=== PATIENT | male | born 1980 | race Caucasian/White ===

== ENCOUNTER 2016-08-15 17:32 | Inpatient (IN) | payer BC, OTHER ==
[2016-08-15] VITALS (14 sets, daily range): BP systolic 84–137; BP diastolic 51–77; PULSE 124–140; RESP 15–24; TEMP 98.5–101; O2SAT 91–100
[~2016-08-15] VITALS: Ht 182.9 cm; Wt 96.1 kg
[2016-08-15] MEDS ORDERED: MIDAZOLAM HCL 5 MG/ML VIAL (1 ML) ONE (17:44)
[2016-08-15] MEDS ORDERED: SODIUM CHLOR 0.9% 1000 ML INJ 700 ML IV ONE (17:47)
[2016-08-15] MEDS ORDERED: SODIUM CHLOR 0.9% 1000 ML INJ 1,000 ML IV ONE ×3 (17:47→23:00)
[2016-08-15] MEDS ORDERED: ACETAMINOPHEN 650 MG SUPP RECTAL ONE (18:00)
[2016-08-15] MEDS ORDERED: ONDANSETRON HCL 4 MG/2 ML VIAL IV ONE (18:00)
[2016-08-15] MEDS ORDERED: SUCCINYLCHOLINE CHLORIDE 200 MG/10 ML VIAL IV PUSH ONE (18:00)
[2016-08-15] MEDS ORDERED: MIDAZOLAM 100 MG/ML INJ 100 ML IV SCH (18:00)
[2016-08-15] MEDS ORDERED: ETOMIDATE 20 MG/10 ML VIAL IV PUSH ONE (18:00)
--- NOTE | 2016-08-15 18:08 | RADRPT ---
EXAM DATE/TIME: 08/15/2016 17:56 [facility] COMPARISON: No previous studies available for comparison. INDICATIONS : Found unresponsive RADIATION DOSE: 56.35 CTDIvol (mGy) MEDICAL HISTORY : Non-responsive. SURGICAL HISTORY : Non-responsive. ENCOUNTER: Initial ACUITY: 1 day PAIN SCALE: Non-responsive LOCATION: Bilateral cranial TECHNIQUE: Multiple contiguous axial images were obtained of the head. Using automated exposure control and adj ustment of the mA and/or kV according to patient size, radiation dose was kept as low as reasonably a chievable to obtain optimal diagnostic quality images. FINDINGS: CEREBRUM: The ventricles are normal for age. No evidence of midline shift, mass lesion, hemorrhage or acute in farction. No extra-axial fluid collections are seen. POSTERIOR FOSSA: The cerebellum and brainstem are intact. The 4th ventricle is midline. The cerebellopontine angle i s unremarkable. EXTRACRANIAL: The visualized portion of the orbits is intact. There is a small air-fluid level in the right maxilla ry sinus. There is a small retention cyst in the left maxillary sinus. There is also thickening in th e ethmoidal air cells. SKULL: The calvaria is intact. No evidence of skull fracture. CONCLUSION: 1. No acute hemorrhage or mass effect. 2. Sinusitis. Cruz Velasco MD on August 15, 2016 at 18:05 Board Certified Radiologist. This report was verified electronically.
--- NOTE | 2016-08-15 18:20 | PD ---
HPI Chief Complaint: Altered Mental Status Time Seen by Provider: 17:47 Travel History International Travel<30 days: No Contact w/Intl Traveler<30days: No Traveled to known affect area: No History of Present Illness HPI The patient is a 36-year-old male who presents to the emergency department via EMS after he was found down, on the ground, behind mildly rounds. According to EMS the patient was found on the ground behind a bar, had apparently been in the sun, on the ground, for over 4 hours. EMS states that when they arrived the patient was altered, diaphoretic, and warm to the touch. EMS states that the patient occasionally would respond to voices, however, his GCS was fluctuating. They do believe they found IV syringes and a patient's belongings. Upon arrival the patient had no gag reflex, would not respond to pain, and was hypoxic on a nonrebreather with an oxygen saturation 92% on nonrebreather 15 L. No further information was obtainable from the patient. EMS states that they administered several doses of Narcan to the patient prior to arrival with fluctuating results. Patient's blood glucose prior to arrival was 118. PFSH Past Medical History Medical History: Unable to Obtain Past Surgical History Surgical History: Unable to Obtain Other Surgery: Yes (TESTICULAR TORSION A CHILD) Social History Alcohol Use: Yes Tobacco Use: Yes Substance Use: Yes Allergies-Medications (Allergen,Severity, Reaction): Coded Allergies: No Known Allergies (Verified , 12/18/15) Reported Meds & Prescriptions Reported Meds & Active Scripts Active Active Prescriptions or Reported Medications Unobtainable Review of Systems ROS Limitations: Clinical Condition, Altered Mental Status Except as stated in HPI: all other systems reviewed are Neg General / Constitutional: Positive: Fever (fever 103 according to EMS) Cardiovascular: Positive: Diaphoresis Neurologic: Positive: Change in Mentation Physical Exam Narrative GENERAL: 36-year-old male appears older than his stated age, noted to have tachypnea and diaphoresis upon arrival. SKIN: Focused skin assessment hot to the touch, diaphoretic.. HEAD: Atraumatic. Normocephalic. EYES: Pupils equal and round. 3 mm bilateral with disconjugate gaze. ENT: No nasal bleeding or discharge. Dry mucous membranes. No gag reflex. NECK: Trachea midline. No JVD. CARDIOVASCULAR: Regular, tachycardic with a heart rate of 140. RESPIRATORY: Tachypnea, diminished breath sounds in the right base. GASTROINTESTINAL: Abdomen soft, non-tender, nondistended. No obvious distention. MUSCULOSKELETAL: No obvious deformities. No clubbing. No cyanosis. No edema. NEUROLOGICAL: Did not withdraw to pain, eyes close, nonverbal but would occasionally moan, would not follow commands. Back: No obvious injuries or bleeding. PSYCHIATRIC: Unable to obtain. Data Data Last Documented VS Vital Signs Date Time Temp Pulse Resp B/P Pulse Ox O2 Delivery O2 Flow Rate FiO2 08/15/16 18:58 100 100 08/15/16 18:51 140 18 119/68 Ventilator 08/15/16 17:40 101.0 Orders Midazolam Inj (Versed Inj) (08/15/16 17:44) Electrocardiogram (08/15/16 17:47) Complete Blood Count With Diff (08/15/16 17:47) Comprehensive Metabolic Panel (08/15/16 17:47) Prothrombin Time / Inr (Pt) (08/15/16 17:47) Act Partial Throm Time (Ptt) (08/15/16 17:47) Lactic Acid Sepsis Protocol (08/15/16 17:47) Magnesium (Mg) (08/15/16 17:47) Lipase (08/15/16 17:47) Ckmb (Isoenzyme) Profile (08/15/16 17:47) Troponin I (08/15/16 17:47) Urinalysis - C+S If Indicated (08/15/16 17:47) Influenzae A/B Antigen (08/15/16 17:47) Blood Culture (08/15/16 17:47) Chest, Single Ap (08/15/16 17:47) Arterial Blood Gas (Abg) (08/15/16 17:47) Blood Glucose (08/15/16 17:47) Ecg Monitoring (08/15/16 17:47) Iv Access Insert/Monitor (08/15/16 17:47) Oximetry (08/15/16 17:47) Oxygen Administration (08/15/16 17:47) Acetaminophen Supp (Tylenol Supp) (08/15/16 18:00) Ondansetron Inj (Zofran Inj) (08/15/16 18:00) Ct Brain W/O Iv Contrast(Rout) (08/15/16 17:47) Sodium Chlor 0.9% 1000 Ml Inj (Ns 1000 M (08/15/16 17:47) Sodium Chlor 0.9% 1000 Ml Inj (Ns 1000 M (08/15/16 17:47) Sodium Chlor 0.9% 1000 Ml Inj (Ns 1000 M (08/15/16 17:47) Neurological Rass Scale Q30MX2,Q2HX4,Q4H (08/15/16 17:47) ^ Infusion (08/15/16 17:47) Fentanyl Drip (Fentanyl Drip) (08/15/16 18:00) Midazolam Inj (Versed Inj) (08/15/16 18:00) Neurological Rass Scale Q30MX2,Q2HX4,Q4H (08/15/16 17:47) Etomidate Inj (Amidate Inj) (08/15/16 18:00) Succinylcholine Inj (Quelicin Inj) (08/15/16 18:00) Urinary Catheter Insert/Apply (08/15/16 17:47) Neurological Rass Scale Q30MX2,Q2HX4,Q4H (08/15/16 17:47) Neurological Rass Scale Q30MX2,Q2HX4,Q4H (08/15/16 17:47) Ammonia (08/15/16 18:04) Drug Screen, Random Urine (08/15/16 18:04) Midazolam Inj (Versed Inj) (08/15/16 18:27) Fentanyl Drip (Fentanyl Drip) (08/15/16 18:27) Ceftriaxone Inj (Rocephin Inj) (08/15/16 18:45) Vancomycin Consult Pharmacy (Vancomycin (08/15/16 19:00) Tylenol (Acetaminophen) (08/15/16 18:52) Salicylates (Aspirin) (08/15/16 18:52) Admit Order (Ed Use Only) (08/15/16 19:03) CKMB (08/15/16 18:00) CKMB% (08/15/16 18:00) Labs Laboratory Tests Test 08/15/16 08/15/16 08/15/16 08/15/16 17:50 18:00 18:05 18:07 Lactic Acid Level 5.2 mmol/L White Blood Count 30.2 TH/MM3 Red Blood Count 5.66 MIL/MM3 Hemoglobin 14.4 GM/DL Hematocrit 46.6 % Mean Corpuscular Volume 82.3 FL Mean Corpuscular Hemoglobin 25.5 PG Mean Corpuscular Hemoglobin 30.9 % Concent Red Cell Distribution Width 13.6 % Platelet Count 296 TH/MM3 Mean Platelet Volume 8.0 FL Neutrophils (%) (Auto) 85.3 % Lymphocytes (%) (Auto) 7.5 % Monocytes (%) (Auto) 6.8 % Eosinophils (%) (Auto) 0.3 % Basophils (%) (Auto) 0.1 % Neutrophils # (Auto) 25.8 TH/MM3 Lymphocytes # (Auto) 2.3 TH/MM3 Monocytes # (Auto) 2.1 TH/MM3 Eosinophils # (Auto) 0.1 TH/MM3 Basophils # (Auto) 0.0 TH/MM3 CBC Comment AUTO DIFF Differential Total Cells 100 Counted Neutrophils % (Manual) 62 % Band Neutrophils % 22 % Lymphocytes % 10 % Monocytes % 5 % Neutrophils # (Manual) 25.7 TH/MM3 Myelocytes 1 % Nucleated Red Blood Cells 1 /100 WBC Differential Comment FINAL DIFF MANUAL Atypical Lymphocytes % Platelet Estimate NORMAL Platelet Morphology Comment NORMAL Prothrombin Time 10.8 SEC Prothromb Time International 1.0 RATIO Ratio Activated Partial 22.9 SEC Thromboplast Time Sodium Level 142 MEQ/L Potassium Level 4.8 MEQ/L Chloride Level 107 MEQ/L Carbon Dioxide Level 19.6 MEQ/L Anion Gap 15 MEQ/L Blood Urea Nitrogen 28 MG/DL Creatinine 2.42 MG/DL Estimat Glomerular Filtration 30 ML/MIN Rate Random Glucose 70 MG/DL Calcium Level 8.6 MG/DL Magnesium Level 2.8 MG/DL Total Bilirubin 0.4 MG/DL Aspartate Amino Transf 825 U/L (AST/SGOT) Alanine Aminotransferase 639 U/L (ALT/SGPT) Alkaline Phosphatase 119 U/L Total Creatine Kinase 3505 U/L Creatine Kinase MB 38.6 NG/ML Creatine Kinase MB % 1.1 % Troponin I 0.89 NG/ML Total Protein 7.3 GM/DL Albumin 3.7 GM/DL Lipase 187 U/L Acetaminophen Level LESS THAN 2.0 MCG/ML Thyroid Stimulating Hormone 2.140 uIU/ML 3rd Gen Ammonia 79 MCMOL/L Urine Color YELLOW Urine Turbidity HAZY Urine pH 6.5 Urine Specific [place] 1.017 Urine Protein 100 mg/dL Urine Glucose (UA) NEG mg/dL Urine Ketones NEG mg/dL Urine Occult Blood LARGE Urine Nitrite NEG Urine Bilirubin NEG Urine Urobilinogen LESS THAN 2.0 MG/DL Urine Leukocyte Esterase NEG Urine RBC 2 /hpf Urine WBC 5 /hpf Microscopic Urinalysis Comment CATH-CULT NOT IND Urine Opiates Screen POS Urine Barbiturates Screen NEG Urine Amphetamines Screen NEG Urine Benzodiazepines Screen NEG Urine Cocaine Screen NEG Urine Cannabinoids Screen NEG Test 08/15/16 18:20 Blood Gas Puncture Site RT RADIAL Blood Gas Patient Temperature 98.6 Blood Gas HCO3 19 mmol/L Blood Gas Base Excess -6.0 mmol/L Blood Gas Oxygen Saturation 98 % Arterial Blood pH 7.29 Arterial Blood Partial 41 mmHg Pressure CO2 Arterial Blood Partial 351 mmHG Pressure O2 Arterial Blood Oxygen Content 20.6 Vol % Arterial Blood 1.3 % Carboxyhemoglobin Arterial Blood Methemoglobin 0.8 % Blood Gas Hemoglobin 14.4 G/DL Oxygen Delivery Device VENTILATOR Blood Gas Ventilator Setting A/C 14/550/5PEEP Blood Gas Inspired Oxygen 100 % MDM Medical Decision Making Medical Screen Exam Complete: Yes Emergency Medical Condition: Yes Medical Record Reviewed: Yes Interpretation(s) EKG reveals sinus tachycardia with a heart rate of 135. Q wave noted in lead V1 and V2. Last Impressions Head CT [id number]/15/[id number] Signed Impressions: Service Date/Time: July 17:56 - CONCLUSION: 1. No acute hemorrhage or mass effect. 2. Sinusitis. Cruz Velasco MD Chest X-Ray [id number]/15/[id number] Signed Impressions: Service Date/Time: July 18:14 - CONCLUSION: No acute cardiopulmonary disease. Kiesha Keating MD Laboratory Tests Test 08/15/16 08/15/16 17:50 18:00 Lactic Acid Level 5.2 mmol/L White Blood Count 30.2 TH/MM3 Red Blood Count 5.66 MIL/MM3 Hemoglobin 14.4 GM/DL Hematocrit 46.6 % Mean Corpuscular Volume 82.3 FL Mean Corpuscular Hemoglobin 25.5 PG Mean Corpuscular Hemoglobin 30.9 % Concent Red Cell Distribution Width 13.6 % Platelet Count 296 TH/MM3 Mean Platelet Volume 8.0 FL Neutrophils (%) (Auto) 85.3 % Lymphocytes (%) (Auto) 7.5 % Monocytes (%) (Auto) 6.8 % Eosinophils (%) (Auto) 0.3 % Basophils (%) (Auto) 0.1 % Neutrophils # (Auto) 25.8 TH/MM3 Lymphocytes # (Auto) 2.3 TH/MM3 Monocytes # (Auto) 2.1 TH/MM3 Eosinophils # (Auto) 0.1 TH/MM3 Basophils # (Auto) 0.0 TH/MM3 CBC Comment AUTO DIFF Prothrombin Time 10.8 SEC Prothromb Time International 1.0 RATIO Ratio Activated Partial 22.9 SEC Thromboplast Time Sodium Level 142 MEQ/L Potassium Level 4.8 MEQ/L Chloride Level 107 MEQ/L Carbon Dioxide Level 19.6 MEQ/L Anion Gap 15 MEQ/L Blood Urea Nitrogen 28 MG/DL Creatinine 2.42 MG/DL Estimat Glomerular Filtration 30 ML/MIN Rate Random Glucose 70 MG/DL Calcium Level 8.6 MG/DL Magnesium Level 2.8 MG/DL Aspartate Amino Transf 825 U/L (AST/SGOT) Albumin 3.7 GM/DL Lipase 187 U/L Differential Diagnosis Differential diagnosis includes drug ingestion, drug overdose, alcohol intoxication, meningitis, sepsis, pneumonia, dehydration, heat stroke, encephalopathy. Narrative Course IV was established, labs are drawn and sent, and the patient was placed on cardiac telemetry monitoring and continuous pulse oximetry monitoring. The patient did not have a gag reflex, had altered mental status, was not protecting his airway, was hypoxic on nonrebreather 92%. Therefore, the patient was intubated using rapid sequence intubation with etomidate, succinylcholine, and a glide scope. Patient was intubated using an 88.0 endotracheal tube. The patient was administered Versed 5 mg intravenously for sedation and then went to the CT suite for CT of the brain. Chest x-ray was obtained. Blood cultures and lactic acid were sent to lab. Ammonia level was sent to lab. The patient was administered 3 L of IV fluids and placed on a Versed and fentanyl drip for sedation. I reviewed the patient's EMR, it appears he has a history of IV drug abuse in the past. CT the brain is negative. Chest x-rays unremarkable, no evidence of pneumonia. Patient's white count is elevated at 30.2, creatinine is elevated at 2.42, patient appears to have acute renal failure with leukocytosis. I'm unsure if patient had drug overdose and heatstroke from laying out in sun versus infectious process such as meningitis. The patient was covered with Rocephin 2 g intravenously. The patient will be admitted to the on-call food safety technician. Critical Care Narrative Aggregate critical care time was 40 minutes. Time to perform other separately billable procedures was not included in the critical care time. My time did not include minutes spent treating any other patients simultaneously or on activities that did not directly contribute to the patient's treatment. The services I provided to this patient were to treat and/or prevent clinically significant deterioration that could result in: Anoxia, hypoxia, aspiration, sepsis, severe sepsis, septic shock, . I provided critical care services requiring my management, as noted below: Chart data review, documentation time, medication orders and management, vital sign assessments/reviewing monitor data, ordering and reviewing lab tests, ordering and interpreting/reviewing x-rays and diagnostic studies, care of the patient and discussion of the patient with the admitting physicians. Procedures Procedure Narrative INTUBATION: The patient was put in optimal position for the procedure. Rapid sequence intubation was initiated by me using 20 milligrams of etomidate IV and 100 milligrams of succinylcholine IV. The patient was intubated with a 8.0 cuffed endotracheal tube. Tube placement was confirmed by visualization of the tube and balloon passing through the cords, capnometry and subsequent chest x- ray. Breath sounds were equal and well aerated bilaterally postintubation. No breath sounds over stomach. Patient tolerated procedure well. Physician Communication Physician Communication The on-call food safety technician was paged for admission. I discussed the patient with Dr. Howard who agrees with admission. Diagnosis Primary Impression: Altered mental status Qualified Code: R40.2430 - Egan coma scale total score 3-8, unspecified time Additional Impressions: Leukocytosis Qualified Code: D72.829 - Leukocytosis, unspecified type Lactic acidosis Admitting Information Admitting Physician Requests: Admit Scripts Unable to Obtain Active Prescriptions or Reported Meds Condition: Critical Sudheer Kee MD Aug 15, 2016 18:20
[2016-08-15 18:24] LABS: AUTOMATED NEUTROPHIL # 25.8 TH/MM3 (1.8-7.7); BASOPHIL % 0.1 % (0.0-2.0); EOSINOPHIL # 0.1 TH/MM3 (0-0.4); EOSINOPHIL % 0.3 % (0.0-4.0); HEMATOCRIT 46.6 % (39.0-51.0); LYMPH % 7.5 % (9.0-44.0); LYMPHOCYTE # 2.3 TH/MM3 (1.0-4.8); MEAN CELL VOLUME 82.3 FL (80.0-100.0); MEAN CORPUSCULAR HEMOGLOBIN 25.5 PG (27.0-34.0); MEAN CORPUSCULAR HGB CONC 30.9 % (32.0-36.0); MONO % 6.8 % (0.0-8.0); NEUT % 85.3 % (16.0-70.0); PLATELET COUNT 296 TH/MM3 (150-450); RED BLOOD COUNT 5.66 MIL/MM3 (4.50-5.90); RED CELL DISTRIBUTION WIDTH 13.6 % (11.6-17.2); WHITE BLOOD COUNT 30.2 TH/MM3 (4.0-11.0)
--- NOTE | 2016-08-15 18:25 | RADRPT ---
EXAM DATE/TIME: 08/15/2016 18:14 [facility] COMPARISON: No previous studies available for comparison. INDICATIONS : Fever, post intubation. MEDICAL HISTORY : None. SURGICAL HISTORY : None. ENCOUNTER: Initial ACUITY: 1 day PAIN SCORE: Non-responsive. LOCATION: Bilateral chest FINDINGS: The lungs are clear without infiltrate, nodule, or mass. There is no appreciable pleural effusion fo r technique. Heart and mediastinum are unremarkable. ET tube is present with tip overlapping approxi mately 5 cm above the gloria. CONCLUSION: No acute cardiopulmonary disease. Kiesha Keating MD on August 15, 2016 at 18:21 Board Certified Radiologist. This report was verified electronically.
[2016-08-15] MEDS ORDERED: fentaNYL DRIP 250 ML ONE (18:27)
[2016-08-15] MEDS ORDERED: MIDAZOLAM 100 MG/ML INJ 100 ML ONE (18:27)
[2016-08-15 18:30] LABS: APTT (PATIENT) 22.9 SEC (24.3-30.1); PROTHROMBIN TIME - PATIENT 10.8 SEC (9.8-11.6)
[2016-08-15] MEDS: fentaNYL DRIP 250 ML IV SCH (18:33)
[2016-08-15 18:37] LABS: HEMO FLAGS AUTO DIFF
[2016-08-15 18:42] LABS: ANION GAP 15 MEQ/L (5-15); AST (GOT) 825 U/L (15-37); BICARBONATE 19.6 MEQ/L (21.0-32.0); BLOOD UREA NITROGEN 28 MG/DL (7-18); CHLORIDE 107 MEQ/L (98-107); GLOMERULAR FILTRATION RATE 30 ML/MIN (>89); MAGNESIUM 2.8 MG/DL (1.5-2.5); POTASSIUM 4.8 MEQ/L (3.5-5.1); SODIUM (NA) 142 MEQ/L (136-145)
[2016-08-15 18:45] LABS: BLOOD, URINE LARGE (NEG); COMMENT (UR) CATH-CULT NOT IND; CULTURE IF INDICATED CATH CULTURE NOT IND; GLUCOSE,URINE NEG (NEG); KETONE, URINE NEG (NEG); NITRITE,URINE NEG (NEG); PH, URINE 6.5 (5.0-8.5); URINE COLOR YELLOW (YELLW/STRAW)
[2016-08-15] MEDS ORDERED: cefTRIAXone INJ 2,000 MG in SODIUM CHLORIDE 0.9% INJ 100 ML IV ONE (18:45)
[2016-08-15 18:46] LABS: AMPHETAMINE, URINE NEG (NEG); BARBITURATES, URINE NEG (NEG); COCAINE, URINE NEG (NEG)
[2016-08-15 18:47] LABS: BLOOD GAS CARBOXYHEMOGLOBIN 1.3 % (0-4); BLOOD GAS HCO3 19 mmol/L (22-26); BLOOD GAS METHEMOGLOBIN 0.8 % (0-2); BLOOD GAS O2 HGB SATURATION 98 % (90-100); BLOOD GAS OXYGEN CONTENT 20.6 Vol % (12.0-20.0); BLOOD GAS PCO2 41 mmHg (38-42); BLOOD GAS PO2 351 mmHG (61-120); BLOOD GAS TOTAL HGB 14.4 G/DL (12.0-16.0); TEMP CORR TO 98.6
[2016-08-15 18:48] LABS: CRITICAL VALUE YES; DRAW SITE RT RADIAL; FIO2 100 %; NUMBER OF ARTERIAL PUNCTURES 1; OXYGEN DEVICE VENTILATOR; STAT YES; ULNAR PULSE PRESENT; VENT SETTINGS A/C 14/550/5PEEP
[2016-08-15] MEDS ORDERED: Vancomycin Consult Pharmacy 1 EA OTHER SCH (19:00)
[2016-08-15 19:10] LABS: ALKALINE PHOSPHATASE 119 U/L (45-117); ALT (GPT) 639 U/L (12-78); CREATINE KINASE 3505 U/L (39-308); TOTAL BILIRUBIN ADULT 0.4 MG/DL (0.2-1.0)
[2016-08-15 19:27] LABS: CKMB 38.6 NG/ML (0.5-3.6)
--- NOTE | 2016-08-15 19:33 | HHI.HP ---
HPI Service Critical Care Medicine Primary Care Physician No Primary Care Physician Admission Diagnosis respiratory distress, hypoxia, SIRS, altered mental status Diagnosis: Travel History International Travel<30 Days: No Contact w/Intl Traveler <30 Da: No Traveled to Known Affected Are: No History of Present Illness 36-year-old male who was found down unresponsive outside of a bar. By report, he had been down outside for about 4 hours when [facility] arrived. He reportedly had syringes and IV drug paraphernalia with him. There was minimal if any response to IV Narcan by [facility]. He was intubated upon arrival to the ED for airway protection by Dr. Kee. He had no eye opening, no motor response to noxious stimuli, and no gag. Sats were about 90% on 100% NR. He was diaphoretic and temp was 101. ED workup included CT brain with the impression of sinusitis and no acute abnormality. He had rhabdomyolysis with a CPK of 3500 , BUN 28/creatinine of 1.42, white blood cell count of 30.2 with 22% bands. Urinalysis was relatively unremarkable except for consistent with myoglobinuria. CXR unremarkable. 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 I reviewed EMR and did not note any surgical history documented at prior visits Reported Medications Unable to obtain from patient due to clinical condition. Family History Unable to obtain from patient due to clinical condition. Social History Unable to obtain from patient due to clinical condition. He did report h/o IVDU with Dilaudid during ED visit in 05/2015 Physical Exam Vital Signs Vital Signs Date Time Temp Pulse Resp B/P Pulse Ox O2 Delivery O2 Flow Rate FiO2 08/15/16 18:58 100 100 08/15/16 18:51 140 18 119/68 100 Ventilator 08/15/16 18:20 99 Ventilator 08/15/16 18:20 134 99 08/15/16 18:20 133 20 121/74 99 Ventilator 08/15/16 18:18 136 24 117/73 99 Ventilator 08/15/16 17:53 100 100 08/15/16 17:40 101.0 140 24 137/77 93 Physical Exam Temp 101 Sinus tach in the 130s blood pressure 119/68 sats 92% on 60% FiO2 on mechanical ventilation Drips: Fentanyl 100 g per hour Versed 4 mg/hr. GENERAL: Disheveled male who is orotracheally intubated. He has a full gómez. SKIN: Warm and dry. There is some redness to lower left back just above iliac crest. No rash, no petechiae. HEAD: Atraumatic. Normocephalic. EYES: Pupils pinpoint bilaterally and sluggishly reactive. Bilateral conjunctival injection. No icterus. ENT: No nasal bleeding or discharge. Mucous membranes pink, dry. NECK: Trachea midline. Jugular veins are flat. Neck is supple without meningismus. CARDIOVASCULAR: Tachycardic in the mid 130s, regular, no murmur rub or gallop appreciated. RESPIRATORY: Overbreaths vent, coarse breath sounds L>R base. No wheezes. No accessory muscle use. GASTROINTESTINAL: Abdomen soft, non-tender, nondistended. Bowel sounds hypoactive : Mejia in place with dark eda urine output. MUSCULOSKELETAL: Extremities without clubbing, cyanosis, or edema. No obvious deformities. NEUROLOGICAL: Initially upon evaluation in the ED patient had been sedated and was unresponsive to deep noxious stimuli. He was subsequently examined after arrival to [facility]. He did have eye opening but did not make eye contact. He withdrew with all extremities and also moved all extremities spontaneously. Does not follow commands. No abnormal response to Babinski. No clonus. Laboratory Laboratory Tests Test 08/15/16 08/15/16 08/15/16 08/15/16 17:50 18:00 18:05 18:07 Lactic Acid Level 5.2 White Blood Count 30.2 Red Blood Count 5.66 Hemoglobin 14.4 Hematocrit 46.6 Mean Corpuscular Volume 82.3 Mean Corpuscular Hemoglobin 25.5 Mean Corpuscular Hemoglobin 30.9 Concent Red Cell Distribution Width 13.6 Platelet Count 296 Mean Platelet Volume 8.0 Neutrophils (%) (Auto) 85.3 Lymphocytes (%) (Auto) 7.5 Monocytes (%) (Auto) 6.8 Eosinophils (%) (Auto) 0.3 Basophils (%) (Auto) 0.1 Neutrophils # (Auto) 25.8 Lymphocytes # (Auto) 2.3 Monocytes # (Auto) 2.1 Eosinophils # (Auto) 0.1 Basophils # (Auto) 0.0 CBC Comment AUTO DIFF Prothrombin Time 10.8 Prothromb Time International 1.0 Ratio Activated Partial 22.9 Thromboplast Time Sodium Level 142 Potassium Level 4.8 Chloride Level 107 Carbon Dioxide Level 19.6 Anion Gap 15 Blood Urea Nitrogen 28 Creatinine 2.42 Estimat Glomerular Filtration 30 Rate Random Glucose 70 Calcium Level 8.6 Magnesium Level 2.8 Total Bilirubin 0.4 Aspartate Amino Transf 825 (AST/SGOT) Alanine Aminotransferase 639 (ALT/SGPT) Alkaline Phosphatase 119 Total Creatine Kinase 3505 Creatine Kinase MB 38.6 Creatine Kinase MB % 1.1 Troponin I 0.89 Total Protein 7.3 Albumin 3.7 Lipase 187 Ammonia 79 Urine Color YELLOW Urine Turbidity HAZY Urine pH 6.5 Urine Specific [place] 1.017 Urine Protein 100 Urine Glucose (UA) NEG Urine Ketones NEG Urine Occult Blood LARGE Urine Nitrite NEG Urine Bilirubin NEG Urine Urobilinogen LESS THAN 2.0 Urine Leukocyte Esterase NEG Urine RBC 2 Urine WBC 5 Microscopic Urinalysis Comment CATH-CULT NOT IND Urine Opiates Screen POS Urine Barbiturates Screen NEG Urine Amphetamines Screen NEG Urine Benzodiazepines Screen NEG Urine Cocaine Screen NEG Urine Cannabinoids Screen NEG Test 08/15/16 18:20 Blood Gas Puncture Site RT RADIAL Blood Gas Patient Temperature 98.6 Blood Gas HCO3 19 Blood Gas Base Excess -6.0 Blood Gas Oxygen Saturation 98 Arterial Blood pH 7.29 Arterial Blood Partial 41 Pressure CO2 Arterial Blood Partial 351 Pressure O2 Arterial Blood Oxygen Content 20.6 Arterial Blood 1.3 Carboxyhemoglobin Arterial Blood Methemoglobin 0.8 Blood Gas Hemoglobin 14.4 Oxygen Delivery Device VENTILATOR Blood Gas Ventilator Setting A/C 14/550/5PEEP Blood Gas Inspired Oxygen 100 Date/Time Procedure Status Source Growth 08/15/16 18:05 Influenza Types A,B Antigen (NATHALY) - Final Complete Nasal Aspirate Positive For Flu A Antigen 08/15/16 18:00 Aerobic Blood Culture Received Blood Peripheral Pending 08/15/16 18:00 Anaerobic Blood Culture Received Blood Peripheral Pending Result Diagram: 08/15/16 1800 08/15/16 1800 Septic Shock Reassessment Heart: Other (tachycardic) Lungs: Course Skin: Warm Capillary Refill: >2 seconds Assessment and Plan Assessment and Plan NEURO: Acute encephalopathy Hyperammonemia (ammonia level 79) Obtain Tylenol and salicylate level, ETOH level. UDS + for opiates. Lactulose 30 bid for hyperammonemia, f/u ammonia level. CT brain - sinusitis, otherwise no acute abnormality. Lumbar puncture performed: 6 WBC, 2 RBC, 107 glucose, mildly elevated protein at 49.9. Opening pressure elevated, 29.5 cm H20. Ordered MRI which demonstrated diffusion abnormalities of L parietal and R temporal lobe. ?acute infarction Ordered MRA brain and neck negative. Consulted neurology. Abx management as per below. Thiamine/multivitamin/folic acid supplementation. Monitor for evidence of alcohol withdrawal Sedation with fentanyl and versed. Did not tolerate propofol initially due to hypotension, but may tolerate better once fluid resuscitated. Propofol or precedex would ultimately be a better sedation choice to avoid prolonged sedation in this patient with renal insufficiency. RESP: Acute respiratory failure Every 6 hours. Albuterol every 2 hours as needed Daily spontaneous breathing trial. CXR with satisfactory endotracheal tube position. No infiltrate noted. CV: Elevated troponin, suspect type II NSTEMI due to sepsis/hypoxia. Follow serial troponins and EKG. Obtain 2-D echo. Serial lactic acid trend per sepsis protocol. Given aspirin 161 x1. Would not anticoagulate at this time based on overall clinical picture and lumbar puncture. GI: Transaminitis Nothing by mouth. OGT tube to low intermittent wall suction. Initiate enteral feeds in 24 hours if not extubating. Obtain liver ultrasound. Obtain Viral hepatitis panel. Follow-up LFTs FEN/RENAL: Acute kidney injury Acute rhabdomyolysis Hyperkalemia Mejia inserted. Monitor intake and output. Monitor electrolytes. Likely appears dry. Given 3 L normal saline in the emergency Department. Bolus and additional liter and ongoing resuscitation fluid 150/hr. Initial potassium was 4.8. Potassium increased to 6.6 without apparent hemolysis. Given calcium, kayexalate 15 tube. Repeat K downtrended. D5 150 MEQ bicarb @ 150 ml/hr. Trend CPK. Nephrology consulted ID: Leukocytosis Severe sepsis Lactic acidemia Influenza A h/o orolabial herpes simplex h/o IVDU Initially covered empirically for meningitis with Rocephin 2 g IV every 12 and vancomycin. CSF studies were not consistent with bacterial meningitis and patient had apparent clinical aspiration (despite negative CXR). Started on zosyn and will continue vancomycin. Tamiflu started due to Influenza A. Started acyclovir empiric 10 mg/kg q12 (dose timing adjusted for renal dysfunction) for HSV encephalitis, however will need to discontinue promptly if HSV PCR negative in view of JUAN M. Noted MRI findings ?secondary to influenza A associated increased ischemic risk ?embolic phenomenon. Transthoracic 2-D echo pending, evaluate for vegetations. May need ASHLEIGH. Consult Infectious disease and followup neurology recommendations as well. HEME: Monitor CBC ENDO: Check TSH Mild hypoglycemia. On fluids with D5 as per above. Monitor bedside glucose every 4 hours PROPH: SCDs for DVT prophylaxis. Start heparin subcutaneous for DVT prophylaxis 24 hours after lumbar puncture. Famotidine for stress ulcer prophylaxis. ACCESS: Peripheral IV providing adequate access at this time. Will place central venous line if needed. Discussed with Dr. Kee. Discussed with ED RN. Discussed with [facility] RN. Patient is full code. There is no family available Critical care time 78 minutes exclusive of separately billable procedures. Lo Howard MD Aug 15, 2016 19:33
--- NOTE | 2016-08-15 19:33 | PD.PROCEDR ---
Procedure Note Procedure PROCEDURE: Lumbar Puncture. INDICATION: Altered mental status, leukocytosis, fever CONSENT: Patient is not capacitated for medical decision-making. There is no family available for consent. It is in patient's best interest to proceed with lumbar puncture for complete evaluation of his altered mental status with possible meningitis. Dr. Sudheer Kee agrees with this PROCEDURE SUMMARY: A time-out was performed. The patient was placed in the right lateral decubitus position in a semi- position with help from the nursing staff. Landmarks were identified. Sterile technique including hat, gown, sterile gloves was used. The area was cleansed with chlorhexidine x3 and draped in usual sterile fashion. Anesthesia was achieved with 1% lidocaine. A 20-gauge 3.5 -inch spinal needle was placed in the L4-L5 interspace. On the first attempt, clear cerebral spinal fluid was obtained. The opening pressure was 29 cm H2O. Four tubes were filled with 1.5 mL of CSF. Tubes were sent to lab. Patient tolerated procedure well without apparent complication. ESTIMATED BLOOD LOSS: <1 cc. Lo Howard MD Aug 15, 2016 19:33
[2016-08-15] MEDS ORDERED: SODIUM CHLOR 0.9% 1000 ML INJ 1,000 ML IV SCH (19:45)
[2016-08-15] MEDS ORDERED: fentaNYL DRIP 250 ML IV SCH (20:00)
[2016-08-15] MEDS: DEXT 5%-NACL 0.9% 1000 ML INJ 1,000 ML IV SCH (20:00)
[2016-08-15] MEDS ORDERED: SODIUM CHLORIDE 0.9% FLUSH 10 ML FLUSH PRN (20:00)
[2016-08-15] MEDS ORDERED: MISCELLANEOUS NURSING INFORMATION XX SCH (20:00)
[2016-08-15] MEDS ORDERED: RESP: ALBUTEROL 2.5 MG/3 ML NEB (PRN) INH (20:00)
[2016-08-15] MEDS ORDERED: VANCOMYCIN INJ 2,000 MG in SODIUM CHLORID 0.9% 500 ML INJ 500 ML IV ONE (20:00)
[2016-08-15] MEDS ORDERED: CHLORHEXIDINE GLUCONATE 2 % 1 PACK (2 CLOTHS) TOP PRN (20:00)
[2016-08-15 20:10] LABS: LACTIC ACID GHOST NOT REPORTABLE
[2016-08-15 20:16] LABS: BANDS 22 % (0-6); CORRECTED NUCLEATED RBC 1 /100 WBC (0-0); MYELOCYTES 1 % (0-0); NEUTROPHIL # MANUAL DIFF 25.7 TH/MM3 (1.8-7.7); POLYS (SEG NEUTROPHILS) 62 % (16-70); WBC DIFF SAMPLE 100
[2016-08-15 20:18] LABS: PLATELET ESTIMATE SMEAR NORMAL (NORMAL); PLATELET MORPHOLOGY NORMAL (NORMAL); SCAN/DIFF FINAL DIFF MANUAL
--- NOTE | 2016-08-15 20:57 | EKG ---
Date Performed: 08/15/2016 Time Performed: 18:25:15 PTAGE: 36 years EKG: SINUS TACHYCARDIA Possible SEPTAL MYOCARDIAL INFARCTION ABNORMAL ECG COMPARED TO PRIOR ELEC TROCARDIOGRAM, Rate has increased. PREVIOUS TRACING : 06/18/2015 19.28 DOCTOR: Jonathan Min Interpretating Date/Time 08/15/2016 20:56:37
[2016-08-15] MEDS: OSELTAMIVIR PHOSPHATE 6 MG/ML 60 ML SUSP OG-TUBE SCH (21:00)
[2016-08-15 21:28] LABS: GROSS BLOOD TUBE #1 0 (0); SUPERNATE COLOR TUBE #1 CLEAR (CLEAR); SUPERNATE COLOR TUBE #2 CLEAR (CLEAR); VOLUME TUBE # 1 0.8 ML; VOLUME TUBE # 2 0.9 ML
[2016-08-15 21:29] LABS: CSF LYMPHOCYTES 95 %; CSF MONOCYTES 5 %; CSF NEUTROPHILS 0 %; GROSS BLOOD TUBE #2 0 (0); GROSS BLOOD TUBE #3 0 (0); GROSS BLOOD TUBE #4 0 (0); SUPERNATE COLOR TUBE #3 CLEAR (CLEAR); SUPERNATE COLOR TUBE #4 CLEAR (CLEAR); VOLUME TUBE # 3 1.9 ML; VOLUME TUBE # 4 0.9 ML; WBC TUBE #2 6 /MM3 (0-10)
--- NOTE | 2016-08-15 21:47 | RADRPT ---
EXAM DATE/TIME: 08/15/2016 21:05 [facility] COMPARISON: CT BRAIN W/O CONTRAST, August 15, 2016, 17:56. INDICATIONS : Patient found unresponsive. MEDICAL HISTORY : Unknown SURGICAL HISTORY : Unknown. ENCOUNTER: Initial ACUITY: 1 day PAIN SCORE: Nonresponsive. LOCATION: Head. TECHNIQUE: Multiplanar, multisequence MRI of the brain was performed without contrast. FINDINGS: There is a vague area of bright signal involving the left posterior parietal white matter tracts in addition to right posterior temporal on the diffusion portion questionable for mild areas of acut e infarction, however the appearance is nonspecific. There is no hemorrhage or mass effect. CONCLUSION: Vague area of possible diffusion abnormalities in the left parietal and right temporal lobe without c orrelative findings on the other sequences questionable for possible acute infarction, however the ap pearance is nonspecific. There is no hemorrhage or mass effect. Kiesha Keating MD on August 15, 2016 at 21:42 Board Certified Radiologist. This report was verified electronically.
[2016-08-15] MEDS: RESP: ALBUTEROL 2.5 MG/IPRATROPIUM 0.5 MG NEB (SCH) INH (22:03)
[2016-08-16] VITALS (16 sets, daily range): BP systolic 86–145; BP diastolic 55–80; PULSE 109–121; RESP 14–18; TEMP 98.6–100.4; O2SAT 94–99
--- NOTE | 2016-08-16 00:30 | RADRPT ---
EXAM DATE/TIME: 08/15/2016 23:31 [facility] COMPARISON: No previous studies available for comparison. INDICATIONS : CVA. Pt. found unresponsive. MEDICAL HISTORY : Unknown. SURGICAL HISTORY : Unknown. ENCOUNTER: Subsequent ACUITY: 1 day PAIN SCORE: Nonresponsive. LOCATION: cranial Please note a normal MRA of the brain does not entirely exclude the possibility of a small aneurysm, nor the possibility of distal intracranial vessel disease. TECHNIQUE: 3D time of flight MRA was performed. Source images, multiplanar STS MIP, and 3D volume MIP reconstru ctions were reviewed. FINDINGS: There is excellent visualization of the major intracranial arteries out to the second-order branch ve ssels. There is no evidence for aneurysm, vessel truncation or stenosis, and no evidence for vascula r malformation. Left vertebral artery is dominant. CONCLUSION: Normal intracranial MRA. Eleazar Viera MD on August 16, 2016 at 0:28 Board Certified Radiologist. This report was verified electronically.
[2016-08-16 00:41] LABS: CKMB 328.2 NG/ML (0.5-3.6)
[2016-08-16] MEDS ORDERED: MIDAZOLAM HCL 2 MG/2 ML VIAL IV PUSH PRN (00:45)
[2016-08-16] MEDS: MIDAZOLAM 100 MG/ML INJ 100 ML IV SCH ×3 (00:53→18:12)
[2016-08-16] MEDS: CHLORHEXIDINE 0.12% (ORAL KIT) 15 ML CUP MT SCH ×3 (00:56→21:16)
[2016-08-16] MEDS: ACYCLOVIR INJ 900 MG in SODIUM CHLORIDE 0.9% INJ 150 ML IV SCH ×2 (00:57→12:36)
[2016-08-16] MEDS: PIPERACIL-TAZO 4.5 GM PREMIX 100 ML IV SCH ×4 (00:57→18:12)
[2016-08-16] MEDS: SODIUM CHLORIDE 0.9% FLUSH 10 ML FLUSH SCH ×3 (00:57→21:00)
[2016-08-16] MEDS: LACTULOSE SYRUP 20 GM/30 ML CUP OG-TUBE SCH ×3 (01:02→21:12)
[2016-08-16] MEDS: FAMOTIDINE 20 MG TAB OG-TUBE SCH ×3 (01:02→21:12)
--- NOTE | 2016-08-16 01:10 | RADRPT ---
EXAM DATE/TIME: 08/15/2016 23:31 [facility] COMPARISON: No previous studies available for comparison. INDICATIONS : Altered mental status. CVA. MEDICAL HISTORY : Unknown. SURGICAL HISTORY : Unknown. ENCOUNTER: Subsequent ACUITY: 1 day PAIN SCORE: Nonresponsive. LOCATION: cranial Percent stenosis is calculated using the diameter of the stenotic region over the diameter of the nor mal distal internal carotid artery. TECHNIQUE: 3D time of flight MRA of the extracranial circulation was performed using a neurovascular coil. Post processing was performed including rotating subvolume maximum intensity projections of each carotid artery, rotating full-volume maximum intensity projections of both carotid arteries, sagittal and cor onal sliding thin-slab reformations of each carotid artery, and left oblique sliding thin slab reform ation through the aortic arch to include the origin of the arch branch vessels. FINDINGS: Study is motion degraded. Scan was attempted twice. AORTIC ARCH: There is a three vessel origin of the great vessels from the aorta. No evidence of ostial narrowing. RIGHT CAROTID: The common carotid artery is intact. The carotid bulb has a normal configuration without ulceration or narrowing. The internal carotid artery lumen is smooth without stenosis. The external carotid ar simona is intact. LEFT CAROTID: The common carotid artery is intact. The carotid bulb has a normal configuration without ulceration or narrowing. The internal carotid artery lumen is smooth without stenosis. The external carotid ar simona is intact. VERTEBRALS: The vertebral arteries have a symmetric diameter. No stenotic lesions are seen. CONCLUSION: Motion degraded study without a definite abnormality. No stenosis demonstrated. Evaluation for caroti d dissection difficult. If clinical concern persists and patient's renal function can tolerate, a CTA is suggested. Eleazar Viera MD on August 16, 2016 at 1:06 Board Certified Radiologist. This report was verified electronically.
[2016-08-16 02:27] LABS: AUTOMATED NEUTROPHIL # 18.5 TH/MM3 (1.8-7.7); BASOPHIL % 0.2 % (0.0-2.0); HEMATOCRIT 47.8 % (39.0-51.0); LYMPH % 10.5 % (9.0-44.0); LYMPHOCYTE # 2.4 TH/MM3 (1.0-4.8); MEAN CELL VOLUME 80.9 FL (80.0-100.0); MEAN CORPUSCULAR HEMOGLOBIN 26.4 PG (27.0-34.0); MEAN CORPUSCULAR HGB CONC 32.6 % (32.0-36.0); MONO % 8.9 % (0.0-8.0); NEUT % 80.4 % (16.0-70.0); PLATELET COUNT 263 TH/MM3 (150-450); RED BLOOD COUNT 5.91 MIL/MM3 (4.50-5.90); RED CELL DISTRIBUTION WIDTH 13.8 % (11.6-17.2)
[2016-08-16 02:28] LABS: HEMO FLAGS AUTO DIFF
[2016-08-16 02:39] LABS: BICARBONATE 19.8 MEQ/L (21.0-32.0); MAGNESIUM 2.3 MG/DL (1.5-2.5)
[2016-08-16] MEDS: DEXT 5%-NACL 0.9% 1000 ML INJ 1,000 ML IV SCH (02:40)
[2016-08-16 02:54] LABS: TOTAL BILIRUBIN ADULT 0.5 MG/DL (0.2-1.0)
[2016-08-16 02:55] LABS: PLATELET ESTIMATE SMEAR NORMAL (NORMAL); PLATELET MORPHOLOGY NORMAL (NORMAL); SCAN/DIFF AUTO DIFF CONFIRMED
[2016-08-16 02:57] LABS: CALCIUM-PROTEIN CORRECTED 7.3 MG/DL (8.5-10.1); POTASSIUM 6.6 MEQ/L (3.5-5.1)
[2016-08-16] MEDS: CHLORHEXIDINE GLUCONATE 2 % 1 PACK (2 CLOTHS) TOP SCH (04:00)
[2016-08-16] MEDS ORDERED: ASPIRIN 81 MG CHEW TAB OG-TUBE ONE (04:00)
[2016-08-16] MEDS ORDERED: CALCIUM CHLORIDE INJ 1 GM in DEXTROSE 5% IN WATER 100ML INJ 100 ML IV ONE ×2 (04:00)
[2016-08-16] MEDS ORDERED: SODIUM POLYSTYRENE SULFONATE SUSP 15 GM/60 ML CUP OG-TUBE ONE (04:00)
[2016-08-16 04:12] LABS: LACTIC ACID GHOST NOT REPORTABLE
[2016-08-16] MEDS: RESP: ALBUTEROL 2.5 MG/IPRATROPIUM 0.5 MG NEB (SCH) INH ×3 (04:23→21:25)
--- NOTE | 2016-08-16 06:00 | EKG ---
Date Performed: 08/15/2016 Time Performed: 22:01:50 PTAGE: 36 years EKG: SINUS TACHYCARDIA ABNORMAL RHYTHM ECG No significant change from prior electrocardiogram. PREVIOUS TRACING : 08/15/2016 18.25 DOCTOR: Jonathan Min Interpretating Date/Time 08/16/2016 05:59:03
[2016-08-16] MEDS: MULTIVITAMIN TAB OG-TUBE SCH ×2 (06:07→09:58)
--- NOTE | 2016-08-16 06:28 | RADRPT ---
EXAM DATE/TIME: 08/16/2016 05:13 [facility] COMPARISON: CHEST SINGLE AP, August 15, 2016, 18:14. INDICATIONS : Shortness of breath. MEDICAL HISTORY : Unobtainable. SURGICAL HISTORY : Unobtainable. ENCOUNTER: Subsequent ACUITY: 2 days PAIN SCORE: Non-responsive. LOCATION: Bilateral chest FINDINGS: Mild bibasilar consolidation and probable small effusions developing. No pneumothorax seen. Heart size stable, within normal limits. Endotracheal tube tip is about 5 cm above the gloria. Nasogastric tube courses into the stomach. CONCLUSION: Mild bibasilar consolidation and small effusions developing. Lines and tubes unchanged. Eleazar Viera MD on August 16, 2016 at 6:24 Board Certified Radiologist. This report was verified electronically.
[2016-08-16] MEDS ORDERED: SODIUM BICARBONATE 8.4% INJ 50 MEQ/50 ML SYR IV PUSH ONE (06:45)
[2016-08-16] MEDS ORDERED: cefTRIAXone INJ 2,000 MG in SODIUM CHLORIDE 0.9% INJ 100 ML IV SCH (07:00)
[2016-08-16] MEDS ORDERED: RESP: ALBUTEROL 2.5 MG/3 ML NEB (PRN) NEB (09:00)
[2016-08-16] MEDS: FOLIC ACID 1 MG TAB OG-TUBE SCH (09:58)
[2016-08-16] MEDS: SODIUM BICARBONATE 8.4% INJ 150 MEQ in DEXTROSE 5% IN WATE 1000ML INJ 1,000 ML IV SCH ×4 (10:02→18:12)
[2016-08-16] MEDS: THIAMINE INJ 100 MG in SODIUM CHLORIDE 0.9% INJ 100 ML IV SCH (10:02)
--- NOTE | 2016-08-16 10:05 | EKG ---
Date Performed: 08/16/2016 Time Performed: 07:33:58 PTAGE: 36 years EKG: SINUS TACHYCARDIA ABNORMAL RHYTHM ECG NO SIGNIFICANT CHANGE FROM PRIOR ELECTROCARDIOGRAM. PREVIOUS TRACING : 08/15/2016 22.01 DOCTOR: Jonathan Min Interpretating Date/Time 08/16/2016 10:04:34
--- NOTE | 2016-08-16 10:17 | MB ---
cc: SHARONA AKBAR M.D. DATE OF CONSULTATION 08/16/2016 REASON FOR CONSULTATION Mental status change, possible stroke. HISTORY OF PRESENT ILLNESS Mr. Castro is a 36-year-old man who was found unresponsive outside of a bar yesterday. He was brought to the hospital and has been minimally responsive. He is intubated. He has been agitated. No focal deficits noted. He is intubated for airway protection in the ER. He was just given IV Narcan by [facility] with no change. Apparently was found to have IV drug paraphernalia on him and syringes. Initial CPK was elevated suggestive of rhabdomyolysis. PAST MEDICAL HISTORY 1. History of oral herpes simplex. 2. History of IV drug abuse. 3. There is a history of IV Dilaudid use in May 2015. NEUROLOGIC EXAMINATION The patient is currently sedated with fentanyl. Prior to that, he was very combative. VITAL SIGNS: His blood pressure is 100/58, pulse is 111, temperature 98 degrees. HIGHER CORTICAL FUNCTION: He is not responsive having been given sedation. He has a disconjugate gaze. The pupils are equal. MOTOR EXAM: On motor exam, he moves both upper and lower extremities equally. There is no withdrawal. No Babinski. CT of the brain unremarkable. MRI of the brain shows questionable diffusion abnormalities left parietal and right temporal lobe. Other sequences are normal, however. There is a possibility of possible stroke, although given the fact that there are no other findings or other sequences, this could be artifactual in nature and no hemorrhage is identified. In addition, he had an MR angiogram of the brain which was normal intracranially, MRA of the neck was limited somewhat by motion artifact. No definite stenosis was identified, although somewhat limited as noted above. LABORATORY DATA White count is 23,000, hemoglobin 15.6, hematocrit is 47.8%, platelet count 263,000. His PT 10.8, INR 1, APTT 22.9. Sodium is 142, potassium is 5, BUN is 42, creatinine 2.34, ammonia level 47. EKG shows sinus tachycardia, possible [place]. IMPRESSION Acute mental status change. Based on the MRI, there is a possibility of bilateral strokes versus artifact. Certainly with his history of IV drug abuse, the possibility of valve vegetation with secondary mycotic aneurysm and stroke due to septic emboli would be a consideration, rule out seizure with encephalopathy postictal state. His tox screen was positive as well and also the effect of drug abuse is also a consideration. RECOMMENDATIONS Would recommend repeating the MRI of the brain tomorrow to further evaluate the findings to see if there are any changes evolving suggesting a stroke. We will obtain an echocardiogram to rule out valve vegetations as well. Also EEG to rule out seizure focus. MD MIRLANDE Espinosa/JEWELL /9:51 AM /10:09 AM
[2016-08-16] MEDS: OSELTAMIVIR PHOSPHATE 6 MG/ML 60 ML SUSP OG-TUBE SCH ×2 (10:37→21:12)
--- NOTE | 2016-08-16 11:07 | MG ---
cc: SHARONA AKBAR Lab No: Date: 08/16/2016 Age: Sex: M Race: TECHNIQUE 17 channel EEG. DESCRIPTION The background rhythm reveals generalized slowing in the delta frequency at roughly 3-4 Hz. The amplitude is 20-30 microvolts. There are no lateralizing features. There are no epileptiform discharges present. Photic stimulation does not elicit a driving response. INTERPRETATION Abnormal study with diffuse slowing consistent with a severe encephalopathy. MD MIRLANDE Espinosa/inder /11:02 AM /11:07 AM
--- NOTE | 2016-08-16 11:08 | RADRPT ---
EXAM DATE/TIME: 08/16/2016 08:03 [facility] COMPARISON: No previous studies available for comparison. INDICATIONS : Increased lab values. MEDICAL HISTORY : Substance use. SURGICAL HISTORY : Testicular torsion as child. ENCOUNTER: Initial ACUITY: 2 days PAIN SCORE: Nonresponsive. LOCATION: Bilateral upper quadrant MEASUREMENTS: LIVER: 17.6 cm length COMMON DUCT: 6 mm RIGHT KIDNEY: 13.2 x 5.6 x 5.2 cm SPLEEN: 10.8 cm length FINDINGS: Ultrasound of the upper abdomen demonstrates normal echogenicity of the liver. No intrahepatic or ext ra hepatic ductal dilatation is seen. There is hepatopedal flow through the portal vein. A small kalpesh unt fluid is present in the hepatorenal fossa. There is a single stone within the gallbladder without wall thickening or pericholecystic fluid measuring 8 mm. The pancreas demonstrates no evidence of ma ss and there is no dilatation of the pancreatic duct. The right kidney is echogenic compatible with m edical renal disease. No hydronephrosis is seen CONCLUSION: 1. Cholelithiasis 2. Trace ascites 3. Medical disease right kidney Raphael Rankin MD on August 16, 2016 at 10:59 Board Certified Radiologist. This report was verified electronically.
--- NOTE | 2016-08-16 11:28 | PD.CONS ---
HPI Service Nephrology Consult Requested By Reason for Consult Acute renal failure Primary Care Physician No Primary Care Physician History of Present Illness This is a 36 y/o male who was found down outside a bar, brought in last night unresponsive. He was intubated on arrival and transferred to [facility]. No significant previous medical history in medical record. He has significant lab abnormalities on arrival including WBC 23K, K 6.6 that was treated with IV bicarb, insulin, calcium and corrected to 5.5 today. Creatinine 2.42 on arrival , improved to 2.32 today, C02 19, Lactic acid 2.1. He is also in rhabdomyolysis with CK that was at 3K on arrival, has been increasing and is 68K today. He is not on pressors, is on bicarb gtt with sedations. In 2016 his creatinine was 1. He also tested positive for Influenza A, AST is elevated at 1700. Neurology has evaluated, EEG showing seizure activity, MRI report shows possible acute infarct. He is a full code at this time. 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 other hx previous admission Past Surgical History Testicular torsion as a child Reported Medications unknown Active Ordered Medications Current Medications Medications (Trade) Dose Ordered Sig/Demetrio Route Start Time Stop Time Status Last Admin Fentanyl Citrate 250 ml @ 0 mls/hr TITRATE IV 08/15/16 18:00 08/15/16 18:33 Pharmacy Profile Note 0 ml @ 0 mls/hr UNSCH OTHER 08/15/16 19:00 (Diprivan 1000 Mg/100ml Inj) 100 ml @ 0 mls/hr TITRATE IV 08/15/16 19:45 (Tamiflu Liq) 75 mg BID OG-TUBE 08/15/16 21:00 08/16/16 10:37 (NS Flush) 2 ml UNSCH PRN .XX 08/15/16 20:00 (NS Flush) 2 ml BID .XX 08/15/16 21:00 08/16/16 09:58 (fentaNYL INJ) 50 mcg Q1H PRN IV PUSH 08/15/16 20:00 (Pepcid) 20 mg Q12HR OG-TUBE 08/15/16 21:00 08/16/16 09:58 (Ativan Inj) 1 mg Q1H PRN IV 08/15/16 20:00 (Zofran Inj) 4 mg Q6H PRN IV 08/15/16 20:00 (Lactulose Liq) 30 ml BID OG-TUBE 08/15/16 21:00 08/16/16 09:58 Miscellaneous Information 1 Q361D XX 08/15/16 20:00 (Chlorhexidine 2% Cloth) 3 pack Taper DAILY@04 TOP 08/16/16 04:00 08/12/17 03:59 08/16/16 04:00 Chlorhexidine Gluconate 3 pack 3 pack UNSCH PRN TOP 08/15/16 20:00 (fentaNYL DRIP) 250 ml @ 0 mls/hr TITRATE IV 08/15/16 20:00 Chlorhexidine Gluconate 15 ml 15 ml BID@08,20 MT 08/15/16 20:00 08/16/16 08:00 Acyclovir Sodium 900 mg/Sodium Chloride 150 ml @ 150 mls/hr Q12H IV 08/15/16 23:00 08/16/16 00:57 Piperacillin Sod/ Tazobactam Sod 100 ml @ 200 mls/hr Q6H IV 08/16/16 00:00 08/16/16 06:07 (Versed Inj) 100 ml @ 0 mls/hr TITRATE IV 08/16/16 00:45 08/16/16 10:37 Midazolam HCl 2 mg 2 mg Q15M PRN IV PUSH 08/16/16 00:45 (Thiamine Inj/NS Inj) 101 ml @ 101 mls/hr DAILY IV 08/16/16 09:00 08/16/16 10:02 (Theragran) 1 tab DAILY OG-TUBE 08/16/16 03:30 08/16/16 09:58 Folic Acid 1 mg 1 mg DAILY OG-TUBE 08/16/16 09:00 08/16/16 09:58 Sodium Bicarbonate 150 meq/Dextrose 1,150 ml @ 150 mls/hr Q7H40M IV 08/16/16 08:00 08/16/16 10:02 (Vancomycin Inj/ NS 500 ml Inj) 515 ml @ 257.5 mls/ hr ONCE IV 08/17/16 01:00 08/17/16 02:59 Family History unable to evaluate Social History he has been homeless in the past hx of IVDA other hx unknown (Cristal Greer) Physical Exam Vital Signs Vital Signs Date Time Temp Pulse Resp B/P Pulse Ox O2 Delivery O2 Flow Rate FiO2 08/16/16 09:17 99 50 08/16/16 06:00 111 08/16/16 04:24 96 50 08/16/16 04:00 112 08/16/16 04:00 98.6 111 15 100/58 95 08/16/16 04:00 50 08/16/16 02:00 118 08/16/16 01:00 65 08/16/16 00:55 96 65 08/16/16 00:39 96 100 08/16/16 00:30 98.6 121 18 86/55 94 08/16/16 00:00 121 08/15/16 22:03 91 70 08/15/16 22:00 70 08/15/16 22:00 124 08/15/16 22:00 98.5 124 15 84/51 93 08/15/16 20:45 94 100 08/15/16 20:23 136 18 100/61 94 08/15/16 20:10 134 18 95/62 92 08/15/16 20:05 92 70 08/15/16 19:10 140 18 128/76 93 Room Air 08/15/16 19:05 91 100 08/15/16 18:58 100 100 08/15/16 18:51 140 18 119/68 100 Ventilator 08/15/16 18:20 99 Ventilator 08/15/16 18:20 134 99 08/15/16 18:20 133 20 121/74 99 Ventilator 08/15/16 18:18 136 24 117/73 99 Ventilator 08/15/16 17:53 100 100 08/15/16 17:40 101.0 140 24 137/77 93 Physical Exam Young male sedated, on vent, ETT in place S1/S2, regular rhythm, tachycardic Lungs: vented, clear in upper krishna Abd: soft, normal bowel sounds:\ Ext: no edema : no scrotal edema, almanzar draining dark eda (clear) urine Laboratory Laboratory Tests Test 08/15/16 08/15/16 08/15/16 08/15/16 17:50 18:00 18:05 18:07 Lactic Acid Level 5.2 White Blood Count 30.2 Red Blood Count 5.66 Hemoglobin 14.4 Hematocrit 46.6 Mean Corpuscular Volume 82.3 Mean Corpuscular Hemoglobin 25.5 Mean Corpuscular Hemoglobin 30.9 Concent Red Cell Distribution Width 13.6 Platelet Count 296 Mean Platelet Volume 8.0 Neutrophils (%) (Auto) 85.3 Lymphocytes (%) (Auto) 7.5 Monocytes (%) (Auto) 6.8 Eosinophils (%) (Auto) 0.3 Basophils (%) (Auto) 0.1 Neutrophils # (Auto) 25.8 Lymphocytes # (Auto) 2.3 Monocytes # (Auto) 2.1 Eosinophils # (Auto) 0.1 Basophils # (Auto) 0.0 CBC Comment AUTO DIFF Differential Total Cells 100 Counted Neutrophils % (Manual) 62 Band Neutrophils % 22 Lymphocytes % 10 Monocytes % 5 Neutrophils # (Manual) 25.7 Myelocytes 1 Nucleated Red Blood Cells 1 Differential Comment FINAL DIFF MANUAL Atypical Lymphocytes Platelet Estimate NORMAL Platelet Morphology Comment NORMAL Prothrombin Time 10.8 Prothromb Time International 1.0 Ratio Activated Partial 22.9 Thromboplast Time Sodium Level 142 Potassium Level 4.8 Chloride Level 107 Carbon Dioxide Level 19.6 Anion Gap 15 Blood Urea Nitrogen 28 Creatinine 2.42 Estimat Glomerular Filtration 30 Rate Random Glucose 70 Calcium Level 8.6 Magnesium Level 2.8 Total Bilirubin 0.4 Aspartate Amino Transf 825 (AST/SGOT) Alanine Aminotransferase 639 (ALT/SGPT) Alkaline Phosphatase 119 Total Creatine Kinase 3505 Creatine Kinase MB 38.6 Creatine Kinase MB % 1.1 Troponin I 0.89 Total Protein 7.3 Albumin 3.7 Lipase 187 Acetaminophen Level LESS THAN 2.0 Thyroid Stimulating Hormone 2.140 3rd Gen Ammonia 79 Urine Color YELLOW Urine Turbidity HAZY Urine pH 6.5 Urine Specific [place] 1.017 Urine Protein 100 Urine Glucose (UA) NEG Urine Ketones NEG Urine Occult Blood LARGE Urine Nitrite NEG Urine Bilirubin NEG Urine Urobilinogen LESS THAN 2.0 Urine Leukocyte Esterase NEG Urine RBC 2 Urine WBC 5 Microscopic Urinalysis Comment CATH-CULT NOT IND Urine Opiates Screen POS Urine Barbiturates Screen NEG Urine Amphetamines Screen NEG Urine Benzodiazepines Screen NEG Urine Cocaine Screen NEG Urine Cannabinoids Screen NEG Test 08/15/16 08/15/16 08/15/16 08/15/16 18:20 19:20 20:20 22:00 Blood Gas Puncture Site RT RADIAL Blood Gas Patient Temperature 98.6 Blood Gas HCO3 19 Blood Gas Base Excess -6.0 Blood Gas Oxygen Saturation 98 Arterial Blood pH 7.29 Arterial Blood Partial 41 Pressure CO2 Arterial Blood Partial 351 Pressure O2 Arterial Blood Oxygen Content 20.6 Arterial Blood 1.3 Carboxyhemoglobin Arterial Blood Methemoglobin 0.8 Blood Gas Hemoglobin 14.4 Oxygen Delivery Device VENTILATOR Blood Gas Ventilator Setting A/C 14/550/5PEEP Blood Gas Inspired Oxygen 100 CSF Volume (Tube 1) 0.8 CSF Supernatant Color (tube 1) CLEAR CSF Gross Blood (Tube 1) 0 CSF Volume (Tube 2) 0.9 CSF Supernatant Color (tube 2) CLEAR CSF Gross Blood (Tube 2) 0 CSF WBC (Tube 2) 6 CSF RBC (Tube 2) 2 CSF Volume (Tube 3) 1.9 CSF Supernatant Color (tube 3) CLEAR CSF Gross Blood (Tube 3) 0 CSF Volume (Tube 4) 0.9 CSF Supernatant Color (tube 4) CLEAR CSF Gross Blood (Tube 4) 0 CSF Neutrophils 0 CSF Lymphocytes 95 CSF Monocytes 5 CSF Glucose 107 CSF Total Protein 49.9 Lactic Acid Level 2.1 Salicylates Level 3.7 Ethyl Alcohol Level LESS THAN 3 Total Creatine Kinase 29942 Creatine Kinase MB 328.2 Creatine Kinase MB % 0.9 Troponin I 1.97 Nasal Screen MRSA (PCR) MRSA NOT DETECTED Test 08/16/16 08/16/16 08/16/16 01:54 05:09 09:18 White Blood Count 23.0 Red Blood Count 5.91 Hemoglobin 15.6 Hematocrit 47.8 Mean Corpuscular Volume 80.9 Mean Corpuscular Hemoglobin 26.4 Mean Corpuscular Hemoglobin 32.6 Concent Red Cell Distribution Width 13.8 Platelet Count 263 Mean Platelet Volume 8.4 Neutrophils (%) (Auto) 80.4 Lymphocytes (%) (Auto) 10.5 Monocytes (%) (Auto) 8.9 Eosinophils (%) (Auto) 0.0 Basophils (%) (Auto) 0.2 Neutrophils # (Auto) 18.5 Lymphocytes # (Auto) 2.4 Monocytes # (Auto) 2.0 Eosinophils # (Auto) 0.0 Basophils # (Auto) 0.0 CBC Comment AUTO DIFF Differential Comment AUTO DIFF CONFIRMED Platelet Estimate NORMAL Platelet Morphology Comment NORMAL Red Cell Morphology Comment NORMAL Sodium Level 142 Potassium Level 6.6 5.0 Chloride Level 112 Carbon Dioxide Level 19.8 Anion Gap 10 Blood Urea Nitrogen 42 Creatinine 2.34 Estimat Glomerular Filtration 32 Rate Random Glucose 99 Lactic Acid Level 3.1 2.3 Calcium Level 7.0 Protein Corrected Calcium 7.3 Phosphorus Level 3.6 Magnesium Level 2.3 Total Bilirubin 0.5 Aspartate Amino Transf 1736 (AST/SGOT) Alanine Aminotransferase 700 (ALT/SGPT) Alkaline Phosphatase 71 Total Creatine Kinase 19241 Creatine Kinase MB 669.0 Creatine Kinase MB % 1.0 Troponin I 3.86 Total Protein 6.6 Albumin 3.5 Ammonia 47 Date/Time Procedure Status Source Growth 08/16/16 01:00 Gram Stain - Final Resulted Sputum Endotracheal 08/16/16 01:00 Sputum Culture Resulted Sputum Endotracheal Pending 08/15/16 18:05 Influenza Types A,B Antigen (NATHALY) - Final Complete Nasal Aspirate Positive For Flu A Antigen 08/15/16 18:00 Aerobic Blood Culture - Preliminary Resulted Blood Peripheral NO GROWTH IN 1 DAY 08/15/16 18:00 Anaerobic Blood Culture - Preliminary Resulted Blood Peripheral NO GROWTH IN 1 DAY (Cristal Greer) Result Diagram: 08/16/16 0154 08/16/16 0509 Imaging Last 72 hours Impressions Chest X-Ray 08/16/16 0600 Signed Impressions: Service Date/Time: Tuesday, August 16, 2016 05:13 - CONCLUSION: Mild bibasilar consolidation and small effusions developing. Lines and tubes unchanged. Eleazar Viera MD Head CT [id number] Signed Impressions: Service Date/Time: July 17:56 - CONCLUSION: 1. No acute hemorrhage or mass effect. 2. Sinusitis. Cruz Velasco MD Chest X-Ray [id number] Signed Impressions: Service Date/Time: July 18:14 - CONCLUSION: No acute cardiopulmonary disease. Kiseha Keating MD Neck Magnetic Resonance Angiography 08/15/16 0000 Signed Impressions: Service Date/Time: July 23:31 - CONCLUSION: Motion degraded study without a definite abnormality. No stenosis demonstrated. Evaluation for carotid dissection difficult. If clinical concern persists and patient's renal function can tolerate, a CTA is suggested. Eleazar Viera MD Head Magnetic Resonance Angiography 08/15/16 0000 Signed Impressions: Service Date/Time: July 23:31 - CONCLUSION: Normal intracranial MRA. Eleazar Viera MD Brain MRI 08/15/16 0000 Signed Impressions: Service Date/Time: July 21:05 - CONCLUSION: Vague area of possible diffusion abnormalities in the left parietal and right temporal lobe without correlative findings on the other sequences questionable for possible acute infarction, however the appearance is nonspecific. There is no hemorrhage or mass effect. Kiesha Keating MD (Cristal Greer) Assessment and Plan Problem List: (1) JUAN M (acute kidney injury) Plan: In a pt with normal renal function at baseline JUAN M from rhabdomyolysis, also may have been dehydrated creatinine improving with fluids K has corrected to 5 today, monitor he is on bicarb gtt wit D5W with 3 amps, continue non oliguric, UA without evidence of UTI, has trace protein at this time continue present treatment he is not on pressors, MAP is acceptable avoid nephrotoxins, renally dose medications when appropriate he is on IV Acyclovir, if renal function worsens consider stopping this medication daily renal panel (2) Rhabdomyolysis Plan: reported 4 hr down time monitor CPK, continue IVF (3) Influenza A Plan: on tamiflu (4) Altered mental status Plan: neurology following possible acute infarct LP done (5) Lactic acidosis Plan: with leukocytosis, febrile on arrival given vancomycin and Zosyn echo pending (Cristal Greer) Assessment and Plan patient was seen and examined. JUAN M is from rhabdomyolysis. Continue IVF. Hyperkalemia has improved, no immediate need for dialysis. Consider stopping Acyclovir if there is absolute need. avoid other nephrotoxic agents. Monitor urine output and renal function. (Dk Ramon MD) Problem Qualifiers (1) Altered mental status: Qualified Code: R40.2430 - Davis coma scale total score 3-8, unspecified time Cristal Greer Aug 16, 2016 11:28 Dk Ramon MD Aug 16, 2016 13:55
[2016-08-16 11:39] LABS: CKMB 737.9 NG/ML (0.5-3.6)
--- NOTE | 2016-08-16 14:53 | PD.ID.CON ---
History of Present Illness Service ID Consult Requested By Reason for Consult Evaluation and Mment of Sepsis, AMS ? meningitis, multiorgan failure. Primary Care Physician No Primary Care Physician Diagnoses: History of Present Illness History was obtained from review of medical records. Ms. Castro is a 36 y/o CM who was found down unresponsive outside of a bar. By report, he had been down outside for about 4 hours when [facility] arrived. He reportedly had syringes and IV drug paraphernalia with him. There was minimal if any response to IV Narcan by [facility]. He was intubated upon arrival to the ED for airway protection by Dr. Kee. He had no eye opening, no motor response to noxious stimuli, and no gag. Sats were about 90% on 100% NR. He was diaphoretic and temp was 101. ED workup included CT brain with the impression of sinusitis and no acute abnormality. He had rhabdomyolysis with a CPK of 3500 , BUN 28/creatinine of 1.42, white blood cell count of 30.2 with 22% bands. Urinalysis was relatively unremarkable except for consistent with myoglobinuria. CXR unremarkable. At the time of my evaluation, patient is in IMC, intubated, sedated, not on pressors, UO ok, not much secretions, no diarrhea, no rash, low grade fevers. Nephrology consult pending. Neurology has seen pt and recommends repeat MRI brain. ID consulted for evaluation and Mment of Sepsis, AMS ? meningitis. Review of Systems ROS Limitations: Intubated, Altered Mental Status Past Family Social History Allergies: Coded Allergies: No Known Allergies (Verified , 12/18/15) Past Medical History Orolabial Herpes Simplex. IVDA Past Surgical History Unknown Reported Medications Reported Meds & Active Scripts Active Active Prescriptions or Reported Medications Unobtainable Active Ordered Medications Current Medications Medications (Trade) Dose Ordered Sig/Demetrio Route Start Time Stop Time Status Last Admin Fentanyl Citrate 250 ml @ 0 mls/hr TITRATE IV 08/15/16 18:00 08/15/16 18:33 (Diprivan 1000 Mg/100ml Inj) 100 ml @ 0 mls/hr TITRATE IV 08/15/16 19:45 (Tamiflu Liq) 75 mg BID OG-TUBE 08/15/16 21:00 08/16/16 10:37 (NS Flush) 2 ml UNSCH PRN .XX 08/15/16 20:00 (NS Flush) 2 ml BID .XX 08/15/16 21:00 08/16/16 09:58 (fentaNYL INJ) 50 mcg Q1H PRN IV PUSH 08/15/16 20:00 (Pepcid) 20 mg Q12HR OG-TUBE 08/15/16 21:00 08/16/16 09:58 (Ativan Inj) 1 mg Q1H PRN IV 08/15/16 20:00 (Zofran Inj) 4 mg Q6H PRN IV 08/15/16 20:00 (Lactulose Liq) 30 ml BID OG-TUBE 08/15/16 21:00 08/16/16 09:58 Miscellaneous Information 1 Q361D XX 08/15/16 20:00 (Chlorhexidine 2% Cloth) 3 pack Taper DAILY@04 TOP 08/16/16 04:00 08/12/17 03:59 08/16/16 04:00 Chlorhexidine Gluconate 3 pack 3 pack UNSCH PRN TOP 08/15/16 20:00 (fentaNYL DRIP) 250 ml @ 0 mls/hr TITRATE IV 08/15/16 20:00 Chlorhexidine Gluconate 15 ml 15 ml BID@08,20 MT 08/15/16 20:00 08/16/16 08:00 Acyclovir Sodium 900 mg/Sodium Chloride 150 ml @ 150 mls/hr Q12H IV 08/15/16 23:00 08/16/16 12:36 Piperacillin Sod/ Tazobactam Sod 100 ml @ 200 mls/hr Q6H IV 08/16/16 00:00 08/16/16 12:37 (Versed Inj) 100 ml @ 0 mls/hr TITRATE IV 08/16/16 00:45 08/16/16 10:37 Midazolam HCl 2 mg 2 mg Q15M PRN IV PUSH 08/16/16 00:45 (Thiamine Inj/NS Inj) 101 ml @ 101 mls/hr DAILY IV 08/16/16 09:00 08/16/16 10:02 (Theragran) 1 tab DAILY OG-TUBE 08/16/16 03:30 08/16/16 09:58 Folic Acid 1 mg 1 mg DAILY OG-TUBE 08/16/16 09:00 08/16/16 09:58 (Sodium Bicarbonate 8.4% Inj/D5W 1000 ml Inj) 1,150 ml @ 150 mls/hr Q7H40M IV 08/16/16 08:00 08/16/16 10:02 Family History could not be obtained. Social History could not be obtained. IVDA per records. Physical Exam Vital Signs Vital Signs Date Time Temp Pulse Resp B/P Pulse Ox O2 Delivery O2 Flow Rate FiO2 08/16/16 12:00 97 40 08/16/16 09:17 99 50 08/16/16 06:00 111 08/16/16 04:24 96 50 08/16/16 04:00 112 08/16/16 04:00 98.6 111 15 100/58 95 08/16/16 04:00 50 08/16/16 02:00 118 08/16/16 01:00 65 08/16/16 00:55 96 65 08/16/16 00:39 96 100 08/16/16 00:30 98.6 121 18 86/55 94 08/16/16 00:00 121 08/15/16 22:03 91 70 08/15/16 22:00 70 08/15/16 22:00 124 08/15/16 22:00 98.5 124 15 84/51 93 08/15/16 20:45 94 100 08/15/16 20:23 136 18 100/61 94 08/15/16 20:10 134 18 95/62 92 08/15/16 20:05 92 70 08/15/16 19:10 140 18 128/76 93 Room Air 08/15/16 19:05 91 100 08/15/16 18:58 100 100 08/15/16 18:51 140 18 119/68 100 Ventilator 08/15/16 18:20 99 Ventilator 08/15/16 18:20 134 99 08/15/16 18:20 133 20 121/74 99 Ventilator 08/15/16 18:18 136 24 117/73 99 Ventilator 08/15/16 17:53 100 100 08/15/16 17:40 101.0 140 24 137/77 93 Physical Exam GENERAL: This is a well-nourished, well-developed patient, in no apparent distress. SKIN: No rashes, ecchymoses or lesions. Cool and dry. HEAD: Atraumatic. Normocephalic. No temporal or scalp tenderness. EYES: Pupils equal round and reactive. Extraocular motions intact. No scleral icterus. No injection or drainage. ENT: Intubated. NECK: Trachea midline. Supple, nontender, no meningeal signs. CARDIOVASCULAR: RRR RESPIRATORY: Clear to auscultation. Breath sounds equal bilaterally. GASTROINTESTINAL: Abdomen soft, non-tender, nondistended. MUSCULOSKELETAL: Extremities without clubbing, cyanosis, or edema. NEUROLOGICAL: Awake and alert. Grossly non focal Psych: could not be assessed IV line sites with no e.o infection. Laboratory Laboratory Tests Test 08/15/16 08/15/16 08/15/16 08/15/16 17:50 18:00 18:05 18:07 Lactic Acid Level 5.2 White Blood Count 30.2 Red Blood Count 5.66 Hemoglobin 14.4 Hematocrit 46.6 Mean Corpuscular Volume 82.3 Mean Corpuscular Hemoglobin 25.5 Mean Corpuscular Hemoglobin 30.9 Concent Red Cell Distribution Width 13.6 Platelet Count 296 Mean Platelet Volume 8.0 Neutrophils (%) (Auto) 85.3 Lymphocytes (%) (Auto) 7.5 Monocytes (%) (Auto) 6.8 Eosinophils (%) (Auto) 0.3 Basophils (%) (Auto) 0.1 Neutrophils # (Auto) 25.8 Lymphocytes # (Auto) 2.3 Monocytes # (Auto) 2.1 Eosinophils # (Auto) 0.1 Basophils # (Auto) 0.0 CBC Comment AUTO DIFF Differential Total Cells 100 Counted Neutrophils % (Manual) 62 Band Neutrophils % 22 Lymphocytes % 10 Monocytes % 5 Neutrophils # (Manual) 25.7 Myelocytes 1 Nucleated Red Blood Cells 1 Differential Comment FINAL DIFF MANUAL Atypical Lymphocytes Platelet Estimate NORMAL Platelet Morphology Comment NORMAL Prothrombin Time 10.8 Prothromb Time International 1.0 Ratio Activated Partial 22.9 Thromboplast Time Sodium Level 142 Potassium Level 4.8 Chloride Level 107 Carbon Dioxide Level 19.6 Anion Gap 15 Blood Urea Nitrogen 28 Creatinine 2.42 Estimat Glomerular Filtration 30 Rate Random Glucose 70 Calcium Level 8.6 Magnesium Level 2.8 Total Bilirubin 0.4 Aspartate Amino Transf 825 (AST/SGOT) Alanine Aminotransferase 639 (ALT/SGPT) Alkaline Phosphatase 119 Total Creatine Kinase 3505 Creatine Kinase MB 38.6 Creatine Kinase MB % 1.1 Troponin I 0.89 Total Protein 7.3 Albumin 3.7 Lipase 187 Acetaminophen Level LESS THAN 2.0 Thyroid Stimulating Hormone 2.140 3rd Gen Ammonia 79 Urine Color YELLOW Urine Turbidity HAZY Urine pH 6.5 Urine Specific Marshall 1.017 Urine Protein 100 Urine Glucose (UA) NEG Urine Ketones NEG Urine Occult Blood LARGE Urine Nitrite NEG Urine Bilirubin NEG Urine Urobilinogen LESS THAN 2.0 Urine Leukocyte Esterase NEG Urine RBC 2 Urine WBC 5 Microscopic Urinalysis Comment CATH-CULT NOT IND Urine Opiates Screen POS Urine Barbiturates Screen NEG Urine Amphetamines Screen NEG Urine Benzodiazepines Screen NEG Urine Cocaine Screen NEG Urine Cannabinoids Screen NEG Test 08/15/16 08/15/16 08/15/16 08/15/16 18:20 19:20 20:20 22:00 Blood Gas Puncture Site RT RADIAL Blood Gas Patient Temperature 98.6 Blood Gas HCO3 19 Blood Gas Base Excess -6.0 Blood Gas Oxygen Saturation 98 Arterial Blood pH 7.29 Arterial Blood Partial 41 Pressure CO2 Arterial Blood Partial 351 Pressure O2 Arterial Blood Oxygen Content 20.6 Arterial Blood 1.3 Carboxyhemoglobin Arterial Blood Methemoglobin 0.8 Blood Gas Hemoglobin 14.4 Oxygen Delivery Device VENTILATOR Blood Gas Ventilator Setting A/C 14/550/5PEEP Blood Gas Inspired Oxygen 100 CSF Volume (Tube 1) 0.8 CSF Supernatant Color (tube 1) CLEAR CSF Gross Blood (Tube 1) 0 CSF Volume (Tube 2) 0.9 CSF Supernatant Color (tube 2) CLEAR CSF Gross Blood (Tube 2) 0 CSF WBC (Tube 2) 6 CSF RBC (Tube 2) 2 CSF Volume (Tube 3) 1.9 CSF Supernatant Color (tube 3) CLEAR CSF Gross Blood (Tube 3) 0 CSF Volume (Tube 4) 0.9 CSF Supernatant Color (tube 4) CLEAR CSF Gross Blood (Tube 4) 0 CSF Neutrophils 0 CSF Lymphocytes 95 CSF Monocytes 5 CSF Glucose 107 CSF Total Protein 49.9 Lactic Acid Level 2.1 Salicylates Level 3.7 Ethyl Alcohol Level LESS THAN 3 Total Creatine Kinase 84370 Creatine Kinase MB 328.2 Creatine Kinase MB % 0.9 Troponin I 1.97 Nasal Screen MRSA (PCR) MRSA NOT DETECTED Test 08/16/16 08/16/16 08/16/16 08/16/16 01:54 05:09 09:18 10:39 White Blood Count 23.0 Red Blood Count 5.91 Hemoglobin 15.6 Hematocrit 47.8 Mean Corpuscular Volume 80.9 Mean Corpuscular Hemoglobin 26.4 Mean Corpuscular Hemoglobin 32.6 Concent Red Cell Distribution Width 13.8 Platelet Count 263 Mean Platelet Volume 8.4 Neutrophils (%) (Auto) 80.4 Lymphocytes (%) (Auto) 10.5 Monocytes (%) (Auto) 8.9 Eosinophils (%) (Auto) 0.0 Basophils (%) (Auto) 0.2 Neutrophils # (Auto) 18.5 Lymphocytes # (Auto) 2.4 Monocytes # (Auto) 2.0 Eosinophils # (Auto) 0.0 Basophils # (Auto) 0.0 CBC Comment AUTO DIFF Differential Comment AUTO DIFF CONFIRMED Platelet Estimate NORMAL Platelet Morphology Comment NORMAL Red Cell Morphology Comment NORMAL Sodium Level 142 Potassium Level 6.6 5.0 Chloride Level 112 Carbon Dioxide Level 19.8 Anion Gap 10 Blood Urea Nitrogen 42 Creatinine 2.34 Estimat Glomerular Filtration 32 Rate Random Glucose 99 Lactic Acid Level 3.1 2.3 Calcium Level 7.0 Protein Corrected Calcium 7.3 Phosphorus Level 3.6 Magnesium Level 2.3 Total Bilirubin 0.5 Aspartate Amino Transf 1736 (AST/SGOT) Alanine Aminotransferase 700 (ALT/SGPT) Alkaline Phosphatase 71 Total Creatine Kinase 27020 17328 Creatine Kinase MB 669.0 737.9 Creatine Kinase MB % 1.0 0.9 Troponin I 3.86 9.61 Total Protein 6.6 Albumin 3.5 Ammonia 47 Hepatitis A IgM Antibody NEGATIVE Hepatitis B Surface Antigen NEGATIVE Hepatitis B Core IgM Antibody NEGATIVE Hepatitis C Antibody NEGATIVE Date/Time Procedure Status Source Growth 08/16/16 01:00 Gram Stain - Final Resulted Sputum Endotracheal 08/16/16 01:00 Sputum Culture Resulted Sputum Endotracheal Pending 08/15/16 18:05 Influenza Types A,B Antigen (NATHALY) - Final Complete Nasal Aspirate Positive For Flu A Antigen 08/15/16 18:00 Aerobic Blood Culture - Preliminary Resulted Blood Peripheral NO GROWTH IN 1 DAY 08/15/16 18:00 Anaerobic Blood Culture - Preliminary Resulted Blood Peripheral NO GROWTH IN 1 DAY Result Diagram: 08/16/16 0154 08/16/16 0509 Imaging Last Impressions Chest X-Ray 08/16/16 0600 Signed Impressions: Service Date/Time: Tuesday, August 16, 2016 05:13 - CONCLUSION: Mild bibasilar consolidation and small effusions developing. Lines and tubes unchanged. Eleazar Viera MD Liver Ultrasound 08/16/16 0000 Signed Impressions: Service Date/Time: Tuesday, August 16, 2016 08:03 - CONCLUSION: 1. Cholelithiasis 2. Trace ascites 3. Medical disease right kidney Raphael Rankin MD Head CT 08/15/16 1747 Signed Impressions: Service Date/Time: July 17:56 - CONCLUSION: 1. No acute hemorrhage or mass effect. 2. Sinusitis. Cruz Velasco MD Neck Magnetic Resonance Angiography 08/15/16 0000 Signed Impressions: Service Date/Time: July 23:31 - CONCLUSION: Motion degraded study without a definite abnormality. No stenosis demonstrated. Evaluation for carotid dissection difficult. If clinical concern persists and patient's renal function can tolerate, a CTA is suggested. Eleazar Viera MD Head Magnetic Resonance Angiography 08/15/16 0000 Signed Impressions: Service Date/Time: July 23:31 - CONCLUSION: Normal intracranial MRA. Eleazar Viera MD Brain MRI 08/15/16 0000 Signed Impressions: Service Date/Time: July 21:05 - CONCLUSION: Vague area of possible diffusion abnormalities in the left parietal and right temporal lobe without correlative findings on the other sequences questionable for possible acute infarction, however the appearance is nonspecific. There is no hemorrhage or mass effect. Kiesha Keating MD Assessment and Plan Assessment and Plan Sepsis with MODS and elevated lactic acid on admission Aspiration Pneumonia. Possible brain infarct ? acute cerebritis/meningitis. Initial LP can be normal. Acute metabolic encephalopathy: sepsis, ? 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 Acute rhabdomyolysis: ? seizure, ? lay on ground for hours after ? fall. Acute renal failure: sepsis, rhabdo related, prerenal, vasculopathy from drugs like cocaine etc. Positive Flu A antigen doubt explanation for clinical picture. Recs: Continue Zosyn IV for now (aspiration PNA and TEST EVALUATOR infection). If Cr continues to rise consider switching to Cefepime less frequent dosing needed. Continue Acyclovir IV (follow HSV PCR to discontinue) Hold Vanco IV for now as no GP in CSF or blood. Hold in view of renal failure and reassess clinically. Agree with repeat MRI could be acute infarct or early cerebritis/brain abscess. Follow cultures Follow clinically. 2D ECHO: Asked RN to call ECHO to get it done today. d/w CCM and RN. No family in room. to cover for me this weekend. Sandy Beltran MD Aug 16, 2016 14:53
--- NOTE | 2016-08-16 16:07 | EC ---
Study Study Date:08/16/2016 STUDY CONCLUSIONS SUMMARY - Left ventricle: The cavity size was normal. Wall thickness was normal. Systolic function was normal. The estimated ejection fraction was 60%. Wall motion was normal; there were no regional wall motion abnormalities. - Mitral valve: Mild regurgitation. - Right ventricle: The cavity size was mildly dilated. Wall thickness was normal. If LV function is below 40, please consider prescribing an ACEI or ARB or document rationale for non-use. PROCEDURE DATA STUDY STATUS: Elective. Procedure: Transthoracic echocardiography. Image quality was good. Scanning was performed from the parasternal, apical, and subcostal acoustic windows. Study completion: The patient tolerated the procedure well. Transthoracic echocardiography. M-mode, complete 2D, complete spectral Doppler, and color Doppler. Height: Height: 72in. Weight: Weight: 197.6lb. Body mass index: BMI: 26.9kg/m^2. Body surface area: BSA: 2.12m^2. Patient status: Inpatient. CARDIAC ANATOMY LEFT VENTRICLE: The cavity size was normal. Wall thickness was normal. Systolic function was normal. The estimated ejection fraction was 60%. Wall motion was normal; there were no regional wall motion abnormalities. AORTIC VALVE: Trileaflet; normal thickness leaflets. Doppler: Transvalvular velocity was within the normal range. There was no stenosis. No regurgitation. Valve area: 1.39cm^2(VTI). Indexed valve area: 0.66cm^2/m^2 (VTI). Valve area: 1.52cm^2 (Vmax). Indexed valve area: 0.72cm^2/m^2 (Vmax). Mean gradient: 4mm Hg (S). AORTA: Aortic root: The aortic root was normal in size. MITRAL VALVE: Structurally normal valve. Doppler: Transvalvular velocity was within the normal range. There was no evidence for stenosis. Mild regurgitation. Peak gradient: 2mm Hg (D). LEFT ATRIUM: The atrium was normal in size. RIGHT VENTRICLE: The cavity size was mildly dilated. Wall thickness was normal. PULMONIC VALVE: Doppler: Transvalvular velocity was within the normal range. There was no evidence for stenosis. No regurgitation. TRICUSPID VALVE: Structurally normal valve. Doppler: Transvalvular velocity was within the normal range. Trace regurgitation. PULMONARY ARTERY: The main pulmonary artery was normal-sized. Systolic pressure was within the normal range. RIGHT ATRIUM: The atrium was normal in size. PERICARDIUM: There was no pericardial effusion. SYSTEMIC VEINS: Inferior vena cava: The vessel was normal in size. Patient weight: 197.6lb _Ejection fraction:_ 65-75% _Fractional shortening:_ 32% up to 5Kg 5-11.5Kg 11.6-22.9Kg 23-45Kg 45-57Kg Aortic Root 7-13 <17 13-22 17-27 17-27 LA diam 6-13 <23 24-38 33-47 37-40 RVID 10-17 7-15 7-15 7-18 8-17 LVIDd 12-22 <32 24-38 33-47 37-40 LVPW 2-4 3-6 5-7 6-8 7-8 IVS 2-4 3-6 5-7 6-8 7-8 BASIC MEASUREMENTS ADULT NORMAL Left ventricle LV internal dimension, ED, chordal 47.5 mm 43-52 level, PLAX LV internal dimension, ES, chordal 31.4 mm 23-38 level, PLAX Fractional shortening, chordal level, 34 % >29 PLAX LV posterior wall thickness, ED 10.5 mm IVS/LVPW ratio, ED 1.01 <1.3 Ventricular septum Septal thickness, ED 10.6 mm Aortic valve Leaflet separation 21 mm 15-26 Aorta Root diameter, ED 34 mm Left atrium Anterior-posterior dimension 29 mm Anterior-posterior dimension index 1.37 cm/m^2 <2.2 Right ventricle RV internal dimension, ED, PLAX 29.1 mm 19-38 BASIC MEASUREMENTS ADULT NORMAL Aortic valve Leaflet separation 21 mm 15-26 DOPPLER MEASUREMENTS ADULT NORMAL Aortic valve Peak velocity, S 135 cm/s Mean velocity, S 85.7 cm/s VTI, S 17.3 cm Mean gradient, S 4 mm Hg Valve area, VTI 1.39 cm^2 Valve area index, VTI 0.66 cm^2/m^2 Valve area, Vmax 1.52 cm^2 Valve area index, Vmax 0.72 cm^2/m^2 Mitral valve Peak E-wave velocity 71 cm/s Peak A-wave velocity 49.8 cm/s Deceleration time 180 ms 150-230 Peak gradient, D 2 mm Hg Peak E/A ratio 1.4 Pulmonic valve Peak velocity, S 86.5 cm/s LEGEND: Mean values are shown as u=mean value. Asterisk (*) maddox values outside specified normal range. Prepared and signed by Pravin Franco [id number]
--- NOTE | 2016-08-16 18:44 | HHI.CCPN ---
Subjective Remarks/Hospital Course 08/15: 36-year-old male who was found down unresponsive outside of a bar. By report, he had been down outside for about 4 hours when [facility] arrived. He reportedly had syringes and IV drug paraphernalia with him. There was minimal if any response to IV Narcan by [facility]. He was intubated upon arrival to the ED for airway protection by Dr. Kee. He had no eye opening, no motor response to noxious stimuli, and no gag. Sats were about 90% on 100% NR. He was diaphoretic and temp was 101. ED workup included CT brain with the impression of sinusitis and no acute abnormality. He had rhabdomyolysis with a CPK of 3500 , BUN 28/creatinine of 1.42, white blood cell count of 30.2 with 22% bands. Urinalysis was relatively unremarkable except for consistent with myoglobinuria. CXR unremarkable. 08/16: Remains sedated, orally intubated on mechanical ventilation. Objective Vital Signs Date Time Temp Pulse Resp B/P Pulse Ox O2 Delivery O2 Flow Rate FiO2 08/16/16 16:00 40 08/16/16 16:00 99.7 113 17 111/64 96 08/15/16 19:10 Room Air Intake and Output 08/15/16 08/15/16 08/16/16 08:00 16:00 00:00 Intake Total 112 ml Output Total 495 ml Balance -383 ml Result Diagram: 08/16/16 0154 08/16/16 0509 Other Results Microbiology Date/Time Procedure Status Source Growth 08/15/16 18:05 Influenza Types A,B Antigen (NATHALY) - Final Complete Nasal Aspirate Positive For Flu A Antigen Imaging Last Impressions Chest X-Ray 08/16/16 0600 Signed Impressions: Service Date/Time: Tuesday, August 16, 2016 05:13 - CONCLUSION: Mild bibasilar consolidation and small effusions developing. Lines and tubes unchanged. Eleazar Viera MD Liver Ultrasound 08/16/16 0000 Signed Impressions: Service Date/Time: Tuesday, August 16, 2016 08:03 - CONCLUSION: 1. Cholelithiasis 2. Trace ascites 3. Medical disease right kidney Raphael Rankin MD Head CT 08/15/16 6037 Signed Impressions: Service Date/Time: July 17:56 - CONCLUSION: 1. No acute hemorrhage or mass effect. 2. Sinusitis. Cruz Velasco MD Neck Magnetic Resonance Angiography 08/15/16 0000 Signed Impressions: Service Date/Time: July 23:31 - CONCLUSION: Motion degraded study without a definite abnormality. No stenosis demonstrated. Evaluation for carotid dissection difficult. If clinical concern persists and patient's renal function can tolerate, a CTA is suggested. Eleazar Viera MD Head Magnetic Resonance Angiography 08/15/16 0000 Signed Impressions: Service Date/Time: July 23:31 - CONCLUSION: Normal intracranial MRA. Eleazar Viera MD Brain MRI 08/15/16 Signed Impressions: Service Date/Time: July 21:05 - CONCLUSION: Vague area of possible diffusion abnormalities in the left parietal and right temporal lobe without correlative findings on the other sequences questionable for possible acute infarction, however the appearance is nonspecific. There is no hemorrhage or mass effect. Kiesha Keating MD Objective Remarks Drips: Fentanyl 100 g per hour Versed 4 mg/hr. GENERAL: Disheveled male who is orotracheally intubated. He has a full gómez. SKIN: Warm and dry. There is some redness to lower left back just above iliac crest. No rash, no petechiae. HEAD: Atraumatic. Normocephalic. EYES: Pupils pinpoint bilaterally and sluggishly reactive. Bilateral conjunctival injection. No icterus. ENT: No nasal bleeding or discharge. Mucous membranes pink, dry. NECK: Trachea midline. Jugular veins are flat. Neck is supple without meningismus. CARDIOVASCULAR: Tachycardic in the mid 130s, regular, no murmur rub or gallop appreciated. RESPIRATORY: Orally intubated on mechanical ventilation, Overbreathes vent, coarse breath sounds L>R base. No wheezes. GASTROINTESTINAL: Abdomen soft, non-tender, nondistended. Bowel sounds hypoactive : Mejia in place with dark eda urine output. MUSCULOSKELETAL: Extremities without clubbing, cyanosis, or edema. No obvious deformities. NEUROLOGICAL: Sedated, orally intubated on mechanical ventilation. Moves all 4 extremities on lightening sedation A/P Assessment and Plan NEURO: Acute encephalopathy Hyperammonemia (ammonia level 79) UDS + for opiates, otherwise negative. Lactulose 30 bid for hyperammonemia, f/u ammonia level. CT brain - sinusitis, otherwise no acute abnormality. Lumbar puncture performed: 6 WBC, 2 RBC, 107 glucose, mildly elevated protein at 49.9. Opening pressure elevated, 29.5 cm H20. MRI Brain demonstrated diffusion abnormalities of L parietal and R temporal lobe. ?acute infarction MRA brain and neck negative. Neurology consult noted Abx management as per below. Thiamine/multivitamin/folic acid supplementation. Monitor for evidence of alcohol withdrawal Sedation with fentanyl and versed. Did not tolerate propofol initially due to hypotension, but may tolerate better once fluid resuscitated. Propofol or precedex would ultimately be a better sedation choice to avoid prolonged sedation in this patient with renal insufficiency. RESP: Acute respiratory failure Every 6 hours. Albuterol every 2 hours as needed Daily spontaneous breathing trial. CXR with satisfactory endotracheal tube position. No infiltrate noted. CV: Elevated troponin, suspect type II NSTEMI due to sepsis/hypoxia. Follow serial troponins and EKG. Obtain 2-D echo. Serial lactic acid trend per sepsis protocol. Given aspirin 161 x1. Would not anticoagulate at this time based on overall clinical picture and lumbar puncture. GI: Transaminitis Nothing by mouth. OGT tube to low intermittent wall suction. Initiate enteral feeds in 24 hours if not extubating. Obtain liver ultrasound. Obtain Viral hepatitis panel. Follow-up LFTs FEN/RENAL: Acute kidney injury Acute rhabdomyolysis Hyperkalemia Mejia inserted. Monitor intake and output. Monitor electrolytes. Received multiple fluid boluses on admission. Continue ongoing resuscitation fluid 150/ hr. Initial potassium was 4.8. Potassium increased to 6.6 without apparent hemolysis. Given calcium, kayexalate 15 tube. Repeat K downtrended. D5 150 MEQ bicarb @ 150 ml/hr. Trend CPK. Nephrology consulted ID: Leukocytosis Severe sepsis Lactic acidemia Influenza A h/o orolabial herpes simplex h/o IVDU Initially covered empirically for meningitis with Rocephin 2 g IV every 12 and vancomycin. CSF studies were not consistent with bacterial meningitis and patient had apparent clinical aspiration (despite negative CXR). Started on zosyn and will continue vancomycin. Tamiflu started due to Influenza A. Started acyclovir empiric 10 mg/kg q12 (dose timing adjusted for renal dysfunction) for HSV encephalitis, however will need to discontinue promptly if HSV PCR negative in view of JUAN M. Noted MRI findings ?secondary to influenza A associated increased ischemic risk ?embolic phenomenon. Transthoracic 2-D echo did not reveal vegetations. May need ASHLEIGH. Consulted Infectious disease and followup neurology recommendations as well. HEME: Monitor CBC ENDO: Check TSH Mild hypoglycemia. On fluids with D5 as per above. Monitor bedside glucose every 4 hours PROPH: SCDs for DVT prophylaxis. Start heparin subcutaneous for DVT prophylaxis 24 hours after lumbar puncture. Famotidine for stress ulcer prophylaxis. ACCESS: Peripheral IV providing adequate access at this time. Will place central venous line if needed. Patient is full code. There is no family available Critical care time 40 minutes exclusive of separately billable procedures. Antonio Beltran MD Aug 16, 2016 18:44
[2016-08-16] MEDS: RESP: ALBUTEROL 2.5 MG/IPRATROPIUM 0.5 MG NEB (SCH) NEB (20:00)
[2016-08-17] VITALS (19 sets, daily range): BP systolic 112–140; BP diastolic 58–80; PULSE 107–118; RESP 14–22; TEMP 98.3–99.2; O2SAT 92–100
[2016-08-17] MEDS: ACYCLOVIR INJ 900 MG in SODIUM CHLORIDE 0.9% INJ 150 ML IV SCH ×2 (00:17→10:16)
[2016-08-17] MEDS: PIPERACIL-TAZO 4.5 GM PREMIX 100 ML IV SCH ×2 (00:17→05:20)
[2016-08-17] MEDS: SODIUM BICARBONATE 8.4% INJ 150 MEQ in DEXTROSE 5% IN WATE 1000ML INJ 1,000 ML IV SCH ×2 (00:18)
[2016-08-17] MEDS: CHLORHEXIDINE GLUCONATE 2 % 1 PACK (2 CLOTHS) TOP SCH (00:19)
[2016-08-17] MEDS ORDERED: VANCOMYCIN 1,500 MG/NS 500 ML IV SCH ×2 (01:00)
[2016-08-17] MEDS: PROPOFOL 1000 MG/100 ML INJ 100 ML IV SCH ×4 (02:59→20:26)
[2016-08-17] MEDS: fentaNYL DRIP 250 ML IV SCH (06:48)
[2016-08-17 07:04] LABS: AUTOMATED NEUTROPHIL # 11.6 TH/MM3 (1.8-7.7); BASOPHIL % 0.2 % (0.0-2.0); EOSINOPHIL # 0.4 TH/MM3 (0-0.4); EOSINOPHIL % 2.9 % (0.0-4.0); HEMATOCRIT 37.7 % (39.0-51.0); HEMO FLAGS DIFF FINAL; LYMPH % 6.8 % (9.0-44.0); MEAN CELL VOLUME 80.5 FL (80.0-100.0); MEAN CORPUSCULAR HGB CONC 32.3 % (32.0-36.0); MONO % 6.9 % (0.0-8.0); NEUT % 83.2 % (16.0-70.0); PLATELET COUNT 135 TH/MM3 (150-450); RED BLOOD COUNT 4.68 MIL/MM3 (4.50-5.90); RED CELL DISTRIBUTION WIDTH 13.4 % (11.6-17.2)
[2016-08-17 07:53] LABS: BICARBONATE 31.5 MEQ/L (21.0-32.0); CALCIUM-PROTEIN CORRECTED 8.5 MG/DL (8.5-10.1); POTASSIUM 3.7 MEQ/L (3.5-5.1); TOTAL BILIRUBIN ADULT 1.4 MG/DL (0.2-1.0)
[2016-08-17] MEDS: RESP: ALBUTEROL 2.5 MG/IPRATROPIUM 0.5 MG NEB (SCH) NEB ×3 (08:25→19:32)
[2016-08-17] MEDS: SODIUM CHLORIDE 0.9% FLUSH 10 ML FLUSH SCH ×2 (09:00→20:26)
[2016-08-17] MEDS: MULTIVITAMIN TAB OG-TUBE SCH (09:00)
[2016-08-17] MEDS: LACTULOSE SYRUP 20 GM/30 ML CUP OG-TUBE SCH ×2 (09:00→20:26)
[2016-08-17] MEDS: OSELTAMIVIR PHOSPHATE 6 MG/ML 60 ML SUSP OG-TUBE SCH ×2 (09:00→20:26)
[2016-08-17] MEDS: SODIUM CHLOR 0.45% 1000 ML INJ 1,000 ML IV SCH ×3 (09:48→22:18)
[2016-08-17] MEDS: MIDAZOLAM 100 MG/ML INJ 100 ML IV SCH ×2 (10:01→20:44)
[2016-08-17] MEDS: FAMOTIDINE 20 MG TAB OG-TUBE SCH ×2 (10:17→20:26)
[2016-08-17] MEDS: THIAMINE INJ 100 MG in SODIUM CHLORIDE 0.9% INJ 100 ML IV SCH (10:17)
[2016-08-17] MEDS: FOLIC ACID 1 MG TAB OG-TUBE SCH (10:17)
[2016-08-17] MEDS: CHLORHEXIDINE 0.12% (ORAL KIT) 15 ML CUP MT SCH ×2 (10:18→20:26)
--- NOTE | 2016-08-17 10:55 | HHI.NPPN ---
Subjective Interval History patient is on the ventilator. He is unresponsive. Non oliguric. Objective Data Data 08/16/16 08/17/16 19:00 07:00 Intake Total 1950 ml 3177 ml Output Total 900 ml 1290 ml Balance 1050 ml 1887 ml Intake IV Total 1850 ml 3057 ml Tube Irrigant 100 ml 120 ml Output Urine Total 850 ml 1170 ml Gastric Drainage Total 50 ml 120 ml # Bowel Movements 0 0 Vital Signs Date Time Temp Pulse Resp B/P Pulse Ox O2 Delivery O2 Flow Rate FiO2 08/17/16 08:26 97 35 08/17/16 06:00 109 08/17/16 04:37 100 50 08/17/16 04:00 99.2 111 14 123/58 98 08/17/16 04:00 35 08/17/16 04:00 111 08/17/16 02:00 118 08/17/16 00:55 97 35 08/17/16 00:00 112 08/17/16 00:00 35 08/17/16 00:00 99.2 112 18 140/78 97 08/16/16 22:00 115 08/16/16 21:27 97 40 08/16/16 20:00 99.6 113 17 145/80 95 08/16/16 20:00 113 08/16/16 20:00 40 08/16/16 16:00 40 08/16/16 16:00 99.7 113 17 111/64 96 08/16/16 15:51 96 40 08/16/16 12:00 97 40 08/16/16 12:00 40 08/16/16 12:00 100.4 109 14 117/64 96 -: 08/17/16 0610 08/17/16 0610 Physical Exam General Appearance: Well Developed Eyes Eye Exam: Pupils Equal Throat Throat Exam: Oral Mucosa [place] & Moist Neck Neck Exam: Neck Supple Pulmonary Resp Exam: Rhonchi Cardiology CV Exam: Regular, Normal Sinus Rhythm Gastrointestinal/Abdomen GI Exam: Soft Genitourinary Exam: Sediment Remarks dark urine Musculoskeletal MS Exam: Joints Intact Integumentary Skin Exam: Intact Extremeties Extremities Exam: No Edema Neurologic Neuro Exam: Unresponsive Assessment/Plan Problem List: (1) JUAN M (acute kidney injury) Plan: JUAN M due to rhabdomyolysis. Non oliguric. Discontinue bicarbonate drip, start 1/2NS. He has developed hypernatremia. Avoid nephrotoxins. His renal function has worsened, but there is no immediate need for dialysis. Monitor urine output and renal function. If possible, stop Acyclovir. (2) Rhabdomyolysis Plan: reported 4 hr down time monitor CPK, continue IVF (3) Influenza A Plan: on tamiflu (4) Altered mental status Plan: neurology following possible acute infarct LP done MRI is planned today. (5) Lactic acidosis Plan: has been given Vancomycin. Also on Zosyn, reduce the dose because of renal failure. Carefully monitor Vancomycin dosing and levels if it needs to be continued. Avoid if not needed. He is on Tamiflu. Problem Qualifiers (1) Altered mental status: Qualified Code: R40.2430 - Devi coma scale total score 3-8, unspecified time Dk Ramon MD Aug 17, 2016 10:55
[2016-08-17] MEDS ORDERED: PIPERACIL-TAZO 2.25 GM PREMIX 50 ML IV SCH (12:00)
[2016-08-17 13:31] LABS: HSV 1,PCR Negative (Negative)
--- NOTE | 2016-08-17 13:57 | HHI.CCPN ---
Subjective Remarks/Hospital Course 08/15: 36-year-old male who was found down unresponsive outside of a bar. By report, he had been down outside for about 4 hours when [facility] arrived. He reportedly had syringes and IV drug paraphernalia with him. There was minimal if any response to IV Narcan by [facility]. He was intubated upon arrival to the ED for airway protection by Dr. Kee. He had no eye opening, no motor response to noxious stimuli, and no gag. Sats were about 90% on 100% NR. He was diaphoretic and temp was 101. ED workup included CT brain with the impression of sinusitis and no acute abnormality. He had rhabdomyolysis with a CPK of 3500 , BUN 28/creatinine of 1.42, white blood cell count of 30.2 with 22% bands. Urinalysis was relatively unremarkable except for consistent with myoglobinuria. CXR unremarkable. 08/16: Remains sedated, orally intubated on mechanical ventilation. 08/17: Remains sedated, orally intubated on mechanical ventilation. Making urine. CPK coming down. BUN/creatinine increased Objective Vital Signs Date Time Temp Pulse Resp B/P Pulse Ox O2 Delivery O2 Flow Rate FiO2 08/17/16 11:51 97 35 08/17/16 10:00 107 08/17/16 08:00 98.4 16 112/67 08/15/16 19:10 Room Air Intake and Output 08/16/16 08/16/16 08/17/16 08:00 16:00 00:00 Intake Total 1980 ml 1950 ml 1691 ml Output Total 400 ml 900 ml 665 ml Balance 1580 ml 1050 ml 1026 ml Result Diagram: 08/17/16 0610 08/17/16 0610 Other Results Laboratory Tests Test 08/17/16 06:10 White Blood Count 14.0 TH/MM3 Red Blood Count 4.68 MIL/MM3 Hemoglobin 12.2 GM/DL Hematocrit 37.7 % Mean Corpuscular Volume 80.5 FL Mean Corpuscular Hemoglobin 26.0 PG Mean Corpuscular Hemoglobin 32.3 % Concent Red Cell Distribution Width 13.4 % Platelet Count 135 TH/MM3 Mean Platelet Volume 8.3 FL Neutrophils (%) (Auto) 83.2 % Lymphocytes (%) (Auto) 6.8 % Monocytes (%) (Auto) 6.9 % Eosinophils (%) (Auto) 2.9 % Basophils (%) (Auto) 0.2 % Neutrophils # (Auto) 11.6 TH/MM3 Lymphocytes # (Auto) 1.0 TH/MM3 Monocytes # (Auto) 1.0 TH/MM3 Eosinophils # (Auto) 0.4 TH/MM3 Basophils # (Auto) 0.0 TH/MM3 CBC Comment DIFF FINAL Differential Comment Sodium Level 145 MEQ/L Potassium Level 3.7 MEQ/L Chloride Level 105 MEQ/L Carbon Dioxide Level 31.5 MEQ/L Anion Gap 9 MEQ/L Blood Urea Nitrogen 56 MG/DL Creatinine 3.89 MG/DL Estimat Glomerular Filtration 18 ML/MIN Rate Random Glucose 139 MG/DL Calcium Level 7.4 MG/DL Protein Corrected Calcium 8.5 MG/DL Total Bilirubin 1.4 MG/DL Aspartate Amino Transf 1165 U/L (AST/SGOT) Alanine Aminotransferase 484 U/L (ALT/SGPT) Alkaline Phosphatase 61 U/L Total Creatine Kinase 13720 U/L Creatine Kinase MB 125.0 NG/ML Creatine Kinase MB % 0.3 % Total Protein 5.2 GM/DL Albumin 2.1 GM/DL Microbiology Date/Time Procedure Status Source Growth 08/15/16 18:05 Influenza Types A,B Antigen (NATHALY) - Final Complete Nasal Aspirate Positive For Flu A Antigen Imaging Last Impressions Chest X-Ray 08/16/16 0600 Signed Impressions: Service Date/Time: Tuesday, August 16, 2016 05:13 - CONCLUSION: Mild bibasilar consolidation and small effusions developing. Lines and tubes unchanged. Eleazar Viera MD Liver Ultrasound 08/16/16 0000 Signed Impressions: Service Date/Time: Tuesday, August 16, 2016 08:03 - CONCLUSION: 1. Cholelithiasis 2. Trace ascites 3. Medical disease right kidney Raphael Rankin MD Head CT 08/15/16 0427 Signed Impressions: Service Date/Time: July 17:56 - CONCLUSION: 1. No acute hemorrhage or mass effect. 2. Sinusitis. Curz Velasco MD Neck Magnetic Resonance Angiography 08/15/16 0000 Signed Impressions: Service Date/Time: July 23:31 - CONCLUSION: Motion degraded study without a definite abnormality. No stenosis demonstrated. Evaluation for carotid dissection difficult. If clinical concern persists and patient's renal function can tolerate, a CTA is suggested. Eleazar Viera MD Head Magnetic Resonance Angiography 08/15/16 0000 Signed Impressions: Service Date/Time: July 23:31 - CONCLUSION: Normal intracranial MRA. Eleazar Viera MD Brain MRI 08/15/16 0000 Signed Impressions: Service Date/Time: July 21:05 - CONCLUSION: Vague area of possible diffusion abnormalities in the left parietal and right temporal lobe without correlative findings on the other sequences questionable for possible acute infarction, however the appearance is nonspecific. There is no hemorrhage or mass effect. Kiesha Keating MD Objective Remarks Drips: Fentanyl 100 g per hour Versed 4 mg/hr. GENERAL: Disheveled male who is orotracheally intubated. He has a full gómez. SKIN: Warm and dry. There is some redness to lower left back just above iliac crest. No rash, no petechiae. HEAD: Atraumatic. Normocephalic. EYES: Pupils 3mm bilaterally and sluggishly reactive. Bilateral conjunctival injection. No icterus. ENT: No nasal bleeding or discharge. Mucous membranes pink, dry. NECK: Trachea midline. Jugular veins are flat. Neck is supple without meningismus. CARDIOVASCULAR: Tachycardic in the mid 130s, regular, no murmur rub or gallop appreciated. RESPIRATORY: Orally intubated on mechanical ventilation, Overbreathes vent, coarse breath sounds L>R base. No wheezes. GASTROINTESTINAL: Abdomen soft, non-tender, nondistended. Bowel sounds hypoactive : Mejia in place with dark eda urine output. MUSCULOSKELETAL: Extremities without clubbing, cyanosis, or edema. No obvious deformities. NEUROLOGICAL: Sedated, orally intubated on mechanical ventilation. Moves all 4 extremities on lightening sedation A/P Assessment and Plan NEURO: Acute encephalopathy Hyperammonemia (ammonia level 79) UDS + for opiates, otherwise negative. Lactulose 30 bid for hyperammonemia, f/u ammonia level. CT brain - sinusitis, otherwise no acute abnormality. Lumbar puncture performed: 6 WBC, 2 RBC, 107 glucose, mildly elevated protein at 49.9. Opening pressure elevated, 29.5 cm H20. MRI Brain demonstrated diffusion abnormalities of L parietal and R temporal lobe. ?acute infarction MRA brain and neck negative. Neurology consult noted Abx management as per below. Thiamine/multivitamin/folic acid supplementation. Monitor for evidence of alcohol withdrawal Sedation with fentanyl and versed. Did not tolerate propofol initially due to hypotension, but may tolerate better once fluid resuscitated. Propofol or precedex would ultimately be a better sedation choice to avoid prolonged sedation in this patient with renal insufficiency. RESP: Acute respiratory failure Every 6 hours. Albuterol every 2 hours as needed Daily spontaneous breathing trial. CXR with satisfactory endotracheal tube position. No infiltrate noted. CV: Elevated troponin, suspect type II NSTEMI due to sepsis/hypoxia. Follow serial troponins and EKG. Obtain 2-D echo. Serial lactic acid trend per sepsis protocol. Given aspirin 161 x1. Would not anticoagulate at this time based on overall clinical picture and lumbar puncture. GI: Transaminitis Nothing by mouth. OGT tube to low intermittent wall suction. Initiate enteral feeds in 24 hours if not extubating. Obtain liver ultrasound. Obtain Viral hepatitis panel. Follow-up LFTs FEN/RENAL: Acute kidney injury Acute rhabdomyolysis Hyperkalemia Mejia inserted. Monitor intake and output. Monitor electrolytes. Received multiple fluid boluses on admission. Continue ongoing resuscitation fluid 150/ hr. Initial potassium was 4.8. Potassium increased to 6.6 without apparent hemolysis. Given calcium, kayexalate 15 tube. Repeat K downtrended. Trend CPK. Nephrology following. Bicarbonate drip switched to half NS by nephrology. ID: Leukocytosis Severe sepsis Lactic acidemia Influenza A h/o orolabial herpes simplex h/o IVDU Initially covered empirically for meningitis with Rocephin 2 g IV every 12 and vancomycin. CSF studies were not consistent with bacterial meningitis and patient had apparent clinical aspiration (despite negative CXR). Started on zosyn and will continue vancomycin. Tamiflu started due to Influenza A. Started acyclovir empiric 10 mg/kg q12 (dose timing adjusted for renal dysfunction) for HSV encephalitis, however will need to discontinue promptly if HSV PCR negative in view of JUAN M. Noted MRI findings ?secondary to influenza A associated increased ischemic risk ?embolic phenomenon. Transthoracic 2-D echo did not reveal vegetations. May need ASHLEIGH. Consulted Infectious disease and followup neurology recommendations as well. HEME: Monitor CBC ENDO: Check TSH Mild hypoglycemia. On fluids with D5 as per above. Monitor bedside glucose every 4 hours PROPH: SCDs for DVT prophylaxis. Start heparin subcutaneous for DVT prophylaxis 24 hours after lumbar puncture. Famotidine for stress ulcer prophylaxis. ACCESS: Peripheral IV providing adequate access at this time. Will place central venous line if needed. Patient is full code. There is no family available Critical care time 40 minutes exclusive of separately billable procedures. Antonio Beltran MD Aug 17, 2016 13:57
--- NOTE | 2016-08-17 14:18 | RADRPT ---
EXAM DATE/TIME: 08/17/2016 13:44 [facility] COMPARISON: MRI BRAIN W/O CONTRAST, August 15, 2016, 21:05. INDICATIONS : Altered mental status. MEDICAL HISTORY : None. SURGICAL HISTORY : None. ENCOUNTER: Initial ACUITY: 2 day PAIN SCORE: 0/10 LOCATION: cranial TECHNIQUE: Multiplanar, multisequence MRI of the brain was performed without contrast. FINDINGS: Diffusion weighted images are unremarkable. There is an air fluid level and mucosal thickening in the right maxillary sinus. No hemorrhage is seen. There are no masses identified. CONCLUSION: Right maxillary sinus mucosal thickening and air-fluid level without evidence for mass, hemorrhage or acute infarct. Dewey Mitchell MD on August 17, 2016 at 14:14 Board Certified Radiologist. This report was verified electronically.
--- NOTE | 2016-08-17 16:54 | HHI.PR ---
Review/Management Diagnosis No evidence for CVA on repeat MRI suspect metabolic encephalopathy, possible hypoxic encephalopathy Diagnosis/Plan: Subjective Subjective Comments No acute events reported Active Medications Current Medications Medications (Trade) Dose Ordered Sig/Demetrio Route Start Time Stop Time Status Last Admin (Diprivan 1000 Mg/100ml Inj) 100 ml @ 0 mls/hr TITRATE IV 08/15/16 19:45 08/17/16 10:01 (Tamiflu Liq) 75 mg BID OG-TUBE 08/15/16 21:00 08/16/16 21:12 (NS Flush) 2 ml UNSCH PRN .XX 08/15/16 20:00 (NS Flush) 2 ml BID .XX 08/15/16 21:00 08/16/16 09:58 (fentaNYL INJ) 50 mcg Q1H PRN IV PUSH 08/15/16 20:00 (Pepcid) 20 mg Q12HR OG-TUBE 08/15/16 21:00 08/17/16 10:17 (Ativan Inj) 1 mg Q1H PRN IV 08/15/16 20:00 (Zofran Inj) 4 mg Q6H PRN IV 08/15/16 20:00 (Lactulose Liq) 30 ml BID OG-TUBE 08/15/16 21:00 08/16/16 21:12 Miscellaneous Information 1 Q361D XX 08/15/16 20:00 (Chlorhexidine 2% Cloth) 3 pack Taper DAILY@04 TOP 08/16/16 04:00 08/12/17 03:59 08/17/16 00:19 Chlorhexidine Gluconate 3 pack 3 pack UNSCH PRN TOP 08/15/16 20:00 (fentaNYL DRIP) 250 ml @ 0 mls/hr TITRATE IV 08/15/16 20:00 Chlorhexidine Gluconate 15 ml 15 ml BID@08,20 MT 08/15/16 20:00 08/17/16 10:18 (Versed Inj) 100 ml @ 0 mls/hr TITRATE IV 08/16/16 00:45 08/17/16 10:01 Midazolam HCl 2 mg 2 mg Q15M PRN IV PUSH 08/16/16 00:45 (Thiamine Inj/NS Inj) 101 ml @ 101 mls/hr DAILY IV 08/16/16 09:00 08/17/16 10:17 (Theragran) 1 tab DAILY OG-TUBE 08/16/16 03:30 08/16/16 09:58 Folic Acid 1 mg 1 mg DAILY OG-TUBE 08/16/16 09:00 08/17/16 10:17 Sodium Chloride 1,000 ml @ 100 mls/hr Q10H IV 08/17/16 09:00 08/17/16 09:48 (Zosyn 2.25 Gm Premix) 50 ml @ 100 mls/hr Q8H IV 08/17/16 12:00 Allergies Allergies Coded Allergies No Known Allergies (Verified12/18/15) Exam I&O / VS 08/16/16 08/16/16 08/17/16 15:00 23:00 07:00 Intake Total 1950 ml 1691 ml 1486 ml Output Total 900 ml 665 ml 625 ml Balance 1050 ml 1026 ml 861 ml Intake IV Total 1850 ml 1631 ml 1426 ml Tube Irrigant 100 ml 60 ml 60 ml Output Urine Total 850 ml 595 ml 575 ml Gastric Drainage Total 50 ml 70 ml 50 ml # Bowel Movements 0 0 0 Vital Signs Date Time Temp Pulse Resp B/P Pulse Ox O2 Delivery O2 Flow Rate FiO2 08/17/16 16:02 95 35 08/17/16 14:23 100 08/17/16 14:00 107 08/17/16 12:00 50 08/17/16 12:00 107 08/17/16 12:00 98.3 111 22 128/80 95 08/17/16 11:51 97 35 08/17/16 10:00 107 08/17/16 08:26 97 35 08/17/16 08:00 107 08/17/16 08:00 50 08/17/16 08:00 98.4 107 16 112/67 96 08/17/16 06:00 109 08/17/16 04:37 100 50 08/17/16 04:00 99.2 111 14 123/58 98 08/17/16 04:00 35 08/17/16 04:00 111 08/17/16 02:00 118 08/17/16 00:55 97 35 08/17/16 00:00 112 08/17/16 00:00 35 08/17/16 00:00 99.2 112 18 140/78 97 08/16/16 22:00 115 08/16/16 21:27 97 40 08/16/16 20:00 99.6 113 17 145/80 95 08/16/16 20:00 113 08/16/16 20:00 40 Exam Comments nonresponsive PERRL, EOM Intact to occulocephalics Motor--withdraws BUE and BLE to pain Objective Radiology Results MRI brain repeated--no evidence for cva Micro and Labs Laboratory Tests Test 08/17/16 06:10 White Blood Count 14.0 Red Blood Count 4.68 Hemoglobin 12.2 Hematocrit 37.7 Mean Corpuscular Volume 80.5 Mean Corpuscular Hemoglobin 26.0 Mean Corpuscular Hemoglobin 32.3 Concent Red Cell Distribution Width 13.4 Platelet Count 135 Mean Platelet Volume 8.3 Neutrophils (%) (Auto) 83.2 Lymphocytes (%) (Auto) 6.8 Monocytes (%) (Auto) 6.9 Eosinophils (%) (Auto) 2.9 Basophils (%) (Auto) 0.2 Neutrophils # (Auto) 11.6 Lymphocytes # (Auto) 1.0 Monocytes # (Auto) 1.0 Eosinophils # (Auto) 0.4 Basophils # (Auto) 0.0 CBC Comment DIFF FINAL Differential Comment Sodium Level 145 Potassium Level 3.7 Chloride Level 105 Carbon Dioxide Level 31.5 Anion Gap 9 Blood Urea Nitrogen 56 Creatinine 3.89 Estimat Glomerular Filtration 18 Rate Random Glucose 139 Calcium Level 7.4 Protein Corrected Calcium 8.5 Total Bilirubin 1.4 Aspartate Amino Transf 1165 (AST/SGOT) Alanine Aminotransferase 484 (ALT/SGPT) Alkaline Phosphatase 61 Total Creatine Kinase 72429 Creatine Kinase MB 125.0 Creatine Kinase MB % 0.3 Total Protein 5.2 Albumin 2.1 Date/Time Procedure Status Source Growth 08/16/16 01:00 Gram Stain - Final Resulted Sputum Endotracheal 08/16/16 01:00 Sputum Culture - Preliminary Resulted Sputum Endotracheal HEAVY GROWTH NORMAL RESPIRATORY TARA... 08/15/16 18:05 Influenza Types A,B Antigen (NATHALY) - Final Complete Nasal Aspirate Positive For Flu A Antigen 08/15/16 18:00 Aerobic Blood Culture - Preliminary Resulted Blood Peripheral NO GROWTH IN 2 DAYS 08/15/16 18:00 Anaerobic Blood Culture - Preliminary Resulted Blood Peripheral NO GROWTH IN 2 DAYS Adrian Alvares PhD Aug 17, 2016 16:53
--- NOTE | 2016-08-17 18:54 | HHI.IDPN ---
Subjective Subjective Remarks X cover for Dr Triplett chart reviewed + for flu A remains on vent 45% FiO2 + a lot of coughing nt following commands off sedation Unremarkable CSF studies afebrile Antibiotics zosyn tamiflu Allergies: Coded Allergies: No Known Allergies (Verified , 12/18/15) Objective . Vital Signs Date Time Temp Pulse Resp B/P Pulse Ox O2 Delivery O2 Flow Rate FiO2 08/17/16 18:00 107 08/17/16 16:02 95 35 08/17/16 16:00 98.4 109 20 128/80 95 08/17/16 16:00 50 08/17/16 16:00 107 08/17/16 14:23 100 08/17/16 14:00 107 08/17/16 12:00 50 08/17/16 12:00 107 08/17/16 12:00 98.3 111 22 128/80 95 08/17/16 11:51 97 35 08/17/16 10:00 107 08/17/16 08:26 97 35 08/17/16 08:00 107 08/17/16 08:00 50 08/17/16 08:00 98.4 107 16 112/67 96 08/17/16 06:00 109 08/17/16 04:37 100 50 08/17/16 04:00 99.2 111 14 123/58 98 08/17/16 04:00 35 08/17/16 04:00 111 08/17/16 02:00 118 08/17/16 00:55 97 35 08/17/16 00:00 112 08/17/16 00:00 35 08/17/16 00:00 99.2 112 18 140/78 97 08/16/16 22:00 115 08/16/16 21:27 97 40 08/16/16 20:00 99.6 113 17 145/80 95 08/16/16 20:00 113 08/16/16 20:00 40 08/16/16 08/16/16 08/17/16 15:00 23:00 07:00 Intake Total 1950 ml 1691 ml 1486 ml Output Total 900 ml 665 ml 625 ml Balance 1050 ml 1026 ml 861 ml Intake IV Total 1850 ml 1631 ml 1426 ml Tube Irrigant 100 ml 60 ml 60 ml Output Urine Total 850 ml 595 ml 575 ml Gastric Drainage Total 50 ml 70 ml 50 ml # Bowel Movements 0 0 0 . Laboratory Tests Test 08/16/16 08/17/16 01:54 06:10 White Blood Count 23.0 TH/MM3 14.0 TH/MM3 Red Blood Count 5.91 MIL/MM3 4.68 MIL/MM3 Hemoglobin 15.6 GM/DL 12.2 GM/DL Hematocrit 47.8 % 37.7 % Mean Corpuscular Volume 80.9 FL 80.5 FL Mean Corpuscular Hemoglobin 26.4 PG 26.0 PG Mean Corpuscular Hemoglobin 32.6 % 32.3 % Concent Red Cell Distribution Width 13.8 % 13.4 % Platelet Count 263 TH/MM3 135 TH/MM3 Mean Platelet Volume 8.4 FL 8.3 FL Neutrophils (%) (Auto) 80.4 % 83.2 % Lymphocytes (%) (Auto) 10.5 % 6.8 % Monocytes (%) (Auto) 8.9 % 6.9 % Eosinophils (%) (Auto) 0.0 % 2.9 % Basophils (%) (Auto) 0.2 % 0.2 % Neutrophils # (Auto) 18.5 TH/MM3 11.6 TH/MM3 Lymphocytes # (Auto) 2.4 TH/MM3 1.0 TH/MM3 Monocytes # (Auto) 2.0 TH/MM3 1.0 TH/MM3 Eosinophils # (Auto) 0.0 TH/MM3 0.4 TH/MM3 Basophils # (Auto) 0.0 TH/MM3 0.0 TH/MM3 CBC Comment AUTO DIFF DIFF FINAL Differential Comment AUTO DIFF CONFIRMED Platelet Estimate NORMAL Platelet Morphology Comment NORMAL Red Cell Morphology Comment NORMAL Laboratory Tests Test 08/15/16 08/16/16 08/16/16 08/16/16 20:20 01:54 05:09 09:18 Lactic Acid Level 2.1 mmol/L 3.1 mmol/L 2.3 mmol/L Total Creatine Kinase 81269 U/L 39762 U/L 13584 U/L Creatine Kinase MB 328.2 NG/ML 669.0 NG/ML 737.9 NG/ML Creatine Kinase MB % 0.9 % 1.0 % 0.9 % Troponin I 1.97 NG/ML 3.86 NG/ML 9.61 NG/ML Sodium Level 142 MEQ/L Potassium Level 6.6 MEQ/L 5.0 MEQ/L Chloride Level 112 MEQ/L Carbon Dioxide Level 19.8 MEQ/L Anion Gap 10 MEQ/L Blood Urea Nitrogen 42 MG/DL Creatinine 2.34 MG/DL Estimat Glomerular Filtration 32 ML/MIN Rate Random Glucose 99 MG/DL Calcium Level 7.0 MG/DL Protein Corrected Calcium 7.3 MG/DL Phosphorus Level 3.6 MG/DL Magnesium Level 2.3 MG/DL Total Bilirubin 0.5 MG/DL Aspartate Amino Transf 1736 U/L (AST/SGOT) Alanine Aminotransferase 700 U/L (ALT/SGPT) Alkaline Phosphatase 71 U/L Total Protein 6.6 GM/DL Albumin 3.5 GM/DL Ammonia 47 MCMOL/L Test 08/17/16 06:10 Sodium Level 145 MEQ/L Potassium Level 3.7 MEQ/L Chloride Level 105 MEQ/L Carbon Dioxide Level 31.5 MEQ/L Anion Gap 9 MEQ/L Blood Urea Nitrogen 56 MG/DL Creatinine 3.89 MG/DL Estimat Glomerular Filtration 18 ML/MIN Rate Random Glucose 139 MG/DL Calcium Level 7.4 MG/DL Protein Corrected Calcium 8.5 MG/DL Total Bilirubin 1.4 MG/DL Aspartate Amino Transf 1165 U/L (AST/SGOT) Alanine Aminotransferase 484 U/L (ALT/SGPT) Alkaline Phosphatase 61 U/L Total Creatine Kinase 61252 U/L Creatine Kinase MB 125.0 NG/ML Creatine Kinase MB % 0.3 % Total Protein 5.2 GM/DL Albumin 2.1 GM/DL Microbiology Date/Time Procedure Status Source Growth 08/15/16 17:50 Aerobic Blood Culture - Preliminary Resulted Blood Peripheral NO GROWTH IN 2 DAYS 08/15/16 17:50 Anaerobic Blood Culture - Preliminary Resulted Blood Peripheral NO GROWTH IN 2 DAYS 08/15/16 18:00 Aerobic Blood Culture - Preliminary Resulted Blood Peripheral NO GROWTH IN 2 DAYS 08/15/16 18:00 Anaerobic Blood Culture - Preliminary Resulted Blood Peripheral NO GROWTH IN 2 DAYS 08/15/16 18:05 Influenza Types A,B Antigen (NATHALY) - Final Complete Nasal Aspirate Positive For Flu A Antigen 08/15/16 19:20 Gram Stain - Final Resulted Cerebral Spinal Fluid Lumbar Puncture 08/15/16 19:20 CSF Culture - Preliminary Resulted Cerebral Spinal Fluid Lumbar Puncture NO GROWTH IN 48 HOURS. 08/16/16 01:00 Gram Stain - Final Resulted Sputum Endotracheal 08/16/16 01:00 Sputum Culture - Preliminary Resulted Sputum Endotracheal HEAVY GROWTH NORMAL RESPIRATORY TARA... Imaging Last Impressions Brain MRI 08/17/16 0900 Signed Impressions: Service Date/Time: Wednesday, August 17, 2016 13:44 - CONCLUSION: Right maxillary sinus mucosal thickening and air-fluid level without evidence for mass, hemorrhage or acute infarct. Dewey Mitchell MD Chest X-Ray 08/16/16 0600 Signed Impressions: Service Date/Time: Tuesday, August 16, 2016 05:13 - CONCLUSION: Mild bibasilar consolidation and small effusions developing. Lines and tubes unchanged. Eleazar Viera MD Liver Ultrasound 08/16/16 0000 Signed Impressions: Service Date/Time: Tuesday, August 16, 2016 08:03 - CONCLUSION: 1. Cholelithiasis 2. Trace ascites 3. Medical disease right kidney Raphael Rankin MD Head CT 08/15/16 1747 Signed Impressions: Service Date/Time: July 17:56 - CONCLUSION: 1. No acute hemorrhage or mass effect. 2. Sinusitis. Cruz Velasco MD Neck Magnetic Resonance Angiography 08/15/16 0000 Signed Impressions: Service Date/Time: July 23:31 - CONCLUSION: Motion degraded study without a definite abnormality. No stenosis demonstrated. Evaluation for carotid dissection difficult. If clinical concern persists and patient's renal function can tolerate, a CTA is suggested. Eleazar Viera MD Head Magnetic Resonance Angiography 08/15/16 0000 Signed Impressions: Service Date/Time: July 23:31 - CONCLUSION: Normal intracranial MRA. Eleazar Viera MD Physical Exam GENERAL: This is a well-nourished, well-developed patient, in no apparent distress. SKIN: No rashes, ecchymoses or lesions. Cool and dry. HEAD: Atraumatic. Normocephalic. No temporal or scalp tenderness. EYES: Pupils equal round and reactive. Extraocular motions intact. No scleral icterus. No injection or drainage. ENT: Intubated. NECK: Trachea midline. Supple, nontender, no meningeal signs. CARDIOVASCULAR: RRR RESPIRATORY: Clear to auscultation. Breath sounds equal bilaterally. GASTROINTESTINAL: Abdomen soft, non-tender, nondistended. NGtube in place with red blood in secretions MUSCULOSKELETAL: Extremities without clubbing, cyanosis, or edema. NEUROLOGICAL: unresponsive; not opening eyes not follwing commands Psych: could not be assessed IV line sites with no e.o infection. Assessment & Plan Remarks Flu A , severe Aciute VDRF 2/2 PNA -2D ECHO- unremarkable Sepsis with MODS and elevated lactic acid on admission Influenza A Pneumonia. ? superimposed aspiration Possible brain infarct ? acute cerebritis/meningitis. Initial LP can be normal. ? Acute metabolic encephalopathy: sepsis, ? 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 Acute rhabdomyolysis: ? seizure, ? lay on ground for hours after ? fall. Acute renal failure: sepsis, rhabdo related, prerenal, vasculopathy from drugs like cocaine etc. Recs: dc Zosyn IV for now (aspiration PNA and [employer] infection). start cefepime fu final clx DC Acyclovir IV (done) Cont tamiflu dc Vanco Agree with repeat MRI could be acute infarct or early cerebritis/brain abscess. Follow cultures Follow clinically. d/w Dr Samantha Beltran and RN. No family in room. Casandra Stevenson MD Aug 17, 2016 18:53
--- NOTE | 2016-08-17 19:28 | EKG ---
Date Performed: 08/16/2016 Time Performed: 14:04:37 PTAGE: 36 years EKG: SINUS TACHYCARDIA NONSPECIFIC T-WAVE ABNORMALITY ABNORMAL RHYTHM ECG PREVIOUS TRACING : 08/16/2016 07.33 Compared to prior tracing no significant change DOCTOR: Pravin Franco Interpretating Date/Time 08/17/2016 19:26:39
[2016-08-17] MEDS: CEFEPIME INJ 2,000 MG in SODIUM CHLORIDE 0.9% INJ 100 ML IV SCH (20:27)
[2016-08-18] VITALS (17 sets, daily range): BP systolic 119–156; BP diastolic 68–90; PULSE 85–118; RESP 16–23; TEMP 98.6–100.8; O2SAT 96–100
[2016-08-18] MEDS: CHLORHEXIDINE GLUCONATE 2 % 1 PACK (2 CLOTHS) TOP SCH (03:38)
[2016-08-18] MEDS ORDERED: PILL SPLITTER OTHER PRN (07:45)
[2016-08-18] MEDS: CHLORHEXIDINE 0.12% (ORAL KIT) 15 ML CUP MT SCH ×2 (08:00→20:00)
[2016-08-18] MEDS: LACTULOSE SYRUP 20 GM/30 ML CUP OG-TUBE SCH ×2 (08:53→20:32)
[2016-08-18] MEDS: MULTIVITAMIN TAB OG-TUBE SCH (08:53)
[2016-08-18] MEDS: FAMOTIDINE 20 MG TAB OG-TUBE SCH ×2 (08:54→20:32)
[2016-08-18] MEDS: OSELTAMIVIR PHOSPHATE 6 MG/ML 60 ML SUSP OG-TUBE SCH (08:54)
[2016-08-18] MEDS: FOLIC ACID 1 MG TAB OG-TUBE SCH (08:54)
[2016-08-18] MEDS: RESP: ALBUTEROL 2.5 MG/IPRATROPIUM 0.5 MG NEB (SCH) NEB ×3 (08:59→21:08)
[2016-08-18] MEDS: SODIUM CHLORIDE 0.9% FLUSH 10 ML FLUSH SCH ×2 (09:00→20:32)
--- NOTE | 2016-08-18 09:00 | HHI.NPPN ---
Subjective Interval History MRI did not reveal stroke. Acyclovir has been stopped. Now on Cefepime. Non oliguric. Objective Data Data 08/17/16 08/18/16 19:00 07:00 Intake Total 1807 ml 2077 ml Output Total 550 ml 1320 ml Balance 1257 ml 757 ml Intake IV Total 1807 ml 2047 ml Tube Irrigant 30 ml Output Urine Total 550 ml 1050 ml Gastric Drainage Total 270 ml # Bowel Movements 0 Vital Signs Date Time Temp Pulse Resp B/P Pulse Ox O2 Delivery O2 Flow Rate FiO2 08/18/16 06:00 99 08/18/16 04:00 98 08/18/16 04:00 99.8 98 18 121/76 97 08/18/16 04:00 50 08/18/16 03:54 100 35 08/18/16 02:00 109 08/18/16 00:00 50 08/18/16 00:00 105 08/18/16 00:00 100.6 105 16 119/72 96 08/17/16 23:07 92 35 08/17/16 22:00 116 08/17/16 20:00 50 08/17/16 20:00 98.9 110 16 115/69 96 08/17/16 20:00 112 08/17/16 19:30 96 35 08/17/16 18:00 107 08/17/16 16:02 95 35 08/17/16 16:00 98.4 109 20 128/80 95 08/17/16 16:00 50 08/17/16 16:00 107 08/17/16 14:23 100 08/17/16 14:00 107 08/17/16 12:00 50 08/17/16 12:00 107 08/17/16 12:00 98.3 111 22 128/80 95 08/17/16 11:51 97 35 08/17/16 10:00 107 -: 08/17/16 0610 08/17/16 0610 Physical Exam General Appearance: Well Developed Eyes Eye Exam: Pupils Equal Throat Throat Exam: Oral Mucosa Desha & Moist Neck Neck Exam: Neck Supple Pulmonary Resp Exam: Rhonchi Cardiology CV Exam: Regular, Normal Sinus Rhythm Gastrointestinal/Abdomen GI Exam: Soft Genitourinary Exam: Sediment Remarks dark urine Musculoskeletal MS Exam: Joints Intact Integumentary Skin Exam: Intact Extremeties Extremities Exam: No Edema Neurologic Neuro Exam: Unresponsive Assessment/Plan Problem List: (1) JUAN M (acute kidney injury) Plan: JUAN M due to rhabdomyolysis. Non oliguric. Repeat labs. Avoid nephrotoxins. Monitor urine output and renal function. (2) Rhabdomyolysis Plan: reported 4 hr down time monitor CPK, continue IVF (3) Influenza A Plan: on tamiflu (4) Altered mental status Plan: Neurology following. MRI did not reveal any CVA. May have suffered hypoxic/metabolic encephalopathy. (5) Lactic acidosis Plan: Currently on Cefepime and Tamiflu Problem Qualifiers (1) Altered mental status: Qualified Code: R40.2430 - [place] coma scale total score 3-8, unspecified time Dk Ramon MD Aug 18, 2016 09:00
[2016-08-18 10:20] LABS: CKMB 26.8 NG/ML (0.5-3.6)
[2016-08-18] MEDS: PROPOFOL 1000 MG/100 ML INJ 100 ML IV SCH ×3 (10:51→20:32)
[2016-08-18] MEDS: THIAMINE INJ 100 MG in SODIUM CHLORIDE 0.9% INJ 100 ML IV SCH (10:52)
[2016-08-18 12:14] LABS: BICARBONATE 30.7 MEQ/L (21.0-32.0); POTASSIUM 3.8 MEQ/L (3.5-5.1)
--- NOTE | 2016-08-18 14:37 | HHI.PR ---
Addendum to Inpatient Note Addendum Reason: Additional Documentation Additional Information Case d.w on Friday to address: Nephrostomy tube with Nephrology and ask if HD indicated. Case dw on Friday08/18/16: Nephrostomy tube being assessed. He suggests when ready for DC to consider Hickmann tunneled cath placement. Will amber IR and case management if Homehealth or patient can access this catheter. Sandy Beltran MD Aug 18, 2016 14:37
--- NOTE | 2016-08-18 14:43 | HHI.PR ---
Addendum to Inpatient Note Addendum Reason: Additional Documentation Additional Information Case d.w TARUN GERARDO Likely over dose related encephalopathy and hypoxic encephalopathy and rhabdomyolysis. DC Acyclovir. Continue Cefepime IV Will follow pt in am. Sandy Beltran MD Aug 18, 2016 14:43
[2016-08-18 15:01] LABS: AUTOMATED NEUTROPHIL # 10.7 TH/MM3 (1.8-7.7); BASOPHIL % 0.4 % (0.0-2.0); EOSINOPHIL # 0.4 TH/MM3 (0-0.4); EOSINOPHIL % 3.1 % (0.0-4.0); HEMATOCRIT 34.9 % (39.0-51.0); HEMO FLAGS DIFF FINAL; LYMPH % 5.3 % (9.0-44.0); LYMPHOCYTE # 0.7 TH/MM3 (1.0-4.8); MEAN CELL VOLUME 79.7 FL (80.0-100.0); MEAN CORPUSCULAR HEMOGLOBIN 26.1 PG (27.0-34.0); MEAN CORPUSCULAR HGB CONC 32.7 % (32.0-36.0); MONO % 5.9 % (0.0-8.0); NEUT % 85.3 % (16.0-70.0); PLATELET COUNT 132 TH/MM3 (150-450); RED BLOOD COUNT 4.37 MIL/MM3 (4.50-5.90); RED CELL DISTRIBUTION WIDTH 13.6 % (11.6-17.2); WHITE BLOOD COUNT 12.5 TH/MM3 (4.0-11.0)
--- NOTE | 2016-08-18 17:33 | HHI.CCPN ---
Subjective Remarks/Hospital Course 08/15: 36-year-old male who was found down unresponsive outside of a bar. By report, he had been down outside for about 4 hours when [facility] arrived. He reportedly had syringes and IV drug paraphernalia with him. There was minimal if any response to IV Narcan by [facility]. He was intubated upon arrival to the ED for airway protection by Dr. Kee. He had no eye opening, no motor response to noxious stimuli, and no gag. Sats were about 90% on 100% NR. He was diaphoretic and temp was 101. ED workup included CT brain with the impression of sinusitis and no acute abnormality. He had rhabdomyolysis with a CPK of 3500 , BUN 28/creatinine of 1.42, white blood cell count of 30.2 with 22% bands. Urinalysis was relatively unremarkable except for consistent with myoglobinuria. CXR unremarkable. 08/16: Remains sedated, orally intubated on mechanical ventilation. 08/17: Remains sedated, orally intubated on mechanical ventilation. Making urine. CPK coming down. BUN/creatinine increased. 08/18: Remains sedated/ encephalopathic, orally intubated on mechanical ventilation. Making urine, CPK coming down. Objective Vital Signs Date Time Temp Pulse Resp B/P Pulse Ox O2 Delivery O2 Flow Rate FiO2 08/18/16 16:00 50 08/18/16 16:00 97 08/18/16 16:00 99.8 18 134/79 99 08/15/16 19:10 Room Air Intake and Output 08/17/16 08/17/16 08/18/16 08:00 16:00 00:00 Intake Total 1486 ml 1807 ml 1025 ml Output Total 625 ml 550 ml 720 ml Balance 861 ml 1257 ml 305 ml Result Diagram: 08/18/16 1409 08/18/16 1131 Other Results Microbiology Date/Time Procedure Status Source Growth 08/15/16 18:05 Influenza Types A,B Antigen (NATHALY) - Final Complete Nasal Aspirate Positive For Flu A Antigen 08/15/16 19:20 Gram Stain - Final Complete Cerebral Spinal Fluid Lumbar Puncture 08/15/16 19:20 CSF Culture - Final Complete Cerebral Spinal Fluid Lumbar Puncture NO GROWTH IN 72 HOURS 08/16/16 01:00 Gram Stain - Final Complete Sputum Endotracheal 08/16/16 01:00 Sputum Culture - Final Complete Sputum Endotracheal HEAVY GROWTH NORMAL RESPIRATORY TARA Imaging Last Impressions Chest X-Ray 08/16/16 0600 Signed Impressions: Service Date/Time: Tuesday, August 16, 2016 05:13 - CONCLUSION: Mild bibasilar consolidation and small effusions developing. Lines and tubes unchanged. Eleazar Viera MD Liver Ultrasound 08/16/16 0000 Signed Impressions: Service Date/Time: Tuesday, August 16, 2016 08:03 - CONCLUSION: 1. Cholelithiasis 2. Trace ascites 3. Medical disease right kidney Raphael Rankin MD Head CT 08/15/16 1747 Signed Impressions: Service Date/Time: July 17:56 - CONCLUSION: 1. No acute hemorrhage or mass effect. 2. Sinusitis. Cruz Velasco MD Neck Magnetic Resonance Angiography 08/15/16 0000 Signed Impressions: Service Date/Time: July 23:31 - CONCLUSION: Motion degraded study without a definite abnormality. No stenosis demonstrated. Evaluation for carotid dissection difficult. If clinical concern persists and patient's renal function can tolerate, a CTA is suggested. Eleazar Viera MD Head Magnetic Resonance Angiography 08/15/16 0000 Signed Impressions: Service Date/Time: July 23:31 - CONCLUSION: Normal intracranial MRA. Eleazar Viera MD Brain MRI 08/15/16 0000 Signed Impressions: Service Date/Time: July 21:05 - CONCLUSION: Vague area of possible diffusion abnormalities in the left parietal and right temporal lobe without correlative findings on the other sequences questionable for possible acute infarction, however the appearance is nonspecific. There is no hemorrhage or mass effect. Kiesha Keating MD Objective Remarks Drips: NS 100cc/hr Fentanyl gtt Versed gtt GENERAL: Disheveled male who is orotracheally intubated. He has a full gómez. SKIN: Warm and dry. There is some redness to lower left back just above iliac crest. No rash, no petechiae. HEAD: Atraumatic. Normocephalic. EYES: Pupils 3mm bilaterally and sluggishly reactive. Bilateral conjunctival injection. No icterus. ENT: No nasal bleeding or discharge. Mucous membranes pink, dry. NECK: Trachea midline. Jugular veins are flat. Neck is supple without meningismus. CARDIOVASCULAR: Tachycardic in the mid 130s, regular, no murmur rub or gallop appreciated. RESPIRATORY: Orally intubated on mechanical ventilation, Overbreathes vent, coarse breath sounds L>R base. No wheezes. GASTROINTESTINAL: Abdomen soft, non-tender, nondistended. Bowel sounds hypoactive : Mejia in place with dark eda urine output. MUSCULOSKELETAL: Extremities without clubbing, cyanosis, or edema. No obvious deformities. NEUROLOGICAL: Sedated, orally intubated on mechanical ventilation. Moves all 4 extremities on lightening sedation A/P Assessment and Plan NEURO: Acute encephalopathy Hyperammonemia (ammonia level 79) UDS + for opiates, otherwise negative. Lactulose 30 bid for hyperammonemia, f/u ammonia level. CT brain - sinusitis, otherwise no acute abnormality. Lumbar puncture performed: 6 WBC, 2 RBC, 107 glucose, mildly elevated protein at 49.9. Opening pressure elevated, 29.5 cm H20. Initial MRI Brain demonstrated diffusion abnormalities of L parietal and R temporal lobe. Repeat MRI brain done on 08/17 was unremarkable MRA brain and neck negative. Neurology consult noted Abx management as per below. Thiamine/multivitamin/folic acid supplementation. Monitor for evidence of alcohol withdrawal On Versed/fentanyl gtt. for sedation. Daily sedation vacation. Hold Versed and fentanyl gtt. to assess neurologic status RESP: Acute respiratory failure on [facility] vent Bronchodilators every 2 hours as needed Daily spontaneous breathing trial. CXR with satisfactory endotracheal tube position. No infiltrate noted. CV: Elevated troponin, suspect type II NSTEMI due to sepsis/hypoxia. Follow serial troponins and EKG. Obtain 2-D echo. Serial lactic acid trend per sepsis protocol. Given aspirin 161 x1. Would not anticoagulate at this time based on overall clinical picture and lumbar puncture. GI: Transaminitis Continue tube feeds and advanced to goal as tolerated Obtain liver ultrasound. Obtain Viral hepatitis panel. Follow-up LFTs FEN/RENAL: Acute kidney injury Acute rhabdomyolysis Hyperkalemia Mejia inserted. Monitor intake and output. Monitor electrolytes. Received multiple fluid boluses on admission. Continue ongoing resuscitation fluid 150/ hr. Initial potassium was 4.8. Potassium increased to 6.6 without apparent hemolysis. Given calcium, kayexalate 15 tube. Repeat K downtrended. Trend CPK. Nephrology following. Bicarbonate drip switched to half NS by nephrology. ID: Leukocytosis Severe sepsis Lactic acidemia Influenza A h/o orolabial herpes simplex h/o IVDU Remains on Tamiflu for influenza. Acyclovir discontinued as CSF HSV PCR was negative Antibiotics per ID, currently on cefepime Transthoracic 2-D echo did not reveal vegetations. Consulted Infectious disease and followup neurology recommendations as well. HEME: Monitor CBC ENDO: Mild hypoglycemia. Monitor bedside glucose every 4 hours. Starting tube feeds PROPH: SCDs for DVT prophylaxis. Start heparin subcutaneous for DVT prophylaxis 24 hours after lumbar puncture. Famotidine for stress ulcer prophylaxis. ACCESS: Peripheral IV providing adequate access at this time. Will place central venous line if needed. Patient is full code. There is no family available Critical care time 40 minutes exclusive of separately billable procedures. Antonio Beltran MD Aug 18, 2016 17:33
[2016-08-18] MEDS: SODIUM CHLOR 0.45% 1000 ML INJ 1,000 ML IV SCH ×2 (17:52→20:33)
[2016-08-18] MEDS: MIDAZOLAM 100 MG/ML INJ 100 ML IV SCH (20:32)
[2016-08-18] MEDS: OSELTAMIVIR PHOSPHATE 75 MG CAP PO SCH (20:32)
[2016-08-18] MEDS: CEFEPIME INJ 2,000 MG in SODIUM CHLORIDE 0.9% INJ 100 ML IV SCH (20:32)
[2016-08-18] MEDS: HEPARIN SODIUM - SQ 10,000 UNITS/ML VIAL SQ SCH (20:33)
[2016-08-19] VITALS (19 sets, daily range): BP systolic 129–144; BP diastolic 69–91; PULSE 87–100; RESP 16–25; TEMP 99.1–100.8; O2SAT 94–100
[2016-08-19] MEDS: CHLORHEXIDINE GLUCONATE 2 % 1 PACK (2 CLOTHS) TOP SCH (02:32)
[2016-08-19] MEDS: PROPOFOL 1000 MG/100 ML INJ 100 ML IV SCH ×3 (05:31→20:02)
--- NOTE | 2016-08-19 05:32 | RADRPT ---
EXAM DATE/TIME: 08/19/2016 04:46 [place] COMPARISON: CHEST SINGLE AP, August 16, 2016, 5:13. INDICATIONS : Shortness of breath, possible pulmonary disease. MEDICAL HISTORY : None. SURGICAL HISTORY : None. ENCOUNTER: Subsequent ACUITY: 4 - 6 days PAIN SCORE: Non-responsive. LOCATION: Bilateral chest FINDINGS: The cardiac silhouette is normal in transverse diameter. There is left lower lobe atelectasis versus pneumonia. Endotracheal tube has been removed. There is prominence of the central pulmonary vasculatu re with indistinct vascular margins compatible with vascular congestion but no evidence of overt fail ure. CONCLUSION: 1. Left lower lobe atelectasis versus pneumonia. Cardiomegaly and findings of vascular congestion wit hout overt failure. 2. There has been no significant change when compared to the prior exam. Raphael Rankin MD on August 19, 2016 at 5:29 Board Certified Radiologist. This report was verified electronically.
[2016-08-19] MEDS: FOLIC ACID 1 MG TAB OG-TUBE SCH (07:57)
[2016-08-19] MEDS: FAMOTIDINE 20 MG TAB OG-TUBE SCH ×2 (07:57→20:37)
[2016-08-19] MEDS: LACTULOSE SYRUP 20 GM/30 ML CUP OG-TUBE SCH ×2 (07:57→20:38)
[2016-08-19] MEDS: OSELTAMIVIR PHOSPHATE 75 MG CAP PO SCH ×2 (07:57→20:38)
[2016-08-19] MEDS: HEPARIN SODIUM - SQ 10,000 UNITS/ML VIAL SQ SCH ×2 (07:57→20:38)
[2016-08-19] MEDS: MULTIVITAMIN TAB OG-TUBE SCH (07:57)
[2016-08-19] MEDS: CHLORHEXIDINE 0.12% (ORAL KIT) 15 ML CUP MT SCH ×2 (07:58→20:02)
[2016-08-19] MEDS: SODIUM CHLORIDE 0.9% FLUSH 10 ML FLUSH SCH ×2 (07:58→20:38)
[2016-08-19] MEDS: THIAMINE INJ 100 MG in SODIUM CHLORIDE 0.9% INJ 100 ML IV SCH (07:58)
[2016-08-19] MEDS: RESP: ALBUTEROL 2.5 MG/IPRATROPIUM 0.5 MG NEB (SCH) NEB ×3 (09:21→20:26)
--- NOTE | 2016-08-19 10:38 | HHI.NPPN ---
Subjective Renal Failure: Acute Interval History Today's labs in process. He is on CPAP but has been coughing. Febrile overnight. Excellent urine output. (Cristal Greer) Objective Data Data 08/18/16 08/19/16 19:00 07:00 Intake Total 143 ml 2016 ml Output Total 800 ml 1100 ml Balance -657 ml 916 ml Intake IV Total 143 ml 1842 ml Tube Feeding 144 ml Tube Irrigant 30 ml Output Urine Total 800 ml 1050 ml Gastric Drainage Total 50 ml # Bowel Movements 2 0 Vital Signs Date Time Temp Pulse Resp B/P Pulse Ox O2 Delivery O2 Flow Rate FiO2 08/19/16 10:00 91 08/19/16 09:10 35 08/19/16 09:09 95 35 08/19/16 08:00 91 08/19/16 06:00 90 08/19/16 04:18 99 35 08/19/16 04:00 95 08/19/16 04:00 50 08/19/16 04:00 99.9 95 16 144/91 96 08/19/16 02:00 91 08/19/16 00:50 100 35 08/19/16 00:00 100.0 93 16 132/69 98 08/19/16 00:00 50 08/19/16 00:00 93 08/18/16 22:00 94 08/18/16 21:07 100 35 08/18/16 20:00 99 08/18/16 20:00 100.8 99 16 119/68 97 08/18/16 20:00 50 08/18/16 18:00 97 08/18/16 16:00 50 08/18/16 16:00 97 08/18/16 16:00 99.8 118 18 134/79 99 08/18/16 15:24 100 35 08/18/16 14:00 97 08/18/16 12:00 50 08/18/16 12:00 99.2 97 16 156/89 100 08/18/16 12:00 97 08/18/16 11:54 100 35 (Cristal Greer) -: 08/18/16 1409 08/18/16 1131 Imaging Last 72 hours Impressions Chest X-Ray 08/19/16 0600 Signed Impressions: Service Date/Time: Friday, August 19, 2016 04:46 - CONCLUSION: 1. Left lower lobe atelectasis versus pneumonia. Cardiomegaly and findings of vascular congestion without overt failure. 2. There has been no significant change when compared to the prior exam. Raphael Rankin MD Brain MRI 08/17/16 0900 Signed Impressions: Service Date/Time: Wednesday, August 17, 2016 13:44 - CONCLUSION: Right maxillary sinus mucosal thickening and air-fluid level without evidence for mass, hemorrhage or acute infarct. Dewey Mitchell MD Tubes & Lines: Mejia Drip Comment propofol, versed (Percy,Cristal B. OPERATORS SCHOOL MANAGER) Physical Exam General Appearance: Well Developed, Comfortable, Sleeping (Percy,Cristal B. OPER[employer]ORS SCHO[employer] MANAGER) Eyes Eye Exam: Pupils Equal (Percy,Cristal B. OPER[employer]ORS SCHO[employer] MANAGER) Throat Throat Exam: Oral Mucosa [place] & Moist (Percy,Cristal B. OPERATORS SCHO[employer] MANAGER) Neck Neck Exam: Neck Supple (Percy,Cristal B. OPERATORS SCHO[employer] MANAGER) Pulmonary Resp Exam: Rhonchi (Percy,Cristal B. OPERATORS SCHO[employer] MANAGER) Cardiology CV Exam: Regular, Normal Sinus Rhythm (Percy,Cristal B. OPERATORS SCHO[employer] MANAGER) Gastrointestinal/Abdomen GI Exam: Soft (Percy,Critsal B. OPERATORS SCHOOL MANAGER) Genitourinary Exam: Sediment (Percy,Cristal B. OPERATORS SCHO[employer] MANAGER) Musculoskeletal MS Exam: Joints Intact (Percy,Cristal B. OPERATORS SCHO[employer] MANAGER) Integumentary Skin Exam: Intact (Percy,Cristal B. OPERATORS SCHO[employer] MANAGER) Extremeties Extremities Exam: No Edema (Percy,Cristal B. OPERATORS SCHO[employer] MANAGER) Neurologic Neuro Exam: Unresponsive, Sedated (Percy,Cristal B. OPERAT[employer] SCHO[employer] MANAGER) Assessment/Plan Assessment Summary: JUAN M/Acute Renal Failure Problem List: (1) JUAN M (acute kidney injury) Plan: No hx of renal impairment JUAN M due to rhabdomyolysis. Non oliguric. Monitor output Today's labs in process Avoid nephrotoxins. Acyclovir has been stopped. Continue IVF, He is on 1/2 NS @ 100 cc/hr (2) Rhabdomyolysis Plan: reported 4 hr down time monitor CPK, it is improving continue IVF (3) Influenza A Plan: on isolation also on tamiflu, stop date 08/21 (4) Altered mental status Plan: Neurology following. MRI did not reveal any CVA. May have suffered hypoxic/metabolic encephalopathy. (5) Lactic acidosis Plan: improving Currently on Cefepime and Tamiflu continue IVF (Cristal Greer) Plan patient was seen and examined. Creatinine is better. No need for dialysis. ( Dk Ramon MD) Problem Qualifiers (1) Altered mental status: Qualified Code: R40.2430 - Devi coma scale total score 3-8, unspecified time Cristal Greer August 19, 2016 10:38 Dk Ramon MD August 20, 2016 10:54
[2016-08-19 11:14] LABS: AUTOMATED NEUTROPHIL # 6.3 TH/MM3 (1.8-7.7); BASOPHIL % 0.3 % (0.0-2.0); EOSINOPHIL # 0.3 TH/MM3 (0-0.4); EOSINOPHIL % 3.5 % (0.0-4.0); HEMO FLAGS DIFF FINAL; LYMPH % 12.8 % (9.0-44.0); LYMPHOCYTE # 1.1 TH/MM3 (1.0-4.8); MEAN CORPUSCULAR HEMOGLOBIN 26.3 PG (27.0-34.0); MEAN CORPUSCULAR HGB CONC 32.8 % (32.0-36.0); MONO % 9.1 % (0.0-8.0); NEUT % 74.3 % (16.0-70.0); PLATELET COUNT 134 TH/MM3 (150-450); RED BLOOD COUNT 4.25 MIL/MM3 (4.50-5.90); RED CELL DISTRIBUTION WIDTH 13.5 % (11.6-17.2); WHITE BLOOD COUNT 8.5 TH/MM3 (4.0-11.0)
[2016-08-19 12:10] LABS: BLOOD UREA NITROGEN 61 MG/DL (7-18); GLOMERULAR FILTRATION RATE 15 ML/MIN (>89)
[2016-08-19 12:11] LABS: ALKALINE PHOSPHATASE 72 U/L (45-117); ALT (GPT) 315 U/L (12-78); ANION GAP 11 MEQ/L (5-15); AST (GOT) 411 U/L (15-37); BICARBONATE 24.8 MEQ/L (21.0-32.0); CHLORIDE 107 MEQ/L (98-107); CREATINE KINASE 9897 U/L (39-308); SODIUM (NA) 143 MEQ/L (136-145); TOTAL BILIRUBIN ADULT 0.6 MG/DL (0.2-1.0)
[2016-08-19 12:30] LABS: CKMB 10.8 NG/ML (0.5-3.6)
[2016-08-19] MEDS: SODIUM CHLOR 0.45% 1000 ML INJ 1,000 ML IV SCH ×2 (14:01→20:38)
[2016-08-19] MEDS: MIDAZOLAM 100 MG/ML INJ 100 ML IV SCH (14:01)
--- NOTE | 2016-08-19 19:06 | HHI.CCPN ---
Subjective Remarks/Hospital Course 08/15: 36-year-old male who was found down unresponsive outside of a bar. By report, he had been down outside for about 4 hours when [facility] arrived. He reportedly had syringes and IV drug paraphernalia with him. There was minimal if any response to IV Narcan by [facility]. He was intubated upon arrival to the ED for airway protection by Dr. Kee. He had no eye opening, no motor response to noxious stimuli, and no gag. Sats were about 90% on 100% NR. He was diaphoretic and temp was 101. ED workup included CT brain with the impression of sinusitis and no acute abnormality. He had rhabdomyolysis with a CPK of 3500 , BUN 28/creatinine of 1.42, white blood cell count of 30.2 with 22% bands. Urinalysis was relatively unremarkable except for consistent with myoglobinuria. CXR unremarkable. 08/16: Remains sedated, orally intubated on mechanical ventilation. 08/17: Remains sedated, orally intubated on mechanical ventilation. Making urine. CPK coming down. BUN/creatinine increased. 08/18: Remains sedated/ encephalopathic, orally intubated on mechanical ventilation. Making urine, CPK coming down. 08/19: Remains sedated/encephalopathic, orally intubated on mechanical ventilation. No significant improvement in neurologic status. Renal function appears to be improving. Objective Vital Signs Date Time Temp Pulse Resp B/P Pulse Ox O2 Delivery O2 Flow Rate FiO2 08/19/16 18:00 100 08/19/16 17:58 100 35 08/19/16 16:00 100.2 24 129/82 08/15/16 19:10 Room Air Intake and Output 08/18/16 08/18/16 08/19/16 08:00 16:00 00:00 Intake Total 1052 ml 143 ml 971 ml Output Total 600 ml 800 ml 550 ml Balance 452 ml -657 ml 421 ml Result Diagram: 08/19/16 1032 08/19/16 1032 Imaging Last Impressions Chest X-Ray 08/16/16 0600 Signed Impressions: Service Date/Time: Tuesday, August 16, 2016 05:13 - CONCLUSION: Mild bibasilar consolidation and small effusions developing. Lines and tubes unchanged. Eleazar Viera MD Liver Ultrasound 08/16/16 Signed Impressions: Service Date/Time: Tuesday, August 16, 2016 08:03 - CONCLUSION: 1. Cholelithiasis 2. Trace ascites 3. Medical disease right kidney Raphael Rankin MD Head CT 08/15/16 1747 Signed Impressions: Service Date/Time: July 17:56 - CONCLUSION: 1. No acute hemorrhage or mass effect. 2. Sinusitis. Cruz Velasco MD Neck Magnetic Resonance Angiography 08/15/16 Signed Impressions: Service Date/Time: July 23:31 - CONCLUSION: Motion degraded study without a definite abnormality. No stenosis demonstrated. Evaluation for carotid dissection difficult. If clinical concern persists and patient's renal function can tolerate, a CTA is suggested. Eleazar Viera MD Head Magnetic Resonance Angiography 08/15/16 Signed Impressions: Service Date/Time: July 23:31 - CONCLUSION: Normal intracranial MRA. Eleazar Viera MD Brain MRI 08/15/16 0000 Signed Impressions: Service Date/Time: July 21:05 - CONCLUSION: Vague area of possible diffusion abnormalities in the left parietal and right temporal lobe without correlative findings on the other sequences questionable for possible acute infarction, however the appearance is nonspecific. There is no hemorrhage or mass effect. Kiesha Keating MD Objective Remarks Drips: NS 100cc/hr Fentanyl gtt Versed gtt GENERAL: Disheveled male who is orotracheally intubated. He has a full gómez. SKIN: Warm and dry. There is some redness to lower left back just above iliac crest. No rash, no petechiae. HEAD: Atraumatic. Normocephalic. EYES: Pupils 3mm bilaterally and sluggishly reactive. Bilateral conjunctival injection. No icterus. ENT: No nasal bleeding or discharge. Mucous membranes pink, dry. NECK: Trachea midline. Jugular veins are flat. Neck is supple without meningismus. CARDIOVASCULAR: Tachycardic in the mid 130s, regular, no murmur rub or gallop appreciated. RESPIRATORY: Orally intubated on mechanical ventilation, Overbreathes vent, coarse breath sounds L>R base. No wheezes. GASTROINTESTINAL: Abdomen soft, non-tender, nondistended. Bowel sounds hypoactive : Mejia in place with dark eda urine output. MUSCULOSKELETAL: Extremities without clubbing, cyanosis, or edema. No obvious deformities. NEUROLOGICAL: Sedated/encephalopathic orally intubated on mechanical ventilation. Moves all 4 extremities on lightening sedation A/P Assessment and Plan NEURO: Acute encephalopathy Hyperammonemia (ammonia level 79) UDS + for opiates, otherwise negative. Lactulose 30 bid for hyperammonemia, f/u ammonia level. CT brain - sinusitis, otherwise no acute abnormality. Lumbar puncture performed: 6 WBC, 2 RBC, 107 glucose, mildly elevated protein at 49.9. Opening pressure elevated, 29.5 cm H20. Initial MRI Brain demonstrated diffusion abnormalities of L parietal and R temporal lobe. Repeat MRI brain done on 08/17 was unremarkable MRA brain and neck negative. Neurology consult noted Abx management as per below. Thiamine/multivitamin/folic acid supplementation. Monitor for evidence of alcohol withdrawal On Versed/fentanyl gtt. for sedation. Daily sedation vacation. RESP: Acute respiratory failure on [facility] vent Bronchodilators every 2 hours as needed Daily spontaneous breathing trial. CXR with satisfactory endotracheal tube position. No infiltrate noted. CV: Elevated troponin, suspect type II NSTEMI due to sepsis/hypoxia. Follow serial troponins and EKG. Obtain 2-D echo. Serial lactic acid trend per sepsis protocol. Given aspirin 161 x1. Would not anticoagulate at this time based on overall clinical picture and lumbar puncture. GI: Transaminitis Continue tube feeds and advanced to goal as tolerated Obtain liver ultrasound. Obtain Viral hepatitis panel. Follow-up LFTs FEN/RENAL: Acute kidney injury Acute rhabdomyolysis Hyperkalemia Mejia inserted. Monitor intake and output. Monitor electrolytes. Received multiple fluid boluses on admission. Continue ongoing resuscitation fluid 150/ hr. Initial potassium was 4.8. Potassium increased to 6.6 without apparent hemolysis. Given calcium, kayexalate 15 tube. Repeat K downtrended. Trend CPK. Nephrology following. Bicarbonate drip switched to half NS by nephrology. ID: Leukocytosis Severe sepsis Lactic acidemia Influenza A h/o orolabial herpes simplex h/o IVDU Remains on Tamiflu for influenza. Acyclovir discontinued as CSF HSV PCR was negative Antibiotics per ID, currently on cefepime Transthoracic 2-D echo did not reveal vegetations. Consulted Infectious disease and followup neurology recommendations as well. HEME: Monitor CBC ENDO: Mild hypoglycemia. Monitor bedside glucose every 4 hours. Starting tube feeds PROPH: SCDs for DVT prophylaxis. Start heparin subcutaneous for DVT prophylaxis 24 hours after lumbar puncture. Famotidine for stress ulcer prophylaxis. ACCESS: Peripheral IV providing adequate access at this time. Will place central venous line if needed. Patient is full code. There is no family available We'll consult palliative care to assist with deciding goals of therapy. Patient may have suffered anoxic brain injury. Critical care time 40 minutes exclusive of separately billable procedures. Antonio Beltran MD August 19, 2016 19:06
[2016-08-19] MEDS: CEFEPIME INJ 2,000 MG in SODIUM CHLORIDE 0.9% INJ 100 ML IV SCH (20:37)
[2016-08-20] VITALS (18 sets, daily range): BP systolic 125–136; BP diastolic 70–89; PULSE 77–102; RESP 16–27; TEMP 99.1–100.4; O2SAT 97–100
[2016-08-20] MEDS: PROPOFOL 1000 MG/100 ML INJ 100 ML IV SCH ×3 (00:19→20:28)
[2016-08-20] MEDS: CHLORHEXIDINE GLUCONATE 2 % 1 PACK (2 CLOTHS) TOP SCH (04:00)
[2016-08-20] MEDS: SODIUM CHLOR 0.45% 1000 ML INJ 1,000 ML IV SCH ×2 (04:25→17:00)
[2016-08-20] MEDS: MIDAZOLAM 100 MG/ML INJ 100 ML IV SCH (06:44)
[2016-08-20] MEDS: LACTULOSE SYRUP 20 GM/30 ML CUP OG-TUBE SCH ×2 (07:31→20:29)
[2016-08-20] MEDS: FOLIC ACID 1 MG TAB OG-TUBE SCH (07:31)
[2016-08-20] MEDS: OSELTAMIVIR PHOSPHATE 75 MG CAP PO SCH ×2 (07:31→20:29)
[2016-08-20] MEDS: THIAMINE INJ 100 MG in SODIUM CHLORIDE 0.9% INJ 100 ML IV SCH (07:31)
[2016-08-20] MEDS: MULTIVITAMIN TAB OG-TUBE SCH (07:31)
[2016-08-20] MEDS: HEPARIN SODIUM - SQ 10,000 UNITS/ML VIAL SQ SCH ×2 (07:31→20:29)
[2016-08-20] MEDS: FAMOTIDINE 20 MG TAB OG-TUBE SCH ×2 (07:31→20:29)
[2016-08-20] MEDS: SODIUM CHLORIDE 0.9% FLUSH 10 ML FLUSH SCH ×2 (07:32→20:29)
[2016-08-20] MEDS: CHLORHEXIDINE 0.12% (ORAL KIT) 15 ML CUP MT SCH ×2 (07:32→20:29)
[2016-08-20 08:08] LABS: CKMB 5.4 NG/ML (0.5-3.6)
[2016-08-20] MEDS: RESP: ALBUTEROL 2.5 MG/IPRATROPIUM 0.5 MG NEB (SCH) NEB ×2 (08:38→11:17)
--- NOTE | 2016-08-20 10:25 | HHI.NPPN ---
Subjective Renal Failure: Acute Interval History On CPAP trials today. Sedated with propofol only, now moving around on bed but still unresponsive. Large liquid BM today. (Cristal Greer) Objective Data Data 08/19/16 08/20/16 19:00 07:00 Intake Total 1341 ml 2180 ml Output Total 675 ml 950 ml Balance 666 ml 1230 ml Intake IV Total 1019 ml 1979 ml Tube Feeding 202 ml 101 ml Other 120 ml 100 ml Output Urine Total 675 ml 950 ml # Bowel Movements 2 0 Vital Signs Date Time Temp Pulse Resp B/P Pulse Ox O2 Delivery O2 Flow Rate FiO2 08/20/16 09:45 35 08/20/16 09:45 100 35 08/20/16 08:38 100 35 08/20/16 06:00 102 08/20/16 04:01 100 35 08/20/16 04:00 100.4 102 27 131/75 100 08/20/16 04:00 91 08/20/16 04:00 35 08/20/16 02:00 90 08/20/16 00:57 100 35 08/20/16 00:00 91 08/20/16 00:00 99.8 91 18 125/70 100 08/20/16 00:00 35 08/19/16 22:00 90 08/19/16 20:26 100 35 08/19/16 20:00 100.8 88 19 130/77 100 08/19/16 20:00 35 08/19/16 20:00 88 08/19/16 18:00 100 08/19/16 17:58 100 35 08/19/16 16:00 100.2 93 24 129/82 99 08/19/16 16:00 93 08/19/16 16:00 50 08/19/16 14:00 87 08/19/16 12:40 50 08/19/16 12:40 94 35 08/19/16 12:00 99.9 92 25 137/89 97 08/19/16 12:00 92 08/19/16 11:54 97 35 (Cristal Greer) -: 08/19/16 1032 08/19/16 1032 Imaging Last 72 hours Impressions Chest X-Ray 08/19/16 0600 Signed Impressions: Service Date/Time: Friday, August 19, 2016 04:46 - CONCLUSION: 1. Left lower lobe atelectasis versus pneumonia. Cardiomegaly and findings of vascular congestion without overt failure. 2. There has been no significant change when compared to the prior exam. Raphael Rnakin MD Tubes & Lines: Mejia Drip Comment propofol (Percy,Cristal B. PROFESSIONAL FIGHTER) Physical Exam General Appearance: Well Developed, Comfortable, Sleeping Appearance Remarks missing upper front teeth (Percy,Cristal B. PROFESSIONAL FIGHTER) Eyes Eye Exam: Pupils Equal (Percy,Cristal B. PROFESSIONAL FIGHTER) Throat Throat Exam: Oral Mucosa [place] & Moist (Percy,Cristal B. PROFESSIONAL FIGHTER) Neck Neck Exam: Neck Supple (Percy,Cristal B. PROFESSIONAL FIGHTER) Pulmonary Resp Exam: Rhonchi (Percy,Cristal B. PROFESSIONAL FIGHTER) Cardiology CV Exam: Regular, Normal Sinus Rhythm (Percy,Cristal B. PROFESSIONAL FIGHTER) Gastrointestinal/Abdomen GI Exam: Soft, Non-Tender, Bowel Sounds Present, Positive Bowel Movement ( Percy,Cristal B. PROFESSIONAL FIGHTER) Genitourinary Exam: Sediment (Percy,Cristal B. PROFESSIONAL FIGHTER) Musculoskeletal MS Exam: Joints Intact, Normal Tone, Unable to Ambulate (Percy,Cristal B. PROFESSIONAL FIGHTER) Integumentary Skin Exam: Intact (Percy,Cristal B. PROFESSIONAL FIGHTER) Extremeties Extremities Exam: No Edema, Pedal Pulses Palpable (Percy,Cristal B. PROFESSIONAL FIGHTER) Neurologic Neuro Exam: Moving All Extremities, Unresponsive, Sedated (Percy,Cristal B. PROFESSIONAL FIGHTER) Assessment/Plan Assessment Summary: JUAN M/Acute Renal Failure Problem List: (1) JUAN M (acute kidney injury) Plan: No hx of renal impairment JUAN M due to rhabdomyolysis. as of yesterday, renal function had improved, today's labs in process Non oliguric. Monitor output Avoid nephrotoxins. Medications reviewed and appropriate Continue IVF (2) Rhabdomyolysis Plan: due to fall extended down time CPK improved, continue IVF (3) Influenza A Plan: on isolation also on tamiflu, stop date 08/21 (4) Altered mental status Plan: Neurology following. MRI did not reveal any CVA. May have suffered hypoxic/metabolic encephalopathy. (5) Lactic acidosis Plan: due to sepsis, he is febrile and tachycardic today Currently on Cefepime and Tamiflu continue IVF (Cristal Greer) Plan patient was seen and examined. Labs are pending this morning. Non oliguric. Reduce IVF. Avoid nephrotoxic agents. (Dk Ramon MD) Problem Qualifiers (1) Altered mental status: Qualified Code: R40.2430 - Devi coma scale total score 3-8, unspecified time Cristal Greer August 20, 2016 10:25 Dk Ramon MD August 20, 2016 11:11
--- NOTE | 2016-08-20 10:34 | HHI.IDPN ---
Subjective Subjective Remarks is a 36 y/o IVDA who was found with drug parapherenalia, out for extended periods of time on floor, admitted with acute renal failure, Rhabdomyolysis, ? sepsis secondary to aspiration PNA also has flu Ag positive, doubt clinical significance. Chart reviewed remains on vent 45% FiO2, PEEP 5 Lot of alcantara secretions. not following commands off sedation Moves head from side to side. Unremarkable CSF studies afebrile Antibiotics zosyn tamiflu Lines Line sites with no e.o infection. Past Medical History reviewed. Allergies: Coded Allergies: No Known Allergies (Verified , 12/18/15) Objective . Vital Signs Date Time Temp Pulse Resp B/P Pulse Ox O2 Delivery O2 Flow Rate FiO2 08/20/16 09:45 35 08/20/16 09:45 100 35 08/20/16 08:38 100 35 08/20/16 06:00 102 08/20/16 04:01 100 35 08/20/16 04:00 100.4 102 27 131/75 100 08/20/16 04:00 91 08/20/16 04:00 35 08/20/16 02:00 90 08/20/16 00:57 100 35 08/20/16 00:00 91 08/20/16 00:00 99.8 91 18 125/70 100 08/20/16 00:00 35 08/19/16 22:00 90 08/19/16 20:26 100 35 08/19/16 20:00 100.8 88 19 130/77 100 08/19/16 20:00 35 08/19/16 20:00 88 08/19/16 18:00 100 08/19/16 17:58 100 35 08/19/16 16:00 100.2 93 24 129/82 99 08/19/16 16:00 93 08/19/16 16:00 50 08/19/16 14:00 87 08/19/16 12:40 50 08/19/16 12:40 94 35 08/19/16 12:00 99.9 92 25 137/89 97 08/19/16 12:00 92 08/19/16 11:54 97 35 08/19/16 08/19/16 08/20/16 15:00 23:00 07:00 Intake Total 1341 ml 1172 ml 1008 ml Output Total 675 ml 500 ml 450 ml Balance 666 ml 672 ml 558 ml Intake IV Total 1019 ml 1072 ml 907 ml Tube Feeding 202 ml 101 ml Other 120 ml 100 ml Output Urine Total 675 ml 500 ml 450 ml # Bowel Movements 2 0 0 . Laboratory Tests Test 08/18/16 08/19/16 14:09 10:32 White Blood Count 12.5 TH/MM3 8.5 TH/MM3 Red Blood Count 4.37 MIL/MM3 4.25 MIL/MM3 Hemoglobin 11.4 GM/DL 11.2 GM/DL Hematocrit 34.9 % 34.0 % Mean Corpuscular Volume 79.7 FL 80.0 FL Mean Corpuscular Hemoglobin 26.1 PG 26.3 PG Mean Corpuscular Hemoglobin 32.7 % 32.8 % Concent Red Cell Distribution Width 13.6 % 13.5 % Platelet Count 132 TH/MM3 134 TH/MM3 Mean Platelet Volume 8.7 FL 8.4 FL Neutrophils (%) (Auto) 85.3 % 74.3 % Lymphocytes (%) (Auto) 5.3 % 12.8 % Monocytes (%) (Auto) 5.9 % 9.1 % Eosinophils (%) (Auto) 3.1 % 3.5 % Basophils (%) (Auto) 0.4 % 0.3 % Neutrophils # (Auto) 10.7 TH/MM3 6.3 TH/MM3 Lymphocytes # (Auto) 0.7 TH/MM3 1.1 TH/MM3 Monocytes # (Auto) 0.7 TH/MM3 0.8 TH/MM3 Eosinophils # (Auto) 0.4 TH/MM3 0.3 TH/MM3 Basophils # (Auto) 0.0 TH/MM3 0.0 TH/MM3 CBC Comment DIFF FINAL DIFF FINAL Differential Comment Laboratory Tests Test 08/18/16 08/19/16 08/20/16 11:31 10:32 06:21 Sodium Level 144 MEQ/L 143 MEQ/L Potassium Level 3.8 MEQ/L 4.0 MEQ/L Chloride Level 107 MEQ/L 107 MEQ/L Carbon Dioxide Level 30.7 MEQ/L 24.8 MEQ/L Anion Gap 6 MEQ/L 11 MEQ/L Blood Urea Nitrogen 61 MG/DL 61 MG/DL Creatinine 4.64 MG/DL 4.45 MG/DL Estimat Glomerular Filtration 14 ML/MIN 15 ML/MIN Rate Random Glucose 102 MG/DL 112 MG/DL Calcium Level 7.5 MG/DL 8.1 MG/DL Total Bilirubin 0.6 MG/DL Aspartate Amino Transf 411 U/L (AST/SGOT) Alanine Aminotransferase 315 U/L (ALT/SGPT) Alkaline Phosphatase 72 U/L Total Creatine Kinase 9897 U/L 7268 U/L Creatine Kinase MB 10.8 NG/ML 5.4 NG/ML Creatine Kinase MB % 0.1 % 0.1 % Total Protein 6.1 GM/DL Albumin 1.8 GM/DL Imaging Last Impressions Brain MRI 08/17/16 0900 Signed Impressions: Service Date/Time: Wednesday, August 17, 2016 13:44 - CONCLUSION: Right maxillary sinus mucosal thickening and air-fluid level without evidence for mass, hemorrhage or acute infarct. Dewey Mitchell MD Chest X-Ray 08/16/16 0600 Signed Impressions: Service Date/Time: Tuesday, August 16, 2016 05:13 - CONCLUSION: Mild bibasilar consolidation and small effusions developing. Lines and tubes unchanged. Eleazar Viera MD Liver Ultrasound 08/16/16 0000 Signed Impressions: Service Date/Time: Tuesday, August 16, 2016 08:03 - CONCLUSION: 1. Cholelithiasis 2. Trace ascites 3. Medical disease right kidney Raphael Rankin MD Head CT 08/15/16 1747 Signed Impressions: Service Date/Time: July 17:56 - CONCLUSION: 1. No acute hemorrhage or mass effect. 2. Sinusitis. Cruz Velasco MD Neck Magnetic Resonance Angiography 08/15/16 0000 Signed Impressions: Service Date/Time: July 23:31 - CONCLUSION: Motion degraded study without a definite abnormality. No stenosis demonstrated. Evaluation for carotid dissection difficult. If clinical concern persists and patient's renal function can tolerate, a CTA is suggested. Eleazar Viera MD Head Magnetic Resonance Angiography 08/15/16 0000 Signed Impressions: Service Date/Time: July 23:31 - CONCLUSION: Normal intracranial MRA. Eleazar Viera MD Physical Exam GENERAL: This is a well-nourished, well-developed patient, in no apparent distress. SKIN: No rashes, ecchymoses or lesions. Cool and dry. HEAD: Atraumatic. Normocephalic. No temporal or scalp tenderness. EYES: Pupils equal round and reactive. Extraocular motions intact. No scleral icterus. No injection or drainage. ENT: Intubated. NECK: Trachea midline. Supple, nontender, no meningeal signs. CARDIOVASCULAR: RRR RESPIRATORY: Clear to auscultation. Breath sounds equal bilaterally. GASTROINTESTINAL: Abdomen soft, non-tender, nondistended. NGtube in place with red blood in secretions MUSCULOSKELETAL: Extremities without clubbing, cyanosis, or edema. NEUROLOGICAL: unresponsive; not opening eyes not following commands Psych: could not be assessed IV line sites with no e.o infection. Assessment & Plan Remarks Sepsis with MODS and elevated lactic acid on admission Influenza A Pneumonia. ? superimposed aspiration Possible brain infarct ? acute cerebritis/meningitis. Initial LP can be normal. Acute metabolic encephalopathy: sepsis, ? 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 Acute rhabdomyolysis: ? seizure, ? lay on ground for hours after ? fall. Acute renal failure: sepsis, rhabdo related, prerenal, vasculopathy from drugs like cocaine etc. Recs: Continue cefepime IV fu final clx Cont tamiflu stop date in chart. Follow cultures Follow clinically. d/w CCM No family in room. Sandy Beltran MD August 20, 2016 10:34
--- NOTE | 2016-08-20 11:35 | HHI.HCPN ---
Palliative care consulted to assist with goals of care for Mr. Castro. Number listed for friend disconnected. Requested accurints from BUSINESS INTELLIGENCE MANAGER. Results: Juan C Castro, #[phone] or #[phone]: left VM requesting return call Chasidy Amaro, #[phone]: left VM requesting return call Return call received from both above. Juan C Baron is a brother. Chasidy is the patient's mother. Family meeting completed via phone with HAMIDA Bazan. See palliative care consultation for further information. Mother, Chasidy Amaro, serving as health care proxy decision maker supported by patient's brother. Catherine Russ MSW, MONKEY BREEDER August 20, 2016 11:35
[2016-08-20 12:12] LABS: BICARBONATE 26.8 MEQ/L (21.0-32.0); POTASSIUM 3.7 MEQ/L (3.5-5.1)
--- NOTE | 2016-08-20 16:25 | PD.CONS ---
Consult Service Palliative Care . Consult Requested By Dr. Felisha Beltran. . Primary Care Physician No Primary Care Physician . Reason for Consultation a. To assist with evaluation and management of symptoms including: dyspnea, encephalopathy. b. To assist medical decision maker(s) with: better understanding of current medical conditions; weighing benefits/burdens of medical treatment options; making medical treatment decisions. . HPI History of Present Illness Mr. Castro is a 36-year-old male with no known medical history with exception of tobacco and IV and prescription drug use. Patient presented to [facility] on 08/15/16 emergency department via EMS after he was found down, unresponsive outside of a bar. Notes indicate that he had been down outside for approximately 4 hours upon [facility] arrival. He reportedly had syringes and IV drug paraphernalia with him. There was minimal, if any response to IV Narcan by [facility]. Upon arrival to the emergency department the patient was intubated for airway protection by Dr. Kee. He had no eye opening, no motor response to noxious stimuli, and no gag. Oxygen saturation 90% on 100% non-rebreather. He was diaphoretic with temperature 101. Initial evaluation revealed: * CT brain - sinusitis and no acute abnormality. * Rhabdomyolysis with a CPK of 3500 * sodium 142, potassium 4.8, chloride 107, carbon dioxide 19.6, BUN 28, creatinine 2.42, GFR 30, glucose 70, calcium 8.6, magnesium 2.8 * total bilirubin 0.4, AST 825, ALT 639, alkaline phosphatase 119 * WBC 30.2 with 22% bands, hemoglobin 14.4, hematocrit 46.6, platelet 296 * toxicology screen + opiates * ammonia 79 * Urinalysis was relatively unremarkable except for consistent with myoglobinuria. * CXR unremarkable. * Lactic acid 5.2 * alcohol level less than 3 * total creatine kinase 37,679, CK MB 328.2, troponin 1.97 * EKG sinus tachycardia rate 135 Patient is admitted to ICU with altered mental status, leukocytosis, lactic acidosis. NSTEMI suspected due to sepsis/hypoxia given elevated troponin. Serial troponin levels 0.89, 1.97, 3.86, 9.61. Was given aspirin, not anticoagulated given overall clinical picture and need for lumbar puncture. Patient has tested positive for influenza A, Tamiflu started. Lumbar puncture was performed, CSF studies were not consistent with bacterial meningitis, patient had signs of clinical aspiration bite negative chest x-ray started on Zosyn and vancomycin. Infectious disease, Dr. Leena Beltran was consulted. Echocardiogram revealed EF 60%, mild mitral valve regurgitation, no vegetations noted. Neurology, Dr. Alvares was consulted and recommended repeat MRI brain to evaluate possible stroke.. EEG revealed severe encephalopathy. Repeat MRI brain right maxillary sinus mucosal thickening and air fluid level without evidence for mass , hemorrhage or acute infarct. MRA head normal intracranial MRA. Neck MRA without definite abnormality, no stenosis demonstrated. Concern for anoxic encephalopathy. Nephrology was consulted for acute renal failure, hyperkalemia, rhabdomyolysis. Acute kidney injury secondary to rhabdomyolysis, no immediate need for hemodialysis, recommendations to avoid nephrotoxic agents, monitor urine output and renal function. Liver ultrasound revealed cholelithiasis, trace ascites, medical disease right kidney. Since admission patient has had no significant improvement in neurologic status. WBC now 8.5, hemoglobin 11.2, hematocrit 34, platelet 134. Creatinine increased to 4.64, currently 4.32, slight improvement. Albumin 2.1. Sputum heavy growth normal respiratory carolann. Recent chest x-ray left lower lobe atelectasis versus pneumonia, cardiomegaly and findings of vascular congestion without overt failure, no significant change. Palliative care was consulted to assist with identification of decision maker and clarification of treatment goals. . Function/Cognitive Trajectory Patient has intermittently been homeless, was previously in nursing home per family report. Uncertain functional status prior to hospitalization. . Review of Systems ROS Limitations: Intubated, Unresponsive Other ROS: Patient intubated, unresponsive on mechanical event, unable to provide ROS, family has not seen patient recently, unknown review of systems prior to admission. . Past Family Social History Coded Allergies: No Known Allergies (Verified , 12/18/15) Past Medical History Tobacco use IV/prescription drug abuse Orolabial Herpes Simplex. . Past Surgical History Testicular torsion surgery . Reported Medications None known. . Current Medications Medications (Trade) Dose Ordered Sig/Demetrio Route Start Time Stop Time Status Last Admin (Diprivan 1000 Mg/100ml Inj) 100 ml @ 0 mls/hr TITRATE IV 08/15/16 19:45 08/20/16 06:43 (NS Flush) 2 ml UNSCH PRN .XX 08/15/16 20:00 (NS Flush) 2 ml BID .XX 08/15/16 21:00 08/19/16 20:38 (fentaNYL INJ) 50 mcg Q1H PRN IV PUSH 08/15/16 20:00 08/17/16 22:37 (Ativan Inj) 1 mg Q1H PRN IV 08/15/16 20:00 (Zofran Inj) 4 mg Q6H PRN IV 08/15/16 20:00 (Lactulose Liq) 30 ml BID OG-TUBE 08/15/16 21:00 08/20/16 07:31 Miscellaneous Information 1 Q361D XX 08/15/16 20:00 (Chlorhexidine 2% Cloth) 3 pack Taper DAILY@04 TOP 08/16/16 04:00 08/12/17 03:59 08/20/16 04:00 Chlorhexidine Gluconate 3 pack 3 pack UNSCH PRN TOP 08/15/16 20:00 (fentaNYL DRIP) 250 ml @ 0 mls/hr TITRATE IV 08/15/16 20:00 Chlorhexidine Gluconate 15 ml 15 ml BID@08,20 MT 08/15/16 20:00 08/20/16 07:32 (Versed Inj) 100 ml @ 0 mls/hr TITRATE IV 08/16/16 00:45 08/20/16 06:44 Midazolam HCl 2 mg 2 mg Q15M PRN IV PUSH 08/16/16 00:45 (Thiamine Inj/NS Inj) 101 ml @ 101 mls/hr DAILY IV 08/16/16 09:00 08/20/16 07:31 (Theragran) 1 tab DAILY OG-TUBE 08/16/16 03:30 08/20/16 07:31 Folic Acid 1 mg 1 mg DAILY OG-TUBE 08/16/16 09:00 08/20/16 07:31 Sodium Chloride 1,000 ml @ 100 mls/hr Q10H IV 08/17/16 09:00 08/20/16 04:25 (Maxipime Inj/NS Inj) 100 ml @ 200 mls/hr Q24H IV 08/17/16 20:00 08/19/16 20:37 (Pepcid) 10 mg Q12HR OG-TUBE 08/18/16 09:00 08/20/16 07:31 (Pill Splitter) 1 ea UNSCH PRN OTHER 08/18/16 07:45 08/20/16 07:31 (Tamiflu) 75 mg BID PO 08/18/16 21:00 08/21/16 20:59 08/20/16 07:31 (Heparin Inj) 5,000 units Q12HR SQ 08/18/16 21:00 08/20/16 07:31 . Family History Mother is alive and well, prior [place]. Father no known medical conditions. . Substance Use History per mother and brothers report: Tobacco: positive tobacco use Alcohol: occasional alcohol use Prescription med abuse: IV Dilaudid use, questionable other prescription drug use Illicits: history of cocaine, LSD, marijuana, possible heroine use. . Psychosocial History Moved to [place] age 18. Single. Has a son age 9. Family reports he has had history of drug use since high school. 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 Prior incarceration. Might have a local girlfriend. Uncertain where he has been living recently. He is estranged from his father. He has a mother (Chasidy lives in [place]) and 2 brothers (Behzad lives in [place], Seth lives in [facility]). . Spiritual/Cultural Factors [employer]opalian mitchel. Sales Professional requested will visit 08/21/16. Family requests Sacrament of the Sick. . Living Will: Never completed Health Care Surrogate: Never completed Durable Power of Waterproof Coating Machine Tender: Never completed Health Care Surrogate(s): Patient is incapacitated will not likely recurrent incapacity. According to [place] statutes, health care proxy decision-making falls to apparent. His mother, Chasidy is willing to serve as healthcare proxy decision maker. . Today's verbally stated goals: Patient incapacitated, unlikely he will gain capacity. Family/friends goals: Family desires continued aggressive care, short of NO CODE status at this time. We'll need some time to determine overall clinical condition, reasonable, has a good understanding of current problems and prognosis. . Ethical and Legal Issues Patient is incapacitated will not likely recurrent incapacity. According to [place] statutes, health care proxy decision-making falls to apparent. His mother, Chasidy is willing to serve as healthcare proxy decision maker. . Physical Exam Vital Signs Date Time Temp Pulse Resp B/P Pulse Ox O2 Delivery O2 Flow Rate FiO2 5/2/17 10:00 86 08/20/16 09:45 35 08/20/16 09:45 100 35 08/20/16 08:38 100 35 08/20/16 08:00 83 08/20/16 08:00 99.5 83 22 136/82 100 08/20/16 08:00 35 08/20/16 06:00 102 08/20/16 04:01 100 35 08/20/16 04:00 100.4 102 27 131/75 100 08/20/16 04:00 91 08/20/16 04:00 35 08/20/16 02:00 90 08/20/16 00:57 100 35 08/20/16 00:00 91 08/20/16 00:00 99.8 91 18 125/70 100 08/20/16 00:00 35 08/19/16 22:00 90 08/19/16 20:26 100 35 08/19/16 20:00 100.8 88 19 130/77 100 08/19/16 20:00 35 08/19/16 20:00 88 08/19/16 18:00 100 08/19/16 17:58 100 35 08/19/16 16:00 100.2 93 24 129/82 99 08/19/16 16:00 93 08/19/16 16:00 50 08/19/16 08/20/16 19:00 07:00 Intake Total 1341 ml 2180 ml Output Total 675 ml 950 ml Balance 666 ml 1230 ml Intake IV Total 1019 ml 1979 ml Tube Feeding 202 ml 101 ml Other 120 ml 100 ml Output Urine Total 675 ml 950 ml # Bowel Movements 2 0 Exam CONSTITUTIONAL/GENERAL: This is a critically ill, disheveled patient, on mechanical ventilation. TUBES/LINES/DRAINS: ETT, OG, bilateral PIV, bilateral soft wrist restraints, Mejia, rectal tube, SCD's. SKIN: No jaundice, rashes, or lesions. Ecchymoses on upper extremities. No wounds seen anteriorly. Skin temperature appropriate. Not diaphoretic. HEAD: Atraumatic. Normocephalic. EYES: Pupils equal and round, sluggish. Bilateral conjunctival injection, no scleral icterus. ENT: full gómez. Unable to assess hearing. nose without bleeding or purulent drainage. Difficult to visualize throat secondary to ET/OG tubes NECK: Trachea midline. CARDIOVASCULAR: Regular rate and rhythm without murmurs, gallops, or rubs. No JVD. Peripheral pulses symmetric. RESPIRATORY/CHEST: Symmetric, unlabored respirations on vent. Bilateral course breath sounds. Thick alcantara secretions noted. GASTROINTESTINAL: Abdomen soft, nondistended. Bowel sounds hypoactive. GENITOURINARY: Without palpable bladder distension. Mejia catheter in place, dark urine noted. MUSCULOSKELETAL: Extremities without clubbing, cyanosis, or edema. No mottling or clubbing. LYMPHATICS: No palpable cervical or supraclavicular adenopathy. NEUROLOGICAL: spontaneous, nonpurposeful movements, does not open eyes or follow commands. PSYCHIATRIC: sedated. . Diagnostic Tests Laboratory Laboratory Tests Test 08/18/16 08/18/16 08/18/16 08/19/16 07:50 11:31 14:09 10:32 Total Creatine Kinase 32855 U/L 9897 U/L (39-308) (39-308) Creatine Kinase MB 26.8 NG/ML 10.8 NG/ML (0.5-3.6) (0.5-3.6) Creatine Kinase MB % 0.2 % (0.0-4.0) 0.1 % (0.0-4.0) Sodium Level 144 MEQ/L 143 MEQ/L (136-145) (136-145) Potassium Level 3.8 MEQ/L 4.0 MEQ/L (3.5-5.1) (3.5-5.1) Chloride Level 107 MEQ/L 107 MEQ/L (98-107) (98-107) Carbon Dioxide Level 30.7 MEQ/L 24.8 MEQ/L (21.0-32.0) (21.0-32.0) Anion Gap 6 MEQ/L (5-15) 11 MEQ/L (5-15) Blood Urea Nitrogen 61 MG/DL (7-18) 61 MG/DL (7-18) Creatinine 4.64 MG/DL 4.45 MG/DL (0.60-1.30) (0.60-1.30) Estimat Glomerular Filtration 14 ML/MIN (>89) 15 ML/MIN (>89) Rate Random Glucose 102 MG/DL 112 MG/DL (74-106) (74-106) Calcium Level 7.5 MG/DL 8.1 MG/DL (8.5-10.1) (8.5-10.1) White Blood Count 12.5 TH/MM3 8.5 TH/MM3 (4.0-11.0) (4.0-11.0) Red Blood Count 4.37 MIL/MM3 4.25 MIL/MM3 (4.50-5.90) (4.50-5.90) Hemoglobin 11.4 GM/DL 11.2 GM/DL (13.0-17.0) (13.0-17.0) Hematocrit 34.9 % 34.0 % (39.0-51.0) (39.0-51.0) Mean Corpuscular Volume 79.7 FL 80.0 FL (80.0-100.0) (80.0-100.0) Mean Corpuscular Hemoglobin 26.1 PG 26.3 PG (27.0-34.0) (27.0-34.0) Mean Corpuscular Hemoglobin 32.7 % 32.8 % Concent (32.0-36.0) (32.0-36.0) Red Cell Distribution Width 13.6 % 13.5 % (11.6-17.2) (11.6-17.2) Platelet Count 132 TH/MM3 134 TH/MM3 (150-450) (150-450) Mean Platelet Volume 8.7 FL 8.4 FL (7.0-11.0) (7.0-11.0) Neutrophils (%) (Auto) 85.3 % 74.3 % (16.0-70.0) (16.0-70.0) Lymphocytes (%) (Auto) 5.3 % 12.8 % (9.0-44.0) (9.0-44.0) Monocytes (%) (Auto) 5.9 % (0.0-8.0) 9.1 % (0.0-8.0) Eosinophils (%) (Auto) 3.1 % (0.0-4.0) 3.5 % (0.0-4.0) Basophils (%) (Auto) 0.4 % (0.0-2.0) 0.3 % (0.0-2.0) Neutrophils # (Auto) 10.7 TH/MM3 6.3 TH/MM3 (1.8-7.7) (1.8-7.7) Lymphocytes # (Auto) 0.7 TH/MM3 1.1 TH/MM3 (1.0-4.8) (1.0-4.8) Monocytes # (Auto) 0.7 TH/MM3 0.8 TH/MM3 (0-0.9) (0-0.9) Eosinophils # (Auto) 0.4 TH/MM3 0.3 TH/MM3 (0-0.4) (0-0.4) Basophils # (Auto) 0.0 TH/MM3 0.0 TH/MM3 (0-0.2) (0-0.2) CBC Comment DIFF FINAL DIFF FINAL Differential Comment Total Bilirubin 0.6 MG/DL (0.2-1.0) Aspartate Amino Transf 411 U/L (15-37) (AST/SGOT) Alanine Aminotransferase 315 U/L (12-78) (ALT/SGPT) Alkaline Phosphatase 72 U/L (45-117) Total Protein 6.1 GM/DL (6.4-8.2) Albumin 1.8 GM/DL (3.4-5.0) Test 08/20/16 08/20/16 06:21 11:05 Total Creatine Kinase 7268 U/L (39-308) Creatine Kinase MB 5.4 NG/ML (0.5-3.6) Creatine Kinase MB % 0.1 % (0.0-4.0) Sodium Level 146 MEQ/L (136-145) Potassium Level 3.7 MEQ/L (3.5-5.1) Chloride Level 111 MEQ/L (98-107) Carbon Dioxide Level 26.8 MEQ/L (21.0-32.0) Anion Gap 8 MEQ/L (5-15) Blood Urea Nitrogen 73 MG/DL (7-18) Creatinine 4.32 MG/DL (0.60-1.30) Estimat Glomerular Filtration 16 ML/MIN (>89) Rate Random Glucose 112 MG/DL (74-106) Calcium Level 8.1 MG/DL (8.5-10.1) Phosphorus Level 5.3 MG/DL (2.5-4.9) Albumin 2.1 GM/DL (3.4-5.0) Procalcitonin 13.98 ng/mL (0.00-0.50) Result Diagram: 08/19/16 1032 08/20/16 1105 Microbiology Microbiology Date/Time Procedure Status Source Growth 08/16/16 01:00 Gram Stain - Final Complete Sputum Endotracheal 08/16/16 01:00 Sputum Culture - Final Complete Sputum Endotracheal HEAVY GROWTH NORMAL RESPIRATORY CAROLANN Imaging Last Impressions Chest X-Ray 08/19/16 0600 Signed Impressions: Service Date/Time: Friday, August 19, 2016 04:46 - CONCLUSION: 1. Left lower lobe atelectasis versus pneumonia. Cardiomegaly and findings of vascular congestion without overt failure. 2. There has been no significant change when compared to the prior exam. Raphael Rankin MD Brain MRI 08/17/16 0900 Signed Impressions: Service Date/Time: Wednesday, August 17, 2016 13:44 - CONCLUSION: Right maxillary sinus mucosal thickening and air-fluid level without evidence for mass, hemorrhage or acute infarct. Dewey Mitchell MD Liver Ultrasound 08/16/16 0000 Signed Impressions: Service Date/Time: Tuesday, August 16, 2016 08:03 - CONCLUSION: 1. Cholelithiasis 2. Trace ascites 3. Medical disease right kidney Raphael Rankin MD Head CT 08/15/16 1747 Signed Impressions: Service Date/Time: July 17:56 - CONCLUSION: 1. No acute hemorrhage or mass effect. 2. Sinusitis. Cruz Velasco MD Neck Magnetic Resonance Angiography 08/15/16 0000 Signed Impressions: Service Date/Time: July 23:31 - CONCLUSION: Motion degraded study without a definite abnormality. No stenosis demonstrated. Evaluation for carotid dissection difficult. If clinical concern persists and patient's renal function can tolerate, a CTA is suggested. Eleazar Viera MD Head Magnetic Resonance Angiography 08/15/16 0000 Signed Impressions: Service Date/Time: July 23:31 - CONCLUSION: Normal intracranial MRA. Eleazar Viera MD . Procedures * 08/15/16 lumbar puncture * 08/15/16 intubation . Patient/Family Conference Present at Family Conference: Spoke with Mother, Chasidy and brother, Behzad via telephone. Family Conference Time (mins): 60 Family Conference Location: Telephone Issues Discussed: * Palliative care role, purpose, approach * Additional medical, psychosocial, and spiritual history * Patients general health, functional status, and cognitive changes in the months leading up to the current hospitalization * Patient/family understanding of the current medical problems * Patient/family understanding of prognosis * Patients goals of care as best understood from advance directives and/or conversations and/or values * Current medical treatment options and benefits/burdens of those options * Likely scenarios comparing ongoing aggressive care with a transition to comfort measures only * Questions answered to the best of my ability * Palliative care contact information provided Palliative care spoke with mother, Chasidy and brother, Behzad via telephone. Mother is willing to serve as healthcare proxy decision maker. Family elects NO CODE. Lengthy conversation to obtain additional history, provide medical update, prognosis and potential upcoming decisions regarding tracheostomy/PEG tube. Family seems to have a good understanding of the current medical conditions, the difficult nature of these conditions and the likely poor prognosis given suspected anoxic brain injury. Patient's mother states"I don't want him in an institution if his brain is nonfunctioning." We agreed continue to monitor at this time as the patient is showing some minor clinical improvements. Family understands that trach/PEG tube decisions will come at some point between 7 to 14 days. Family indicates that these decisions will likely depend on his condition, neurologic function at the time these decisions will need to be made. Suspect if the patient has any further setbacks, decline or does not show signs of clinical improvement family will transition to comfort focused care and withdrawal of life support.Family is very appreciative of the time spent. Unit phone number and pin number provided. . Assessment and Plan Disease Oriented Problem List: (1) JUAN M (acute kidney injury) (2) Influenza A (3) Altered mental status (4) Rhabdomyolysis (5) Lactic acidosis (6) Leukocytosis Symptom Scale: (1) Pain 0-10 Scale: Unable to quantify Comment: Potential sources include infection, rhabdomyolysis, tubes, mechanical ventilation, bedbound status. (2) Encephalopathy 0-10 Scale: Unable to quantify Comment: secondary to anoxic encephalopathy . (3) Dyspnea 0-10 Scale: Unable to quantify Comment: On mechanical ventilation. Pertinent Non-Medical Issues Psychosocial: Single. One juvenile son age 9. Has mother and 2 brothers. Long time estranged from his father. Spiritual: [employer] mitchel. Legal:Patient is incapacitated will not likely recurrent incapacity. According to [place] statutes, health care proxy decision-making falls to apparent. His motherChasidy is willing to serve as healthcare proxy decision maker. Ethical issues impacting care: no known concerns at this time. . Important Contacts * Chasidy, mother/HCP: [phone] - lives in [facility] * Juan C Baron", brother: work [phone] or [employer] - lives in [place]. * Seth Yarbrough, brother: lives in [facility] . Prognosis This is a 36-year-old male who was found down outside of the bar with drug paraphernalia after approximately 4 hours admitted with with rhabdomyolysis, acute kidney failure, respiratory failure, NSTEMI with likely severe anoxic brain injury. Overall prognosis appears poor for meaningful recovery. . Code Status: No Code Plan * Decision Maker: Patient is incapacitated will not likely recurrent incapacity. According to [place] statutes, health care proxy decision-making falls to apparent. His motherChasidy is willing to serve as healthcare proxy decision maker. * NO CODE * Palliative care spoke with motherChasidy and brotherBehzad via telephone. Mother is willing to serve as healthcare proxy decision maker. Family elects NO CODE. Lengthy conversation to obtain additional history, provide medical update, prognosis and potential upcoming decisions regarding tracheostomy/PEG tube. Family seems to have a good understanding of the current medical conditions, the difficult nature of these conditions and the likely poor prognosis given suspected anoxic brain injury. Patient's mother states"I don't want him in an institution if his brain is nonfunctioning." We agreed continue to monitor at this time as the patient is showing some minor clinical improvements. Family understands that trach/PEG tube decisions will come at some point between 7 to 14 days. Family indicates that these decisions will likely depend on his condition, neurologic function at the time these decisions will need to be made. Suspect if the patient has any further setbacks, decline or does not show signs of clinical improvement family will transition to comfort focused care and withdrawal of life support. * Family is very appreciative of the time spent. Unit phone number and pin number provided. * Patient has a brother Seth who lives in the [facility] who may come to visit in the coming days. * Sales Professional visit requested for [facility], java web application developer notified will visit . * SYMPTOMS: Pain: secondary to tubes, mechanical ventilation, infection, bedbound status, etc. no obvious signs of pain during my visit. If patient appears painful a need higher doses of medication given history of drug abuse. Dyspnea: on mech vent. Encephalopathy: likely anoxic brain injury. * Palliative care number provided. * Palliative care will continue to follow throughout hospital course to assist with symptom management and clarification of goals as needed. . Time Spent Total Floor Time (mins): 90 Face to Face Time (mins): 60 (Telephone time with mother/HCP and brother) >50% Counseling/Coord of Care: Yes Thank you for the opportunity to participate in the care of Mr. Castro. Attestation To help prompt me to consider important information that might be impacting today's encounter and assessment, information from prior notes written by myself or my colleagues may have been "brought forward" into today's note. My signature on this note, however, is an attestation that I personally performed the exam, history, and/or decision-making noted today, and, unless otherwise indicated, the interactions with patient, family, and staff as well as the review of records all occurred today. I also attest that the listed assessment and stated plan reflect my best clinical judgment today based on the combination of historical information, prior notes, and today's exam/ interactions. When time spent is documented, it refers only to time spent today by the signer, or if indicated, combined time spent today by collaborating physician/nurse practitioner. SELENE BUCKLEY August 20, 2016 16:25
--- NOTE | 2016-08-20 19:43 | HHI.CCPN ---
Subjective Remarks/Hospital Course 08/15: 36-year-old male who was found down unresponsive outside of a bar. By report, he had been down outside for about 4 hours when [facility] arrived. He reportedly had syringes and IV drug paraphernalia with him. There was minimal if any response to IV Narcan by [facility]. He was intubated upon arrival to the ED for airway protection by Dr. Kee. He had no eye opening, no motor response to noxious stimuli, and no gag. Sats were about 90% on 100% NR. He was diaphoretic and temp was 101. ED workup included CT brain with the impression of sinusitis and no acute abnormality. He had rhabdomyolysis with a CPK of 3500 , BUN 28/creatinine of 1.42, white blood cell count of 30.2 with 22% bands. Urinalysis was relatively unremarkable except for consistent with myoglobinuria. CXR unremarkable. 08/16: Remains sedated, orally intubated on mechanical ventilation. 08/17: Remains sedated, orally intubated on mechanical ventilation. Making urine. CPK coming down. BUN/creatinine increased. 08/18: Remains sedated/ encephalopathic, orally intubated on mechanical ventilation. Making urine, CPK coming down. 08/19: Remains sedated/encephalopathic, orally intubated on mechanical ventilation. No significant improvement in neurologic status. Renal function appears to be improving. 08/20: Remains sedated/encephalopathic, orally intubated on mechanical ventilation. Gets significant coughing spells on lightening sedation however not really waking up or following commands. Objective Vital Signs Date Time Temp Pulse Resp B/P Pulse Ox O2 Delivery O2 Flow Rate FiO2 08/20/16 18:00 77 08/20/16 16:00 99.1 19 134/89 97 08/20/16 16:00 35 Intake and Output 08/19/16 08/19/16 08/20/16 08:00 16:00 00:00 Intake Total 1045 ml 1341 ml 1172 ml Output Total 550 ml 675 ml 500 ml Balance 495 ml 666 ml 672 ml Result Diagram: 08/19/16 1032 08/20/16 1105 Imaging Last Impressions Chest X-Ray 08/16/16 0600 Signed Impressions: Service Date/Time: Tuesday, August 16, 2016 05:13 - CONCLUSION: Mild bibasilar consolidation and small effusions developing. Lines and tubes unchanged. Eleazar Viera MD Liver Ultrasound 08/16/16 0000 Signed Impressions: Service Date/Time: Tuesday, August 16, 2016 08:03 - CONCLUSION: 1. Cholelithiasis 2. Trace ascites 3. Medical disease right kidney Raphael Rankin MD Head CT 08/15/16 1747 Signed Impressions: Service Date/Time: July 17:56 - CONCLUSION: 1. No acute hemorrhage or mass effect. 2. Sinusitis. Cruz Velasco MD Neck Magnetic Resonance Angiography 08/15/16 0000 Signed Impressions: Service Date/Time: July 23:31 - CONCLUSION: Motion degraded study without a definite abnormality. No stenosis demonstrated. Evaluation for carotid dissection difficult. If clinical concern persists and patient's renal function can tolerate, a CTA is suggested. Eleazar Viera MD Head Magnetic Resonance Angiography 08/15/16 0000 Signed Impressions: Service Date/Time: July 23:31 - CONCLUSION: Normal intracranial MRA. Eleazar Viera MD Brain MRI 08/15/16 0000 Signed Impressions: Service Date/Time: July 21:05 - CONCLUSION: Vague area of possible diffusion abnormalities in the left parietal and right temporal lobe without correlative findings on the other sequences questionable for possible acute infarction, however the appearance is nonspecific. There is no hemorrhage or mass effect. Kiesha Keating MD Objective Remarks Drips: NS 100cc/hr Fentanyl gtt Versed gtt GENERAL: Disheveled male who is orotracheally intubated. SKIN: Warm and dry. There is some redness to lower left back just above iliac crest. No rash, no petechiae. HEAD: Atraumatic. Normocephalic. EYES: Pupils 3mm bilaterally and sluggishly reactive. Bilateral conjunctival injection. No icterus. ENT: No nasal bleeding or discharge. Mucous membranes pink, dry. NECK: Trachea midline. Jugular veins are flat. Neck is supple without meningismus. CARDIOVASCULAR: Tachycardic in the mid 130s, regular, no murmur rub or gallop appreciated. RESPIRATORY: Orally intubated on mechanical ventilation, Overbreathes vent, coarse breath sounds L>R base. No wheezes. GASTROINTESTINAL: Abdomen soft, non-tender, nondistended. Bowel sounds hypoactive : Mejia in place with dark eda urine output. MUSCULOSKELETAL: Extremities without clubbing, cyanosis, or edema. No obvious deformities. NEUROLOGICAL: Sedated/encephalopathic orally intubated on mechanical ventilation. Moves all 4 extremities on lightening sedation A/P Assessment and Plan NEURO: Acute encephalopathy Hyperammonemia (ammonia level 79) UDS + for opiates, otherwise negative. Lactulose 30 bid for hyperammonemia, f/u ammonia level. CT brain - sinusitis, otherwise no acute abnormality. Lumbar puncture performed: 6 WBC, 2 RBC, 107 glucose, mildly elevated protein at 49.9. Opening pressure elevated, 29.5 cm H20. Initial MRI Brain demonstrated diffusion abnormalities of L parietal and R temporal lobe. Repeat MRI brain done on 08/17 was unremarkable MRA brain and neck negative. Neurology consult noted Abx management as per below. Thiamine/multivitamin/folic acid supplementation. Monitor for evidence of alcohol withdrawal On Versed/fentanyl gtt. for sedation. Daily sedation vacation. RESP: Acute respiratory failure on [facility] vent Bronchodilators every 2 hours as needed Daily spontaneous breathing trial. CXR with satisfactory endotracheal tube position. No infiltrate noted. CV: Elevated troponin, suspect type II NSTEMI due to sepsis/hypoxia. Follow serial troponins and EKG. Obtain 2-D echo. Serial lactic acid trend per sepsis protocol. Given aspirin 161 x1. Would not anticoagulate at this time based on overall clinical picture and lumbar puncture. GI: Transaminitis Continue tube feeds and advanced to goal as tolerated Obtain liver ultrasound. Obtain Viral hepatitis panel. Follow-up LFTs FEN/RENAL: Acute kidney injury Acute rhabdomyolysis Hyperkalemia Mejia inserted. Monitor intake and output. Monitor electrolytes. Received multiple fluid boluses on admission. Continue IVF Trend CPK. Nephrology following. Bicarbonate drip switched to half NS by nephrology. ID: Leukocytosis Severe sepsis Lactic acidemia Influenza A h/o orolabial herpes simplex h/o IVDU Remains on Tamiflu for influenza. Acyclovir discontinued as CSF HSV PCR was negative Antibiotics per ID, currently on cefepime Transthoracic 2-D echo did not reveal vegetations. Consulted Infectious disease and followup neurology recommendations as well. HEME: Monitor CBC ENDO: Mild hypoglycemia. Monitor bedside glucose every 4 hours. Starting tube feeds PROPH: SCDs for DVT prophylaxis. Start heparin subcutaneous for DVT prophylaxis 24 hours after lumbar puncture. Famotidine for stress ulcer prophylaxis. ACCESS: Peripheral IV providing adequate access at this time. Will place central venous line if needed. Consult palliative care to assist with deciding goals of therapy. Patient may have suffered anoxic brain injury. Palliative care was able to contact family members and they have changed his CODE STATUS to DNR as stated do not feel patient would want CPR or aggressive care in this situation. Critical care time 40 minutes exclusive of separately billable procedures. Antonio Beltran MD August 20, 2016 19:43
[2016-08-20] MEDS: CEFEPIME INJ 2,000 MG in SODIUM CHLORIDE 0.9% INJ 100 ML IV SCH (20:28)
[2016-08-21] VITALS (26 sets, daily range): BP systolic 126–145; BP diastolic 62–81; PULSE 75–94; RESP 15–27; TEMP 99.1–100.5; O2SAT 96–100
[2016-08-21] MEDS: PROPOFOL 1000 MG/100 ML INJ 100 ML IV SCH ×7 (02:59→21:19)
[2016-08-21] MEDS: SODIUM CHLOR 0.45% 1000 ML INJ 1,000 ML IV SCH ×2 (02:59→15:19)
[2016-08-21] MEDS: CHLORHEXIDINE GLUCONATE 2 % 1 PACK (2 CLOTHS) TOP SCH (04:00)
[2016-08-21 05:52] LABS: BICARBONATE 26.3 MEQ/L (21.0-32.0); POTASSIUM 3.5 MEQ/L (3.5-5.1)
[2016-08-21] MEDS: CHLORHEXIDINE 0.12% (ORAL KIT) 15 ML CUP MT SCH ×2 (07:57→20:41)
[2016-08-21] MEDS: SODIUM CHLORIDE 0.9% FLUSH 10 ML FLUSH SCH ×2 (09:03→20:42)
[2016-08-21] MEDS: LACTULOSE SYRUP 20 GM/30 ML CUP OG-TUBE SCH ×2 (09:15→20:42)
[2016-08-21] MEDS: MULTIVITAMIN TAB OG-TUBE SCH (09:15)
[2016-08-21] MEDS: OSELTAMIVIR PHOSPHATE 75 MG CAP PO SCH (09:15)
[2016-08-21] MEDS: FAMOTIDINE 20 MG TAB OG-TUBE SCH ×2 (09:15→20:42)
[2016-08-21] MEDS: FOLIC ACID 1 MG TAB OG-TUBE SCH (09:15)
[2016-08-21] MEDS: THIAMINE INJ 100 MG in SODIUM CHLORIDE 0.9% INJ 100 ML IV SCH (09:15)
[2016-08-21] MEDS: HEPARIN SODIUM - SQ 10,000 UNITS/ML VIAL SQ SCH ×2 (09:16→20:42)
--- NOTE | 2016-08-21 10:34 | HHI.IDPN ---
Subjective Subjective Remarks is a 36 y/o IVDA who was found with drug parapherenalia, out for extended periods of time on floor, admitted with acute renal failure, Rhabdomyolysis, ? sepsis secondary to aspiration PNA also has flu Ag positive, doubt clinical significance. Chart reviewed remains on vent 45% FiO2, PEEP 5 Lot of alcantara secretions. Moving all 4 extremities and restless. EEG results pending. Moves head from side to side. Unremarkable CSF studies afebrile Antibiotics Cefepime IV tamiflu Lines Line sites with no e.o infection. Past Medical History reviewed. Allergies: Coded Allergies: No Known Allergies (Verified , 12/18/15) Objective . Vital Signs Date Time Temp Pulse Resp B/P Pulse Ox O2 Delivery O2 Flow Rate FiO2 08/21/16 08:00 35 08/21/16 08:00 75 08/21/16 08:00 100.5 76 15 133/70 100 08/21/16 06:00 81 08/21/16 04:38 100 35 08/21/16 04:00 80 08/21/16 04:00 35 08/21/16 04:00 99.8 80 18 131/77 99 08/21/16 02:00 82 08/21/16 00:53 100 35 08/21/16 00:31 100 35 08/21/16 00:00 100.0 75 22 135/79 100 08/21/16 00:00 75 08/21/16 00:00 35 08/20/16 22:00 80 08/20/16 21:52 100 35 08/20/16 20:00 99.8 80 16 134/79 100 08/20/16 20:00 80 08/20/16 20:00 35 08/20/16 18:00 77 08/20/16 16:00 82 08/20/16 16:00 99.1 82 19 134/89 97 08/20/16 16:00 35 08/20/16 15:47 99 35 08/20/16 14:00 82 08/20/16 12:00 99.1 84 27 133/76 99 08/20/16 12:00 35 08/20/16 12:00 84 08/20/16 08/20/16 08/21/16 15:00 23:00 07:00 Intake Total 1409 ml 1293 ml 1037 ml Output Total 550 ml 500 ml 450 ml Balance 859 ml 793 ml 587 ml Intake IV Total 1032 ml 893 ml 858 ml Tube Feeding 257 ml 220 ml 179 ml Other 120 ml 180 ml Output Urine Total 550 ml 500 ml 400 ml Stool Total 50 ml # Bowel Movements 1 1 . Laboratory Tests Test 08/20/16 08/20/16 08/21/16 06:21 11:05 03:52 Total Creatine Kinase 7268 U/L Creatine Kinase MB 5.4 NG/ML Creatine Kinase MB % 0.1 % Sodium Level 146 MEQ/L 146 MEQ/L Potassium Level 3.7 MEQ/L 3.5 MEQ/L Chloride Level 111 MEQ/L 110 MEQ/L Carbon Dioxide Level 26.8 MEQ/L 26.3 MEQ/L Anion Gap 8 MEQ/L 10 MEQ/L Blood Urea Nitrogen 73 MG/DL 77 MG/DL Creatinine 4.32 MG/DL 4.09 MG/DL Estimat Glomerular Filtration 16 ML/MIN 17 ML/MIN Rate Random Glucose 112 MG/DL 121 MG/DL Calcium Level 8.1 MG/DL 8.3 MG/DL Phosphorus Level 5.3 MG/DL 4.4 MG/DL Albumin 2.1 GM/DL 2.1 GM/DL Procalcitonin 13.98 ng/mL Imaging Last Impressions Brain MRI 08/17/16 0900 Signed Impressions: Service Date/Time: Wednesday, August 17, 2016 13:44 - CONCLUSION: Right maxillary sinus mucosal thickening and air-fluid level without evidence for mass, hemorrhage or acute infarct. Dewey Mitchell MD Chest X-Ray 08/16/16 0600 Signed Impressions: Service Date/Time: Tuesday, August 16, 2016 05:13 - CONCLUSION: Mild bibasilar consolidation and small effusions developing. Lines and tubes unchanged. Eleazar Viera MD Liver Ultrasound 08/16/16 0000 Signed Impressions: Service Date/Time: Tuesday, August 16, 2016 08:03 - CONCLUSION: 1. Cholelithiasis 2. Trace ascites 3. Medical disease right kidney Raphael Rankin MD Head CT 08/15/16 0777 Signed Impressions: Service Date/Time: July 17:56 - CONCLUSION: 1. No acute hemorrhage or mass effect. 2. Sinusitis. Cruz Velasco MD Neck Magnetic Resonance Angiography 08/15/16 0000 Signed Impressions: Service Date/Time: July 23:31 - CONCLUSION: Motion degraded study without a definite abnormality. No stenosis demonstrated. Evaluation for carotid dissection difficult. If clinical concern persists and patient's renal function can tolerate, a CTA is suggested. Eleazar Viera MD Head Magnetic Resonance Angiography 08/15/16 0000 Signed Impressions: Service Date/Time: July 23:31 - CONCLUSION: Normal intracranial MRA. Eleazar Viera MD Physical Exam GENERAL: This is a well-nourished, well-developed patient, in no apparent distress. SKIN: No rashes, ecchymoses or lesions. Cool and dry. HEAD: Atraumatic. Normocephalic. No temporal or scalp tenderness. EYES: Pupils equal round and reactive. Extraocular motions intact. No scleral icterus. No injection or drainage. ENT: Intubated. NECK: Trachea midline. Supple, nontender, no meningeal signs. CARDIOVASCULAR: RRR RESPIRATORY: Clear to auscultation. Breath sounds equal bilaterally. GASTROINTESTINAL: Abdomen soft, non-tender, nondistended. NGtube in place with red blood in secretions MUSCULOSKELETAL: Extremities without clubbing, cyanosis, or edema. NEUROLOGICAL: unresponsive; not opening eyes not following commands Psych: could not be assessed IV line sites with no e.o infection. Assessment & Plan Remarks Sepsis with MODS and elevated lactic acid on admission Influenza A Pneumonia. ? superimposed aspiration Possible brain infarct ? acute cerebritis/meningitis. Initial LP can be normal. Acute metabolic encephalopathy: sepsis, ? 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 Acute rhabdomyolysis: ? seizure, ? lay on ground for hours after ? fall. Acute renal failure: sepsis, rhabdo related, prerenal, vasculopathy from drugs like cocaine etc. Recs: Continue cefepime IV Cont tamiflu stop date in chart. Elevated procalcitonin is likely secondary to renal issues. Clinically appears to be improving. Follow cultures Follow clinically. d/w [facility] No family in room. Sandy Beltran MD August 21, 2016 10:33
--- NOTE | 2016-08-21 10:59 | HHI.NPPN ---
Subjective Renal Failure: Acute Interval History He has been made a DNR. having EEG this morning. Renal function is better. ( Cristal Greer) Review of Systems General General Remarks unable to evaluate (Cristal Greer) Objective Data Data 08/20/16 08/21/16 19:00 07:00 Intake Total 1409 ml 2330 ml Output Total 550 ml 950 ml Balance 859 ml 1380 ml Intake IV Total 1032 ml 1751 ml Tube Feeding 257 ml 399 ml Other 120 ml 180 ml Output Urine Total 550 ml 900 ml Stool Total 50 ml # Bowel Movements 1 1 Vital Signs Date Time Temp Pulse Resp B/P Pulse Ox O2 Delivery O2 Flow Rate FiO2 08/21/16 10:00 80 08/21/16 08:00 35 08/21/16 08:00 75 08/21/16 08:00 100.5 76 15 133/70 100 08/21/16 06:00 81 08/21/16 04:38 100 35 08/21/16 04:00 80 08/21/16 04:00 35 08/21/16 04:00 99.8 80 18 131/77 99 08/21/16 02:00 82 08/21/16 00:53 100 35 08/21/16 00:31 100 35 08/21/16 00:00 100.0 75 22 135/79 100 08/21/16 00:00 75 08/21/16 00:00 35 08/20/16 22:00 80 08/20/16 21:52 100 35 08/20/16 20:00 99.8 80 16 134/79 100 08/20/16 20:00 80 08/20/16 20:00 35 08/20/16 18:00 77 08/20/16 16:00 82 08/20/16 16:00 99.1 82 19 134/89 97 08/20/16 16:00 35 08/20/16 15:47 99 35 08/20/16 14:00 82 08/20/16 12:00 99.1 84 27 133/76 99 08/20/16 12:00 35 08/20/16 12:00 84 (Cristal Greer) -: 08/19/16 1032 08/21/16 0352 Imaging Last 72 hours Impressions Chest X-Ray 08/19/16 0600 Signed Impressions: Service Date/Time: Friday, August 19, 2016 04:46 - CONCLUSION: 1. Left lower lobe atelectasis versus pneumonia. Cardiomegaly and findings of vascular congestion without overt failure. 2. There has been no significant change when compared to the prior exam. Raphael Rankin MD Tubes & Lines: Mejia Drip Comment propofol (Percy,Cristal B. [employer]) Physical Exam General Appearance: Well Developed, Comfortable, Sleeping Appearance Remarks missing upper front teeth (Percy,Cristal B. [employer]) Eyes Eye Exam: Pupils Equal (Percy,Cristal B. [employer]) Throat Throat Exam: Oral Mucosa [place] & Moist (Percy,Cristal B. [employer]IST) Neck Neck Exam: Neck Supple (Percy,Cristal B. [employer]IST) Pulmonary Resp Exam: Rhonchi (Percy,Cristal B. [employer]IST) Cardiology CV Exam: Regular, Normal Sinus Rhythm (Percy,Cristal B. [employer]IST) Gastrointestinal/Abdomen GI Exam: Soft, Non-Tender, Bowel Sounds Present, Positive Bowel Movement ( Percy,Cristal B. [employer]IST) Genitourinary Exam: Sediment (Percy,Cristal B. [employer]) Musculoskeletal MS Exam: Joints Intact, Normal Tone, Unable to Ambulate (Percy,Cristal B. [employer]IST) Integumentary Skin Exam: Intact (Percy,Cristal B. [employer]IST) Extremeties Extremities Exam: No Edema, Pedal Pulses Palpable (Percy,Cristal B. [employer]IST) Neurologic Neuro Exam: Moving All Extremities, Unresponsive, Sedated (Percy,Cristal B. [employer]) Assessment/Plan Assessment Summary: JUAN M/Acute Renal Failure Problem List: (1) JUAN M (acute kidney injury) Plan: No hx of renal impairment JUAN M due to rhabdomyolysis. renal function is improving Non oliguric. Monitor output reduce IVF (0.45%NS) to 50 cc/hr start free water with tube feeding Avoid nephrotoxins. Medications reviewed and appropriate daily renal panel (2) Rhabdomyolysis Plan: due to fall extended down time CPK improved, continue IVF (3) Influenza A Plan: on isolation also on tamiflu, stop date today (4) Altered mental status Plan: Neurology following. MRI did not reveal any CVA. May have suffered hypoxic/metabolic encephalopathy. EEG taken today, results pending (5) Lactic acidosis Plan: due to sepsis, he is febrile today Currently on Cefepime and Tamiflu continue IVF (Cristal Greer) Plan patient was seen and examined. Renal function is improving. No need for dialysis. Taper off fluids. (Dk Ramon MD) Problem Qualifiers (1) Altered mental status: Qualified Code: R40.2430 - [place] coma scale total score 3-8, unspecified time Cristal Greer August 21, 2016 10:59 Dk Ramon MD August 22, 2016 10:21
--- NOTE | 2016-08-21 14:05 | HHI.HCPN ---
Reason for visit a. To assist with evaluation and management of symptoms including: dyspnea, encephalopathy. b. To assist medical decision maker(s) with: better understanding of current medical conditions; weighing benefits/burdens of medical treatment options; making medical treatment decisions. . Subjective/Interval History Patient seen and examined in ICU. Discussed with Dr. Beltran. Patient is moving all extremities, still non-purposeful. Opens eyes, withdraws to noxious stimuli bilateral LEs. Does not track or follow commands. Grimaces to noxious stimuli. BrotherSeth reports patient is understanding what he is saying, that patient recognizes him, was tearful and smiling when he arrives. Remains on vent with copious secretions. Coughing when sedation lightened. Possible medical extubation in the coming days. Medical update provided to Seth oneill and motherChasidy via phone. Tmax 100.5. Vital signs stable. Repeat EEG pending. Creatinine decreased from 4.32 to 4.09. Albumin 2.1. Tolerating tube feeding. No new imaging. . Family/friend interactions Medical update provided to Seth oneill and motherChasidy via phone. Mother elects to revoke NO CODE at this time, desires FULL CODE after speaking with her son as she feels "he is coming around." . Advance Directives Living Will: Never completed Health Care Surrogate: Never completed Durable Power of Heel Sander: Never completed Advance Directive Specifics Health Care Surrogate(s): Patient is incapacitated will not likely recurrent incapacity. According to [place] statutes, health care proxy decision-making falls to apparent. His motherChasidy is willing to serve as healthcare proxy decision maker. . Significant change in goals: FULL CODE. Desires continued aggressive care at this. . Objective Vital Signs Date Time Temp Pulse Resp B/P Pulse Ox O2 Delivery O2 Flow Rate FiO2 08/21/16 12:37 100 35 08/21/16 12:00 100.0 79 18 133/75 100 08/21/16 12:00 79 08/21/16 12:00 35 08/21/16 10:00 80 08/21/16 08:00 35 08/21/16 08:00 75 08/21/16 08:00 100.5 76 15 133/70 100 08/21/16 06:00 81 08/21/16 04:38 100 35 08/21/16 04:00 80 08/21/16 04:00 35 08/21/16 04:00 99.8 80 18 131/77 99 08/21/16 02:00 82 08/21/16 00:53 100 35 08/21/16 00:31 100 35 08/21/16 00:00 100.0 75 22 135/79 100 08/21/16 00:00 75 08/21/16 00:00 35 08/20/16 22:00 80 08/20/16 21:52 100 35 08/20/16 20:00 99.8 80 16 134/79 100 08/20/16 20:00 80 08/20/16 20:00 35 08/20/16 18:00 77 08/20/16 16:00 82 08/20/16 16:00 99.1 82 19 134/89 97 08/20/16 16:00 35 08/20/16 15:47 99 35 Intake & Output 08/21/16 08/21/16 07:00 19:00 Intake Total 2330 ml Output Total 950 ml Balance 1380 ml Intake IV Total 1751 ml Tube Feeding 399 ml Other 180 ml Output Urine Total 900 ml Stool Total 50 ml # Bowel Movements 1 Physical Exam CONSTITUTIONAL/GENERAL: This is a critically ill, disheveled patient, on mechanical ventilation. TUBES/LINES/DRAINS: ETT, OG, bilateral PIV, bilateral soft wrist restraints, Mejia, rectal tube, SCD's. SKIN: Ecchymoses on upper extremities. No wounds seen anteriorly. Febrile. EYES: Pupils equal and round, sluggish. Bilateral conjunctival injection, no scleral icterus. ENT: full gómez. Unable to assess hearing. nose without bleeding or purulent drainage. Difficult to visualize throat secondary to ET/OG tubes CARDIOVASCULAR: Regular rate and rhythm without murmurs, gallops, or rubs. RESPIRATORY/CHEST: Symmetric, unlabored respirations on vent. Bilateral course breath sounds. Thick alcantara secretions noted. GASTROINTESTINAL: Abdomen soft, nondistended. Bowel sounds hypoactive. GENITOURINARY: Without palpable bladder distension. Mejia catheter in place, dark urine noted. MUSCULOSKELETAL: Extremities with trace edema. NEUROLOGICAL: spontaneous, nonpurposeful movements, opens eyes, withdraws to pain bilateral LE, does not track or follow commands. PSYCHIATRIC: sedated. . Diagnostic Tests Laboratory Laboratory Tests Test 08/18/16 08/19/16 08/20/16 08/20/16 14:09 10:32 06:21 11:05 White Blood Count 12.5 TH/MM3 8.5 TH/MM3 (4.0-11.0) (4.0-11.0) Red Blood Count 4.37 MIL/MM3 4.25 MIL/MM3 (4.50-5.90) (4.50-5.90) Hemoglobin 11.4 GM/DL 11.2 GM/DL (13.0-17.0) (13.0-17.0) Hematocrit 34.9 % 34.0 % (39.0-51.0) (39.0-51.0) Mean Corpuscular Volume 79.7 FL 80.0 FL (80.0-100.0) (80.0-100.0) Mean Corpuscular Hemoglobin 26.1 PG 26.3 PG (27.0-34.0) (27.0-34.0) Mean Corpuscular Hemoglobin 32.7 % 32.8 % Concent (32.0-36.0) (32.0-36.0) Red Cell Distribution Width 13.6 % 13.5 % (11.6-17.2) (11.6-17.2) Platelet Count 132 TH/MM3 134 TH/MM3 (150-450) (150-450) Mean Platelet Volume 8.7 FL 8.4 FL (7.0-11.0) (7.0-11.0) Neutrophils (%) (Auto) 85.3 % 74.3 % (16.0-70.0) (16.0-70.0) Lymphocytes (%) (Auto) 5.3 % 12.8 % (9.0-44.0) (9.0-44.0) Monocytes (%) (Auto) 5.9 % (0.0-8.0) 9.1 % (0.0-8.0) Eosinophils (%) (Auto) 3.1 % (0.0-4.0) 3.5 % (0.0-4.0) Basophils (%) (Auto) 0.4 % (0.0-2.0) 0.3 % (0.0-2.0) Neutrophils # (Auto) 10.7 TH/MM3 6.3 TH/MM3 (1.8-7.7) (1.8-7.7) Lymphocytes # (Auto) 0.7 TH/MM3 1.1 TH/MM3 (1.0-4.8) (1.0-4.8) Monocytes # (Auto) 0.7 TH/MM3 0.8 TH/MM3 (0-0.9) (0-0.9) Eosinophils # (Auto) 0.4 TH/MM3 0.3 TH/MM3 (0-0.4) (0-0.4) Basophils # (Auto) 0.0 TH/MM3 0.0 TH/MM3 (0-0.2) (0-0.2) CBC Comment DIFF FINAL DIFF FINAL Differential Comment Sodium Level 143 MEQ/L 146 MEQ/L (136-145) (136-145) Potassium Level 4.0 MEQ/L 3.7 MEQ/L (3.5-5.1) (3.5-5.1) Chloride Level 107 MEQ/L 111 MEQ/L (98-107) (98-107) Carbon Dioxide Level 24.8 MEQ/L 26.8 MEQ/L (21.0-32.0) (21.0-32.0) Anion Gap 11 MEQ/L (5-15) 8 MEQ/L (5-15) Blood Urea Nitrogen 61 MG/DL (7-18) 73 MG/DL (7-18) Creatinine 4.45 MG/DL 4.32 MG/DL (0.60-1.30) (0.60-1.30) Estimat Glomerular Filtration 15 ML/MIN (>89) 16 ML/MIN (>89) Rate Random Glucose 112 MG/DL 112 MG/DL (74-106) (74-106) Calcium Level 8.1 MG/DL 8.1 MG/DL (8.5-10.1) (8.5-10.1) Total Bilirubin 0.6 MG/DL (0.2-1.0) Aspartate Amino Transf 411 U/L (15-37) (AST/SGOT) Alanine Aminotransferase 315 U/L (12-78) (ALT/SGPT) Alkaline Phosphatase 72 U/L (45-117) Total Creatine Kinase 9897 U/L 7268 U/L (39-308) (39-308) Creatine Kinase MB 10.8 NG/ML 5.4 NG/ML (0.5-3.6) (0.5-3.6) Creatine Kinase MB % 0.1 % (0.0-4.0) 0.1 % (0.0-4.0) Total Protein 6.1 GM/DL (6.4-8.2) Albumin 1.8 GM/DL 2.1 GM/DL (3.4-5.0) (3.4-5.0) Phosphorus Level 5.3 MG/DL (2.5-4.9) Procalcitonin 13.98 ng/mL (0.00-0.50) Test 08/21/16 03:52 Sodium Level 146 MEQ/L (136-145) Potassium Level 3.5 MEQ/L (3.5-5.1) Chloride Level 110 MEQ/L (98-107) Carbon Dioxide Level 26.3 MEQ/L (21.0-32.0) Anion Gap 10 MEQ/L (5-15) Blood Urea Nitrogen 77 MG/DL (7-18) Creatinine 4.09 MG/DL (0.60-1.30) Estimat Glomerular Filtration 17 ML/MIN (>89) Rate Random Glucose 121 MG/DL (74-106) Calcium Level 8.3 MG/DL (8.5-10.1) Phosphorus Level 4.4 MG/DL (2.5-4.9) Albumin 2.1 GM/DL (3.4-5.0) Result Diagram: 08/19/16 1032 08/21/16 0352 Imaging Last Impressions Chest X-Ray 08/19/16 0600 Signed Impressions: Service Date/Time: Friday, August 19, 2016 04:46 - CONCLUSION: 1. Left lower lobe atelectasis versus pneumonia. Cardiomegaly and findings of vascular congestion without overt failure. 2. There has been no significant change when compared to the prior exam. Raphael Rankin MD Brain MRI 08/17/16 0900 Signed Impressions: Service Date/Time: Wednesday, August 17, 2016 13:44 - CONCLUSION: Right maxillary sinus mucosal thickening and air-fluid level without evidence for mass, hemorrhage or acute infarct. Dewey Mitchell MD Liver Ultrasound 08/16/16 0000 Signed Impressions: Service Date/Time: Tuesday, August 16, 2016 08:03 - CONCLUSION: 1. Cholelithiasis 2. Trace ascites 3. Medical disease right kidney Raphael Rankin MD Head CT 08/15/16 1747 Signed Impressions: Service Date/Time: July 17:56 - CONCLUSION: 1. No acute hemorrhage or mass effect. 2. Sinusitis. Cruz Velasco MD Neck Magnetic Resonance Angiography 08/15/16 0000 Signed Impressions: Service Date/Time: July 23:31 - CONCLUSION: Motion degraded study without a definite abnormality. No stenosis demonstrated. Evaluation for carotid dissection difficult. If clinical concern persists and patient's renal function can tolerate, a CTA is suggested. Eleazar Viera MD Head Magnetic Resonance Angiography 08/15/16 0000 Signed Impressions: Service Date/Time: July 23:31 - CONCLUSION: Normal intracranial MRA. Eleazar Viera MD . Procedures * 08/15/16 lumbar puncture * 08/15/16 intubation . Assessment and Plan Disease Oriented Problem List: (1) JUAN M (acute kidney injury) (2) Influenza A (3) Altered mental status (4) Rhabdomyolysis (5) Lactic acidosis (6) Leukocytosis Symptom Scale: (1) Pain 0-10 Scale: Unable to quantify Comment: Potential sources include infection, rhabdomyolysis, tubes, mechanical ventilation, bedbound status. (2) Encephalopathy 0-10 Scale: Unable to quantify Comment: secondary to anoxic encephalopathy . (3) Dyspnea 0-10 Scale: Unable to quantify Comment: On mechanical ventilation. Pertinent Non-Medical Issues Psychosocial: Single. One juvenile son age 9. Has mother and 2 brothers. Long time estranged from his father. 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 Legal:Patient is incapacitated will not likely recurrent incapacity. According to [place] statutes, health care proxy decision-making falls to apparent. His mother, Chasidy is willing to serve as healthcare proxy decision maker. Ethical issues impacting care: no known concerns at this time. . Important Contacts * Chasidy, mother/HCP: [phone] - lives in [facility] * Juan C "Behzad", brother: work [phone] or [id number] -lives in [place]. * Seth Yarbrough, brother: lives in [facility] . Prognosis This is a 36-year-old male who was found down outside of the bar with drug paraphernalia after approximately 4 hours admitted with with rhabdomyolysis, acute kidney failure, respiratory failure, NSTEMI with likely severe anoxic brain injury. Overall prognosis appears poor for meaningful recovery. . Code Status: Full Code Plan * Decision Maker: Patient is incapacitated will not likely recurrent incapacity. According to [place] statutes, health care proxy decision-making falls to apparent. His mother, Chasidy is willing to serve as healthcare proxy decision maker. * FULL CODE * Palliative care spoke with mother, Chasidy and brother, Seth via telephone. Mother elects to revoke NO CODE and desires FULL CODE for now. Palliative care will follow up to update family on 08/22/16 10am. * SYMPTOMS: Pain: secondary to tubes, mechanical ventilation, infection, bedbound status, etc. no obvious signs of pain during my visit. If patient appears painful a need higher doses of medication given history of drug abuse. Dyspnea: on mech vent. Encephalopathy: likely anoxic brain injury. * Palliative care will continue to follow throughout hospital course to assist with symptom management and clarification of goals as needed. . Time Spent Total Floor Time (mins): 60 Face to Face Time (mins): 45 >50% Counseling/Coord of Care: Yes Attestation To help prompt me to consider important information that might be impacting today's encounter and assessment, information from prior notes written by myself or my colleagues may have been "brought forward" into today's note. My signature on this note, however, is an attestation that I personally performed the exam, history, and/or decision-making noted today, and, unless otherwise indicated, the interactions with patient, family, and staff as well as the review of records all occurred today. I also attest that the listed assessment and stated plan reflect my best clinical judgment today based on the combination of historical information, prior notes, and today's exam/ interactions. When time spent is documented, it refers only to time spent today by the signer, or if indicated, combined time spent today by collaborating physician/nurse practitioner. . SELENE BUCKLEY August 21, 2016 14:05
[2016-08-21] MEDS: LORazepam 2 MG/ML VIAL IV PRN (18:26)
[2016-08-21] MEDS: CEFEPIME INJ 2,000 MG in SODIUM CHLORIDE 0.9% INJ 100 ML IV SCH (20:43)
--- NOTE | 2016-08-21 20:53 | HHI.CCPN ---
Subjective Remarks/Hospital Course 08/15: 36-year-old male who was found down unresponsive outside of a bar. By report, he had been down outside for about 4 hours when [facility] arrived. He reportedly had syringes and IV drug paraphernalia with him. There was minimal if any response to IV Narcan by [facility]. He was intubated upon arrival to the ED for airway protection by Dr. Kee. He had no eye opening, no motor response to noxious stimuli, and no gag. Sats were about 90% on 100% NR. He was diaphoretic and temp was 101. ED workup included CT brain with the impression of sinusitis and no acute abnormality. He had rhabdomyolysis with a CPK of 3500 , BUN 28/creatinine of 1.42, white blood cell count of 30.2 with 22% bands. Urinalysis was relatively unremarkable except for consistent with myoglobinuria. CXR unremarkable. 08/16: Remains sedated, orally intubated on mechanical ventilation. 08/17: Remains sedated, orally intubated on mechanical ventilation. Making urine. CPK coming down. BUN/creatinine increased. 08/18: Remains sedated/ encephalopathic, orally intubated on mechanical ventilation. Making urine, CPK coming down. 08/19: Remains sedated/encephalopathic, orally intubated on mechanical ventilation. No significant improvement in neurologic status. Renal function appears to be improving. 08/20: Remains sedated/encephalopathic, orally intubated on mechanical ventilation. Gets significant coughing spells on lightening sedation however not really waking up or following commands. 08/21: Sedated, orally intubated on mechanical ventilation. Appears to be more responsive on lightening sedation today, opens eyes. Objective Vital Signs Date Time Temp Pulse Resp B/P Pulse Ox O2 Delivery O2 Flow Rate FiO2 08/21/16 18:00 90 27 145/81 96 08/21/16 17:54 35 08/21/16 16:00 99.7 Intake and Output 08/20/16 08/20/16 08/21/16 08:00 16:00 00:00 Intake Total 1008 ml 1409 ml 1293 ml Output Total 450 ml 550 ml 500 ml Balance 558 ml 859 ml 793 ml Result Diagram: 08/19/16 1032 08/21/16 0352 Imaging Last Impressions Chest X-Ray 08/16/16 0600 Signed Impressions: Service Date/Time: Tuesday, August 16, 2016 05:13 - CONCLUSION: Mild bibasilar consolidation and small effusions developing. Lines and tubes unchanged. Eleazar Viera MD Liver Ultrasound 08/16/16 0000 Signed Impressions: Service Date/Time: Tuesday, August 16, 2016 08:03 - CONCLUSION: 1. Cholelithiasis 2. Trace ascites 3. Medical disease right kidney Raphael Rankin MD Head CT 08/15/16 1747 Signed Impressions: Service Date/Time: July 17:56 - CONCLUSION: 1. No acute hemorrhage or mass effect. 2. Sinusitis. Cruz Velasco MD Neck Magnetic Resonance Angiography 08/15/16 0000 Signed Impressions: Service Date/Time: July 23:31 - CONCLUSION: Motion degraded study without a definite abnormality. No stenosis demonstrated. Evaluation for carotid dissection difficult. If clinical concern persists and patient's renal function can tolerate, a CTA is suggested. Eleazar Viera MD Head Magnetic Resonance Angiography 08/15/16 0000 Signed Impressions: Service Date/Time: July 23:31 - CONCLUSION: Normal intracranial MRA. Eleazar Viera MD Brain MRI 08/15/16 0000 Signed Impressions: Service Date/Time: July 21:05 - CONCLUSION: Vague area of possible diffusion abnormalities in the left parietal and right temporal lobe without correlative findings on the other sequences questionable for possible acute infarction, however the appearance is nonspecific. There is no hemorrhage or mass effect. Kiesha Keating MD Objective Remarks Drips: NS 100cc/hr Fentanyl gtt Versed gtt(ordered stop on 08/22 at 6AM-started propofol once worsened stopped) GENERAL: Disheveled male who is orotracheally intubated. SKIN: Warm and dry. There is some redness to lower left back just above iliac crest. No rash, no petechiae. HEAD: Atraumatic. Normocephalic. EYES: Pupils 3mm bilaterally and sluggishly reactive. Bilateral conjunctival injection. No icterus. ENT: No nasal bleeding or discharge. Mucous membranes pink, dry. NECK: Trachea midline. Jugular veins are flat. Neck is supple without meningismus. CARDIOVASCULAR: Tachycardic in the mid 130s, regular, no murmur rub or gallop appreciated. RESPIRATORY: Orally intubated on mechanical ventilation, Overbreathes vent, coarse breath sounds L>R base. No wheezes. GASTROINTESTINAL: Abdomen soft, non-tender, nondistended. Bowel sounds hypoactive : Mejia in place with dark eda urine output. MUSCULOSKELETAL: Extremities without clubbing, cyanosis, or edema. No obvious deformities. NEUROLOGICAL: Sedated/encephalopathic orally intubated on mechanical ventilation. Moves all 4 extremities on lightening sedation A/P Assessment and Plan NEURO: Acute encephalopathy Hyperammonemia (ammonia level 79) UDS + for opiates, otherwise negative. Lactulose 30 bid for hyperammonemia, f/u ammonia level. CT brain - sinusitis, otherwise no acute abnormality. Lumbar puncture performed: 6 WBC, 2 RBC, 107 glucose, mildly elevated protein at 49.9. Opening pressure elevated, 29.5 cm H20. Initial MRI Brain demonstrated diffusion abnormalities of L parietal and R temporal lobe. Repeat MRI brain done on 08/17 was unremarkable MRA brain and neck negative. Neurology consult noted Abx management as per below. Thiamine/multivitamin/folic acid supplementation. Monitor for evidence of alcohol withdrawal On Versed/fentanyl gtt. for sedation. Daily sedation vacation. . Versed at 6 AM on 08/22 and use propofol if needed for sedation neurologic status seems to be improving. RESP: Acute respiratory failure on [facility] vent Bronchodilators every 2 hours as needed Daily spontaneous breathing trial. CXR with satisfactory endotracheal tube position. No infiltrate noted. CV: Elevated troponin, suspect type II NSTEMI due to sepsis/hypoxia. Follow serial troponins and EKG. Obtain 2-D echo. Serial lactic acid trend per sepsis protocol. Given aspirin 161 x1. Would not anticoagulate at this time based on overall clinical picture and lumbar puncture. GI: Transaminitis Continue tube feeds and advanced to goal as tolerated Obtain liver ultrasound. Obtain Viral hepatitis panel. Follow-up LFTs FEN/RENAL: Acute kidney injury Acute rhabdomyolysis Hyperkalemia Mejia inserted. Monitor intake and output. Monitor electrolytes. Received multiple fluid boluses on admission. Continue IVF Trend CPK. Nephrology following. ID: Leukocytosis Severe sepsis Lactic acidemia Influenza A h/o orolabial herpes simplex h/o IVDU Remains on Tamiflu for influenza. Acyclovir discontinued as CSF HSV PCR was negative Antibiotics per ID, currently on cefepime Transthoracic 2-D echo did not reveal vegetations. Consulted Infectious disease and followup neurology recommendations as well. HEME: Monitor CBC ENDO: Mild hypoglycemia. Monitor bedside glucose every 4 hours. Starting tube feeds PROPH: SCDs for DVT prophylaxis. Start heparin subcutaneous for DVT prophylaxis 24 hours after lumbar puncture. Famotidine for stress ulcer prophylaxis. ACCESS: Peripheral IV providing adequate access at this time. Will place central venous line if needed. Consult palliative care to assist with deciding goals of therapy. Patient may have suffered anoxic brain injury. In view of some improvement in neurologic status, had family meeting and they have decided to make him full CODE STATUS again. I did explain that he may still have significant hypoxic brain injury though he has shown some signs of neurologic recovery. Critical care time 40 minutes exclusive of separately billable procedures. Antonio Beltran MD August 21, 2016 20:53
[2016-08-21] MEDS ORDERED: fentaNYL DRIP 250 ML IV SCH (21:00)
[2016-08-22] VITALS (29 sets, daily range): BP systolic 130–159; BP diastolic 8–96; PULSE 75–102; RESP 0–36; TEMP 99.2–100.5; O2SAT 37–100
[2016-08-22] MEDS: PROPOFOL 1000 MG/100 ML INJ 100 ML IV SCH ×7 (00:19→22:41)
[2016-08-22] MEDS: CHLORHEXIDINE GLUCONATE 2 % 1 PACK (2 CLOTHS) TOP SCH (03:00)
[2016-08-22 04:56] LABS: AUTOMATED NEUTROPHIL # 5.9 TH/MM3 (1.8-7.7); BASOPHIL # 0.1 TH/MM3 (0-0.2); BASOPHIL % 0.5 % (0.0-2.0); EOSINOPHIL # 0.9 TH/MM3 (0-0.4); EOSINOPHIL % 8.8 % (0.0-4.0); HEMATOCRIT 31.8 % (39.0-51.0); LYMPH % 16.9 % (9.0-44.0); LYMPHOCYTE # 1.7 TH/MM3 (1.0-4.8); MEAN CELL VOLUME 79.3 FL (80.0-100.0); MEAN CORPUSCULAR HGB CONC 32.7 % (32.0-36.0); MONO % 13.9 % (0.0-8.0); NEUT % 59.9 % (16.0-70.0); PLATELET COUNT 151 TH/MM3 (150-450); RED BLOOD COUNT 4.01 MIL/MM3 (4.50-5.90); RED CELL DISTRIBUTION WIDTH 13.5 % (11.6-17.2); WHITE BLOOD COUNT 9.9 TH/MM3 (4.0-11.0)
[2016-08-22 05:01] LABS: HEMO FLAGS AUTO DIFF
[2016-08-22 05:15] LABS: POTASSIUM 3.7 MEQ/L (3.5-5.1)
--- NOTE | 2016-08-22 07:18 | MG ---
cc: ANTHONY PEREZ Lab No: [id number]___ Date: 08/22/2016 Age: ___ Sex: M Race: ___ MEDICATIONS Propofol INDICATIONS Found down behind a bar in the sun. DESCRIPTION The recording shows underlying low amplitude beta rhythms with what almost appears to be sweat artifact at 1 Hz to 2 Hz diffusely. No hemisphere asymmetries are noted. No epileptiform or seizure activity is seen. Hyperventilation is not performed. At times a 10 Hz, 60 microvolt symmetric diffuse rhythm is seen. Photic stimulation was performed without significant posterior driving. IMPRESSION Some slowing which is probably more of a sweat artifact and could be consistent with a moderate diffuse encephalopathy but no focal abnormalities are noted and no seizure activity is seen. Overall I thought this was generally unremarkable. MD HELDER Fox/JEWELL /6:58 AM /7:07 AM
[2016-08-22 07:28] LABS: SCAN/DIFF AUTO DIFF CONFIRMED
[2016-08-22] MEDS: CHLORHEXIDINE 0.12% (ORAL KIT) 15 ML CUP MT SCH ×2 (07:42→20:32)
[2016-08-22] MEDS: SODIUM CHLORIDE 0.9% FLUSH 10 ML FLUSH SCH ×2 (08:05→20:32)
[2016-08-22] MEDS: LACTULOSE SYRUP 20 GM/30 ML CUP OG-TUBE SCH ×2 (08:05→22:00)
[2016-08-22] MEDS: FOLIC ACID 1 MG TAB OG-TUBE SCH (08:05)
[2016-08-22] MEDS: THIAMINE INJ 100 MG in SODIUM CHLORIDE 0.9% INJ 100 ML IV SCH (08:05)
[2016-08-22] MEDS: MULTIVITAMIN TAB OG-TUBE SCH (08:05)
[2016-08-22] MEDS: FAMOTIDINE 20 MG TAB OG-TUBE SCH ×2 (08:05→22:00)
[2016-08-22] MEDS: HEPARIN SODIUM - SQ 10,000 UNITS/ML VIAL SQ SCH ×2 (08:06→22:01)
--- NOTE | 2016-08-22 11:38 | HHI.HCPN ---
Reason for visit a. To assist with evaluation and management of symptoms including: dyspnea, encephalopathy. b. To assist medical decision maker(s) with: better understanding of current medical conditions; weighing benefits/burdens of medical treatment options; making medical treatment decisions. . Subjective/Interval History Patient seen and examined in ICU. Discussed with Dr. Vargas and nurse, Moni. Dr. Vargas will notify palliative care if patient to be medically extubated so we can update family. Seth Wilson would like to be here if possible. Patient on CPAP, lightened sedation (Diprivan), unable to stop as patient coughs and fights against the vent per nursing staff. Patient is moving all extremities, still non-purposeful. Opens eyes, moves head toward voice slowly. He is not consistently tracking. Withdraws to noxious stimuli bilateral LEs. Does not follow commands. Grimaces to noxious stimuli.Thick copious secretions noted. Coughing when sedation lightened. Medical update provided to Seth wilson. Tmax 99.9. Vital signs stable. Repeat EEG moderate encephalopathy, no seizure. Creatinine increased from 4.09 to 4.25, dark eda urine noted. Tolerating tube feeding. No new imaging. . Family/friend interactions Spoke with Seth wilson at bedside. Medical update provided. Reviewed possible scenarios including medical extubation with or without need for reintubation, neurologic recovery and difficulty predicting how he will recover. Explained we will be here to support and explain medical conditions, problems and assist with conversations as medical decisions need to be made. . Advance Directives Living Will: Never completed Health Care Surrogate: Never completed Durable Power of Crack Off Person: Never completed Advance Directive Specifics Health Care Surrogate(s): Patient is incapacitated will not likely recurrent incapacity. According to [place] statutes, health care proxy decision-making falls to apparent. His mother, Chasidy is willing to serve as healthcare proxy decision maker. . Significant change in goals: FULL CODE. Desires continued aggressive care for now. . Objective Vital Signs Date Time Temp Pulse Resp B/P Pulse Ox O2 Delivery O2 Flow Rate FiO2 08/22/16 08:00 99.4 79 16 140/89 99 08/22/16 08:00 35 08/22/16 08:00 80 08/22/16 07:51 35 08/22/16 07:51 98 35 08/22/16 06:00 81 08/22/16 06:00 81 22 145/82 98 08/22/16 05:00 81 23 143/90 100 08/22/16 04:09 37 35 08/22/16 04:00 35 08/22/16 04:00 99.2 76 21 141/84 97 08/22/16 04:00 76 08/22/16 03:00 77 22 130/67 100 08/22/16 02:00 85 23 130/66 98 08/22/16 02:00 85 08/22/16 01:00 88 22 131/72 100 08/22/16 00:19 100 35 08/22/16 00:00 92 22 132/67 100 08/22/16 00:00 35 08/22/16 00:00 99.9 92 23 132/67 100 08/22/16 00:00 92 08/21/16 23:00 92 21 127/74 99 08/21/16 22:00 90 25 140/80 100 08/21/16 22:00 90 08/21/16 22:00 90 08/21/16 22:00 99.1 08/21/16 21:03 100 35 08/21/16 21:00 94 27 132/78 100 08/21/16 20:00 35 08/21/16 20:00 100.4 81 22 142/73 100 08/21/16 20:00 81 08/21/16 19:00 90 22 143/80 100 08/21/16 18:00 90 27 145/81 96 08/21/16 18:00 90 08/21/16 17:54 97 35 08/21/16 17:00 80 16 136/79 98 08/21/16 16:00 35 08/21/16 16:00 99.7 92 26 137/81 99 08/21/16 16:00 92 08/21/16 15:00 80 17 130/76 99 08/21/16 14:00 82 17 131/73 100 08/21/16 14:00 82 08/21/16 13:00 79 19 131/72 100 08/21/16 12:37 100 35 08/21/16 12:00 100.0 79 18 133/75 100 08/21/16 12:00 79 08/21/16 12:00 35 Intake & Output 08/22/16 08/22/16 07:00 19:00 Intake Total 1571 ml Output Total 1145.0 ml Balance 426.0 ml Intake IV Total 1141 ml Tube Feeding 340 ml Other 90 ml Output Urine Total 775 ml Stool Total 370 ml Tube Feeding Residual Discard 0 ml Physical Exam CONSTITUTIONAL/GENERAL: This is a critically ill, disheveled patient, on mechanical ventilation. TUBES/LINES/DRAINS: ETT, OG, bilateral PIV, bilateral soft wrist restraints, Mejia, rectal tube, SCD's. SKIN: Ecchymoses on upper extremities. No wounds seen anteriorly. Febrile. EYES: Pupils equal and round, sluggish. Bilateral conjunctival injection, no scleral icterus. ENT: full gómez. Unable to assess hearing. nose without bleeding or purulent drainage. Difficult to visualize throat secondary to ET/OG tubes, thick oral secretions noted. CARDIOVASCULAR: Regular rate and rhythm without murmurs, gallops, or rubs. RESPIRATORY/CHEST: Symmetric, unlabored respirations on vent. Bilateral course breath sounds. Thick alcantara secretions noted. GASTROINTESTINAL: Abdomen soft, nondistended. Bowel sounds hypoactive. GENITOURINARY: Without palpable bladder distension. Mejia catheter in place, dark urine noted. MUSCULOSKELETAL: Extremities with trace edema. NEUROLOGICAL: spontaneous, nonpurposeful movements, opens eyes, not consistently tracking, withdraws to pain bilateral LE, does not follow commands. PSYCHIATRIC: sedated. . Diagnostic Tests Laboratory Laboratory Tests Test 08/20/16 08/20/16 08/21/16 08/22/16 06:21 11:05 03:52 04:34 Total Creatine Kinase 7268 U/L (39-308) Creatine Kinase MB 5.4 NG/ML (0.5-3.6) Creatine Kinase MB % 0.1 % (0.0-4.0) Sodium Level 146 MEQ/L 146 MEQ/L 144 MEQ/L (136-145) (136-145) (136-145) Potassium Level 3.7 MEQ/L 3.5 MEQ/L 3.7 MEQ/L (3.5-5.1) (3.5-5.1) (3.5-5.1) Chloride Level 111 MEQ/L 110 MEQ/L 109 MEQ/L (98-107) (98-107) (98-107) Carbon Dioxide Level 26.8 MEQ/L 26.3 MEQ/L 24.0 MEQ/L (21.0-32.0) (21.0-32.0) (21.0-32.0) Anion Gap 8 MEQ/L (5-15) 10 MEQ/L (5-15) 11 MEQ/L (5-15) Blood Urea Nitrogen 73 MG/DL (7-18) 77 MG/DL (7-18) 91 MG/DL (7-18) Creatinine 4.32 MG/DL 4.09 MG/DL 4.25 MG/DL (0.60-1.30) (0.60-1.30) (0.60-1.30) Estimat Glomerular Filtration 16 ML/MIN (>89) 17 ML/MIN (>89) 16 ML/MIN (>89) Rate Random Glucose 112 MG/DL 121 MG/DL 107 MG/DL (74-106) (74-106) (74-106) Calcium Level 8.1 MG/DL 8.3 MG/DL 8.0 MG/DL (8.5-10.1) (8.5-10.1) (8.5-10.1) Phosphorus Level 5.3 MG/DL 4.4 MG/DL 6.1 MG/DL (2.5-4.9) (2.5-4.9) (2.5-4.9) Albumin 2.1 GM/DL 2.1 GM/DL 2.0 GM/DL (3.4-5.0) (3.4-5.0) (3.4-5.0) Procalcitonin 13.98 ng/mL (0.00-0.50) White Blood Count 9.9 TH/MM3 (4.0-11.0) Red Blood Count 4.01 MIL/MM3 (4.50-5.90) Hemoglobin 10.4 GM/DL (13.0-17.0) Hematocrit 31.8 % (39.0-51.0) Mean Corpuscular Volume 79.3 FL (80.0-100.0) Mean Corpuscular Hemoglobin 26.0 PG (27.0-34.0) Mean Corpuscular Hemoglobin 32.7 % Concent (32.0-36.0) Red Cell Distribution Width 13.5 % (11.6-17.2) Platelet Count 151 TH/MM3 (150-450) Mean Platelet Volume 8.2 FL (7.0-11.0) Neutrophils (%) (Auto) 59.9 % (16.0-70.0) Lymphocytes (%) (Auto) 16.9 % (9.0-44.0) Monocytes (%) (Auto) 13.9 % (0.0-8.0) Eosinophils (%) (Auto) 8.8 % (0.0-4.0) Basophils (%) (Auto) 0.5 % (0.0-2.0) Neutrophils # (Auto) 5.9 TH/MM3 (1.8-7.7) Lymphocytes # (Auto) 1.7 TH/MM3 (1.0-4.8) Monocytes # (Auto) 1.4 TH/MM3 (0-0.9) Eosinophils # (Auto) 0.9 TH/MM3 (0-0.4) Basophils # (Auto) 0.1 TH/MM3 (0-0.2) CBC Comment AUTO DIFF Differential Comment AUTO DIFF CONFIRMED Result Diagram: 08/22/16 0434 08/22/16 0434 Imaging Last Impressions Chest X-Ray 08/19/16 0600 Signed Impressions: Service Date/Time: Friday, August 19, 2016 04:46 - CONCLUSION: 1. Left lower lobe atelectasis versus pneumonia. Cardiomegaly and findings of vascular congestion without overt failure. 2. There has been no significant change when compared to the prior exam. Raphael Rankin MD Brain MRI 08/17/16 0900 Signed Impressions: Service Date/Time: Wednesday, August 17, 2016 13:44 - CONCLUSION: Right maxillary sinus mucosal thickening and air-fluid level without evidence for mass, hemorrhage or acute infarct. Dewey Mitchell MD Liver Ultrasound 08/16/16 0000 Signed Impressions: Service Date/Time: Tuesday, August 16, 2016 08:03 - CONCLUSION: 1. Cholelithiasis 2. Trace ascites 3. Medical disease right kidney Raphael Rankin MD Head CT 08/15/16 4547 Signed Impressions: Service Date/Time: July 17:56 - CONCLUSION: 1. No acute hemorrhage or mass effect. 2. Sinusitis. Cruz Velasco MD Neck Magnetic Resonance Angiography 08/15/16 0000 Signed Impressions: Service Date/Time: July 23:31 - CONCLUSION: Motion degraded study without a definite abnormality. No stenosis demonstrated. Evaluation for carotid dissection difficult. If clinical concern persists and patient's renal function can tolerate, a CTA is suggested. Eleazar Viera MD Head Magnetic Resonance Angiography 08/15/16 0000 Signed Impressions: Service Date/Time: July 23:31 - CONCLUSION: Normal intracranial MRA. Eleazar Viera MD . Procedures * 08/15/16 lumbar puncture * 08/15/16 intubation . Assessment and Plan Disease Oriented Problem List: (1) JUAN M (acute kidney injury) (2) Influenza A (3) Altered mental status (4) Rhabdomyolysis (5) Lactic acidosis (6) Leukocytosis Symptom Scale: (1) Pain 0-10 Scale: Unable to quantify Comment: Potential sources include infection, rhabdomyolysis, tubes, mechanical ventilation, bedbound status. (2) Encephalopathy 0-10 Scale: Unable to quantify Comment: secondary to anoxic encephalopathy . (3) Dyspnea 0-10 Scale: Unable to quantify Comment: On mechanical ventilation. Pertinent Non-Medical Issues Psychosocial: Single. One juvenile son age 9. Has mother and 2 brothers. Long time estranged from his father. Spiritual: [employer] mithcel. Legal:Patient is incapacitated will not likely recurrent incapacity. According to [place] statutes, health care proxy decision-making falls to apparent. His mother, Chasidy is willing to serve as healthcare proxy decision maker. Ethical issues impacting care: no known concerns at this time. . Important Contacts * Chasidy, mother/HCP: [phone] - lives in [facility] * Juan C Baron", brother: work [phone] or cell [phone]-lives in [place]. * Seth Shaguftas, brother: lives in [facility] . Prognosis This is a 36-year-old male who was found down outside of the bar with drug paraphernalia after approximately 4 hours admitted with with rhabdomyolysis, acute kidney failure, respiratory failure, NSTEMI with likely severe anoxic brain injury. Overall prognosis appears poor for meaningful recovery. . Code Status: Full Code Plan * Decision Maker: Patient is incapacitated will not likely recurrent incapacity. According to [place] statutes, health care proxy decision-making falls to apparent. His mother, Chasidy is willing to serve as healthcare proxy decision maker. * FULL CODE * Palliative care spoke with brothSeth wilder at bedside. Goals remain aggressive for now. MotherChasidy (HCP) will be arriving from [place] around 1-2 pm on 08/23/16, palliative care will meet with family when they arrive. Mother requests patient NOT be extubated (if even planned) until she arrives. * Discussed with nurse and Dr. Vargas. * Letter provided to brothSeth wilder for his employer to indicate pt in ICU. * SYMPTOMS: Pain: secondary to tubes, mechanical ventilation, infection, bedbound status, etc. no obvious signs of pain during my visit. If patient appears painful a need higher doses of medication given history of drug abuse. Dyspnea: on mech vent. Encephalopathy: likely anoxic brain injury. * Palliative care will continue to follow throughout hospital course to assist with symptom management and clarification of goals as needed. . Attestation To help prompt me to consider important information that might be impacting today's encounter and assessment, information from prior notes written by myself or my colleagues may have been "brought forward" into today's note. My signature on this note, however, is an attestation that I personally performed the exam, history, and/or decision-making noted today, and, unless otherwise indicated, the interactions with patient, family, and staff as well as the review of records all occurred today. I also attest that the listed assessment and stated plan reflect my best clinical judgment today based on the combination of historical information, prior notes, and today's exam/ interactions. When time spent is documented, it refers only to time spent today by the signer, or if indicated, combined time spent today by collaborating physician/nurse practitioner. . SELENE BUCKLEY August 22, 2016 11:38
[2016-08-22] MEDS: SODIUM CHLOR 0.45% 1000 ML INJ 1,000 ML IV SCH ×2 (11:47→20:18)
--- NOTE | 2016-08-22 12:19 | HHI.NPPN ---
Subjective Renal Failure: Acute Interval History On CPAP trial. Renal function declined. He has been having diarrhea. (Cristal Greer) Review of Systems General General Remarks unable to evaluate (Cristal Greer) Objective Data Data 08/21/16 08/22/16 19:00 07:00 Intake Total 1160 ml 1571 ml Output Total 625 ml 1145.0 ml Balance 535 ml 426.0 ml Intake IV Total 964 ml 1141 ml Tube Feeding 96 ml 340 ml Tube Irrigant 100 ml Other 90 ml Output Urine Total 525 ml 775 ml Stool Total 100 ml 370 ml Tube Feeding Residual Discard 0 ml Vital Signs Date Time Temp Pulse Resp B/P Pulse Ox O2 Delivery O2 Flow Rate FiO2 08/22/16 12:00 100.5 83 13 142/89 100 08/22/16 12:00 83 08/22/16 11:30 99 35 08/22/16 11:00 91 30 156/92 99 08/22/16 10:00 87 08/22/16 10:00 87 25 146/86 98 08/22/16 09:00 84 145/89 97 08/22/16 08:00 99.4 79 16 140/89 99 08/22/16 08:00 35 08/22/16 08:00 80 08/22/16 07:51 35 08/22/16 07:51 98 35 08/22/16 06:00 81 08/22/16 06:00 81 22 145/82 98 08/22/16 05:00 81 23 143/90 100 08/22/16 04:09 37 35 08/22/16 04:00 35 08/22/16 04:00 99.2 76 21 141/84 97 08/22/16 04:00 76 08/22/16 03:00 77 22 130/67 100 08/22/16 02:00 85 23 130/66 98 08/22/16 02:00 85 08/22/16 01:00 88 22 131/72 100 08/22/16 00:19 100 35 08/22/16 00:00 92 22 132/67 100 08/22/16 00:00 35 08/22/16 00:00 99.9 92 23 132/67 100 08/22/16 00:00 92 08/21/16 23:00 92 21 127/74 99 08/21/16 22:00 90 25 140/80 100 08/21/16 22:00 90 08/21/16 22:00 90 08/21/16 22:00 99.1 08/21/16 21:03 100 35 08/21/16 21:00 94 27 132/78 100 08/21/16 20:00 35 08/21/16 20:00 100.4 81 22 142/73 100 08/21/16 20:00 81 08/21/16 19:00 90 22 143/80 100 08/21/16 18:00 90 27 145/81 96 08/21/16 18:00 90 08/21/16 17:54 97 35 08/21/16 17:00 80 16 136/79 98 08/21/16 16:00 35 08/21/16 16:00 99.7 92 26 137/81 99 08/21/16 16:00 92 08/21/16 15:00 80 17 130/76 99 08/21/16 14:00 82 17 131/73 100 08/21/16 14:00 82 08/21/16 13:00 79 19 131/72 100 08/21/16 12:37 100 35 (Cristal Greer) -: 08/22/16 0434 08/22/16 0434 Tubes & Lines: Mejia Drip Comment propofol (Cristal Greer) Physical Exam General Appearance: Well Developed, Comfortable, Sleeping Appearance Remarks missing upper front teeth (Cristal Greer) Eyes Eye Exam: Pupils Equal (Cristal Greer) Throat Throat Exam: Oral Mucosa [place] & Moist (Cristal Greer) Neck Neck Exam: Neck Supple (Cristal Greer) Pulmonary Resp Exam: Rhonchi (Cristal Greer) Cardiology CV Exam: Regular, Normal Sinus Rhythm (Cristal Greer) Gastrointestinal/Abdomen GI Exam: Soft, Non-Tender, Bowel Sounds Present, Positive Bowel Movement ( Cristal Greer) Genitourinary Exam: Sediment (Cristal Greer) Musculoskeletal MS Exam: Joints Intact, Normal Tone, Unable to Ambulate (Cristal Greer) Integumentary Skin Exam: Intact (Cristal Greer) Extremeties Extremities Exam: No Edema, Pedal Pulses Palpable (Cristal Greer) Neurologic Neuro Exam: Moving All Extremities, Unresponsive, Sedated (Cristal Greer) Assessment/Plan Assessment Summary: JUAN M/Acute Renal Failure Problem List: (1) JUAN M (acute kidney injury) Plan: No hx of renal impairment JUAN M due to rhabdomyolysis. renal function declined although it has been improving has diarrhea, may be volume depleted increase 0.45 0.45% NS IVF to 100 cc/hr Non oliguric. Monitor output continue free water with tube feeding Avoid nephrotoxins. Medications reviewed and appropriate daily renal panel (2) Rhabdomyolysis Plan: due to fall extended down time CPK improved, continue IVF (3) Influenza A Plan: tamiflu finished (4) Altered mental status Plan: Neurology following. MRI did not reveal any CVA. May have suffered hypoxic/metabolic encephalopathy. EEG taken today, results pending now full code (5) Lactic acidosis Plan: due to sepsis, he is febrile today Currently on Cefepime continue IVF (Cristal Greer) Plan patient was seen and examined. BUN and creatinine slightly worse. He is having diarrhea. We will increase IVF administration to keep up with fluid losses. He is non oliguric. (Dk Ramon MD) Problem Qualifiers (1) Altered mental status: Qualified Code: R40.2430 - Devi coma scale total score 3-8, unspecified time Cristal Greer August 22, 2016 12:18 Dk Ramon MD August 22, 2016 20:32
[2016-08-22 14:23] LABS: BACTERIA, URINE RARE /hpf; BLOOD, URINE MOD (NEG); GLUCOSE,URINE NEG (NEG); KETONE, URINE NEG (NEG); MUCUS URINE FEW /lpf (OCC); NITRITE,URINE NEG (NEG)
[2016-08-22 14:24] LABS: COMMENT (UR) CATH-CULTURE IND; CULTURE IF INDICATED CATH CULTURE IND; URINE COLOR LIGHT-RED (YELLW/STRAW)
--- NOTE | 2016-08-22 16:40 | HHI.IDPN ---
Subjective Subjective Remarks is a 36 y/o IVDA who was found with drug parapherenalia, out for extended periods of time on floor, admitted with acute renal failure, Rhabdomyolysis, ? sepsis secondary to aspiration PNA also has flu Ag positive, doubt clinical significance. Chart reviewed remains on vent 45% FiO2, PEEP 5 Tolerated CPAP trials. Gets agitated. Opens eyes, follows commands at times but not consistent. Lot of alcantara yellow secretions. Moving all 4 extremities and restless. afebrile Antibiotics Cefepime IV tamiflu stopped 08/21/2016 Lines Line sites with no e.o infection. Past Medical History reviewed. Allergies: Coded Allergies: No Known Allergies (Verified , 12/18/15) Objective . Vital Signs Date Time Temp Pulse Resp B/P Pulse Ox O2 Delivery O2 Flow Rate FiO2 08/22/16 16:00 75 08/22/16 16:00 99.9 75 10 148/87 100 08/22/16 16:00 35 08/22/16 15:00 78 19 143/92 100 08/22/16 14:00 81 08/22/16 14:00 81 11 144/83 98 08/22/16 13:00 83 15 148/94 99 08/22/16 12:00 100.5 83 13 142/89 100 08/22/16 12:00 35 08/22/16 12:00 83 08/22/16 11:30 99 35 08/22/16 11:00 91 30 156/92 99 08/22/16 10:00 87 08/22/16 10:00 87 25 146/86 98 08/22/16 09:00 84 145/89 97 08/22/16 08:00 99.4 79 16 140/89 99 08/22/16 08:00 35 08/22/16 08:00 80 08/22/16 07:51 35 08/22/16 07:51 98 35 08/22/16 06:00 81 08/22/16 06:00 81 22 145/82 98 08/22/16 05:00 81 23 143/90 100 08/22/16 04:09 37 35 08/22/16 04:00 35 08/22/16 04:00 99.2 76 21 141/84 97 08/22/16 04:00 76 08/22/16 03:00 77 22 130/67 100 08/22/16 02:00 85 23 130/66 98 08/22/16 02:00 85 08/22/16 01:00 88 22 131/72 100 08/22/16 00:19 100 35 08/22/16 00:00 92 22 132/67 100 08/22/16 00:00 35 08/22/16 00:00 99.9 92 23 132/67 100 08/22/16 00:00 92 08/21/16 23:00 92 21 127/74 99 08/21/16 22:00 90 25 140/80 100 08/21/16 22:00 90 08/21/16 22:00 90 08/21/16 22:00 99.1 08/21/16 21:03 100 35 08/21/16 21:00 94 27 132/78 100 08/21/16 20:00 35 08/21/16 20:00 100.4 81 22 142/73 100 08/21/16 20:00 81 08/21/16 19:00 90 22 143/80 100 08/21/16 18:00 90 27 145/81 96 08/21/16 18:00 90 08/21/16 17:54 97 35 08/21/16 17:00 80 16 136/79 98 08/21/16 08/21/16 08/22/16 15:00 23:00 07:00 Intake Total 1160 ml 727 ml 844 ml Output Total 625 ml 685 ml 460 ml Balance 535 ml 42 ml 384 ml Intake IV Total 964 ml 566 ml 575 ml Tube Feeding 96 ml 131 ml 209 ml Tube Irrigant 100 ml Other 30 ml 60 ml Output Urine Total 525 ml 375 ml 400 ml Stool Total 100 ml 310 ml 60 ml Tube Feeding Residual Discard 0 ml . Laboratory Tests Test 08/22/16 04:34 White Blood Count 9.9 TH/MM3 Red Blood Count 4.01 MIL/MM3 Hemoglobin 10.4 GM/DL Hematocrit 31.8 % Mean Corpuscular Volume 79.3 FL Mean Corpuscular Hemoglobin 26.0 PG Mean Corpuscular Hemoglobin 32.7 % Concent Red Cell Distribution Width 13.5 % Platelet Count 151 TH/MM3 Mean Platelet Volume 8.2 FL Neutrophils (%) (Auto) 59.9 % Lymphocytes (%) (Auto) 16.9 % Monocytes (%) (Auto) 13.9 % Eosinophils (%) (Auto) 8.8 % Basophils (%) (Auto) 0.5 % Neutrophils # (Auto) 5.9 TH/MM3 Lymphocytes # (Auto) 1.7 TH/MM3 Monocytes # (Auto) 1.4 TH/MM3 Eosinophils # (Auto) 0.9 TH/MM3 Basophils # (Auto) 0.1 TH/MM3 CBC Comment AUTO DIFF Differential Comment AUTO DIFF CONFIRMED Laboratory Tests Test 08/21/16 08/22/16 03:52 04:34 Sodium Level 146 MEQ/L 144 MEQ/L Potassium Level 3.5 MEQ/L 3.7 MEQ/L Chloride Level 110 MEQ/L 109 MEQ/L Carbon Dioxide Level 26.3 MEQ/L 24.0 MEQ/L Anion Gap 10 MEQ/L 11 MEQ/L Blood Urea Nitrogen 77 MG/DL 91 MG/DL Creatinine 4.09 MG/DL 4.25 MG/DL Estimat Glomerular Filtration 17 ML/MIN 16 ML/MIN Rate Random Glucose 121 MG/DL 107 MG/DL Calcium Level 8.3 MG/DL 8.0 MG/DL Phosphorus Level 4.4 MG/DL 6.1 MG/DL Albumin 2.1 GM/DL 2.0 GM/DL Microbiology Date/Time Procedure Status Source Growth 08/22/16 13:30 Urine Culture Received Urine Catheterized Urine Pending Imaging Last Impressions Brain MRI 08/17/16 0900 Signed Impressions: Service Date/Time: Wednesday, August 17, 2016 13:44 - CONCLUSION: Right maxillary sinus mucosal thickening and air-fluid level without evidence for mass, hemorrhage or acute infarct. Dewey Mitchell MD Chest X-Ray 08/16/16 0600 Signed Impressions: Service Date/Time: Tuesday, August 16, 2016 05:13 - CONCLUSION: Mild bibasilar consolidation and small effusions developing. Lines and tubes unchanged. Eleazar Viera MD Liver Ultrasound 08/16/16 0000 Signed Impressions: Service Date/Time: Tuesday, August 16, 2016 08:03 - CONCLUSION: 1. Cholelithiasis 2. Trace ascites 3. Medical disease right kidney Raphael Rankin MD Head CT 08/15/16 [id number] Signed Impressions: Service Date/Time: July 17:56 - CONCLUSION: 1. No acute hemorrhage or mass effect. 2. Sinusitis. Cruz Velasco MD Neck Magnetic Resonance Angiography 08/15/16 0000 Signed Impressions: Service Date/Time: July 23:31 - CONCLUSION: Motion degraded study without a definite abnormality. No stenosis demonstrated. Evaluation for carotid dissection difficult. If clinical concern persists and patient's renal function can tolerate, a CTA is suggested. Eleazar Viera MD Head Magnetic Resonance Angiography 08/15/16 0000 Signed Impressions: Service Date/Time: July 23:31 - CONCLUSION: Normal intracranial MRA. Eleazar Viera MD Physical Exam GENERAL: This is a well-nourished, well-developed patient, in no apparent distress. SKIN: No rashes, ecchymoses or lesions. Cool and dry. HEAD: Atraumatic. Normocephalic. No temporal or scalp tenderness. EYES: Pupils equal round and reactive. Extraocular motions intact. No scleral icterus. No injection or drainage. ENT: Intubated. NECK: Trachea midline. Supple, nontender, no meningeal signs. CARDIOVASCULAR: RRR RESPIRATORY: Clear to auscultation. Breath sounds equal bilaterally. GASTROINTESTINAL: Abdomen soft, non-tender, nondistended. NGtube in place with red blood in secretions MUSCULOSKELETAL: Extremities without clubbing, cyanosis, or edema. NEUROLOGICAL: unresponsive; not opening eyes not following commands Psych: could not be assessed IV line sites with no e.o infection. Assessment & Plan Remarks Sepsis with MODS and elevated lactic acid on admission Influenza A Pneumonia. ? superimposed aspiration Possible brain infarct ? acute cerebritis/meningitis. Initial LP can be normal. Acute metabolic encephalopathy: sepsis, ? 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 Acute rhabdomyolysis: ? seizure, ? lay on ground for hours after ? fall. Acute renal failure: sepsis, rhabdo related, prerenal, vasculopathy from drugs like cocaine etc. Recs: Continue cefepime IV Follow cultures Follow clinically. d/w CCM No family in room. Sandy Beltran MD August 22, 2016 16:40
--- NOTE | 2016-08-22 18:01 | HHI.CCPN ---
Subjective Remarks/Hospital Course 08/15: 36-year-old male who was found down unresponsive outside of a bar. By report, he had been down outside for about 4 hours when [facility] arrived. He reportedly had syringes and IV drug paraphernalia with him. There was minimal if any response to IV Narcan by [facility]. He was intubated upon arrival to the ED for airway protection by Dr. Kee. He had no eye opening, no motor response to noxious stimuli, and no gag. Sats were about 90% on 100% NR. He was diaphoretic and temp was 101. ED workup included CT brain with the impression of sinusitis and no acute abnormality. He had rhabdomyolysis with a CPK of 3500 , BUN 28/creatinine of 1.42, white blood cell count of 30.2 with 22% bands. Urinalysis was relatively unremarkable except for consistent with myoglobinuria. CXR unremarkable. 08/16: Remains sedated, orally intubated on mechanical ventilation. 08/17: Remains sedated, orally intubated on mechanical ventilation. Making urine. CPK coming down. BUN/creatinine increased. 08/18: Remains sedated/ encephalopathic, orally intubated on mechanical ventilation. Making urine, CPK coming down. 08/19: Remains sedated/encephalopathic, orally intubated on mechanical ventilation. No significant improvement in neurologic status. Renal function appears to be improving. 08/20: Remains sedated/encephalopathic, orally intubated on mechanical ventilation. Gets significant coughing spells on lightening sedation however not really waking up or following commands. 08/21: Sedated, orally intubated on mechanical ventilation. Appears to be more responsive on lightening sedation today, opens eyes. 08/22 On light sedation, the patient is tracking. The patient does open his eyes spontaneously. More responsive today and yesterday. Objective Vital Signs Date Time Temp Pulse Resp B/P Pulse Ox O2 Delivery O2 Flow Rate FiO2 08/22/16 16:33 100 35 08/22/16 16:00 75 08/22/16 16:00 99.9 10 148/87 Intake and Output 08/21/16 08/21/16 08/22/16 08:00 16:00 00:00 Intake Total 1037 ml 1160 ml 727 ml Output Total 450 ml 625 ml 685.0 ml Balance 587 ml 535 ml 42.0 ml Result Diagram: 08/22/16 0434 08/22/16 0434 Imaging Last Impressions Chest X-Ray 08/16/16 0600 Signed Impressions: Service Date/Time: Tuesday, August 16, 2016 05:13 - CONCLUSION: Mild bibasilar consolidation and small effusions developing. Lines and tubes unchanged. Eleazar Viera MD Liver Ultrasound 08/16/16 0000 Signed Impressions: Service Date/Time: Tuesday, August 16, 2016 08:03 - CONCLUSION: 1. Cholelithiasis 2. Trace ascites 3. Medical disease right kidney Raphael Rankin MD Head CT 08/15/16 1747 Signed Impressions: Service Date/Time: July 17:56 - CONCLUSION: 1. No acute hemorrhage or mass effect. 2. Sinusitis. Cruz Velasco MD Neck Magnetic Resonance Angiography 08/15/16 0000 Signed Impressions: Service Date/Time: July 23:31 - CONCLUSION: Motion degraded study without a definite abnormality. No stenosis demonstrated. Evaluation for carotid dissection difficult. If clinical concern persists and patient's renal function can tolerate, a CTA is suggested. Eleazar Viera MD Head Magnetic Resonance Angiography 08/15/16 0000 Signed Impressions: Service Date/Time: July 23:31 - CONCLUSION: Normal intracranial MRA. Eleazar Viera MD Brain MRI 08/15/16 0000 Signed Impressions: Service Date/Time: July 21:05 - CONCLUSION: Vague area of possible diffusion abnormalities in the left parietal and right temporal lobe without correlative findings on the other sequences questionable for possible acute infarction, however the appearance is nonspecific. There is no hemorrhage or mass effect. Kiesha Keating MD Objective Remarks Drips: NS 100cc/hr Fentanyl gtt Versed gtt(ordered stop on 08/22 at 6AM-started propofol once worsened stopped) GENERAL: Well-developed well-nourished male who is orotracheally intubated. SKIN: Warm and dry. No rash, no petechiae. HEAD: Atraumatic. Normocephalic. EYES: Pupils 3mm bilaterally and sluggishly reactive. Bilateral conjunctival injection. No icterus. ENT: No nasal bleeding or discharge. Mucous membranes pink, dry. NECK: Trachea midline. Jugular veins are flat. Neck is supple without meningismus. CARDIOVASCULAR: Tachycardic in the mid 130s, regular, no murmur rub or gallop appreciated. RESPIRATORY: Orally intubated on mechanical ventilation, Overbreathes vent, coarse breath sounds L>R base. No wheezes. GASTROINTESTINAL: Abdomen soft, non-tender, nondistended. Bowel sounds hypoactive : Mejia in place with dark eda urine output. MUSCULOSKELETAL: Extremities without clubbing, cyanosis, or edema. No obvious deformities. NEUROLOGICAL: Sedated/encephalopathic orally intubated on mechanical ventilation. Moves all 4 extremities on lightening sedation A/P Assessment and Plan NEURO: Acute encephalopathy Hyperammonemia (ammonia level 79) UDS positive for opiates, otherwise negative. Lactulose 30 bid for hyperammonemia, f/u ammonia level. CT brain - sinusitis, otherwise no acute abnormality. Lumbar puncture performed: 6 WBC, 2 RBC, 107 glucose, mildly elevated protein at 49.9. Opening pressure elevated, 29.5 cm H20. Initial MRI Brain demonstrated diffusion abnormalities of L parietal and R temporal lobe. Repeat MRI brain done on 08/17 was unremarkable MRA brain and neck negative. Neurology consult following Abx management as per below. Thiamine/multivitamin/folic acid supplementation. Monitor for evidence of alcohol withdrawal On Versed/fentanyl gtt. for sedation. Daily sedation vacation. . Versed at 6 AM on 08/22 and use propofol if needed for sedation neurologic status seems to be improving. RESP: Acute respiratory failure on [facility] vent Bronchodilators every 2 hours as needed Daily spontaneous breathing trial. CXR with satisfactory endotracheal tube position. No infiltrate noted. CV: Elevated troponin, suspect type II NSTEMI due to sepsis/hypoxia. Follow serial troponins and EKG. Obtain 2-D echo. Serial lactic acid trend per sepsis protocol. Given aspirin 161 x1. Would not anticoagulate at this time based on overall clinical picture and lumbar puncture. GI: Transaminitis Continue tube feeds and advanced to goal as tolerated Obtain liver ultrasound. Obtain Viral hepatitis panel. Follow-up LFTs FEN/RENAL: Acute kidney injury Acute rhabdomyolysis Hyperkalemia Mejia inserted. Monitor intake and output. Monitor electrolytes. Received multiple fluid boluses on admission. Continue IVF Trend CPK. Nephrology following. ID: Leukocytosis Severe sepsis Lactic acidemia Influenza A h/o orolabial herpes simplex h/o IVDU Remains on Tamiflu for influenza. Acyclovir discontinued as CSF HSV PCR was negative Antibiotics per ID, currently on cefepime Transthoracic 2-D echo did not reveal vegetations. Consulted Infectious disease and followup neurology recommendations as well. HEME: Monitor CBC ENDO: Mild hypoglycemia. Monitor bedside glucose every 4 hours. Starting tube feeds PROPH: SCDs for DVT prophylaxis. Start heparin subcutaneous for DVT prophylaxis 24 hours after lumbar puncture. Famotidine for stress ulcer prophylaxis. ACCESS: Peripheral IV providing adequate access at this time. Will place central venous line if needed. Palliative care team assist with deciding goals of therapy. Patient may have suffered anoxic brain injury. In view of some improvement in neurologic status, had family meeting and they have decided to make him full CODE STATUS again. I did explain that he may still have significant hypoxic brain injury though he has shown some signs of neurologic recovery. And for mother to visit from [place] tomorrow, and had a meeting with palliative care to discuss goals. This patient remains critically ill with one or more organ systems which are or may become a threat to life. I have spent in excess of 32 minutes discontinuously in the care and management of this patient. This time is exclusive of procedures, and includes, but is not limited to, evaluation of the patient, review of the medical record, discussions with family, consultants, nursing staff, or respiratory therapy, and documentation in the medical record. . Physician Analisa Blair MD August 22, 2016 18:01
[2016-08-22] MEDS: CEFEPIME INJ 2,000 MG in SODIUM CHLORIDE 0.9% INJ 100 ML IV SCH (22:07)
[2016-08-22] MEDS: LORazepam 2 MG/ML VIAL IV PRN (23:08)
[2016-08-23] VITALS (24 sets, daily range): BP systolic 111–158; BP diastolic 50–99; PULSE 72–95; RESP 14–51; TEMP 97.1–100.3; O2SAT 96–100
[2016-08-23] MEDS: PROPOFOL 1000 MG/100 ML INJ 100 ML IV SCH ×5 (02:48→23:21)
[2016-08-23] MEDS: CHLORHEXIDINE GLUCONATE 2 % 1 PACK (2 CLOTHS) TOP SCH ×2 (04:00→23:23)
[2016-08-23] MEDS: SODIUM CHLOR 0.45% 1000 ML INJ 1,000 ML IV SCH ×3 (04:59→23:21)
--- NOTE | 2016-08-23 04:59 | RADRPT ---
EXAM DATE/TIME: 08/23/2016 04:01 [facility] COMPARISON: CHEST SINGLE AP, August 19, 2016, 4:46. INDICATIONS : Evaluate for respiratory disease. MEDICAL HISTORY : Unobtainable. SURGICAL HISTORY : Unobtainable. ENCOUNTER: Subsequent ACUITY: 1 week PAIN SCORE: Non-responsive. LOCATION: chest FINDINGS: A single view of the chest demonstrates improving bilateral perihilar airspace disease. Heart and the upper limits of normal in size. Endotracheal tube with tip 8.4 cm above the gloria. Nasogastric tube with tip in stomach. Osseous structures are intact. CONCLUSION: 1. Improving bilateral perihilar airspace disease. 2. Endotracheal tube with tip at the thoracic inlet, this could be advanced 2-3 cm. Broderick Browne MD on August 23, 2016 at 4:56 Board Certified Radiologist. This report was verified electronically.
[2016-08-23] MEDS: CHLORHEXIDINE 0.12% (ORAL KIT) 15 ML CUP MT SCH ×2 (08:43→20:00)
[2016-08-23] MEDS: THIAMINE INJ 100 MG in SODIUM CHLORIDE 0.9% INJ 100 ML IV SCH (08:44)
[2016-08-23] MEDS: SODIUM CHLORIDE 0.9% FLUSH 10 ML FLUSH SCH ×2 (08:44→21:00)
[2016-08-23] MEDS: MULTIVITAMIN TAB OG-TUBE SCH (08:45)
[2016-08-23] MEDS: FAMOTIDINE 20 MG TAB OG-TUBE SCH ×2 (08:45→21:00)
[2016-08-23] MEDS: LACTULOSE SYRUP 20 GM/30 ML CUP OG-TUBE SCH ×2 (08:45→21:00)
[2016-08-23] MEDS: HEPARIN SODIUM - SQ 10,000 UNITS/ML VIAL SQ SCH ×2 (08:45→21:31)
[2016-08-23] MEDS: FOLIC ACID 1 MG TAB OG-TUBE SCH (08:45)
[2016-08-23] MEDS ORDERED: LEVOFLOXACIN 500 MG TAB PO SCH (09:00)
[2016-08-23 09:41] LABS: HEMATOCRIT 35.9 % (39.0-51.0); MEAN CELL VOLUME 80.3 FL (80.0-100.0); MEAN CORPUSCULAR HEMOGLOBIN 25.8 PG (27.0-34.0); MEAN CORPUSCULAR HGB CONC 32.1 % (32.0-36.0); PLATELET COUNT 167 TH/MM3 (150-450); RED BLOOD COUNT 4.47 MIL/MM3 (4.50-5.90); RED CELL DISTRIBUTION WIDTH 13.2 % (11.6-17.2); WHITE BLOOD COUNT 9.7 TH/MM3 (4.0-11.0)
[2016-08-23 09:47] LABS: REVIEW FLAG FINAL
--- NOTE | 2016-08-23 09:55 | HHI.NPPN ---
Subjective Renal Failure: Acute Interval History He is awake, on CPAP trial. Eyes open, follows commands. Labs in process, recollection required. No new nursing concerns. (Cristal Greer) Review of Systems General General Remarks unable to evaluate (Cristal Greer) Objective Data Data 08/22/16 08/23/16 19:00 07:00 Intake Total 1007 ml 2458 ml Output Total 500 ml 1405.0 ml Balance 507 ml 1053.0 ml Intake IV Total 774 ml 1966 ml Tube Feeding 233 ml 402 ml Other 90 ml Output Urine Total 500 ml 925 ml Stool Total 480 ml Tube Feeding Residual Discard 0 ml Vital Signs Date Time Temp Pulse Resp B/P Pulse Ox O2 Delivery O2 Flow Rate FiO2 08/23/16 09:00 88 14 144/88 100 08/23/16 09:00 88 08/23/16 08:11 100 35 08/23/16 08:00 35 08/23/16 08:00 73 08/23/16 08:00 98.6 73 15 132/79 100 08/23/16 07:00 79 17 158/92 100 08/23/16 06:00 72 08/23/16 04:08 100 35 08/23/16 04:00 35 08/23/16 04:00 99.0 75 16 133/83 99 08/23/16 04:00 75 08/23/16 02:00 78 08/23/16 00:31 100 35 08/23/16 00:00 100.2 89 19 144/50 99 08/23/16 00:00 89 08/23/16 00:00 35 08/23/16 00:00 100.3 89 51 144/80 99 08/22/16 23:00 102 0 159/81 97 08/22/16 22:00 91 08/22/16 22:00 91 16 142/83 100 08/22/16 21:18 18 08/22/16 21:00 92 26 140/80 98 08/22/16 20:34 98 35 08/22/16 20:00 89 08/22/16 20:00 35 08/22/16 20:00 89 36 143/84 99 08/22/16 20:00 100.2 89 26 143/8 99 08/22/16 19:00 99 13 157/90 98 08/22/16 18:00 90 08/22/16 18:00 90 22 147/91 99 08/22/16 17:00 75 19 158/96 100 08/22/16 16:33 100 35 08/22/16 16:00 75 08/22/16 16:00 99.9 75 10 148/87 100 08/22/16 16:00 35 08/22/16 15:00 78 19 143/92 100 08/22/16 14:00 81 08/22/16 14:00 81 11 144/83 98 08/22/16 13:00 83 15 148/94 99 08/22/16 12:00 100.5 83 13 142/89 100 08/22/16 12:00 35 08/22/16 12:00 83 08/22/16 11:30 99 35 08/22/16 11:00 91 30 156/92 99 08/22/16 10:00 87 08/22/16 10:00 87 25 146/86 98 (Cristal Greer) -: 08/23/16 0845 08/22/16 0434 Microbiology 08/22/16 Urine Culture, Received Pending Imaging Last 72 hours Impressions Chest X-Ray 08/23/16 0600 Signed Impressions: Service Date/Time: Tuesday, August 23, 2016 04:01 - CONCLUSION: 1. Improving bilateral perihilar airspace disease. 2. Endotracheal tube with tip at the thoracic inlet, this could be advanced 2-3 cm. Broderick Browne MD Tubes & Lines: Almanzar Drip Comment propofol (Cristal Greer) Physical Exam General Appearance: Well Developed, Comfortable Appearance Remarks missing upper front teeth (Cristal Greer) Eyes Eye Exam: Pupils Equal (Cristal Greer) Throat Throat Exam: Oral Mucosa Churdan & Moist (Cristal Greer) Neck Neck Exam: Neck Supple (Cristal Greer) Pulmonary Resp Exam: Rhonchi (Cristal Greer) Cardiology CV Exam: Regular, Normal Sinus Rhythm (Cristal Greer) Gastrointestinal/Abdomen GI Exam: Soft, Non-Tender, Bowel Sounds Present, Positive Bowel Movement ( Cristal Greer) Genitourinary Exam: Sediment (Cristal Greer) Musculoskeletal MS Exam: Joints Intact, Normal Tone, Unable to Ambulate (Cristal Greer) Integumentary Skin Exam: Intact (Cristal Greer) Extremeties Extremities Exam: No Edema, Pedal Pulses Palpable (Cristal Greer) Neurologic Neuro Exam: Awake, Moving All Extremities Neuro Remarks follows commands (Cristal Greer) VTE Prophylaxis Device: SCDs (Cristal Greer) Assessment/Plan Assessment Summary: JUAN M/Acute Renal Failure Problem List: (1) JUAN M (acute kidney injury) Plan: No hx of renal impairment JUAN M due to rhabdomyolysis. today's labs in process, renal function as of yesterday was worse he has persistent diarrhea continue IVF at 100 cc/hr currently Non oliguric. Monitor output via almanzar continue free water with tube feeding Avoid nephrotoxins. Medications reviewed and appropriate daily renal panel (2) Rhabdomyolysis Plan: due to fall extended down time CPK improved, continue IVF (3) Influenza A Plan: tamiflu finished (4) Altered mental status Plan: Neurology following. MRI did not reveal any CVA. May have suffered hypoxic/metabolic encephalopathy. EEG taken today, results pending now full code (5) Lactic acidosis Plan: due to sepsis, he is febrile today Currently on Cefepime and levaquin continue IVF (Cristal Greer) Plan patient was seen and examined. Labs were reviewed. BUN is higher, but creatinine is better. Non oliguric. Continue supportive care. No immediate indication for dialysis. (Dk Ramon MD) Problem Qualifiers (1) Altered mental status: Qualified Code: R40.2430 - Devi coma scale total score 3-8, unspecified time Cristal Greer August 23, 2016 09:55 Dk Ramon MD August 23, 2016 13:53
[2016-08-23 10:10] LABS: BICARBONATE 23.4 MEQ/L (21.0-32.0); MAGNESIUM 3.7 MG/DL (1.5-2.5); POTASSIUM 3.8 MEQ/L (3.5-5.1)
--- NOTE | 2016-08-23 11:46 | RADRPT ---
EXAM DATE/TIME: 08/23/2016 10:57 [facility] COMPARISON: US ABDOMEN - LIVER, August 16, 2016, 8:03. INDICATIONS : Bilateral leg pain. MEDICAL HISTORY : Testicular torsion. SURGICAL HISTORY : Testicular torsion surgery. ENCOUNTER: Initial ACUITY: 1 day PAIN SCORE: Non-responsive LOCATION: Bilateral leg. TECHNIQUE: Venous ultrasound of the left and right leg was performed from the inguinal ligament to the proximal calf. Real-time, color Doppler and spectral tracing, compression and augmentation techniques were us ed. FINDINGS: RIGHT LEG: There is normal compressibility of the deep venous system from the inguinal region to the proximal ca lf. No echogenic clot is seen in the lumen of the common femoral, femoral, popliteal, and posterior tibial veins. There is a normal response of the venous system to proximal and distal augmentation an d respiration. LEFT LEG: There is normal compressibility of the deep venous system from the inguinal region to the proximal ca lf. No echogenic clot is seen in the lumen of the common femoral, femoral, popliteal, and posterior tibial veins. There is a normal response of the venous system to proximal and distal augmentation an d respiration. CONCLUSION: 1. No DVT identified. Surjit Rust MD on August 23, 2016 at 11:43 Board Certified Radiologist. This report was verified electronically.
--- NOTE | 2016-08-23 12:01 | RADRPT ---
EXAM DATE/TIME: 08/23/2016 10:16 [facility] COMPARISON: US ABDOMEN - LIVER, August 16, 2016, 8:03. INDICATIONS : Bilateral arm pain. MEDICAL HISTORY : Testicular torsion. SURGICAL HISTORY : Testular torsion surgery. ENCOUNTER: Initial ACUITY: 1 day PAIN SCORE: Non-responsive LOCATION: Bilateral arm. FINDINGS: RIGHT UPPER EXTREMITY: There is spontaneous flow documented in the brachial, cephalic, axillary, and subclavian veins. The vessels are compressible and augmentation response is documented. No filling defects are seen. The flow is phasic with respiration. Direction of flow in the jugular vein is caudal. The examination does demonstrate occlusive thrombus within the basilic vein just above the level of the elbow. LEFT UPPER EXTREMITY: There is spontaneous flow documented in the brachial, cephalic, axillary, and subclavian veins. The vessels are compressible and augmentation response is documented. No filling defects are seen. The flow is phasic with respiration. Direction of flow in the jugular vein is caudal. The exam does demonstrate partially occlusive thrombus in the basilic vein at the level of the e lbow. CONCLUSION: 1. Focal clot within the basilic vein just above the level of the elbow in both upper extremities. Surjit Rust MD on August 23, 2016 at 11:56 Board Certified Radiologist. This report was verified electronically.
[2016-08-23] MEDS: LORazepam 2 MG/ML VIAL IV PRN ×2 (12:50→16:10)
--- NOTE | 2016-08-23 16:50 | HHI.CCPN ---
Subjective Remarks/Hospital Course 08/15: 36-year-old male who was found down unresponsive outside of a bar. By report, he had been down outside for about 4 hours when [facility] arrived. He reportedly had syringes and IV drug paraphernalia with him. There was minimal if any response to IV Narcan by [facility]. He was intubated upon arrival to the ED for airway protection by Dr. Kee. He had no eye opening, no motor response to noxious stimuli, and no gag. Sats were about 90% on 100% NR. He was diaphoretic and temp was 101. ED workup included CT brain with the impression of sinusitis and no acute abnormality. He had rhabdomyolysis with a CPK of 3500 , BUN 28/creatinine of 1.42, white blood cell count of 30.2 with 22% bands. Urinalysis was relatively unremarkable except for consistent with myoglobinuria. CXR unremarkable. 08/16: Remains sedated, orally intubated on mechanical ventilation. 08/17: Remains sedated, orally intubated on mechanical ventilation. Making urine. CPK coming down. BUN/creatinine increased. 08/18: Remains sedated/ encephalopathic, orally intubated on mechanical ventilation. Making urine, CPK coming down. 08/19: Remains sedated/encephalopathic, orally intubated on mechanical ventilation. No significant improvement in neurologic status. Renal function appears to be improving. 08/20: Remains sedated/encephalopathic, orally intubated on mechanical ventilation. Gets significant coughing spells on lightening sedation however not really waking up or following commands. 08/21: Sedated, orally intubated on mechanical ventilation. Appears to be more responsive on lightening sedation today, opens eyes. 08/22 On light sedation, the patient is tracking. The patient does open his eyes spontaneously. More responsive today and yesterday. 08/23: Patient improving today. Palliative care team with mother today, results pending regarding disposition. Checks x-ray showed improvement today. Objective Vital Signs Date Time Temp Pulse Resp B/P Pulse Ox O2 Delivery O2 Flow Rate FiO2 08/23/16 16:15 100 35 08/23/16 16:00 99.2 90 16 145/85 Intake and Output 08/22/16 08/22/16 08/23/16 08:00 16:00 00:00 Intake Total 844 ml 1007 ml 1280 ml Output Total 460 ml 500 ml 820.0 ml Balance 384 ml 507 ml 460.0 ml Result Diagram: 08/23/16 0845 08/23/16 0845 Imaging Last Impressions Chest X-Ray 08/16/16 0600 Signed Impressions: Service Date/Time: Tuesday, August 16, 2016 05:13 - CONCLUSION: Mild bibasilar consolidation and small effusions developing. Lines and tubes unchanged. Eleazar Viera MD Liver Ultrasound 08/16/16 0000 Signed Impressions: Service Date/Time: Tuesday, August 16, 2016 08:03 - CONCLUSION: 1. Cholelithiasis 2. Trace ascites 3. Medical disease right kidney Raphael Rankin MD Head CT 08/15/16 1747 Signed Impressions: Service Date/Time: July 17:56 - CONCLUSION: 1. No acute hemorrhage or mass effect. 2. Sinusitis. Cruz Velasco MD Neck Magnetic Resonance Angiography 08/15/16 0000 Signed Impressions: Service Date/Time: July 23:31 - CONCLUSION: Motion degraded study without a definite abnormality. No stenosis demonstrated. Evaluation for carotid dissection difficult. If clinical concern persists and patient's renal function can tolerate, a CTA is suggested. Eleazar Viera MD Head Magnetic Resonance Angiography 08/15/16 0000 Signed Impressions: Service Date/Time: July 23:31 - CONCLUSION: Normal intracranial MRA. Eleazar Viera MD Brain MRI 08/15/16 0000 Signed Impressions: Service Date/Time: July 21:05 - CONCLUSION: Vague area of possible diffusion abnormalities in the left parietal and right temporal lobe without correlative findings on the other sequences questionable for possible acute infarction, however the appearance is nonspecific. There is no hemorrhage or mass effect. Kiesha Keating MD Objective Remarks Drips: NS 100cc/hr Propofol infusion 40 mcgs GENERAL: Well-developed well-nourished male who is orotracheally intubated. SKIN: Warm and dry. No rash, no petechiae. HEAD: Atraumatic. Normocephalic. EYES: Pupils 3mm bilaterally and sluggishly reactive. Bilateral conjunctival injection. No icterus. ENT: No nasal bleeding or discharge. Mucous membranes pink, dry. NECK: Trachea midline. Jugular veins are flat. Neck is supple without meningismus. CARDIOVASCULAR: Normal rate and rhythm, regular, no murmur rub or gallop appreciated. RESPIRATORY: Orally intubated on mechanical ventilation, B/L breath sounds clear to auscultation GASTROINTESTINAL: Abdomen soft, non-tender, nondistended. Bowel sounds hypoactive : Mejia in place with dark eda urine output. MUSCULOSKELETAL: Extremities without clubbing, cyanosis, or edema. No obvious deformities. NEUROLOGICAL: Sedated/encephalopathic orally intubated on mechanical ventilation. Moves all 4 extremities on lightening sedation Urinary Catheter: Yes Mejia insert reason: Measure Accurate Output A/P Assessment and Plan NEURO: Acute encephalopathy Hyperammonemia (ammonia level 79)-resolved UDS positive for opiates, otherwise negative. Lactulose 30 bid for hyperammonemia, f/u ammonia level. CT brain - sinusitis, otherwise no acute abnormality. Lumbar puncture performed: 6 WBC, 2 RBC, 107 glucose, mildly elevated protein at 49.9. Opening pressure elevated, 29.5 cm H20. Initial MRI Brain demonstrated diffusion abnormalities of L parietal and R temporal lobe. Repeat MRI brain done on 08/17 was unremarkable MRA brain and neck negative. Neurology consult following Abx management as per below. Thiamine/multivitamin/folic acid supplementation. Monitor for evidence of alcohol withdrawal Daily sedation vacation. . Versed discontinued at 6 AM on 08/22 Propofol if needed for sedation neurologic status seems to be improving. RESP: Acute respiratory failure on [facility] vent Bronchodilators every 2 hours as needed Daily spontaneous breathing trial. CXR with satisfactory endotracheal tube position. No infiltrate noted. CV: Elevated troponin, suspect type II NSTEMI due to sepsis/hypoxia. Follow serial troponins and EKG. Obtain 2-D echo. Serial lactic acid trend per sepsis protocol. Given aspirin 161 x1. Would not anticoagulate at this time based on overall clinical picture and lumbar puncture. GI: Transaminitis Continue tube feeds and advanced to goal as tolerated Obtain liver ultrasound. Viral hepatitis panel negative Follow-up LFTs FEN/RENAL: Acute kidney injury Acute rhabdomyolysis Hyperkalemia Mejia inserted. Monitor intake and output. Monitor electrolytes. Received multiple fluid boluses on admission. Continue IVF Trend CPK. Nephrology following. ID: Leukocytosis Severe sepsis Lactic acidemia Influenza A h/o orolabial herpes simplex h/o IVDU Remains on Tamiflu for influenza. Acyclovir discontinued as CSF HSV PCR was negative Antibiotics per ID, currently on cefepime Transthoracic 2-D echo did not reveal vegetations. Consulted Infectious disease and followup neurology recommendations as well. HEME: Monitor CBC ENDO: Mild hypoglycemia. Monitor bedside glucose every 4 hours. Starting tube feeds PROPH: SCDs for DVT prophylaxis. Start heparin subcutaneous for DVT prophylaxis 24 hours after lumbar puncture. Famotidine for stress ulcer prophylaxis. ACCESS: Peripheral IV providing adequate access at this time. Will place central venous line if needed. Palliative care team assist with deciding goals of therapy. Patient may have suffered anoxic brain injury. In view of some improvement in neurologic status, had family meeting and they have decided to make him full CODE STATUS again. I did explain that he may still have significant hypoxic brain injury though he has shown some signs of neurologic recovery. Mother had a meeting with palliative care today to discuss goals of care. This patient remains critically ill with one or more organ systems which are or may become a threat to life. I have spent in excess of 33 minutes discontinuously in the care and management of this patient. This time is exclusive of procedures, and includes, but is not limited to, evaluation of the patient, review of the medical record, discussions with family, consultants, nursing staff, or respiratory therapy, and documentation in the medical record. . Physician Analisa Blair MD August 23, 2016 16:50
--- NOTE | 2016-08-23 17:26 | HHI.HCPN ---
Reason for visit a. To assist with evaluation and management of symptoms including: dyspnea, encephalopathy. b. To assist medical decision maker(s) with: better understanding of current medical conditions; weighing benefits/burdens of medical treatment options; making medical treatment decisions. . (SELENE BUCKLEY) Subjective/Interval History Patient seen and examined in ICU. Discussed with Dr. Vargas and nurse, Moni. Patient on CPAP, lightened sedation (Diprivan), more alert, squeezes hand on right on command for me today. Seems to nod yes to some questions, he does not nod no so I am not sure he is truly processing what I am saying. He appears agitated when awake. Tracking. Patient is moving all extremities. Tmax 99.2. Vital signs stable. Sputum culture pending. Creatinine increased from 4.05. Tolerating tube feeding. Albumin 2.1. Chest x-ray improving bilateral perihilar airspace disease. Bilateral UE ultrasound with focal clot within the basilic vein above the elbow in in both UEs. LE ultrasound negative DVT. . Family/friend interactions Spoke with motherChasidy (HCP - here from [place]) and brother Seth (here from [place]) medical update provided, they remain hopeful for full recovery. Desires continued aggressive care including FULL CODE. Mother plans to stay in town for as long as she needs to. . (SELENE BUCKLEY) Advance Directives Living Will: Never completed Health Care Surrogate: Never completed Durable Power of Auto Damage Trainee: Never completed (SELENE BUCKLEY) Advance Directive Specifics Health Care Surrogate(s): Patient is incapacitated will not likely recurrent incapacity. According to [place] statutes, health care proxy decision-making falls to apparent. His mother, Chasidy is willing to serve as healthcare proxy decision maker. . Significant change in goals: Spoke with motherChasidy (HCP - here from [place]) and brother, Seth (here from [place]) medical update provided, they remain hopeful for full recovery. Desires continued aggressive care including FULL CODE. Mother plans to stay in town for as long as she needs to. . (SELENE BUCKLEY) Objective Vital Signs Date Time Temp Pulse Resp B/P Pulse Ox O2 Delivery O2 Flow Rate FiO2 08/23/16 16:15 100 35 08/23/16 16:00 99.2 90 16 145/85 97 08/23/16 16:00 35 08/23/16 16:00 90 08/23/16 15:00 83 22 143/82 100 08/23/16 14:00 80 16 140/83 100 08/23/16 14:00 77 08/23/16 13:00 84 16 138/80 100 08/23/16 12:30 100 35 08/23/16 12:00 35 08/23/16 12:00 80 08/23/16 12:00 98.8 80 15 141/78 100 08/23/16 11:00 85 22 155/80 96 08/23/16 10:00 81 08/23/16 10:00 81 15 111/99 99 08/23/16 09:00 88 14 144/88 100 08/23/16 09:00 88 08/23/16 08:11 100 35 08/23/16 08:00 35 08/23/16 08:00 73 08/23/16 08:00 98.6 73 15 132/79 100 08/23/16 07:00 79 17 158/92 100 08/23/16 06:00 72 08/23/16 04:08 100 35 08/23/16 04:00 35 08/23/16 04:00 99.0 75 16 133/83 99 08/23/16 04:00 75 08/23/16 02:00 78 08/23/16 00:31 100 35 08/23/16 00:00 100.2 89 19 144/50 99 08/23/16 00:00 89 08/23/16 00:00 35 08/23/16 00:00 100.3 89 51 144/80 99 08/22/16 23:00 102 0 159/81 97 08/22/16 22:00 91 08/22/16 22:00 91 16 142/83 100 08/22/16 21:18 18 08/22/16 21:00 92 26 140/80 98 08/22/16 20:34 98 35 08/22/16 20:00 89 08/22/16 20:00 35 08/22/16 20:00 89 36 143/84 99 08/22/16 20:00 100.2 89 26 143/8 99 08/22/16 19:00 99 13 157/90 98 08/22/16 18:00 90 08/22/16 18:00 90 22 147/91 99 Intake & Output 08/23/16 08/23/16 07:00 19:00 Intake Total 2458 ml 1402 ml Output Total 1405.0 ml 825 ml Balance 1053.0 ml 577 ml Intake IV Total 1966 ml 1069 ml Tube Feeding 402 ml 233 ml Tube Irrigant 100 ml Other 90 ml Output Urine Total 925 ml 525 ml Stool Total 480 ml 300 ml Tube Feeding Residual Discard 0 ml Physical Exam CONSTITUTIONAL/GENERAL: This is a critically ill, disheveled patient, on CPAP. TUBES/LINES/DRAINS: ETT, OG, bilateral PIV, bilateral soft wrist restraints, Mejia, rectal tube, SCD's. SKIN: Ecchymoses on upper extremities. No wounds seen anteriorly. Febrile. EYES: Pupils equal and round, sluggish. Bilateral conjunctival injection, no scleral icterus. ENT: full gómez. Unable to assess hearing. nose without bleeding or purulent drainage. Difficult to visualize throat secondary to ET/OG tubes, thick oral secretions noted. CARDIOVASCULAR: Regular rate and rhythm without murmurs, gallops, or rubs. RESPIRATORY/CHEST: Symmetric, unlabored respirations on vent. scattered Bilateral breath sounds clear. Thick alcantara secretions noted. GASTROINTESTINAL: Abdomen soft, nondistended. Bowel sounds hypoactive. GENITOURINARY: Without palpable bladder distension. Mejia catheter in place, dark urine noted. MUSCULOSKELETAL: Extremities with trace edema. NEUROLOGICAL: spontaneous movements, opens eyes, tracking, follows some simple commands, nods yes to a few questions - slowly. PSYCHIATRIC: sedated. . (SELENE BUCKLEY-C) Diagnostic Tests Laboratory Laboratory Tests Test 08/21/16 08/22/16 08/22/16 08/23/16 03:52 04:34 13:30 08:45 Sodium Level 146 MEQ/L 144 MEQ/L 145 MEQ/L (136-145) (136-145) (136-145) Potassium Level 3.5 MEQ/L 3.7 MEQ/L 3.8 MEQ/L (3.5-5.1) (3.5-5.1) (3.5-5.1) Chloride Level 110 MEQ/L 109 MEQ/L 111 MEQ/L (98-107) (98-107) (98-107) Carbon Dioxide Level 26.3 MEQ/L 24.0 MEQ/L 23.4 MEQ/L (21.0-32.0) (21.0-32.0) (21.0-32.0) Anion Gap 10 MEQ/L (5-15) 11 MEQ/L (5-15) 11 MEQ/L (5-15) Blood Urea Nitrogen 77 MG/DL (7-18) 91 MG/DL (7-18) 105 MG/DL (7-18) Creatinine 4.09 MG/DL 4.25 MG/DL 4.05 MG/DL (0.60-1.30) (0.60-1.30) (0.60-1.30) Estimat Glomerular Filtration 17 ML/MIN (>89) 16 ML/MIN (>89) 17 ML/MIN (>89) Rate Random Glucose 121 MG/DL 107 MG/DL 106 MG/DL (74-106) (74-106) (74-106) Calcium Level 8.3 MG/DL 8.0 MG/DL 8.1 MG/DL (8.5-10.1) (8.5-10.1) (8.5-10.1) Phosphorus Level 4.4 MG/DL 6.1 MG/DL 6.9 MG/DL (2.5-4.9) (2.5-4.9) (2.5-4.9) Albumin 2.1 GM/DL 2.0 GM/DL 2.1 GM/DL (3.4-5.0) (3.4-5.0) (3.4-5.0) White Blood Count 9.9 TH/MM3 9.7 TH/MM3 (4.0-11.0) (4.0-11.0) Red Blood Count 4.01 MIL/MM3 4.47 MIL/MM3 (4.50-5.90) (4.50-5.90) Hemoglobin 10.4 GM/DL 11.5 GM/DL (13.0-17.0) (13.0-17.0) Hematocrit 31.8 % 35.9 % (39.0-51.0) (39.0-51.0) Mean Corpuscular Volume 79.3 FL 80.3 FL (80.0-100.0) (80.0-100.0) Mean Corpuscular Hemoglobin 26.0 PG 25.8 PG (27.0-34.0) (27.0-34.0) Mean Corpuscular Hemoglobin 32.7 % 32.1 % Concent (32.0-36.0) (32.0-36.0) Red Cell Distribution Width 13.5 % 13.2 % (11.6-17.2) (11.6-17.2) Platelet Count 151 TH/MM3 167 TH/MM3 (150-450) (150-450) Mean Platelet Volume 8.2 FL 8.7 FL (7.0-11.0) (7.0-11.0) Neutrophils (%) (Auto) 59.9 % (16.0-70.0) Lymphocytes (%) (Auto) 16.9 % (9.0-44.0) Monocytes (%) (Auto) 13.9 % (0.0-8.0) Eosinophils (%) (Auto) 8.8 % (0.0-4.0) Basophils (%) (Auto) 0.5 % (0.0-2.0) Neutrophils # (Auto) 5.9 TH/MM3 (1.8-7.7) Lymphocytes # (Auto) 1.7 TH/MM3 (1.0-4.8) Monocytes # (Auto) 1.4 TH/MM3 (0-0.9) Eosinophils # (Auto) 0.9 TH/MM3 (0-0.4) Basophils # (Auto) 0.1 TH/MM3 (0-0.2) CBC Comment AUTO DIFF Differential Comment AUTO DIFF CONFIRMED Urine Color LIGHT-RED (YELLW/STRAW) Urine Turbidity HAZY (CLEAR) Urine pH 6.0 (5.0-8.5) Urine Specific Kathleen 1.020 (1.002-1.035) Urine Protein 100 mg/dL (NEG-TRACE) Urine Glucose (UA) NEG mg/dL (NEG) Urine Ketones NEG mg/dL (NEG) Urine Occult Blood MOD (NEG) Urine Nitrite NEG (NEG) Urine Bilirubin NEG (NEG) Urine Urobilinogen LESS THAN 2.0 MG/DL (LESS THAN 2.0) Urine Leukocyte Esterase SMALL (NEG) Urine RBC /hpf (0-3) Urine WBC 29 /hpf (0-5) Urine Bacteria RARE /hpf (NONE) Urine Mucus FEW /lpf (OCC) Microscopic Urinalysis Comment CATH-CULTURE IND Magnesium Level 3.7 MG/DL (1.5-2.5) (INASELENEJUAN ANTONIO CONTI) Result Diagram: 08/23/16 0845 08/23/16 0845 Microbiology Microbiology Date/Time Procedure Status Source Growth 08/22/16 13:30 Urine Culture - Preliminary Resulted Urine Catheterized Urine NO GROWTH IN 24 HOURS. 08/23/16 12:50 Gram Stain Received Sputum Endotracheal Pending 08/23/16 12:50 Sputum Culture Received Sputum Endotracheal Pending Imaging Last Impressions Chest X-Ray 08/23/16 0600 Signed Impressions: Service Date/Time: Tuesday, August 23, 2016 04:01 - CONCLUSION: 1. Improving bilateral perihilar airspace disease. 2. Endotracheal tube with tip at the thoracic inlet, this could be advanced 2-3 cm. Broderick Browne MD Upper Extremity Ultrasound 08/23/16 0000 Signed Impressions: Service Date/Time: Tuesday, August 23, 2016 10:16 - CONCLUSION: 1. Focal clot within the basilic vein just above the level of the elbow in both upper extremities. Surjit Rust MD Lower Extremity Ultrasound 08/23/16 0000 Signed Impressions: Service Date/Time: Tuesday, August 23, 2016 10:57 - CONCLUSION: 1. No DVT identified. Surjit Rust MD Brain MRI 08/17/16 0900 Signed Impressions: Service Date/Time: Wednesday, August 17, 2016 13:44 - CONCLUSION: Right maxillary sinus mucosal thickening and air-fluid level without evidence for mass, hemorrhage or acute infarct. Dewey Mitchell MD Liver Ultrasound 08/16/16 0000 Signed Impressions: Service Date/Time: Tuesday, August 16, 2016 08:03 - CONCLUSION: 1. Cholelithiasis 2. Trace ascites 3. Medical disease right kidney Raphael Rankin MD Head CT 08/15/16 4227 Signed Impressions: Service Date/Time: July 17:56 - CONCLUSION: 1. No acute hemorrhage or mass effect. 2. Sinusitis. Cruz Velasco MD Neck Magnetic Resonance Angiography 08/15/16 0000 Signed Impressions: Service Date/Time: July 23:31 - CONCLUSION: Motion degraded study without a definite abnormality. No stenosis demonstrated. Evaluation for carotid dissection difficult. If clinical concern persists and patient's renal function can tolerate, a CTA is suggested. Eleazar Viera MD Head Magnetic Resonance Angiography 08/15/16 0000 Signed Impressions: Service Date/Time: July 23:31 - CONCLUSION: Normal intracranial MRA. Eleazar Viera MD Procedures * 08/15/16 lumbar puncture * 08/15/16 intubation . (SELENE BUCKLEY-Nellie) Assessment and Plan Disease Oriented Problem List: (1) JUAN M (acute kidney injury) (2) Influenza A (3) Altered mental status (4) Rhabdomyolysis (5) Lactic acidosis (6) Leukocytosis Symptom Scale: (1) Pain 0-10 Scale: Unable to quantify Comment: Potential sources include infection, rhabdomyolysis, tubes, mechanical ventilation, bedbound status. (2) Encephalopathy 0-10 Scale: Unable to quantify Comment: secondary to anoxic encephalopathy . (3) Dyspnea 0-10 Scale: Unable to quantify Comment: On CPAP Pertinent Non-Medical Issues Psychosocial: Single. One juvenile son age 9. Has mother and 2 brothers. Long time estranged from his father. Spiritual: Judaism mitchel. Legal:Patient is incapacitated will not likely recurrent incapacity. According to [place] statutes, health care proxy decision-making falls to apparent. His mother, Chasidy is willing to serve as healthcare proxy decision maker. Ethical issues impacting care: no known concerns at this time. . Important Contacts * Chasidy, mother/HCP: [phone] - lives in [facility] [place] (Call now she is here from [place]) * Juan C Baron", brother: work [phone] or cell [phone]-lives in [place]. * Seth Tamrima, brother: lives in [facility] . Prognosis This is a 36-year-old male who was found down outside of the bar with drug paraphernalia after approximately 4 hours admitted with with rhabdomyolysis, acute kidney failure, respiratory failure, NSTEMI with likely severe anoxic brain injury. Overall prognosis appears poor for meaningful recovery. . Code Status: Full Code Plan * Decision Maker: Patient is incapacitated will not likely recurrent incapacity. According to [place] statutes, health care proxy decision-making falls to apparent. His mother, Chasidy is willing to serve as healthcare proxy decision maker. * FULL CODE * Palliative care spoke with Seth oneill and motherChasidy (HCP) at bedside. Goals remain aggressive. Hopeful for full recovery, patient has had continue neuro improvement. May be extubated in coming days, would want reintubation if fails. * Discussed with nurse and Dr. Vargas. * Letter provided to Seth oneill for his employer to indicate pt in ICU. * SYMPTOMS: Pain: secondary to tubes, mechanical ventilation, infection, bedbound status, etc. no obvious signs of pain during my visit. If patient appears painful a need higher doses of medication given history of drug abuse. Dyspnea: on mech vent. Encephalopathy: likely anoxic brain injury. * Palliative care will continue to follow throughout hospital course to assist with symptom management and clarification of goals as needed. . (SELENE BUCKLEY) Attestation To help prompt me to consider important information that might be impacting today's encounter and assessment, information from prior notes written by myself or my colleagues may have been "brought forward" into today's note. My signature on this note, however, is an attestation that I personally performed the exam, history, and/or decision-making noted today, and, unless otherwise indicated, the interactions with patient, family, and staff as well as the review of records all occurred today. I also attest that the listed assessment and stated plan reflect my best clinical judgment today based on the combination of historical information, prior notes, and today's exam/ interactions. When time spent is documented, it refers only to time spent today by the signer, or if indicated, combined time spent today by collaborating physician/nurse practitioner. (SELENE BUCKLEY) Collaborating MD Comments . Chart reviewed. Cased discussed with palliative care [employer] MECH[employer]IC. Above [employer]OWER PLANT MECHANIC note reviewed and I concur. . (Lawrence John MD) SELENE BUCKLEY August 23, 2016 17:26 Lawrence John MD September 16, 2016 15:44
--- NOTE | 2016-08-23 18:37 | HHI.IDPN ---
Subjective Subjective Remarks is a 36 y/o IVDA who was found with drug parapherenalia, out for extended periods of time on floor, admitted with acute renal failure, Rhabdomyolysis, ? sepsis secondary to aspiration PNA also has flu Ag positive, doubt clinical significance. Chart reviewed remains on vent 45% FiO2, PEEP 5 Tolerated CPAP trials. Gets agitated. Opens eyes, follows commands at times but not consistent. Lot of alcantara yellow secretions. Moving all 4 extremities and restless. afebrile Antibiotics Cefepime IV tamiflu stopped 08/21/2016 Lines Line sites with no e.o infection. Past Medical History reviewed. Allergies: Coded Allergies: No Known Allergies (Verified , 12/18/15) Objective . Vital Signs Date Time Temp Pulse Resp B/P Pulse Ox O2 Delivery O2 Flow Rate FiO2 08/23/16 16:15 100 35 08/23/16 16:00 99.2 90 16 145/85 97 08/23/16 16:00 35 08/23/16 16:00 90 08/23/16 15:00 83 22 143/82 100 08/23/16 14:00 80 16 140/83 100 08/23/16 14:00 77 08/23/16 13:00 84 16 138/80 100 08/23/16 12:30 100 35 08/23/16 12:00 35 08/23/16 12:00 80 08/23/16 12:00 98.8 80 15 141/78 100 08/23/16 11:00 85 22 155/80 96 08/23/16 10:00 81 08/23/16 10:00 81 15 111/99 99 08/23/16 09:00 88 14 144/88 100 08/23/16 09:00 88 08/23/16 08:11 100 35 08/23/16 08:00 35 08/23/16 08:00 73 08/23/16 08:00 98.6 73 15 132/79 100 08/23/16 07:00 79 17 158/92 100 08/23/16 06:00 72 08/23/16 04:08 100 35 08/23/16 04:00 35 08/23/16 04:00 99.0 75 16 133/83 99 08/23/16 04:00 75 08/23/16 02:00 78 08/23/16 00:31 100 35 08/23/16 00:00 100.2 89 19 144/50 99 08/23/16 00:00 89 08/23/16 00:00 35 08/23/16 00:00 100.3 89 51 144/80 99 08/22/16 23:00 102 0 159/81 97 08/22/16 22:00 91 08/22/16 22:00 91 16 142/83 100 08/22/16 21:18 18 08/22/16 21:00 92 26 140/80 98 08/22/16 20:34 98 35 08/22/16 20:00 89 08/22/16 20:00 35 08/22/16 20:00 89 36 143/84 99 08/22/16 20:00 100.2 89 26 143/8 99 08/22/16 19:00 99 13 157/90 98 08/22/16 08/22/16 08/23/16 15:00 23:00 07:00 Intake Total 1007 ml 1280 ml 1178 ml Output Total 500 ml 820 ml 585 ml Balance 507 ml 460 ml 593 ml Intake IV Total 774 ml 1016 ml 950 ml Tube Feeding 233 ml 234 ml 168 ml Other 30 ml 60 ml Output Urine Total 500 ml 500 ml 425 ml Stool Total 320 ml 160 ml Tube Feeding Residual Discard 0 ml 0 ml . Laboratory Tests Test 08/22/16 08/23/16 04:34 08:45 White Blood Count 9.9 TH/MM3 9.7 TH/MM3 Red Blood Count 4.01 MIL/MM3 4.47 MIL/MM3 Hemoglobin 10.4 GM/DL 11.5 GM/DL Hematocrit 31.8 % 35.9 % Mean Corpuscular Volume 79.3 FL 80.3 FL Mean Corpuscular Hemoglobin 26.0 PG 25.8 PG Mean Corpuscular Hemoglobin 32.7 % 32.1 % Concent Red Cell Distribution Width 13.5 % 13.2 % Platelet Count 151 TH/MM3 167 TH/MM3 Mean Platelet Volume 8.2 FL 8.7 FL Neutrophils (%) (Auto) 59.9 % Lymphocytes (%) (Auto) 16.9 % Monocytes (%) (Auto) 13.9 % Eosinophils (%) (Auto) 8.8 % Basophils (%) (Auto) 0.5 % Neutrophils # (Auto) 5.9 TH/MM3 Lymphocytes # (Auto) 1.7 TH/MM3 Monocytes # (Auto) 1.4 TH/MM3 Eosinophils # (Auto) 0.9 TH/MM3 Basophils # (Auto) 0.1 TH/MM3 CBC Comment AUTO DIFF Differential Comment AUTO DIFF CONFIRMED Laboratory Tests Test 08/22/16 08/23/16 04:34 08:45 Sodium Level 144 MEQ/L 145 MEQ/L Potassium Level 3.7 MEQ/L 3.8 MEQ/L Chloride Level 109 MEQ/L 111 MEQ/L Carbon Dioxide Level 24.0 MEQ/L 23.4 MEQ/L Anion Gap 11 MEQ/L 11 MEQ/L Blood Urea Nitrogen 91 MG/DL 105 MG/DL Creatinine 4.25 MG/DL 4.05 MG/DL Estimat Glomerular Filtration 16 ML/MIN 17 ML/MIN Rate Random Glucose 107 MG/DL 106 MG/DL Calcium Level 8.0 MG/DL 8.1 MG/DL Phosphorus Level 6.1 MG/DL 6.9 MG/DL Albumin 2.0 GM/DL 2.1 GM/DL Magnesium Level 3.7 MG/DL Microbiology Date/Time Procedure Status Source Growth 08/22/16 13:30 Urine Culture - Preliminary Resulted Urine Catheterized Urine NO GROWTH IN 24 HOURS. 08/23/16 12:50 Gram Stain - Final Resulted Sputum Endotracheal 08/23/16 12:50 Sputum Culture Resulted Sputum Endotracheal Pending Imaging Last Impressions Brain MRI 08/17/16 0900 Signed Impressions: Service Date/Time: Wednesday, August 17, 2016 13:44 - CONCLUSION: Right maxillary sinus mucosal thickening and air-fluid level without evidence for mass, hemorrhage or acute infarct. Dewey Mitchell MD Chest X-Ray 08/16/16 0600 Signed Impressions: Service Date/Time: Tuesday, August 16, 2016 05:13 - CONCLUSION: Mild bibasilar consolidation and small effusions developing. Lines and tubes unchanged. Eleazar Viera MD Liver Ultrasound 08/16/16 0000 Signed Impressions: Service Date/Time: Tuesday, August 16, 2016 08:03 - CONCLUSION: 1. Cholelithiasis 2. Trace ascites 3. Medical disease right kidney Raphael Rankin MD Head CT 08/15/16 [id number] Signed Impressions: Service Date/Time: July 17:56 - CONCLUSION: 1. No acute hemorrhage or mass effect. 2. Sinusitis. Cruz Velasco MD Neck Magnetic Resonance Angiography 08/15/16 Signed Impressions: Service Date/Time: July 23:31 - CONCLUSION: Motion degraded study without a definite abnormality. No stenosis demonstrated. Evaluation for carotid dissection difficult. If clinical concern persists and patient's renal function can tolerate, a CTA is suggested. Eleazar Viera MD Head Magnetic Resonance Angiography 08/15/16 Signed Impressions: Service Date/Time: July 23:31 - CONCLUSION: Normal intracranial MRA. Eleazar Viera MD Physical Exam GENERAL: This is a well-nourished, well-developed patient, in no apparent distress. SKIN: No rashes, ecchymoses or lesions. Cool and dry. HEAD: Atraumatic. Normocephalic. No temporal or scalp tenderness. EYES: Pupils equal round and reactive. Extraocular motions intact. No scleral icterus. No injection or drainage. ENT: Intubated. NECK: Trachea midline. Supple, nontender, no meningeal signs. CARDIOVASCULAR: RRR RESPIRATORY: Clear to auscultation. Breath sounds equal bilaterally. GASTROINTESTINAL: Abdomen soft, non-tender, nondistended. NGtube in place with red blood in secretions MUSCULOSKELETAL: Extremities without clubbing, cyanosis, or edema. NEUROLOGICAL: unresponsive; not opening eyes not following commands Psych: could not be assessed IV line sites with no e.o infection. Assessment & Plan Remarks Sepsis with MODS and elevated lactic acid on admission Influenza A Pneumonia. ? superimposed aspiration Possible brain infarct ? acute cerebritis/meningitis. Initial LP can be normal. Acute metabolic encephalopathy: sepsis, ? 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 Acute rhabdomyolysis: ? seizure, ? lay on ground for hours after ? fall. Acute renal failure: sepsis, rhabdo related, prerenal, vasculopathy from drugs like cocaine etc. Recs: Continue cefepime IV Follow cultures Follow clinically. d/w CCM No family in room. Sputum culture today. If normal resp carolann will deescalate or stop antibiotics. Concern low grade fevers could be Cefepime induced drug fever. Sandy Beltran MD August 23, 2016 18:37
--- NOTE | 2016-08-23 19:03 | HHI.PR ---
Review/Management Diagnosis encephalopathy--improving Diagnosis/Plan: Subjective Subjective Comments No acute events reported Active Medications Current Medications Medications (Trade) Dose Ordered Sig/Demetrio Route Start Time Stop Time Status Last Admin (Diprivan 1000 Mg/100ml Inj) 100 ml @ 0 mls/hr TITRATE IV 08/15/16 19:45 08/23/16 18:27 (NS Flush) 2 ml UNSCH PRN .XX 08/15/16 20:00 (NS Flush) 2 ml BID .XX 08/15/16 21:00 08/23/16 08:44 (fentaNYL INJ) 50 mcg Q1H PRN IV PUSH 08/15/16 20:00 08/23/16 12:50 (Ativan Inj) 1 mg Q1H PRN IV 08/15/16 20:00 08/23/16 16:10 (Zofran Inj) 4 mg Q6H PRN IV 08/15/16 20:00 (Lactulose Liq) 30 ml BID OG-TUBE 08/15/16 21:00 08/22/16 22:00 Miscellaneous Information 1 Q361D XX 08/15/16 20:00 (Chlorhexidine 2% Cloth) Taper DAILY@04 TOP 08/16/16 04:00 08/12/17 03:59 08/22/16 03:00 (Chlorhexidine 2% Cloth) 3 pack UNSCH PRN TOP 08/15/16 20:00 (Peridex 0.12% Liq) 15 ml BID@08,20 MT 08/15/16 20:00 08/23/16 08:43 Midazolam HCl 2 mg 2 mg Q15M PRN IV PUSH 08/16/16 00:45 (Thiamine Inj/NS Inj) 101 ml @ 101 mls/hr DAILY IV 08/16/16 09:00 08/23/16 08:44 (Theragran) 1 tab DAILY OG-TUBE 08/16/16 03:30 08/23/16 08:45 Folic Acid 1 mg 1 mg DAILY OG-TUBE 08/16/16 09:00 08/23/16 08:45 (1/2 NS 1000 ml Inj) 1,000 ml @ 100 mls/hr Q10H IV 08/17/16 09:00 08/23/16 14:14 (Pepcid) 10 mg Q12HR OG-TUBE 08/18/16 09:00 5/5/17 08:45 (Pill Splitter) 1 ea UNSCH PRN OTHER 08/18/16 07:45 08/20/16 07:31 Heparin Sodium (Porcine) 5000 units 5,000 units Q12HR SQ 08/18/16 21:00 08/23/16 08:45 (fentaNYL DRIP) 250 ml @ 0 mls/hr TITRATE IV 08/21/16 21:00 (Levaquin) 250 mg DAILY PO 08/24/16 09:00 Allergies Allergies Coded Allergies No Known Allergies (Verified12/18/15) Exam I&O / VS 08/22/16 08/22/16 08/23/16 15:00 23:00 07:00 Intake Total 1007 ml 1280 ml 1178 ml Output Total 500 ml 820 ml 585 ml Balance 507 ml 460 ml 593 ml Intake IV Total 774 ml 1016 ml 950 ml Tube Feeding 233 ml 234 ml 168 ml Other 30 ml 60 ml Output Urine Total 500 ml 500 ml 425 ml Stool Total 320 ml 160 ml Tube Feeding Residual Discard 0 ml 0 ml Vital Signs Date Time Temp Pulse Resp B/P Pulse Ox O2 Delivery O2 Flow Rate FiO2 08/23/16 18:00 85 08/23/16 18:00 85 18 144/93 98 08/23/16 17:00 90 14 136/79 98 08/23/16 16:15 100 35 08/23/16 16:00 99.2 90 16 145/85 97 08/23/16 16:00 35 08/23/16 16:00 90 08/23/16 15:00 83 22 143/82 100 08/23/16 14:00 80 16 140/83 100 08/23/16 14:00 77 08/23/16 13:00 84 16 138/80 100 08/23/16 12:30 100 35 08/23/16 12:00 35 08/23/16 12:00 80 08/23/16 12:00 98.8 80 15 141/78 100 08/23/16 11:00 85 22 155/80 96 08/23/16 10:00 81 08/23/16 10:00 81 15 111/99 99 08/23/16 09:00 88 14 144/88 100 08/23/16 09:00 88 08/23/16 08:11 100 35 08/23/16 08:00 35 08/23/16 08:00 73 08/23/16 08:00 98.6 73 15 132/79 100 08/23/16 07:00 79 17 158/92 100 08/23/16 06:00 72 08/23/16 04:08 100 35 08/23/16 04:00 35 08/23/16 04:00 99.0 75 16 133/83 99 08/23/16 04:00 75 08/23/16 02:00 78 08/23/16 00:31 100 35 08/23/16 00:00 100.2 89 19 144/50 99 08/23/16 00:00 89 08/23/16 00:00 35 08/23/16 00:00 100.3 89 51 144/80 99 08/22/16 23:00 102 0 159/81 97 08/22/16 22:00 91 08/22/16 22:00 91 16 142/83 100 08/22/16 21:18 18 08/22/16 21:00 92 26 140/80 98 08/22/16 20:34 98 35 08/22/16 20:00 89 08/22/16 20:00 35 08/22/16 20:00 89 36 143/84 99 08/22/16 20:00 100.2 89 26 143/8 99 Exam Comments more alert, follows intermittent commands PERRL, EOM Intact to occulocephalics Motor--moves BUE equally Objective Micro and Labs Laboratory Tests Test 08/23/16 08:45 White Blood Count 9.7 Red Blood Count 4.47 Hemoglobin 11.5 Hematocrit 35.9 Mean Corpuscular Volume 80.3 Mean Corpuscular Hemoglobin 25.8 Mean Corpuscular Hemoglobin 32.1 Concent Red Cell Distribution Width 13.2 Platelet Count 167 Mean Platelet Volume 8.7 Sodium Level 145 Potassium Level 3.8 Chloride Level 111 Carbon Dioxide Level 23.4 Anion Gap 11 Blood Urea Nitrogen 105 Creatinine 4.05 Estimat Glomerular Filtration 17 Rate Random Glucose 106 Calcium Level 8.1 Phosphorus Level 6.9 Magnesium Level 3.7 Albumin 2.1 Date/Time Procedure Status Source Growth 08/23/16 12:50 Gram Stain - Final Resulted Sputum Endotracheal 08/23/16 12:50 Sputum Culture Resulted Sputum Endotracheal Pending 08/22/16 13:30 Urine Culture - Preliminary Resulted Urine Catheterized Urine NO GROWTH IN 24 HOURS. Adrian Alvares PhD August 23, 2016 19:03
[2016-08-24] VITALS (21 sets, daily range): BP systolic 137–189; BP diastolic 73–94; PULSE 74–93; RESP 16; TEMP 96.7–99.5; O2SAT 96–100
[2016-08-24] MEDS: PROPOFOL 1000 MG/100 ML INJ 100 ML IV SCH ×3 (02:39→09:36)
[2016-08-24 06:01] LABS: AUTOMATED NEUTROPHIL # 7.5 TH/MM3 (1.8-7.7); BASOPHIL # 0.1 TH/MM3 (0-0.2); BASOPHIL % 0.5 % (0.0-2.0); EOSINOPHIL # 0.8 TH/MM3 (0-0.4); EOSINOPHIL % 7.3 % (0.0-4.0); HEMATOCRIT 30.7 % (39.0-51.0); LYMPH % 13.6 % (9.0-44.0); LYMPHOCYTE # 1.5 TH/MM3 (1.0-4.8); MEAN CORPUSCULAR HEMOGLOBIN 26.8 PG (27.0-34.0); MONO % 10.9 % (0.0-8.0); NEUT % 67.7 % (16.0-70.0); PLATELET COUNT 201 TH/MM3 (150-450); RED BLOOD COUNT 3.89 MIL/MM3 (4.50-5.90); RED CELL DISTRIBUTION WIDTH 13.5 % (11.6-17.2)
--- NOTE | 2016-08-24 06:09 | RADRPT ---
EXAM DATE/TIME: 08/24/2016 03:40 [facility] COMPARISON: CHEST SINGLE AP, August 23, 2016, 4:01. INDICATIONS : Shortness of breath, possible pulmonary disease. MEDICAL HISTORY : None. SURGICAL HISTORY : None. ENCOUNTER: Subsequent ACUITY: 1 week PAIN SCORE: Non-responsive. LOCATION: Bilateral chest FINDINGS: A single view of the chest demonstrates bilateral perihilar airspace disease. Heart and the upper duke its of normal in size. Endotracheal tube with tip 6.5 cm above the gloria. The nasogastric tube is un changed. Osseous structures are intact. CONCLUSION: Stable bilateral perihilar airspace disease. Broderick Browne MD on August 24, 2016 at 6:06 Board Certified Radiologist. This report was verified electronically.
[2016-08-24 06:22] LABS: HEMO FLAGS AUTO DIFF
[2016-08-24 07:06] LABS: INDIRECT BILIRUBIN 0.4 MG/DL (0.0-0.8); MAGNESIUM 3.4 MG/DL (1.5-2.5); TOTAL BILIRUBIN ADULT 0.5 MG/DL (0.2-1.0)
[2016-08-24] MEDS: SODIUM CHLORIDE 0.9% FLUSH 10 ML FLUSH SCH ×2 (09:00→19:36)
[2016-08-24 09:31] LABS: EOSINOPHILS 7 % (0-4); MYELOCYTES 2 % (0-0); NEUTROPHIL # MANUAL DIFF 8.7 TH/MM3 (1.8-7.7); PLATELET ESTIMATE SMEAR NORMAL (NORMAL); PLATELET MORPHOLOGY NORMAL (NORMAL); POLYS (SEG NEUTROPHILS) 77 % (16-70); SCAN/DIFF FINAL DIFF MANUAL; WBC DIFF SAMPLE 100
[2016-08-24] MEDS: LACTULOSE SYRUP 20 GM/30 ML CUP OG-TUBE SCH ×2 (09:36→11:37)
[2016-08-24] MEDS: FAMOTIDINE 20 MG TAB OG-TUBE SCH ×2 (09:37→19:35)
[2016-08-24] MEDS: FOLIC ACID 1 MG TAB OG-TUBE SCH (09:37)
[2016-08-24] MEDS: HEPARIN SODIUM - SQ 10,000 UNITS/ML VIAL SQ SCH ×2 (09:37→19:35)
[2016-08-24] MEDS: LEVOFLOXACIN 250 MG TAB PO SCH ×2 (09:37→11:37)
--- NOTE | 2016-08-24 11:27 | HHI.CCPN ---
Subjective Remarks/Hospital Course 08/15: 36-year-old male who was found down unresponsive outside of a bar. By report, he had been down outside for about 4 hours when [facility] arrived. He reportedly had syringes and IV drug paraphernalia with him. There was minimal if any response to IV Narcan by [facility]. He was intubated upon arrival to the ED for airway protection by Dr. Kee. He had no eye opening, no motor response to noxious stimuli, and no gag. Sats were about 90% on 100% NR. He was diaphoretic and temp was 101. ED workup included CT brain with the impression of sinusitis and no acute abnormality. He had rhabdomyolysis with a CPK of 3500 , BUN 28/creatinine of 1.42, white blood cell count of 30.2 with 22% bands. Urinalysis was relatively unremarkable except for consistent with myoglobinuria. CXR unremarkable. 08/16: Remains sedated, orally intubated on mechanical ventilation. 08/17: Remains sedated, orally intubated on mechanical ventilation. Making urine. CPK coming down. BUN/creatinine increased. 08/18: Remains sedated/ encephalopathic, orally intubated on mechanical ventilation. Making urine, CPK coming down. 08/19: Remains sedated/encephalopathic, orally intubated on mechanical ventilation. No significant improvement in neurologic status. Renal function appears to be improving. 08/20: Remains sedated/encephalopathic, orally intubated on mechanical ventilation. Gets significant coughing spells on lightening sedation however not really waking up or following commands. 08/21: Sedated, orally intubated on mechanical ventilation. Appears to be more responsive on lightening sedation today, opens eyes. 08/22 On light sedation, the patient is tracking. The patient does open his eyes spontaneously. More responsive today and yesterday. 08/23: Patient improving today. Palliative care team with mother today, results pending regarding disposition. Checks x-ray showed improvement today. 08/24: Tmax 99.2. Ultrasounds were performed yesterday of upper and lower extremities. The patient was noted to have partially occlusive thrombus of the basilic vein at the level of the elbow bilateral. Noted superficial veins will continue DVT prophylaxis. The patient was noted to have emesis last night, tube feeds were placed on hold NG tube was placed to suction, KUB pending. Encephalopathy improving plan for CPAP trials sedation currently off. Objective Vital Signs Date Time Temp Pulse Resp B/P Pulse Ox O2 Delivery O2 Flow Rate FiO2 08/24/16 08:58 98 35 08/24/16 06:00 93 08/24/16 04:00 97.1 16 140/94 Intake and Output 08/23/16 08/23/16 08/24/16 08:00 16:00 00:00 Intake Total 1178 ml 1402 ml 1266 ml Output Total 585 ml 825 ml 750 ml Balance 593 ml 577 ml 516 ml Result Diagram: 08/24/16 0534 08/23/16 0845 Imaging Last Impressions Chest X-Ray 08/24/16 0600 Signed Impressions: Service Date/Time: Wednesday, August 24, 2016 03:40 - CONCLUSION: Stable bilateral perihilar airspace disease. Broderick Browne MD Upper Extremity Ultrasound 08/23/16 0000 Signed Impressions: Service Date/Time: Tuesday, August 23, 2016 10:16 - CONCLUSION: 1. Focal clot within the basilic vein just above the level of the elbow in both upper extremities. Surjit Rust MD Lower Extremity Ultrasound 08/23/16 0000 Signed Impressions: Service Date/Time: Tuesday, August 23, 2016 10:57 - CONCLUSION: 1. No DVT identified. Surjit Rust MD Brain MRI 08/17/16 0900 Signed Impressions: Service Date/Time: Wednesday, August 17, 2016 13:44 - CONCLUSION: Right maxillary sinus mucosal thickening and air-fluid level without evidence for mass, hemorrhage or acute infarct. Dewey Mitchell MD Liver Ultrasound 08/16/16 0000 Signed Impressions: Service Date/Time: Tuesday, August 16, 2016 08:03 - CONCLUSION: 1. Cholelithiasis 2. Trace ascites 3. Medical disease right kidney Raphael Rankin MD Head CT 08/15/16 1477 Signed Impressions: Service Date/Time: July 17:56 - CONCLUSION: 1. No acute hemorrhage or mass effect. 2. Sinusitis. Cruz Velasco MD Neck Magnetic Resonance Angiography 08/15/16 0000 Signed Impressions: Service Date/Time: July 23:31 - CONCLUSION: Motion degraded study without a definite abnormality. No stenosis demonstrated. Evaluation for carotid dissection difficult. If clinical concern persists and patient's renal function can tolerate, a CTA is suggested. Eleazar Viera MD Head Magnetic Resonance Angiography 08/15/16 0000 Signed Impressions: Service Date/Time: July 23:31 - CONCLUSION: Normal intracranial MRA. Eleazar Viera MD Last Impressions Chest X-Ray 08/16/16 0600 Signed Impressions: Service Date/Time: Tuesday, August 16, 2016 05:13 - CONCLUSION: Mild bibasilar consolidation and small effusions developing. Lines and tubes unchanged. Eleazar Viera MD Liver Ultrasound 08/16/16 0000 Signed Impressions: Service Date/Time: Tuesday, August 16, 2016 08:03 - CONCLUSION: 1. Cholelithiasis 2. Trace ascites 3. Medical disease right kidney Raphael Rankin MD Head CT 08/15/16 1747 Signed Impressions: Service Date/Time: July 17:56 - CONCLUSION: 1. No acute hemorrhage or mass effect. 2. Sinusitis. Cruz Velasco MD Neck Magnetic Resonance Angiography 08/15/16 0000 Signed Impressions: Service Date/Time: July 23:31 - CONCLUSION: Motion degraded study without a definite abnormality. No stenosis demonstrated. Evaluation for carotid dissection difficult. If clinical concern persists and patient's renal function can tolerate, a CTA is suggested. Eleazar Viera MD Head Magnetic Resonance Angiography 08/15/16 0000 Signed Impressions: Service Date/Time: July 23:31 - CONCLUSION: Normal intracranial MRA. Eleazar Viera MD Brain MRI 08/15/16 0000 Signed Impressions: Service Date/Time: July 21:05 - CONCLUSION: Vague area of possible diffusion abnormalities in the left parietal and right temporal lobe without correlative findings on the other sequences questionable for possible acute infarction, however the appearance is nonspecific. There is no hemorrhage or mass effect. Kiesha Keating MD Objective Remarks Drips: NS 100cc/hr Propofol infusion 40 mcgs GENERAL: Well-developed well-nourished male who is orotracheally intubated, responding SKIN: Warm and dry. No rash, no petechiae. HEAD: Atraumatic. Normocephalic. EYES: Pupils 3mm bilaterally and sluggishly reactive. Bilateral conjunctival injection. No icterus. ENT: No nasal bleeding or discharge. Mucous membranes pink, dry. NECK: Trachea midline. Jugular veins are flat. Neck is supple without meningismus. CARDIOVASCULAR: Normal rate and rhythm, regular, no murmur rub or gallop appreciated. RESPIRATORY: Orally intubated on mechanical ventilation, B/L breath sounds clear to auscultation GASTROINTESTINAL: Abdomen soft, non-tender, nondistended. Bowel sounds hypoactive : Mejia insitu with dark eda urine output. MUSCULOSKELETAL: Extremities without clubbing, cyanosis, or edema. No obvious deformities. NEUROLOGICAL: Sedated/encephalopathic orally intubated on mechanical ventilation , spontaneous eye-opening, with tracking and intermittently following commands. Moves all 4 extremities, spontaneously. Urinary Catheter: Yes Mejia insert reason: Measure Accurate Output A/P Assessment and Plan NEURO: Acute encephalopathy Hyperammonemia (ammonia level 79)-resolved UDS positive for opiates, otherwise negative. Lactulose 30 bid for hyperammonemia, f/u ammonia level. CT brain - sinusitis, otherwise no acute abnormality. Lumbar puncture performed: 6 WBC, 2 RBC, 107 glucose, mildly elevated protein at 49.9. Opening pressure elevated, 29.5 cm H20. Initial MRI Brain demonstrated diffusion abnormalities of L parietal and R temporal lobe. Repeat MRI brain done on 08/17 was unremarkable MRA brain and neck negative. Neurology following- Dr. Giorgio Vázquez management per ID Thiamine/multivitamin/folic acid supplementation. Monitor for evidence of alcohol withdrawal Daily sedation vacation. Versed discontinued at 6 AM on 08/22 Discontinue Propofol if needed for sedation neurologic status seems to be improving, will change to Precedex if needed with CPAP trials RESP: Acute respiratory failure on [facility] vent Bronchodilators every 6 hours schedule and every 2 hours as needed Daily spontaneous breathing trial. 08/23 CXR with satisfactory endotracheal tube position. CV: Elevated troponin, suspect type II NSTEMI due to sepsis/hypoxia. 08/15- 2-D echo-EF 60%, no RWMA Serial lactic acid trend per sepsis protocol. Given aspirin 161 mg x1. Would not anticoagulate at this time based on overall clinical picture and lumbar puncture. GI: Transaminitis Continue tube feeds and advanced to goal as tolerated Obtain liver ultrasound. Viral hepatitis panel negative Follow-up LFTs FEN/RENAL: Acute kidney injury Acute rhabdomyolysis Hyperkalemia Mejia inserted. Monitor intake and output. Monitor electrolytes. Received multiple fluid boluses on admission. Continue IVF-normal saline at 100 cc/hour Trend CPK. Nephrology following. ID: Leukocytosis Severe sepsis Lactic acidemia Influenza A h/o orolabial herpes simplex h/o IVDU Remains on Tamiflu for influenza. Acyclovir discontinued as CSF HSV PCR was negative Antibiotics per ID, currently on cefepime Transthoracic 2-D echo did not reveal vegetations. Consulted Infectious disease and followup neurology recommendations as well. HEME: Monitor CBC ENDO: Mild hypoglycemia. Monitor bedside glucose every 4 hours. Starting tube feeds PROPH: SCDs for DVT prophylaxis. Start heparin subcutaneous for DVT prophylaxis 24 hours after lumbar puncture. Famotidine for stress ulcer prophylaxis. ACCESS: Peripheral IV providing adequate access at this time. Will place central venous line if needed. Palliative care team assist with deciding goals of therapy. Patient may have suffered anoxic brain injury. In view of some improvement in neurologic status, had family meeting and they have decided to make him full CODE STATUS again. I did explain that he may still have significant hypoxic brain injury though he has shown some signs of neurologic recovery. Mother had a meeting with palliative care today to discuss goals of care. Dispo: Updated mother and brother, and SEWING PATTERN LAYOUT TECHNICIAN at bedside. This patient remains critically ill with one or more organ systems which are or may become a threat to life. I have spent in excess of 35 minutes discontinuously in the care and management of this patient. This time is exclusive of procedures, and includes, but is not limited to, evaluation of the patient, review of the medical record, discussions with family, consultants, nursing staff, or respiratory therapy, and documentation in the medical record. . Physician Analisa Blair MD August 24, 2016 11:27
[2016-08-24] MEDS: SODIUM CHLOR 0.45% 1000 ML INJ 1,000 ML IV SCH ×2 (11:36→22:15)
[2016-08-24] MEDS: MULTIVITAMIN TAB OG-TUBE SCH (11:36)
[2016-08-24] MEDS: CHLORHEXIDINE 0.12% (ORAL KIT) 15 ML CUP MT SCH ×2 (11:38→19:36)
[2016-08-24 11:57] LABS: BICARBONATE 17.4 MEQ/L (21.0-32.0); POTASSIUM 3.8 MEQ/L (3.5-5.1)
--- NOTE | 2016-08-24 12:32 | HHI.NPPN ---
Subjective Renal Failure: Acute Additional Remarks Patient remain on the vent, now awake, on CPAP, moving all extremities. Review of Systems General General Remarks unable to evaluate Objective Data Data 08/23/16 08/24/16 19:00 07:00 Intake Total 1402 ml 1808 ml Output Total 825 ml 1250 ml Balance 577 ml 558 ml Intake Oral 0 ml IV Total 1069 ml 1808 ml Tube Feeding 233 ml 0 ml Tube Irrigant 100 ml Output Urine Total 525 ml 1050 ml Stool Total 300 ml 0 ml Gastric Drainage Total 200 ml Vital Signs Date Time Temp Pulse Resp B/P Pulse Ox O2 Delivery O2 Flow Rate FiO2 08/24/16 12:00 35 08/24/16 11:25 98 35 08/24/16 11:25 35 08/24/16 10:55 100 35 08/24/16 08:58 98 35 08/24/16 08:00 97.9 90 16 137/73 98 08/24/16 08:00 35 08/24/16 06:00 93 08/24/16 04:42 97 35 08/24/16 04:00 97.1 92 16 140/94 97 08/24/16 04:00 35 08/24/16 04:00 92 08/24/16 02:00 88 08/24/16 00:29 96 35 08/24/16 00:00 90 08/24/16 00:00 96.7 90 16 141/82 100 08/24/16 00:00 35 08/23/16 22:00 95 08/23/16 22:00 35 08/23/16 21:12 99 35 08/23/16 20:00 35 08/23/16 20:00 88 08/23/16 20:00 97.1 88 16 124/70 100 08/23/16 18:00 85 08/23/16 18:00 85 18 144/93 98 08/23/16 17:00 90 14 136/79 98 08/23/16 16:15 100 35 08/23/16 16:00 99.2 90 16 145/85 97 08/23/16 16:00 35 08/23/16 16:00 90 08/23/16 15:00 83 22 143/82 100 08/23/16 14:00 80 16 140/83 100 08/23/16 14:00 77 08/23/16 13:00 84 16 138/80 100 -: 08/24/16 0534 08/24/16 0534 Microbiology 08/23/16 Gram Stain - Final, Resulted 08/23/16 Sputum Culture, Resulted Pending Tubes & Lines: Almanzar Drip Comment propofol Physical Exam General Appearance: Well Developed, No Acute Distress, Comfortable Eyes Eye Exam: Pupils Equal Throat Throat Exam: Oral Mucosa [place] & Moist Neck Neck Exam: Neck Supple Pulmonary Resp Exam: Rhonchi Cardiology CV Exam: Regular, Normal Sinus Rhythm Gastrointestinal/Abdomen GI Exam: Soft, Non-Tender, Bowel Sounds Present, Positive Bowel Movement Genitourinary Exam: Sediment Extremeties Extremities Exam: No Edema Neurologic Neuro Exam: Awake, Moving All Extremities VTE Prophylaxis Device: SCDs Assessment/Plan Assessment Summary: JUAN M/Acute Renal Failure Problem List: (1) JUAN M (acute kidney injury) Plan: No hx of renal impairment JUAN M due to rhabdomyolysis. continue IVF at 100 cc/hr currently Non oliguric. Monitor output via almanzar continue free water with tube feeding Avoid nephrotoxins. Medications reviewed and appropriate Creatinine is almost same. CPK is improving. Weaning as per CCM. (2) Rhabdomyolysis Plan: due to fall extended down time CPK improved, continue IVF (3) Influenza A Plan: tamiflu finished (4) Altered mental status Plan: Neurology following. MRI did not reveal any CVA. May have suffered hypoxic/metabolic encephalopathy. EEG taken today, results pending now full code (5) Lactic acidosis Plan: due to sepsis, he is febrile today Currently on Cefepime and levaquin continue IVF Problem Qualifiers (1) Altered mental status: Qualified Code: R40.2430 - [place] coma scale total score 3-8, unspecified time Aldo Wills MD August 24, 2016 12:32
[2016-08-24] MEDS: RESP: ALBUTEROL 2.5 MG/IPRATROPIUM 0.5 MG NEB (SCH) NEB ×2 (12:34→19:56)
--- NOTE | 2016-08-24 12:56 | RADRPT ---
EXAM DATE/TIME: 08/24/2016 12:29 [facility] COMPARISON: No previous studies available for comparison. INDICATIONS : Nausea and vomiting.. MEDICAL HISTORY : None. SURGICAL HISTORY : None. ENCOUNTER: Initial ACUITY: 1 day PAIN SCORE: Non-responsive. LOCATION: Bilateral abdomen. FINDINGS: 2 AP supine portable views of the abdomen were obtained and demonstrate a nasogastric tube in place w ith the tip projected over the distal stomach. Gas and stool is noted segmentally in the colon. There are probable air fluid levels in the colon. There is no evidence of free air or mass effect on this supine study. The lung bases are clear. The bony structures are intact CONCLUSION: Nonobstructive bowel gas pattern which may represent a mild ileus or gastroenteritis. Cruz Velasco MD on August 24, 2016 at 12:53 Board Certified Radiologist. This report was verified electronically.
[2016-08-24] MEDS: DEXMEDETOMIDINE INJ 200 MCG in SODIUM CHLORIDE 0.9% INJ 50 ML IV SCH ×2 (13:26→15:10)
[2016-08-24 13:30] LABS: CKMB 6.5 NG/ML (0.5-3.6)
[2016-08-24] MEDS ORDERED: DEXMEDETOMIDINE INJ 1,000 MCG in SODIUM CHLOR 0.9% 250 ML INJ 240 ML IV SCH (15:00)
--- NOTE | 2016-08-24 15:06 | HHI.PR ---
Addendum to Inpatient Note Addendum Reason: Additional Documentation Additional Information Chart reviewed. Fevers defervesced with stopping cefepime IV. DC levaquin CXR improved. Observe off antibiotics. If any change in clinical condition or questions please call back. Will sign off. Sandy Beltran MD August 24, 2016 15:06
[2016-08-24] MEDS: THIAMINE INJ 100 MG in SODIUM CHLORIDE 0.9% INJ 100 ML IV SCH (15:48)
[2016-08-24] MEDS: DEXMEDETOMIDINE INJ 1,000 MCG in SODIUM CHLOR 0.9% 250 ML INJ 240 ML IV SCH (23:41)
[2016-08-25] VITALS (15 sets, daily range): BP systolic 118–184; BP diastolic 72–99; PULSE 78–100; RESP 12–16; TEMP 97.9–99.8; O2SAT 95–100
[2016-08-25] MEDS: ONDANSETRON HCL 4 MG/2 ML VIAL IV PRN ×2 (01:00→06:29)
[2016-08-25] MEDS: CHLORHEXIDINE GLUCONATE 2 % 1 PACK (2 CLOTHS) TOP SCH (04:00)
--- NOTE | 2016-08-25 04:55 | RADRPT ---
EXAM DATE/TIME: 08/25/2016 03:42 [facility] COMPARISON: CHEST SINGLE AP, August 24, 2016, 3:40. INDICATIONS : Shortness of breath, possible pulmonary disease. MEDICAL HISTORY : None. SURGICAL HISTORY : None. ENCOUNTER: Subsequent ACUITY: 1 week PAIN SCORE: Non-responsive. LOCATION: Bilateral chest FINDINGS: A single view of the chest demonstrates some residual bilateral perihilar airspace disease. Endotrach eal tube nasogastric tube unchanged. Osseous structures are intact. CONCLUSION: Improving bilateral perihilar air space disease. Broderick Browne MD on August 25, 2016 at 4:53 Board Certified Radiologist. This report was verified electronically.
[2016-08-25 05:42] LABS: HEMATOCRIT 31.6 % (39.0-51.0); MEAN CELL VOLUME 79.7 FL (80.0-100.0); MEAN CORPUSCULAR HEMOGLOBIN 25.8 PG (27.0-34.0); MEAN CORPUSCULAR HGB CONC 32.4 % (32.0-36.0); PLATELET COUNT 229 TH/MM3 (150-450); RED BLOOD COUNT 3.97 MIL/MM3 (4.50-5.90); RED CELL DISTRIBUTION WIDTH 13.4 % (11.6-17.2); REVIEW FLAG FINAL; WHITE BLOOD COUNT 12.8 TH/MM3 (4.0-11.0)
[2016-08-25 06:01] LABS: BICARBONATE 18.9 MEQ/L (21.0-32.0); MAGNESIUM 3.2 MG/DL (1.5-2.5); POTASSIUM 4.3 MEQ/L (3.5-5.1)
[2016-08-25] MEDS: DEXMEDETOMIDINE INJ 1,000 MCG in SODIUM CHLOR 0.9% 250 ML INJ 240 ML IV SCH (06:41)
[2016-08-25] MEDS: SODIUM CHLOR 0.45% 1000 ML INJ 1,000 ML IV SCH ×2 (06:41→20:19)
[2016-08-25] MEDS: CHLORHEXIDINE 0.12% (ORAL KIT) 15 ML CUP MT SCH ×2 (08:10→20:00)
[2016-08-25] MEDS: SODIUM CHLORIDE 0.9% FLUSH 10 ML FLUSH SCH ×2 (08:10→20:18)
[2016-08-25] MEDS: RESP: ALBUTEROL 2.5 MG/IPRATROPIUM 0.5 MG NEB (SCH) NEB ×3 (08:43→20:05)
[2016-08-25] MEDS: MULTIVITAMIN TAB OG-TUBE SCH (09:00)
[2016-08-25] MEDS: HEPARIN SODIUM - SQ 10,000 UNITS/ML VIAL SQ SCH ×2 (09:00→20:19)
[2016-08-25] MEDS: FAMOTIDINE 20 MG TAB OG-TUBE SCH ×2 (09:00→20:19)
[2016-08-25] MEDS: THIAMINE INJ 100 MG in SODIUM CHLORIDE 0.9% INJ 100 ML IV SCH (09:00)
[2016-08-25] MEDS: LACTULOSE SYRUP 20 GM/30 ML CUP OG-TUBE SCH ×2 (09:00→20:18)
[2016-08-25] MEDS: FOLIC ACID 1 MG TAB OG-TUBE SCH (09:00)
[2016-08-25] MEDS: LORazepam 2 MG/ML VIAL IV PUSH PRN ×4 (09:14→23:41)
[2016-08-25] MEDS: HALOPERIDOL LACTATE 5 MG/ML AMP IV PUSH PRN ×3 (12:25→21:32)
--- NOTE | 2016-08-25 12:32 | HHI.NPPN ---
Subjective Renal Failure: Acute Additional Remarks Patient is now extubated,sleepy after given Ativan. Review of Systems General General Remarks unable to evaluate Objective Data Data 08/24/16 08/25/16 19:00 07:00 Intake Total 1043 ml 1882 ml Output Total 1100 ml 1550 ml Balance -57 ml 332 ml Intake Oral 0 ml IV Total 1043 ml 1882 ml Tube Feeding 0 ml 0 ml Output Urine Total 550 ml 1150 ml Stool Total 0 ml Gastric Drainage Total 550 ml 350 ml Emesis 50 ml # Bowel Movements 0 Vital Signs Date Time Temp Pulse Resp B/P Pulse Ox O2 Delivery O2 Flow Rate FiO2 08/25/16 08:15 98 Nasal Cannula 3.00 08/25/16 08:15 98 Nasal Cannula 3 08/25/16 06:23 16 08/25/16 06:00 80 16 171/77 100 08/25/16 06:00 80 08/25/16 05:00 78 08/25/16 05:00 78 16 174/77 100 08/25/16 04:41 35 08/25/16 04:22 100 35 08/25/16 04:00 83 16 164/96 100 08/25/16 04:00 83 08/25/16 03:00 81 16 160/77 99 08/25/16 03:00 81 08/25/16 02:00 83 08/25/16 02:00 83 16 118/99 99 08/25/16 01:28 95 35 08/25/16 01:00 96 16 184/76 100 08/25/16 01:00 96 08/25/16 00:00 83 08/25/16 00:00 35 08/25/16 00:00 99.8 83 16 166/82 99 08/24/16 23:00 80 16 165/80 99 08/24/16 23:00 80 08/24/16 22:25 99 35 08/24/16 22:00 79 16 176/90 98 08/24/16 22:00 79 08/24/16 21:00 75 08/24/16 21:00 75 16 152/76 99 08/24/16 20:00 35 08/24/16 20:00 75 08/24/16 20:00 75 16 157/81 100 08/24/16 19:56 100 35 08/24/16 19:00 99.5 74 16 189/82 99 08/24/16 19:00 74 08/24/16 16:00 97.1 90 16 137/73 98 08/24/16 16:00 35 08/24/16 15:58 99 35 08/24/16 13:43 100 35 -: 08/25/16 0450 08/25/16 0450 Tubes & Lines: Almanzar Drip Comment propofol Physical Exam General Appearance: No Acute Distress, Comfortable Eyes Eye Exam: Pupils Equal Throat Throat Exam: Oral Mucosa [place] & Moist Neck Neck Exam: Neck Supple Pulmonary Resp Exam: Rhonchi Cardiology CV Exam: Regular, Normal Sinus Rhythm Gastrointestinal/Abdomen GI Exam: Soft, Non-Tender, Bowel Sounds Present, Positive Bowel Movement Genitourinary Exam: Sediment Extremeties Extremities Exam: No Edema Neurologic Neuro Exam: Moving All Extremities, Obtunded VTE Prophylaxis Device: SCDs Assessment/Plan Assessment Summary: JUAN M/Acute Renal Failure Problem List: (1) JUAN M (acute kidney injury) Plan: No hx of renal impairment JUAN M due to rhabdomyolysis. continue IVF at 100 cc/hr currently Non oliguric. Monitor output via almanzar continue free water with tube feeding Avoid nephrotoxins. Medications reviewed and appropriate Creatinine is almost same. CPK is improving. Watch for renal recovery. D/W the mother at bed side. (2) Rhabdomyolysis Plan: due to fall extended down time CPK improved, continue IVF (3) Influenza A Plan: tamiflu finished (4) Altered mental status Plan: Neurology following. MRI did not reveal any CVA. May have suffered hypoxic/metabolic encephalopathy. EEG taken today, results pending now full code (5) Lactic acidosis Plan: due to sepsis, he is febrile today Currently on Cefepime and levaquin continue IVF Problem Qualifiers (1) Altered mental status: Qualified Code: R40.2430 - [place] coma scale total score 3-8, unspecified time Aldo Wills MD August 25, 2016 12:32
--- NOTE | 2016-08-25 15:48 | HHI.CCPN ---
Subjective Remarks/Hospital Course 08/15: 36-year-old male who was found down unresponsive outside of a bar. By report, he had been down outside for about 4 hours when [facility] arrived. He reportedly had syringes and IV drug paraphernalia with him. There was minimal if any response to IV Narcan by [facility]. He was intubated upon arrival to the ED for airway protection by Dr. Kee. He had no eye opening, no motor response to noxious stimuli, and no gag. Sats were about 90% on 100% NR. He was diaphoretic and temp was 101. ED workup included CT brain with the impression of sinusitis and no acute abnormality. He had rhabdomyolysis with a CPK of 3500 , BUN 28/creatinine of 1.42, white blood cell count of 30.2 with 22% bands. Urinalysis was relatively unremarkable except for consistent with myoglobinuria. CXR unremarkable. 08/16: Remains sedated, orally intubated on mechanical ventilation. 08/17: Remains sedated, orally intubated on mechanical ventilation. Making urine. CPK coming down. BUN/creatinine increased. 08/18: Remains sedated/ encephalopathic, orally intubated on mechanical ventilation. Making urine, CPK coming down. 08/19: Remains sedated/encephalopathic, orally intubated on mechanical ventilation. No significant improvement in neurologic status. Renal function appears to be improving. 08/20: Remains sedated/encephalopathic, orally intubated on mechanical ventilation. Gets significant coughing spells on lightening sedation however not really waking up or following commands. 08/21: Sedated, orally intubated on mechanical ventilation. Appears to be more responsive on lightening sedation today, opens eyes. 08/22 On light sedation, the patient is tracking. The patient does open his eyes spontaneously. More responsive today and yesterday. 08/23: Patient improving today. Palliative care team with mother today, results pending regarding disposition. Checks x-ray showed improvement today. 08/24: Tmax 99.2. Ultrasounds were performed yesterday of upper and lower extremities. The patient was noted to have partially occlusive thrombus of the basilic vein at the level of the elbow bilateral. Noted superficial veins will continue DVT prophylaxis. The patient was noted to have emesis last night, tube feeds were placed on hold NG tube was placed to suction, KUB pending. Encephalopathy improving plan for CPAP trials sedation currently off. 08/25: Afebrile.The patient tolerated CPAP trials overnight. The patient was extremely agitated he was maintained on Precedex and when necessary fentanyl throughout the night. The patient was successfully extubated early this a.m., extremely agitated requiring Haldol and Ativan. Currently the patient is calm tolerating clear liquids, in no respiratory distress. Objective Vital Signs Date Time Temp Pulse Resp B/P Pulse Ox O2 Delivery O2 Flow Rate FiO2 08/25/16 08:15 98 Nasal Cannula 3.00 08/25/16 06:23 16 08/25/16 06:00 80 171/77 08/25/16 04:41 35 08/25/16 00:00 99.8 Intake and Output 08/24/16 08/24/16 08/25/16 08:00 16:00 00:00 Intake Total 542 ml 1043 ml 799 ml Output Total 500 ml 1100 ml 700 ml Balance 42 ml -57 ml 99 ml Result Diagram: 08/25/16 0450 08/25/16 0450 Other Results Microbiology Date/Time Procedure Status Source Growth 08/23/16 12:50 Gram Stain - Final Complete Sputum Endotracheal 08/23/16 12:50 Sputum Culture - Final Complete Sputum Endotracheal HEAVY GROWTH NORMAL RESPIRATORY TARA Imaging Last Impressions Chest X-Ray 08/24/16 0600 Signed Impressions: Service Date/Time: Wednesday, August 24, 2016 03:40 - CONCLUSION: Stable bilateral perihilar airspace disease. Broderick Browne MD Upper Extremity Ultrasound 08/23/16 0000 Signed Impressions: Service Date/Time: Tuesday, August 23, 2016 10:16 - CONCLUSION: 1. Focal clot within the basilic vein just above the level of the elbow in both upper extremities. Surjit Rust MD Lower Extremity Ultrasound 08/23/16 0000 Signed Impressions: Service Date/Time: Tuesday, August 23, 2016 10:57 - CONCLUSION: 1. No DVT identified. Surjit Rust MD Brain MRI 08/17/16 0900 Signed Impressions: Service Date/Time: Wednesday, August 17, 2016 13:44 - CONCLUSION: Right maxillary sinus mucosal thickening and air-fluid level without evidence for mass, hemorrhage or acute infarct. Dewey Mitchell MD Liver Ultrasound 08/16/16 Signed Impressions: Service Date/Time: Tuesday, August 16, 2016 08:03 - CONCLUSION: 1. Cholelithiasis 2. Trace ascites 3. Medical disease right kidney Raphael Rankin MD Head CT [id number] Signed Impressions: Service Date/Time: July 17:56 - CONCLUSION: 1. No acute hemorrhage or mass effect. 2. Sinusitis. Cruz Velasco MD Neck Magnetic Resonance Angiography 08/15/16 Signed Impressions: Service Date/Time: July 23:31 - CONCLUSION: Motion degraded study without a definite abnormality. No stenosis demonstrated. Evaluation for carotid dissection difficult. If clinical concern persists and patient's renal function can tolerate, a CTA is suggested. Eleazar Viera MD Head Magnetic Resonance Angiography 08/15/16 Signed Impressions: Service Date/Time: July 23:31 - CONCLUSION: Normal intracranial MRA. Eleazar Viera MD Last Impressions Chest X-Ray 08/16/16 06 Signed Impressions: Service Date/Time: Tuesday, August 16, 2016 05:13 - CONCLUSION: Mild bibasilar consolidation and small effusions developing. Lines and tubes unchanged. Eleazar Viera MD Liver Ultrasound 08/16/16 Signed Impressions: Service Date/Time: Tuesday, August 16, 2016 08:03 - CONCLUSION: 1. Cholelithiasis 2. Trace ascites 3. Medical disease right kidney Raphael Rankin MD Head CT [id number] Signed Impressions: Service Date/Time: July 17:56 - CONCLUSION: 1. No acute hemorrhage or mass effect. 2. Sinusitis. Cruz Velasco MD Neck Magnetic Resonance Angiography 08/15/16 Signed Impressions: Service Date/Time: July 23:31 - CONCLUSION: Motion degraded study without a definite abnormality. No stenosis demonstrated. Evaluation for carotid dissection difficult. If clinical concern persists and patient's renal function can tolerate, a CTA is suggested. Eleazar Viera MD Head Magnetic Resonance Angiography 08/15/16 Signed Impressions: Service Date/Time: July 23:31 - CONCLUSION: Normal intracranial MRA. Eleazar Viera MD Brain MRI 08/15/16 0000 Signed Impressions: Service Date/Time: July 21:05 - CONCLUSION: Vague area of possible diffusion abnormalities in the left parietal and right temporal lobe without correlative findings on the other sequences questionable for possible acute infarction, however the appearance is nonspecific. There is no hemorrhage or mass effect. Kiesha Keating MD Objective Remarks Drips: NS 100cc/hr GENERAL: Well-developed well-nourished male angry, agitated responding to questions SKIN: Warm and dry. No rash, no petechiae. HEAD: Atraumatic. Normocephalic. EYES: Pupils 3mm bilaterally reactive. Bilateral conjunctival injection. No icterus. ENT: No nasal bleeding or discharge. Mucous membranes pink, dry. NECK: Trachea midline. No JVD. CARDIOVASCULAR: Normal rate and rhythm, regular, no murmur rub or gallop appreciated. RESPIRATORY: No accessory muscle use. B/L breath sounds clear to auscultation. Nasal cannula GASTROINTESTINAL: Abdomen soft, non-tender, nondistended. Bowel sounds hypoactive : Mejia insitu with dark eda urine output. MUSCULOSKELETAL: Extremities without clubbing, cyanosis, or edema. No obvious deformities. NEUROLOGICAL: GCS 15, agitated, yelling profanities at staff and family. Moves all 4 extremities. Urinary Catheter: Yes A/P Assessment and Plan NEURO: Acute encephalopathy-resolved Hyperammonemia (ammonia level 79)-resolved Agitation UDS positive for opiates, otherwise negative. Lactulose 30 bid for hyperammonemia, f/u ammonia level. CT brain - sinusitis, otherwise no acute abnormality. Lumbar puncture performed: 6 WBC, 2 RBC, 107 glucose, mildly elevated protein at 49.9. Opening pressure elevated, 29.5 cm H20. Initial MRI Brain demonstrated diffusion abnormalities of L parietal and R temporal lobe. Repeat MRI brain done on 08/17 was unremarkable MRA brain and neck negative. Neurology following- Dr. Giorgio Vázquez management per ID Thiamine/multivitamin/folic acid supplementation. Monitor for evidence of alcohol withdrawal Daily sedation vacation. Versed discontinued at 6 AM on 08/22 Propofol, Precedex discontinued Haldol, Ativan PRN RESP: Acute respiratory failure on [facility] vent-resolved Bronchodilators every 6 hours schedule and every 2 hours as needed Extubated 08/25 Maintain O2 sat greater than 92% currently on O2 via nasal cannula at 2 L/m CV: Elevated troponin, suspect type II NSTEMI due to sepsis/hypoxia. 08/15- 2-D echo-EF 60%, no RWMA Serial lactic acid trend per sepsis protocol. Given aspirin 161 mg x1. GI: Transaminitis Continue tube feeds and advanced to goal as tolerated 08/16 liver ultrasound-cholelithiasis, small amount of ascites Viral hepatitis panel negative Follow-up LFTs FEN/RENAL: Acute kidney injury Acute rhabdomyolysis Hyperkalemia-resolved Mejia inserted. Monitor intake and output. Monitor electrolytes. Received multiple fluid boluses on admission. Continue IVF-normal saline at 100 cc/hour Trend CPK 2256 on 08/24 Nephrology following. ID: Leukocytosis Severe sepsis Lactic acidemia Influenza A h/o orolabial herpes simplex h/o IVDU Remains on Tamiflu for influenza. Acyclovir discontinued as CSF HSV PCR was negative Antibiotics per ID, currently on cefepime Transthoracic 2-D echo did not reveal vegetations. Consulted Infectious disease and followup neurology recommendations as well. HEME: Monitor CBC ENDO: Mild hypoglycemia. Monitor bedside glucose every 4 hours. Starting tube feeds PROPH: SCDs for DVT prophylaxis. Start heparin subcutaneous for DVT prophylaxis 24 hours after lumbar puncture. Famotidine for stress ulcer prophylaxis. ACCESS: Peripheral IV providing adequate access at this time. Will place central venous line if needed. Palliative care team assist with deciding goals of therapy. Patient may have suffered anoxic brain injury. In view of some improvement in neurologic status, had family meeting and they have decided to make him full CODE STATUS again. I did explain that he may still have significant hypoxic brain injury though he has shown some signs of neurologic recovery. Mother had a meeting with palliative care today to discuss goals of care. 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 Plan transfer to [facility] in am. Level 3 . Physician Analisa Blair MD August 25, 2016 15:48 Analisa Vargas MD August 25, 2016 15:48
[2016-08-26] VITALS (10 sets, daily range): BP systolic 135–166; BP diastolic 76–81; PULSE 70–101; RESP 12–20; TEMP 97.4–100.1; O2SAT 94–96
[2016-08-26] MEDS: CHLORHEXIDINE GLUCONATE 2 % 1 PACK (2 CLOTHS) TOP SCH (02:43)
[2016-08-26] MEDS: HALOPERIDOL LACTATE 5 MG/ML AMP IV PUSH PRN ×2 (02:44→09:22)
[2016-08-26] MEDS: SODIUM CHLOR 0.45% 1000 ML INJ 1,000 ML IV SCH ×3 (05:59→20:17)
[2016-08-26] MEDS: LORazepam 2 MG/ML VIAL IV PUSH PRN ×2 (06:27→09:36)
[2016-08-26] MEDS: RESP: ALBUTEROL 2.5 MG/IPRATROPIUM 0.5 MG NEB (SCH) NEB ×3 (08:00→21:47)
--- NOTE | 2016-08-26 08:38 | HHI.PR ---
Subjective Remarks Sleepy, not on BiPAP, satting well on room air, appears in nad. He is alert and oriented by name and only. He is on/off agitated. however now appears calm, with bouts of agitatin wanting to live the bed and the hospital. Says he has to go to help his 2 brothers. Denies chest pain or any pain in his body. Feels tired. Follows commands and has a fairly good strength. Denies palpitations, lightheadedness, tremors. He is not hungry. Says he is breathing well. denies any sob. He has persistent nonproductive cough. He is satting well on room air now. He is on restraints. Objective Vitals Vital Signs Date Time Temp Pulse Resp B/P Pulse Ox O2 Delivery O2 Flow Rate FiO2 08/26/16 06:00 100 08/26/16 04:00 93 08/26/16 04:00 98.8 93 15 150/76 95 08/26/16 02:00 89 08/26/16 00:00 98.8 101 12 135/79 94 08/26/16 00:00 101 08/25/16 22:00 97 08/25/16 20:09 21 08/25/16 20:00 99.1 92 12 163/91 95 08/25/16 20:00 92 08/25/16 16:00 98.6 100 14 174/72 100 08/25/16 12:00 97.9 I/O 08/25/16 08/25/16 08/25/16 08/26/16 08/26/16 08/26/16 06:59 14:59 22:59 06:59 14:59 22:59 Intake Total 1882 ml 1952 ml 1220 ml Output Total 1550 ml 1700 ml 750 ml Balance 332 ml 252 ml 470 ml Intake Oral 0 ml 960 ml 480 ml IV Total 1882 ml 992 ml 740 ml Tube Feeding 0 ml Output Urine Total 1150 ml 1600 ml 750 ml Gastric Drainage Total 350 ml 100 ml Emesis 50 ml # Bowel Movements 0 2 0 Result Diagram: 08/25/16 0450 08/25/16 0450 Imaging Last Impressions Chest X-Ray 08/25/16 0600 Signed Impressions: Service Date/Time: Thursday, August 25, 2016 03:42 - CONCLUSION: Improving bilateral perihilar air space disease. Broderick Browne MD Abdomen X-Ray 08/24/16 Signed Impressions: Service Date/Time: Wednesday, August 24, 2016 12:29 - CONCLUSION: Nonobstructive bowel gas pattern which may represent a mild ileus or gastroenteritis. Cruz Velasco MD Upper Extremity Ultrasound 08/23/16 Signed Impressions: Service Date/Time: Tuesday, August 23, 2016 10:16 - CONCLUSION: 1. Focal clot within the basilic vein just above the level of the elbow in both upper extremities. Surjit Rust MD Lower Extremity Ultrasound 08/23/16 Signed Impressions: Service Date/Time: Tuesday, August 23, 2016 10:57 - CONCLUSION: 1. No DVT identified. Surjit Rust MD Brain MRI 08/17/16 0900 Signed Impressions: Service Date/Time: Wednesday, August 17, 2016 13:44 - CONCLUSION: Right maxillary sinus mucosal thickening and air-fluid level without evidence for mass, hemorrhage or acute infarct. Dewey Mitchell MD Liver Ultrasound 08/16/16 Signed Impressions: Service Date/Time: Tuesday, August 16, 2016 08:03 - CONCLUSION: 1. Cholelithiasis 2. Trace ascites 3. Medical disease right kidney Raphael Rankin MD Head CT 08/15/167 Signed Impressions: Service Date/Time: July 17:56 - CONCLUSION: 1. No acute hemorrhage or mass effect. 2. Sinusitis. Cruz Velasco MD Neck Magnetic Resonance Angiography 08/15/16 Signed Impressions: Service Date/Time: July 23:31 - CONCLUSION: Motion degraded study without a definite abnormality. No stenosis demonstrated. Evaluation for carotid dissection difficult. If clinical concern persists and patient's renal function can tolerate, a CTA is suggested. Eleazar Viera MD Head Magnetic Resonance Angiography 08/15/16 Signed Impressions: Service Date/Time: July 23:31 - CONCLUSION: Normal intracranial MRA. Eleazar Viera MD Objective Remarks GENERAL: Well-developed well-nourished male, in restraints agitated on/off, appears in nad. SKIN: Warm and dry. No rash, no petechiae. HEAD: Atraumatic. Normocephalic. EYES: Pupils 3mm bilaterally reactive. Bilateral conjunctival injection. No icterus. ENT: No nasal bleeding or discharge. Mucous membranes pink, dry. NECK: Trachea midline. No JVD. CARDIOVASCULAR: Normal rate and rhythm, regular, no murmur rub or gallop appreciated. RESPIRATORY: Nonproductive cough. No wheezing. No accessory muscle use. B/L breath sounds clear to auscultation. GASTROINTESTINAL: Abdomen soft, non-tender, nondistended. Bowel sounds hypoactive : Mejia insitu with dark eda urine output. MUSCULOSKELETAL: Extremities without clubbing, cyanosis, or edema. No obvious deformities. NEUROLOGICAL: More awake and alert (oriented to full name and only) , takes time to answer questions and also to follow commands. Moves all 4 extremities. Follows commands. Good upper and LE strength. A/P Assessment and Plan NEURO: Acute encephalopathy-resolving Hyperammonemia (ammonia level 79)-resolved Agitation on/off UDS positive for opiates, otherwise negative. Lactulose 30 bid for hyperammonemia, f/u ammonia level. CT brain - sinusitis, otherwise no acute abnormality. Lumbar puncture performed: 6 WBC, 2 RBC, 107 glucose, mildly elevated protein at 49.9. Opening pressure elevated, 29.5 cm H20. Initial MRI Brain demonstrated diffusion abnormalities of L parietal and R temporal lobe. Repeat MRI brain done on 08/17 was unremarkable MRA brain and neck negative. Neurology following- Dr. Giorgio Vázquez management per ID Thiamine/multivitamin/folic acid supplementation. Monitor for evidence of alcohol withdrawal Daily sedation vacation. Versed discontinued at 6 AM on 08/22 Propofol, Precedex discontinued Haldol, Ativan PRN Add seroquel scheduled 25 mg po bid. Will have sitter at bedside to reorient patient, and limit soft restraints if possible Will have PT and oT working with the patient as he is physically deconditioned 2 /2 ICU stay Consult psychiatry as well for eval RESP: Acute respiratory failure on [facility] vent-resolved Bronchodilators every 6 hours schedule and every 2 hours as needed Extubated 08/25 Maintain O2 sat greater than 92% currently on O2 via nasal cannula at 2 L/m, currently satting well on room air. Monitor. CV: Elevated troponin, suspect type II NSTEMI due to sepsis/hypoxia. 08/15- 2-D echo-EF 60%, no RWMA Serial lactic acid trend per sepsis protocol. Given aspirin 161 mg x1. GI: Transaminitis Continue tube feeds and advanced to goal as tolerated 08/16 liver ultrasound-cholelithiasis, small amount of ascites Viral hepatitis panel negative Follow-up LFTs FEN/RENAL: Acute kidney injury Acute rhabdomyolysis Hyperkalemia-resolved Mejia inserted. Monitor intake and output. Monitor electrolytes. Received multiple fluid boluses on admission. Continue IVF-normal saline at 100 cc/hour Trend CPK 2256 on 08/24 Nephrology following. ID: Leukocytosis Severe sepsis Lactic acidemia Influenza A h/o orolabial herpes simplex h/o IVDU Remains on Tamiflu for influenza. Acyclovir discontinued as CSF HSV PCR was negative Antibiotics per ID, currently on cefepime Transthoracic 2-D echo did not reveal vegetations. Consulted Infectious disease and followup neurology recommendations as well. HEME: Monitor CBC ENDO: Mild hypoglycemia. Monitor bedside glucose every 4 hours. Starting tube feeds PROPH: SCDs for DVT prophylaxis. Start heparin subcutaneous for DVT prophylaxis 24 hours after lumbar puncture. Famotidine for stress ulcer prophylaxis. ACCESS: Peripheral IV providing adequate access at this time. Will place central venous line if needed. Palliative care team assist with deciding goals of therapy. Patient may have suffered anoxic brain injury. However he is noted slowly improving. In view of some improvement in neurologic status, had family meeting and they have decided to make him full CODE STATUS. Patient may still have significant hypoxic brain injury though he has shown some signs of neurologic recovery. Mother had a meeting with palliative care 08/25/16 to discuss goals of care. Code status: FULL CODE Plan to transfer to the med/surg floor Discussed with the patient, nurse, Dr Elizabet Vargas outsole leveler Ashley Trujillo MD August 26, 2016 08:38
[2016-08-26] MEDS: SODIUM CHLORIDE 0.9% FLUSH 10 ML FLUSH SCH ×2 (09:00→20:19)
[2016-08-26] MEDS: LACTULOSE SYRUP 20 GM/30 ML CUP OG-TUBE SCH ×2 (09:00→20:18)
[2016-08-26] MEDS: FOLIC ACID 1 MG TAB OG-TUBE SCH (09:21)
[2016-08-26] MEDS: THIAMINE INJ 100 MG in SODIUM CHLORIDE 0.9% INJ 100 ML IV SCH (09:21)
[2016-08-26] MEDS: FAMOTIDINE 20 MG TAB OG-TUBE SCH ×2 (09:21→20:19)
[2016-08-26] MEDS: HEPARIN SODIUM - SQ 10,000 UNITS/ML VIAL SQ SCH ×2 (09:21→20:19)
[2016-08-26] MEDS: MULTIVITAMIN TAB OG-TUBE SCH (09:22)
--- NOTE | 2016-08-26 11:14 | HHI.NPPN ---
Subjective Renal Failure: Acute Interval History He has been extubated. Moved out of [facility] [place] [facility]. Mother at bedside. Renal function improved. (Cristal Greer) Review of Systems General Constitutional: Fatigue (Cristal Greer) Cardiovascular Cardiac: Edema (Cristal Greer) Objective Data Data 08/25/16 08/26/16 18:59 06:59 Intake Total 720 ml 2452 ml Output Total 1000 ml 1450 ml Balance -280 ml 1002 ml Intake Oral 720 ml 720 ml IV Total 1732 ml Output Urine Total 900 ml 1450 ml Gastric Drainage Total 100 ml # Bowel Movements 1 1 Vital Signs Date Time Temp Pulse Resp B/P Pulse Ox O2 Delivery O2 Flow Rate FiO2 08/26/16 10:00 75 08/26/16 08:00 98.6 75 16 137/78 95 08/26/16 08:00 75 08/26/16 06:00 100 08/26/16 04:00 93 08/26/16 04:00 98.8 93 15 150/76 95 08/26/16 02:00 89 08/26/16 00:00 98.8 101 12 135/79 94 08/26/16 00:00 101 08/25/16 22:00 97 08/25/16 20:09 21 08/25/16 20:00 99.1 92 12 163/91 95 08/25/16 20:00 92 08/25/16 16:00 98.6 100 14 174/72 100 08/25/16 12:00 97.9 (Cristal Greer) -: 08/25/16 0450 08/25/16 0450 Imaging Last 72 hours Impressions Chest X-Ray 08/25/16 0600 Signed Impressions: Service Date/Time: Thursday, August 25, 2016 03:42 - CONCLUSION: Improving bilateral perihilar air space disease. Broderick Browne MD Chest X-Ray 08/24/16 0600 Signed Impressions: Service Date/Time: Wednesday, August 24, 2016 03:40 - CONCLUSION: Stable bilateral perihilar airspace disease. Broderick Browne MD Abdomen X-Ray 08/24/16 0000 Signed Impressions: Service Date/Time: Saturday, August 24, 2016 12:29 - CONCLUSION: Nonobstructive bowel gas pattern which may represent a mild ileus or gastroenteritis. Cruz Velasco MD Tubes & Lines: Almanzar (Percy,[employer]) Physical Exam General Appearance: No Acute Distress, Comfortable Appearance Remarks missing upper front teeth (Percy,[employer]) Eyes Eye Exam: Pupils Equal (Percy,[employer]) Throat Throat Exam: Oral Mucosa Storla & Moist (Percy,[employer]) Neck Neck Exam: Neck Supple (Percy,[employer]) Pulmonary Resp Exam: Rhonchi (Percy,[employer]) Cardiology CV Exam: Regular, Normal Sinus Rhythm (Percy,[employer]) Gastrointestinal/Abdomen GI Exam: Soft, Non-Tender, Bowel Sounds Present, Positive Bowel Movement ( Percy,[employer]) Genitourinary Exam: Sediment (Percy,[employer]) Extremeties Extremities Exam: No Edema (Percy,[employer]) Neurologic Neuro Exam: Alert, Awake, Moving All Extremities Neuro Remarks lethargic, follows commands (Percy,[employer]) VTE Prophylaxis Device: SCDs (Percy,[employer]) Assessment/Plan Discussed Condition With: Patient, Parent Assessment Summary: JUAN M/Acute Renal Failure Problem List: (1) JUAN M (acute kidney injury) Plan: No hx of renal impairment JUAN M due to rhabdomyolysis. continue IVF, but reduce rate to 50 cc/hr currently Non oliguric. Monitor output via almanzar attempt almanzar removal tomorrow Avoid nephrotoxins. Medications reviewed and appropriate continue phoslo for hyperphosphatemia daily renal panel. (2) Rhabdomyolysis Plan: due to fall extended down time CPK improved, continue IVF (3) Influenza A Plan: tamiflu finished (4) Altered mental status Plan: Neurology following. improving (5) Lactic acidosis Plan: due to sepsis, he is febrile today Currently on Cefepime and levaquin continue IVF (Percy,[employer]) Plan patient was seen and examined. He is now extubated. Answers questions. Recommend to reduce sedation. Renal function is slowly improving. Taper off IVF and encourage oral intake. (Dk Ramon MD) Problem Qualifiers (1) Altered mental status: Qualified Code: R40.2430 - Devi coma scale total score 3-8, unspecified time Cristal Greer August 26, 2016 11:14 Dk Ramon MD August 26, 2016 16:29
[2016-08-26] MEDS ORDERED: QUEtiapine FUMARATE 25 MG TAB PO SCH (12:00)
[2016-08-26] MEDS ORDERED: HALOPERIDOL LACTATE 5 MG/ML AMP IV PUSH PRN (13:00)
--- NOTE | 2016-08-26 13:01 | PD.CONS ---
Provisional Diagnosis Admission Date Aug 15, 2016 at 19:04 Kelly I. Delirium due to underlying medical conditions, amphetamines and opiates is disorder Kelly II. Deferred Kelly III. 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 Patient was admitted in ICU with acute respiratory failure, JUAN M, AMS, sepsis, influenza. Patient was extubated yesterday, transferred today to regular medical floor. He has been combative and agitated in the floor. He was found restrained in 4 point in the medical floor. He was very drowsy, lethargic, confused, just partially cooperative. However he does say that he has a good mood, he was to get better, he denies suicidal and homicidal ideation, he denies visual and auditory hallucinations. He says that he love fishing, and he love people and he doesn't want to . He says that after this hospitalization he would love to go to a rehabilitation program. He says that his preferred drug is amphetamine, crystal meth, he doesn 't usually do heroine, but he did "a lot"before coming to the hospital. He denies suicidal intentions in his overdose. His mother Chasidy Gamble, [phone], who was at bedside was able to help us. She says that patient was born and raised in [facility], but he has been living in [place] for the last 18 years. She says the patient has been homeless, with poor contact with family , using drugs every day. She says that he was a very good student and dedicated person onto the age of 17 years ago. But after that. He developed addiction for hallucinogen, them for cannabis, and finally with amphetamines and heroin. She clarifies the patient does not have any previous psychiatric hospitalization. As far she knows he has never tried to commit suicide. He has been multiple times in rehabilitation programs including one in we'll follow when he was 18 years old for 9 months. Review of Systems Constitutional: DENIES: Diaphoretic episodes, Fatigue, Fever, Weight gain, Weight loss, Chills, Dizziness, Change in appetite, Night Sweats Endocrine: DENIES: Heat/cold intolerance, Polydipsia, Polyuria, Polyphagia Eyes: DENIES: Blurred vision, Diplopia, Eye inflammation, Eye pain, Vision loss , Photosensitivity, Double Vision Ears, nose, mouth, throat: DENIES: Tinnitus, Hearing loss, Vertigo, Nasal discharge, Oral lesions, Throat pain, Hoarseness, Ear Pain, Running Nose, Epistaxis, Sinus Pain, Toothache, Odynophagia Respiratory: DENIES: Apneas, Cough, Snoring, Wheezing, Hemoptysis, Sputum production, Shortness of breath Cardiovascular: DENIES: Chest pain, Palpitations, Syncope, Dyspnea on Exertion , PND, Lower Extremity Edema, Orthopnea, Claudication Gastrointestinal: DENIES: Abdominal pain, Black stools, Bloody stools, Constipation, Diarrhea, Nausea, Vomiting, Difficulty Swallowing, Anorexia Genitourinary: DENIES: Sexual dysfunction, Urinary frequency, Urinary incontinence, Urgency, Hematuria, Dysuria, Nocturia, Penile Discharge, Testicular Pain, Testicular Swelling Musculoskeletal: DENIES: Joint pain, Muscle aches, Stiffness, Joint Swelling, Back pain, Neck pain Integumentary: DENIES: Abnormal pigmentation, Nail changes, Pruritus, Rash Hematologic/lymphatic: DENIES: Bruising, Lymphadenopathy Neurologic: DENIES: Abnormal gait, Headache, Localized weakness, Paresthesias, Seizures, Speech Problems, Tremor, Poor Balance Psychiatric: DENIES: Anxiety, Confusion, Mood changes, Depression, Hallucinations, Agitation, Suicidal Ideation, Homicidal Ideation, Delusions Past Family Social History Coded Allergies: No Known Allergies (Verified , 12/18/15) Unable to Obtain Active Prescriptions or Reported Meds Current Medications Medications (Trade) Dose Ordered Sig/Demetrio Route Start Time Stop Time Status Last Admin (NS Flush) 2 ml UNSCH PRN .XX 08/15/16 20:00 08/25/16 13:12 (NS Flush) 2 ml BID .XX 08/15/16 21:00 08/25/16 20:18 (Zofran Inj) 4 mg Q6H PRN IV 08/15/16 20:00 08/25/16 06:29 (Lactulose Liq) 30 ml BID OG-TUBE 08/15/16 21:00 08/25/16 20:18 Miscellaneous Information 1 Q361D XX 08/15/16 20:00 (Chlorhexidine 2% Cloth) Taper DAILY@04 TOP 08/16/16 04:00 08/12/17 03:59 08/25/16 04:00 (Chlorhexidine 2% Cloth) 3 pack UNSCH PRN TOP 08/15/16 20:00 Chlorhexidine Gluconate 15 ml 15 ml BID@08,20 MT 08/15/16 20:00 08/25/16 08:10 (Thiamine Inj/NS Inj) 101 ml @ 101 mls/hr DAILY IV 08/16/16 09:00 08/26/16 09:21 (Theragran) 1 tab DAILY OG-TUBE 08/16/16 03:30 08/26/16 09:22 Folic Acid 1 mg 1 mg DAILY OG-TUBE 08/16/16 09:00 08/26/16 09:21 (1/2 NS 1000 ml Inj) 1,000 ml @ 50 mls/hr Q20H IV 08/17/16 09:00 08/26/16 05:59 (Pepcid) 10 mg Q12HR OG-TUBE 08/18/16 09:00 08/26/16 09:21 (Pill Splitter) 1 ea UNSCH PRN OTHER 08/18/16 07:45 08/20/16 07:31 (Heparin Inj) 5,000 units Q12HR SQ 08/18/16 21:00 08/26/16 09:21 (Ativan Inj) 1 mg Q2H PRN IV PUSH 08/25/16 09:00 08/26/16 09:36 (Haldol Inj) 2 mg Q4H PRN IV PUSH 08/25/16 09:00 08/26/16 09:22 (Phoslo) 667 mg TID PO 08/26/16 13:00 (SEROquel) 25 mg BID@09,12 PO 08/26/16 12:00 Family History Patient does not have any family psychiatric history Social History He was born and raised in [place], [place], he is homeless, lives in the [facility], unemployed, single, highest level of education is high school, patient has multiple incarcerations Patient's Strengths (min. 2) Support of his mother Physical Exam No EPS, no tremors, no stiffness present, patient is hypoactive, with marked psychomotor retardation due to level of sedation Vital Signs Vital Signs Date Time Temp Pulse Resp B/P Pulse Ox O2 Delivery O2 Flow Rate FiO2 08/26/16 11:20 97.4 70 19 166/81 95 08/25/16 20:09 21 08/25/16 08:15 Nasal Cannula 3.00 I/O 08/25/16 08/25/16 08/26/16 08:00 16:00 00:00 Intake Total 1083 ml 720 ml 1232 ml Output Total 850 ml 1000 ml 700 ml Balance 233 ml -280 ml 532 ml Lab Results WBCs 12.8, Hgb 10.2, HCT 31.6, NA 143, K4.3, creatinine 3.9, BUN 114, toxicology was positive for opiates Mental Status Examination Appearance woman, restrained in 4 point, [facility], minimally cooperative Speech: Hesitant, Slow, Incoherent Orientation: Person Memory: Impaired (describe) Thought Process: Loose Association Thought Content: Unremarkable, Other Language Adequate for level of education Fund of Knowledge Adequate for level of education Hallucination Type: None Attention and Concentration: Abnormal Suicidal Ideation: No Previous Suicide Attempts: No Homicidal Ideation: No Previous Homicide Attempts: No Judgment: Impulsive Affect: Good Mood: Appropriate Motor Activity: Normal gait Assessment & Plan Problem List: (1) Delirium due to another medical condition Assessment & Plan: At the moment of the evaluation the patient is lethargic, drowsy, continues to be confused and disoriented. He can provide some valuable information for the psychiatric assessment. He denies depressive symptoms, he denies suicidal or homicidal ideation, he denies visual and auditory hallucinations. Patient reports daily use of crystal meth, occasional use of heroine. He expresses his wish to be discharged to a rehabilitation program for drugs. Patient has been reported agitated, hostile and giving aggressive which is most probably the result of delirium secondary and underlying medical conditions. Will increase Seroquel to 50 mg twice a day. Will increase Haldol to 5 mg IM every 8 hours when necessary aggressive behavior and agitation. Psychoeducation, supportive motivation provided. We will follow up. ICD Code: F05 Assessment & Plan Estimated LOS: Ez Ryan MD August 26, 2016 13:01
[2016-08-26] MEDS: CALCIUM ACETATE 667 MG CAP PO SCH ×2 (13:26→18:26)
[2016-08-26] MEDS: ACETAMINOPHEN 500 MG CPLT PO PRN ×2 (13:27→20:18)
[2016-08-26] MEDS: QUEtiapine FUMARATE 25 MG TAB PO SCH ×2 (13:27→20:18)
[2016-08-26] MEDS: CHLORHEXIDINE 0.12% (ORAL KIT) 15 ML CUP MT SCH (20:00)
[2016-08-27] VITALS (7 sets, daily range): BP systolic 135–165; BP diastolic 85–99; PULSE 86–104; RESP 18; TEMP 97.6–99.7; O2SAT 92–97
[2016-08-27] MEDS: CHLORHEXIDINE GLUCONATE 2 % 1 PACK (2 CLOTHS) TOP SCH (04:00)
[2016-08-27] MEDS: CHLORHEXIDINE 0.12% (ORAL KIT) 15 ML CUP MT SCH ×2 (08:00→19:27)
[2016-08-27 08:04] LABS: BICARBONATE 20.1 MEQ/L (21.0-32.0); POTASSIUM 3.7 MEQ/L (3.5-5.1)
--- NOTE | 2016-08-27 08:26 | HHI.PR ---
Subjective Remarks Improving., no events overnight . Patient however was noted agitated. He reeived ativan and is much better. Seen by psych recommends rehab. His family is very supportive and plan for rehab as OP. Patient is unsteady, PT to evaluate. Otherwise he denies any other symptoms. Says sough has improved. No fever or chills. No n/v/d/c. No SOB. he is satting well on room air Objective Vitals Vital Signs Date Time Temp Pulse Resp B/P Pulse Ox O2 Delivery O2 Flow Rate FiO2 08/27/16 04:00 99.0 104 18 161/89 95 08/27/16 00:00 98.6 92 18 160/85 95 08/26/16 21:48 94 21 08/26/16 20:00 99.4 84 20 162/80 96 08/26/16 15:15 100.1 92 20 137/80 94 08/26/16 11:20 97.4 70 19 166/81 95 08/26/16 10:00 75 I/O 08/26/16 08/26/16 08/26/16 08/27/16 08/27/16 08/27/16 07:00 15:00 23:00 07:00 15:00 23:00 Intake Total 1220 ml 678 ml Output Total 750 ml 1000 ml 1800 ml Balance 470 ml 678 ml -1000 ml -1800 ml Intake Oral 480 ml IV Total 740 ml 678 ml Output Urine Total 750 ml 1000 ml 1800 ml # Bowel Movements 0 0 Result Diagram: 08/25/16 0450 08/27/16 0638 Imaging Last Impressions Chest X-Ray 08/25/16 0600 Signed Impressions: Service Date/Time: Thursday, August 25, 2016 03:42 - CONCLUSION: Improving bilateral perihilar air space disease. Broderick Browne MD Abdomen X-Ray 08/24/16 0000 Signed Impressions: Service Date/Time: Wednesday, August 24, 2016 12:29 - CONCLUSION: Nonobstructive bowel gas pattern which may represent a mild ileus or gastroenteritis. Cruz Velasco MD Upper Extremity Ultrasound 08/23/16 0000 Signed Impressions: Service Date/Time: Tuesday, August 23, 2016 10:16 - CONCLUSION: 1. Focal clot within the basilic vein just above the level of the elbow in both upper extremities. Surjit Rust MD Lower Extremity Ultrasound 08/23/16 0000 Signed Impressions: Service Date/Time: Tuesday, August 23, 2016 10:57 - CONCLUSION: 1. No DVT identified. Surjit Rust MD Brain MRI 08/17/16 0900 Signed Impressions: Service Date/Time: Wednesday, August 17, 2016 13:44 - CONCLUSION: Right maxillary sinus mucosal thickening and air-fluid level without evidence for mass, hemorrhage or acute infarct. Dewey Mitchell MD Liver Ultrasound 08/16/16 0000 Signed Impressions: Service Date/Time: Tuesday, August 16, 2016 08:03 - CONCLUSION: 1. Cholelithiasis 2. Trace ascites 3. Medical disease right kidney Raphael Rankin MD Head CT 08/15/16 1747 Signed Impressions: Service Date/Time: July 17:56 - CONCLUSION: 1. No acute hemorrhage or mass effect. 2. Sinusitis. Cruz Velasco MD Neck Magnetic Resonance Angiography 08/15/16 0000 Signed Impressions: Service Date/Time: July 23:31 - CONCLUSION: Motion degraded study without a definite abnormality. No stenosis demonstrated. Evaluation for carotid dissection difficult. If clinical concern persists and patient's renal function can tolerate, a CTA is suggested. Eleazar Viera MD Head Magnetic Resonance Angiography 08/15/16 0000 Signed Impressions: Service Date/Time: July 23:31 - CONCLUSION: Normal intracranial MRA. Eleazar Viera MD Objective Remarks GENERAL: Well-developed well-nourished male, in restraints agitated on/off, appears in nad. SKIN: Warm and dry. No rash, no petechiae. HEAD: Atraumatic. Normocephalic. EYES: Pupils 3mm bilaterally reactive. Bilateral conjunctival injection. No icterus. ENT: No nasal bleeding or discharge. Mucous membranes pink, dry. NECK: Trachea midline. No JVD. CARDIOVASCULAR: Normal rate and rhythm, regular, no murmur rub or gallop appreciated. RESPIRATORY: Nonproductive cough. No wheezing. No accessory muscle use. B/L breath sounds clear to auscultation. GASTROINTESTINAL: Abdomen soft, non-tender, nondistended. Bowel sounds hypoactive : Mejia insitu with dark eda urine output. MUSCULOSKELETAL: Extremities without clubbing, cyanosis, or edema. No obvious deformities. NEUROLOGICAL: More awake and alert (oriented to full name and only) , takes time to answer questions and also to follow commands. Moves all 4 extremities. Follows commands. Good upper and LE strength. A/P Assessment and Plan NEURO: Acute encephalopathy-resolved Hyperammonemia (ammonia level 79)-resolved Agitation on/off UDS positive for opiates, otherwise negative. Lactulose 30 bid for hyperammonemia, f/u ammonia level. CT brain - sinusitis, otherwise no acute abnormality. Lumbar puncture performed: 6 WBC, 2 RBC, 107 glucose, mildly elevated protein at 49.9. Opening pressure elevated, 29.5 cm H20. Initial MRI Brain demonstrated diffusion abnormalities of L parietal and R temporal lobe. Repeat MRI brain done on 08/17 was unremarkable MRA brain and neck negative. Neurology following- Dr. Giorgio Vázquez management per ID Thiamine/multivitamin/folic acid supplementation. Monitor for evidence of alcohol withdrawal Daily sedation vacation. Versed discontinued at 6 AM on 08/22 Propofol, Precedex discontinued Haldol, Ativan PRN Add seroquel scheduled 25 mg po bid. Will have sitter at bedside to reorient patient, and limit soft restraints if possible Will have PT and oT working with the patient as he is physically deconditioned 2 / ICU stay Consult psychiatry as well for eval RESP: Acute respiratory failure on [facility] vent-resolved Bronchodilators every 6 hours schedule and every 2 hours as needed Extubated 08/25 Maintain O2 sat greater than 92% currently on O2 via nasal cannula at 2 L/m, currently satting well on room air. Monitor. CV: Elevated troponin, suspect type II NSTEMI due to sepsis/hypoxia. 08/15- 2-D echo-EF 60%, no RWMA Serial lactic acid trend per sepsis protocol. Given aspirin 161 mg x1. GI: Transaminitis Continue tube feeds and advanced to goal as tolerated 08/16 liver ultrasound-cholelithiasis, small amount of ascites Viral hepatitis panel negative Follow-up LFTs FEN/RENAL: Acute kidney injury Acute rhabdomyolysis Hyperkalemia-resolved Mejia inserted. Monitor intake and output. Monitor electrolytes. Received multiple fluid boluses on admission. Continue IVF-normal saline at 100 cc/hour Trend CPK 2256 on 08/24 Nephrology following. ID: Leukocytosis Severe sepsis Lactic acidemia Influenza A h/o orolabial herpes simplex h/o IVDU Remains on Tamiflu for influenza. Acyclovir discontinued as CSF HSV PCR was negative Antibiotics per ID, currently on cefepime Transthoracic 2-D echo did not reveal vegetations. Consulted Infectious disease and followup neurology recommendations as well. HEME: Monitor CBC ENDO: Mild hypoglycemia. Monitor bedside glucose every 4 hours. Starting tube feeds PROPH: SCDs for DVT prophylaxis. Start heparin subcutaneous for DVT prophylaxis 24 hours after lumbar puncture. Famotidine for stress ulcer prophylaxis. ACCESS: Peripheral IV providing adequate access at this time. Will place central venous line if needed. Palliative care team assist with deciding goals of therapy. Patient may have suffered anoxic brain injury. However he is noted slowly improving. In view of some improvement in neurologic status, had family meeting and they have decided to make him full CODE STATUS. Patient may still have significant hypoxic brain injury though he has shown some signs of neurologic recovery. Mother had a meeting with palliative care 08/25/16 to discuss goals of care. Code status: FULL CODE Transfer to the med/surg floor Discussed with the patient, nurse. Ashley Trujillo MD August 27, 2016 08:26
[2016-08-27] MEDS: QUEtiapine FUMARATE 25 MG TAB PO SCH ×3 (08:42→20:34)
[2016-08-27] MEDS: CALCIUM ACETATE 667 MG CAP PO SCH ×3 (08:42→17:24)
[2016-08-27] MEDS: MULTIVITAMIN TAB OG-TUBE SCH (08:42)
[2016-08-27] MEDS: FOLIC ACID 1 MG TAB OG-TUBE SCH (08:43)
[2016-08-27] MEDS: THIAMINE INJ 100 MG in SODIUM CHLORIDE 0.9% INJ 100 ML IV SCH (08:43)
[2016-08-27] MEDS: HEPARIN SODIUM - SQ 10,000 UNITS/ML VIAL SQ SCH ×2 (08:43→20:31)
[2016-08-27] MEDS: FAMOTIDINE 20 MG TAB OG-TUBE SCH ×2 (08:43→20:31)
[2016-08-27] MEDS: LACTULOSE SYRUP 20 GM/30 ML CUP OG-TUBE SCH ×2 (08:43→20:31)
[2016-08-27] MEDS: SODIUM CHLORIDE 0.9% FLUSH 10 ML FLUSH SCH ×2 (09:00→20:34)
[2016-08-27] MEDS ORDERED: QUEtiapine FUMARATE 25 MG TAB PO SCH (09:00)
[2016-08-27] MEDS ORDERED: ENALAPRILAT 2.5 MG/2 ML VIAL IV PUSH PRN (09:00)
[2016-08-27] MEDS: RESP: ALBUTEROL 2.5 MG/IPRATROPIUM 0.5 MG NEB (SCH) NEB ×3 (09:24→21:50)
[2016-08-27 09:30] LABS: CKMB 16.1 NG/ML (0.5-3.6)
--- NOTE | 2016-08-27 10:44 | HHI.NPPN ---
Subjective Renal Failure: Acute Interval History He was agitated overnight. Mother at bedside. States he is eating/drinking. Renal function is better. (Cristal Greer) Review of Systems General Constitutional: Fatigue (Cristal Greer) Cardiovascular Cardiac: Edema (Cristal Greer) Objective Data Data 08/26/16 08/27/16 18:59 06:59 Intake Total 678 ml Output Total 1000 ml 1800 ml Balance -322 ml -1800 ml IV Total 678 ml Output Urine Total 1000 ml 1800 ml # Bowel Movements 0 Vital Signs Date Time Temp Pulse Resp B/P Pulse Ox O2 Delivery O2 Flow Rate FiO2 08/27/16 09:26 97 08/27/16 08:00 99.7 91 18 164/86 92 08/27/16 04:00 99.0 104 18 161/89 95 08/27/16 00:00 98.6 92 18 160/85 95 08/26/16 21:48 94 21 08/26/16 20:00 99.4 84 20 162/80 96 08/26/16 15:15 100.1 92 20 137/80 94 08/26/16 11:20 97.4 70 19 166/81 95 (Cristal Greer) -: 08/25/16 0450 08/27/16 0638 Imaging Last 72 hours Impressions Chest X-Ray 08/25/16 0600 Signed Impressions: Service Date/Time: Thursday, August 25, 2016 03:42 - CONCLUSION: Improving bilateral perihilar air space disease. Broderick Browne MD Tubes & Lines: Almanzar (Cristal Greer) Physical Exam General Appearance: No Acute Distress, Comfortable, Malnourished Appearance Remarks missing upper front teeth (Cristal Greer) Eyes Eye Exam: Pupils Equal (Cristal Gerer) Throat Throat Exam: Oral Mucosa [place] & Moist (Cristal Greer) Neck Neck Exam: Neck Supple (Cristal Greer) Pulmonary Resp Exam: Rhonchi (Cristal Greer) Cardiology CV Exam: Regular, Normal Sinus Rhythm (Cristal Greer) Gastrointestinal/Abdomen GI Exam: Soft, Non-Tender, Bowel Sounds Present, Positive Bowel Movement ( Cristal Greer) Genitourinary Exam: Sediment (Cristal Greer) Integumentary Skin Exam: Warm, Dry (Cristal Greer) Extremeties Extremities Exam: No Edema, Pedal Pulses Palpable (Cristal Greer) Neurologic Neuro Exam: Alert, Awake, Oriented, Moving All Extremities Neuro Remarks lethargic, follows commands (Cristal Greer) VTE Prophylaxis Device: SCDs (Cristal Greer) Assessment/Plan Discussed Condition With: Patient, Parent Assessment Summary: JUAN M/Acute Renal Failure Problem List: (1) JUAN M (acute kidney injury) Plan: No hx of renal impairment JUAN M due to rhabdomyolysis. renal funciton is better continue IVF for one more day, he is tolerating oral fluids currently Non oliguric. Monitor output via almanzar remove almanzar Avoid nephrotoxins. Medications reviewed and appropriate continue phoslo for hyperphosphatemia daily renal panel. (2) Rhabdomyolysis Plan: due to fall extended down time CPK improved, continue IVF (3) Influenza A Plan: tamiflu finished (4) Altered mental status Plan: Neurology following. improving (5) Lactic acidosis Plan: due to sepsis, he is febrile today Currently on Cefepime and levaquin continue IVF (Cristal Greer) Plan patient was seen and examined. Renal function is better. Encourage oral intake. Taper off fluids. (Dk Ramon MD) Problem Qualifiers (1) Altered mental status: Qualified Code: R40.2430 - [place] coma scale total score 3-8, unspecified time Cristal Greer August 27, 2016 10:44 Dk Ramon MD August 27, 2016 14:09
[2016-08-27] MEDS: LORazepam 2 MG/ML VIAL IV PUSH PRN (12:32)
--- NOTE | 2016-08-27 13:17 | HHI.DS ---
Discharge Summary Admission Date Aug 15, 2016 at 19:04 Discharge Date: August 28, 2016 Admitting Diagnosis respiratory distress, hypoxia, SIRS, altered mental status (1) Lactic acidosis ICD Code: E87.2 Diagnosis: Principal (2) Dyspnea ICD Code: R06.00 Diagnosis: Principal (3) Leukocytosis ICD Code: D72.829 Diagnosis: Principal (4) Rhabdomyolysis ICD Code: M62.82 Diagnosis: Principal (5) Encephalopathy ICD Code: G93.40 Diagnosis: Principal (6) Altered mental status ICD Code: R41.82 Diagnosis: Principal (7) Influenza A ICD Code: J10.1 Diagnosis: Principal (8) JUAN M (acute kidney injury) ICD Code: N17.9 Diagnosis: Principal (9) Delirium due to another medical condition ICD Code: F05 Diagnosis: Principal Procedures intubated/extubated Brief History - From Admission 36-year-old male who was found down unresponsive outside of a bar. By report, he had been down outside for about 4 hours when [facility] arrived. He reportedly had syringes and IV drug paraphernalia with him. There was minimal if any response to IV Narcan by [facility]. He was intubated upon arrival to the ED for airway protection by Dr. Kee. He had no eye opening, no motor response to noxious stimuli, and no gag. Sats were about 90% on 100% NR. He was diaphoretic and temp was 101. ED workup included CT brain with the impression of sinusitis and no acute abnormality. He had rhabdomyolysis with a CPK of 3500 , BUN 28/creatinine of 1.42, white blood cell count of 30.2 with 22% bands. Urinalysis was relatively unremarkable except for consistent with myoglobinuria. CXR unremarkable. CBC/BMP: 08/25/16 0450 08/27/16 0638 Significant Findings Laboratory Tests Test 08/25/16 08/27/16 04:50 06:38 White Blood Count 12.8 TH/MM3 (4.0-11.0) Red Blood Count 3.97 MIL/MM3 (4.50-5.90) Hemoglobin 10.2 GM/DL (13.0-17.0) Hematocrit 31.6 % (39.0-51.0) Mean Corpuscular Volume 79.7 FL (80.0-100.0) Mean Corpuscular Hemoglobin 25.8 PG (27.0-34.0) Chloride Level 112 MEQ/L 111 MEQ/L (98-107) (98-107) Carbon Dioxide Level 18.9 MEQ/L 20.1 MEQ/L (21.0-32.0) (21.0-32.0) Blood Urea Nitrogen 114 MG/DL 86 MG/DL (7-18) (7-18) Creatinine 3.91 MG/DL 3.24 MG/DL (0.60-1.30) (0.60-1.30) Estimat Glomerular Filtration 17 ML/MIN (>89) 22 ML/MIN (>89) Rate Calcium Level 8.4 MG/DL 8.0 MG/DL (8.5-10.1) (8.5-10.1) Phosphorus Level 6.4 MG/DL (2.5-4.9) Magnesium Level 3.2 MG/DL (1.5-2.5) Random Glucose 113 MG/DL (74-106) Total Creatine Kinase 950 U/L (39-308) Creatine Kinase MB 16.1 NG/ML (0.5-3.6) Albumin 2.3 GM/DL (3.4-5.0) Imaging Last Impressions Chest X-Ray 08/25/16 0600 Signed Impressions: Service Date/Time: Thursday, August 25, 2016 03:42 - CONCLUSION: Improving bilateral perihilar air space disease. Broderick Browne MD Abdomen X-Ray 08/24/16 Signed Impressions: Service Date/Time: Wednesday, August 24, 2016 12:29 - CONCLUSION: Nonobstructive bowel gas pattern which may represent a mild ileus or gastroenteritis. Cruz Velasco MD Upper Extremity Ultrasound 08/23/16 Signed Impressions: Service Date/Time: Tuesday, August 23, 2016 10:16 - CONCLUSION: 1. Focal clot within the basilic vein just above the level of the elbow in both upper extremities. Surjit Rust MD Lower Extremity Ultrasound 08/23/16 Signed Impressions: Service Date/Time: Tuesday, August 23, 2016 10:57 - CONCLUSION: 1. No DVT identified. Surjit Rust MD Brain MRI 08/17/16 0900 Signed Impressions: Service Date/Time: Wednesday, August 17, 2016 13:44 - CONCLUSION: Right maxillary sinus mucosal thickening and air-fluid level without evidence for mass, hemorrhage or acute infarct. Dewey Mitchell MD Liver Ultrasound 08/16/16 0000 Signed Impressions: Service Date/Time: Tuesday, August 16, 2016 08:03 - CONCLUSION: 1. Cholelithiasis 2. Trace ascites 3. Medical disease right kidney Raphael Rankin MD Head CT 08/15/16 1747 Signed Impressions: Service Date/Time: July 17:56 - CONCLUSION: 1. No acute hemorrhage or mass effect. 2. Sinusitis. Cruz Velasco MD Neck Magnetic Resonance Angiography 08/15/16 0000 Signed Impressions: Service Date/Time: July 23:31 - CONCLUSION: Motion degraded study without a definite abnormality. No stenosis demonstrated. Evaluation for carotid dissection difficult. If clinical concern persists and patient's renal function can tolerate, a CTA is suggested. Eleazar Viera MD Head Magnetic Resonance Angiography 08/15/16 0000 Signed Impressions: Service Date/Time: July 23:31 - CONCLUSION: Normal intracranial MRA. Eleazar Viera MD PE at Discharge GENERAL: Well-developed well-nourished male, in restraints agitated on/off, appears in nad. SKIN: Warm and dry. No rash, no petechiae. HEAD: Atraumatic. Normocephalic. EYES: Pupils 3mm bilaterally reactive. Bilateral conjunctival injection. No icterus. ENT: No nasal bleeding or discharge. Mucous membranes pink, dry. NECK: Trachea midline. No JVD. CARDIOVASCULAR: Normal rate and rhythm, regular, no murmur rub or gallop appreciated. RESPIRATORY: Nonproductive cough. No wheezing. No accessory muscle use. B/L breath sounds clear to auscultation. GASTROINTESTINAL: Abdomen soft, non-tender, nondistended. Bowel sounds hypoactive : Mejia insitu with dark eda urine output. MUSCULOSKELETAL: Extremities without clubbing, cyanosis, or edema. No obvious deformities. NEUROLOGICAL: More awake and alert (oriented to full name and only) , takes time to answer questions and also to follow commands. Moves all 4 extremities. Follows commands. Good upper and LE strength. Pt update on day of discharge Feels much better. He is breathing well on room air. No sob, cough.No fever or chills. Feels much better. Wants to go to rehab, family will take him to rehab. No complaints at this time. Hospital Course Acute encephalopathy-resolved Hyperammonemia (ammonia level 79)-resolved Agitation on/off UDS positive for opiates, otherwise negative. Lactulose 30 bid for hyperammonemia, f/u ammonia level. CT brain - sinusitis, otherwise no acute abnormality. Lumbar puncture performed: 6 WBC, 2 RBC, 107 glucose, mildly elevated protein at 49.9. Opening pressure elevated, 29.5 cm H20. Initial MRI Brain demonstrated diffusion abnormalities of L parietal and R temporal lobe. Repeat MRI brain done on 08/17 was unremarkable MRA brain and neck negative. Neurology following- Dr. Giorgio Vázquez management per ID Thiamine/multivitamin/folic acid supplementation. Monitor for evidence of alcohol withdrawal Daily sedation vacation. Versed discontinued at 6 AM on 08/22 Propofol, Precedex discontinued Haldol, Ativan PRN Add seroquel scheduled 25 mg po bid. Will have sitter at bedside to reorient patient, and limit soft restraints if possible Will have PT and oT working with the patient as he is physically deconditioned 2 /2 ICU stay Consult psychiatry as well for eval RESP: Acute respiratory failure on [facility] vent-resolved Bronchodilators every 6 hours schedule and every 2 hours as needed Extubated 08/25 Maintain O2 sat greater than 92% currently on O2 via nasal cannula at 2 L/m, currently satting well on room air. Monitor. CV: Elevated troponin, suspect type II NSTEMI due to sepsis/hypoxia. 08/15- 2-D echo-EF 60%, no RWMA Serial lactic acid trend per sepsis protocol. Given aspirin 161 mg x1. GI: Transaminitis Continue tube feeds and advanced to goal as tolerated 08/16 liver ultrasound-cholelithiasis, small amount of ascites Viral hepatitis panel negative Follow-up LFTs FEN/RENAL: Acute kidney injury Acute rhabdomyolysis Hyperkalemia-resolved Mejia inserted. Monitor intake and output. Monitor electrolytes. Received multiple fluid boluses on admission. Continue IVF-normal saline at 100 cc/hour Trend CPK 2256 on 08/24 Nephrology following. ID: Leukocytosis Severe sepsis Lactic acidemia Influenza A h/o orolabial herpes simplex h/o IVDU Remains on Tamiflu for influenza. Acyclovir discontinued as CSF HSV PCR was negative Antibiotics per ID, currently on cefepime Transthoracic 2-D echo did not reveal vegetations. Consulted Infectious disease and followup neurology recommendations as well. HEME: Monitor CBC ENDO: Mild hypoglycemia. Monitor bedside glucose every 4 hours. Starting tube feeds PROPH: SCDs for DVT prophylaxis. Start heparin subcutaneous for DVT prophylaxis 24 hours after lumbar puncture. Famotidine for stress ulcer prophylaxis. ACCESS: Peripheral IV providing adequate access at this time. Will place central venous line if needed. Palliative care team assist with deciding goals of therapy. Patient may have suffered anoxic brain injury. However he is noted slowly improving. In view of some improvement in neurologic status, had family meeting and they have decided to make him full CODE STATUS. Patient may still have significant hypoxic brain injury though he has shown some signs of neurologic recovery. Mother had a meeting with palliative care 08/25/16 to discuss goals of care. Patient improved. Family will help patient to get into rehab. Patient is more awake and alert. Code status: FULL CODE Patient improved. satting well on room air. Finished course of abx. Ambulating with minimal help. need PT as OP, prescription written . Counselled extensively regarding illicit drug use. has a supportive family , will go to rehab. Patient was dc in stable condition Pt Condition on Discharge: Stable Discharge Disposition: Discharge Home Discharge Time: > 30 minutes Discharge Instructions DIET: Follow Instructions for: As Tolerated, No Restrictions (encourage PO hydration. Stop illicit drug use. Go to rehab ) Activities you can perform: Regular-No Restrictions Other Activity Instructions: fall precautions Follow up Referrals: Nephrology - 3-5 Days PCP Follow-up - 3-5 Days with Libby Schultz MD Medication Profile: Unable to Obtain Active Prescriptions or Reported Meds Ashley Trujillo MD August 27, 2016 13:17
--- NOTE | 2016-08-27 14:19 | HHI.PYPN ---
Subjective Remarks Patient was seen today for psychiatric evaluation, patient was found, calm, cooperative and pleasant. Patient is now oriented 3, he knows that he is at [facility], he knows the date, he knows the reason he is in the hospital. Patient is logical, coherent and relevant. No agitation, no aggressive behavior present. Patient says that he is motivated to go to a rehabilitation program after this hospitalization, as his mother has been suggesting. He reports good mood, he denies depressive symptoms, he denies anxiety, he denies perceptual disturbances, he denies suicidal and homicidal ideation. Patient is insightful about his significant use of drugs, about the importance of quitting to avoid health deterioration. Review of Systems Constitutional: DENIES: Diaphoretic episodes, Fatigue, Fever, Weight gain, Weight loss, Chills, Dizziness, Change in appetite, Night Sweats Endocrine: DENIES: Heat/cold intolerance, Polydipsia, Polyuria, Polyphagia Eyes: DENIES: Blurred vision, Diplopia, Eye inflammation, Eye pain, Vision loss , Photosensitivity, Double Vision Ears, nose, mouth, throat: DENIES: Tinnitus, Hearing loss, Vertigo, Nasal discharge, Oral lesions, Throat pain, Hoarseness, Ear Pain, Running Nose, Epistaxis, Sinus Pain, Toothache, Odynophagia Respiratory: DENIES: Apneas, Cough, Snoring, Wheezing, Hemoptysis, Sputum production, Shortness of breath Cardiovascular: DENIES: Chest pain, Palpitations, Syncope, Dyspnea on Exertion , PND, Lower Extremity Edema, Orthopnea, Claudication Gastrointestinal: DENIES: Abdominal pain, Black stools, Bloody stools, Constipation, Diarrhea, Nausea, Vomiting, Difficulty Swallowing, Anorexia Genitourinary: DENIES: Sexual dysfunction, Urinary frequency, Urinary incontinence, Urgency, Hematuria, Dysuria, Nocturia, Penile Discharge, Testicular Pain, Testicular Swelling Musculoskeletal: DENIES: Joint pain, Muscle aches, Stiffness, Joint Swelling, Back pain, Neck pain Integumentary: DENIES: Abnormal pigmentation, Nail changes, Pruritus, Rash Hematologic/lymphatic: DENIES: Bruising, Lymphadenopathy Neurologic: DENIES: Abnormal gait, Headache, Localized weakness, Paresthesias, Seizures, Speech Problems, Tremor, Poor Balance Objective Alert: Yes [place]: Person, Place, Date, Situation Mood: Calm Affect: Euthymic Memory Intact: Immediate, Recent, Remote Hallucinations: Other (he denies) Delusions: No Delusion Type: Other (no illicited ) Suicidal: Ideation (he denies) Homicidal: Ideation (he denies) Insight/Judgment Improved Labs Test 08/27/16 06:38 Sodium Level 142 MEQ/L Potassium Level 3.7 MEQ/L Chloride Level 111 MEQ/L Carbon Dioxide Level 20.1 MEQ/L Anion Gap 11 MEQ/L Blood Urea Nitrogen 86 MG/DL Creatinine 3.24 MG/DL Estimat Glomerular Filtration 22 ML/MIN Rate Random Glucose 113 MG/DL Calcium Level 8.0 MG/DL Phosphorus Level 4.0 MG/DL Total Creatine Kinase 950 U/L Creatine Kinase MB 16.1 NG/ML Creatine Kinase MB % 1.7 % Albumin 2.3 GM/DL Date/Time Procedure Status Source Growth 08/23/16 12:50 Gram Stain - Final Complete Sputum Endotracheal 08/23/16 12:50 Sputum Culture - Final Complete Sputum Endotracheal HEAVY GROWTH NORMAL RESPIRATORY TARA Vitals/IOs Vital Signs Date Time Temp Pulse Resp B/P Pulse Ox O2 Delivery O2 Flow Rate FiO2 08/27/16 12:00 98.5 99 18 135/99 94 08/26/16 21:48 21 08/25/16 08:15 Nasal Cannula 3.00 Intake and Output 08/26/16 08/26/16 08/26/16 07:59 15:59 23:59 Intake Total 1220 ml 678 ml Output Total 750 ml 1000 ml Balance 470 ml 678 ml -1000 ml Assessment & Plan Problem List: (1) Delirium due to another medical condition Assessment & Plan: Today on psychiatric evaluation the patient does not present any evidence of acute, concerning significant, or objective of subjective depressive symptoms, anxiety, kaushik or psychosis. Patient denies suicidal or homicidal ideation, he denies visual and auditory hallucinations. Patient seems to be insightful about his continues drugs use, motivated to engage in a rehabilitation program. His mother at bedside feels safe with discharge. Extensive support, motivation psycho education provided. No psychotropics recommended at this time. ICD Code: F05 Assessment & Plan Estimated LOS: days Justification for Cont. Inpt. Patient does not meet criteria for psychiatric admission at this time. Ez Jerry MD August 27, 2016 14:19
[2016-08-28 00:52] VITALS: BP 172/90; PULSE 95; RESP 17; TEMP 98.5; O2SAT 95
[2016-08-28] MEDS: CHLORHEXIDINE GLUCONATE 2 % 1 PACK (2 CLOTHS) TOP SCH (03:16)
[2016-08-28 05:28] VITALS: BP 165/93; PULSE 94; RESP 18; TEMP 98.4; O2SAT 96
[2016-08-28] MEDS: ACETAMINOPHEN 500 MG CPLT PO PRN (05:54)
[2016-08-28 07:17] VITALS: RESP 18
[2016-08-28] MEDS: CHLORHEXIDINE 0.12% (ORAL KIT) 15 ML CUP MT SCH (08:00)
[2016-08-28] MEDS: RESP: ALBUTEROL 2.5 MG/IPRATROPIUM 0.5 MG NEB (SCH) NEB (08:00)
[2016-08-28] MEDS: MULTIVITAMIN TAB OG-TUBE SCH (09:00)
[2016-08-28] MEDS: HEPARIN SODIUM - SQ 10,000 UNITS/ML VIAL SQ SCH (09:00)
[2016-08-28] MEDS: FOLIC ACID 1 MG TAB OG-TUBE SCH (09:00)
[2016-08-28] MEDS: FAMOTIDINE 20 MG TAB OG-TUBE SCH (09:00)
[2016-08-28] MEDS: SODIUM CHLORIDE 0.9% FLUSH 10 ML FLUSH SCH (09:00)
[2016-08-28] MEDS: THIAMINE INJ 100 MG in SODIUM CHLORIDE 0.9% INJ 100 ML IV SCH (09:00)
[2016-08-28] MEDS: QUEtiapine FUMARATE 25 MG TAB PO SCH (09:00)
[2016-08-28] MEDS: CALCIUM ACETATE 667 MG CAP PO SCH (09:00)
[2016-08-28] MEDS: LACTULOSE SYRUP 20 GM/30 ML CUP OG-TUBE SCH (09:00)
[2016-08-28] MEDS: SODIUM CHLOR 0.45% 1000 ML INJ 1,000 ML IV SCH (09:38)
== END 2016-08-28 11:26 | disposition home or self-care (01) | DRG 870 ==
LOC: NEPE 17:32 → NEDA 19:04 → HIMN 21:40 → N05B 08-26 10:43
PROVIDERS: ADMIT Hospitalist; ATTEND Hospitalist
PROC: 5A1955Z Respiratory Ventilation, Greater than 96 Consecutive Hours (ICD-10-PCS; principal; 2016-08-15)
PROC: 0BH17EZ Insertion of Endotracheal Airway into Trachea, Via Natural or Artificial Opening (ICD-10-PCS; 2016-08-15)
PROC: 009U3ZX Drainage of Spinal Canal, Percutaneous Approach, Diagnostic (ICD-10-PCS; 2016-08-15)
DX: A41.9 Sepsis, unspecified organism (principal); J96.01 Acute respiratory failure with hypoxia; I21.4 Non-ST elevation (NSTEMI) myocardial infarction; J69.0 Pneumonitis due to inhalation of food and vomit; G92 Toxic encephalopathy; G93.1 Anoxic brain damage, not elsewhere classified; E72.20 Disorder of urea cycle metabolism, unspecified; E87.2 Acidosis; N17.9 Acute kidney failure, unspecified; M62.82 Rhabdomyolysis; R18.8 Other ascites; F11.20 Opioid dependence, uncomplicated; F15.20 Other stimulant dependence, uncomplicated; E87.0 Hyperosmolality and hypernatremia; I82.613 Acute embolism and thrombosis of superficial veins of upper extremity, bilateral; F05 Delirium due to known physiological condition; I95.9 Hypotension, unspecified; R65.20 Severe sepsis without septic shock; E87.5 Hyperkalemia; J10.1 Influenza due to other identified influenza virus with other respiratory manifestations; E16.2 Hypoglycemia, unspecified; E86.0 Dehydration; I34.0 Nonrheumatic mitral (valve) insufficiency; K80.20 Calculus of gallbladder without cholecystitis without obstruction; Z72.0 Tobacco use; T40.1X1A Poisoning by heroin, accidental (unintentional), initial encounter; R40.2432 Glasgow coma scale score 3-8, at arrival to emergency department; R74.0 Nonspecific elevation of levels of transaminase and lactic acid dehydrogenase [LDH]; R19.7 Diarrhea, unspecified; F12.20 Cannabis dependence, uncomplicated; Z59.0 Homelessness
CPT/HCPCS: 31500; 36600; 51702; 70450; 70544; 70547; 70551; 71010; 74000; 76705; 76937; 80048; 80053; 80069; 80074; 80076; 80307; 81001; 82040; 82140; 82550; 82552; 82805; 82945; 83605; 83690; 83735; 84100; 84132; 84145; 84157; 84443; 84484; 85007; 85025; 85027; 85610; 85730; 86403; 86703; 87040; 87070; 87086; 87205; 87529; 87641; 87804; 89051; 93005; 93306; 93970; 94002; 94003; 94640; 94664; 95819; 96374; J0133; J0330; J0692; J0696; J1630; J1644; J2060; J2250; J2405; J2543; J3010; J3370; J3411; J7030; J7040; J7050; J7070; J7613

== ENCOUNTER 2016-08-29 19:44 | Emergency (ER) | payer OTHER ==
[~2016-08-29] VITALS: Ht 182.9 cm; Wt 88.0 kg
[2016-08-29 19:48] VITALS: BP 158/91; PULSE 88; RESP 15; TEMP 98.8; O2SAT 99
--- NOTE | 2016-08-29 21:49 | PD ---
HPI Chief Complaint: Edema Time Seen by Provider: 21:48 Travel History International Travel<30 days: No Contact w/Intl Traveler<30days: No Traveled to known affect area: No History of Present Illness HPI 36-year-old male with history of IVDA presents to the ED for evaluation of 1 week history of pain and swelling of the right lower extremity. No worse with He endorses chills, has not measured a fever at home. He denies chest pain, palpitations, shortness of breath, decreased appetite, nausea, vomiting, dysuria. Patient states he was recently hospitalized following overdose and symptoms have been present since then. No treatment attempted at home. 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) Tetanus Vaccination: > 5 Years Influenza Vaccination: No Past Surgical History Other Surgery: Yes (TESTICULAR TORSION A CHILD) Social History Alcohol Use: Yes (OCC) Tobacco Use: Yes (A FEW CIG PER DAY) Substance Use: Yes (HEROIN,) Allergies-Medications (Allergen,Severity, Reaction): Coded Allergies: No Known Allergies (Verified , 08/29/16) Reported Meds & Prescriptions Reported Meds & Active Scripts Active Active Prescriptions or Reported Medications Unobtainable Review of Systems Except as stated in HPI: all other systems reviewed are Neg Physical Exam Narrative GENERAL: Well-nourished, well-developed white male in no acute distress. SKIN: Focused skin assessment warm/dry. HEAD: Normocephalic. EYES: No scleral icterus. No injection or drainage. NECK: Supple, trachea midline. No JVD or lymphadenopathy. CARDIOVASCULAR: Regular rate and rhythm without murmurs, gallops, or rubs. 2+ DP and radial pulses bilaterally. RESPIRATORY: Breath sounds clear and equal bilaterally. No accessory muscle use. GASTROINTESTINAL: Abdomen soft, non-tender, nondistended. Active bowel sounds. MUSCULOSKELETAL: No cyanosis. FOCUSED RIGHT LOWER EXTREMITY EXAM: 2+ DP pulse. Homans sign positive. There is tender, 2+ pitting edema to the mid thigh. Compartments are soft. Patient maintains full, active, painless range of motion of the lower extremity. Cap refill less than 2 seconds. Sensation intact to light touch distally. BACK: Nontender without obvious deformity. No CVA tenderness. Data Data Last Documented VS Vital Signs Date Time Temp Pulse Resp B/P Pulse Ox O2 Delivery O2 Flow Rate FiO2 5/11/17 19:48 98.8 88 15 158/91 99 Room Air Orders Basic Metabolic Panel (Bmp) (08/29/16 22:00) Complete Blood Count With Diff (08/29/16 22:00) Prothrombin Time / Inr (Pt) (08/29/16 22:00) Act Partial Throm Time (Ptt) (08/29/16 22:00) Iv Access Insert/Monitor (08/29/16 22:00) Ecg Monitoring (08/29/16:00) Oximetry (08/29/16 22:00) Sodium Chloride 0.9% Flush (Ns Flush) (08/29/16 22:00) Us Leg Venous Doppler (08/29/16:00) [facility] Medical Decision Making Medical Screen Exam Complete: Yes Emergency Medical Condition: Yes Differential Diagnosis DVT versus Sanches cyst versus hepatitis versus dependent edema versus rhabdomyolysis versus other Narrative Course 36-year-old male with history of IVDA presents to the ED for evaluation of 1 week history of pain and swelling of the right lower extremity. He endorses chills, has not measured a fever at home. He denies chest pain, palpitations, shortness of breath, decreased appetite, nausea, vomiting, dysuria. Patient states he was recently hospitalized following overdose and symptoms have been present since then. No treatment attempted at home. Vitals reviewed. Physical exam reveals a nontoxic appearing white male in NAD. There is 2+, tender pitting edema to the mid thigh of the right lower extremity. Homans sign positive. Compartments soft. Patient retains full, active, painless ROM of the extremity. Neurovascularly intact. IV was established. Patient placed on monitoring. Patient signed out to Dr. García with lab work and ultrasound of the extremity pending. Please see his note for disposition. Scripts Unable to Obtain Active Prescriptions or Reported Meds Josie Beyer August 29, 2016 21:48
[2016-08-29] MEDS ORDERED: SODIUM CHLORIDE 0.9% FLUSH 10 ML FLUSH IV FLUSH PRN (22:00)
[2016-08-29 22:40] LABS: AUTOMATED NEUTROPHIL # 7.8 TH/MM3 (1.8-7.7); BASOPHIL # 0.1 TH/MM3 (0-0.2); BASOPHIL % 0.6 % (0.0-2.0); EOSINOPHIL % 8.1 % (0.0-4.0); HEMATOCRIT 28.8 % (39.0-51.0); LYMPHOCYTE # 2.3 TH/MM3 (1.0-4.8); MEAN CELL VOLUME 80.1 FL (80.0-100.0); MEAN CORPUSCULAR HEMOGLOBIN 26.8 PG (27.0-34.0); MEAN CORPUSCULAR HGB CONC 33.4 % (32.0-36.0); MONO % 8.8 % (0.0-8.0); NEUT % 63.5 % (16.0-70.0); PLATELET COUNT 416 TH/MM3 (150-450); WHITE BLOOD COUNT 12.3 TH/MM3 (4.0-11.0)
[2016-08-29 22:41] LABS: HEMO FLAGS AUTO DIFF
[2016-08-29 22:53] LABS: BICARBONATE 23.6 MEQ/L (21.0-32.0); POTASSIUM 3.7 MEQ/L (3.5-5.1)
[2016-08-29 23:05] LABS: APTT (PATIENT) 28.9 SEC (24.3-30.1); INTERNATIONAL NORMALIZED RATIO 1.1 RATIO
[2016-08-29 23:13] LABS: BANDS 1 % (0-6); BASOPHILS 2 % (0-2); EOSINOPHILS 5 % (0-4); MYELOCYTES 1 % (0-0); NEUTROPHIL # MANUAL DIFF 8.7 TH/MM3 (1.8-7.7); POLYS (SEG NEUTROPHILS) 69 % (16-70); WBC DIFF SAMPLE 100
[2016-08-29 23:14] LABS: SCAN/DIFF FINAL DIFF MANUAL
[2016-08-29 23:15] LABS: ACANTHOCYTES OCC (NORMAL); PLATELET ESTIMATE SMEAR HIGH (NORMAL); PLATELET MORPHOLOGY NORMAL (NORMAL)
[2016-08-29] MEDS ORDERED: MORPHINE SULFATE 4 MG/ML INJ IV PUSH ONE (23:30)
[2016-08-29] MEDS ORDERED: ONDANSETRON HCL 4 MG/2 ML VIAL IV PUSH ONE (23:30)
--- NOTE | 2016-08-29 23:48 | PD ---
Physical Exam Narrative Patient was seen by my assistant professor of economics and signed out to me. Patient has history of chronic kidney disease. Patient states that he has been falling down on the right leg several times recently. Data Data Last Documented VS Vital Signs Date Time Temp Pulse Resp B/P Pulse Ox O2 Delivery O2 Flow Rate FiO2 08/29/16 19:48 98.8 88 15 158/91 99 Room Air Orders Basic Metabolic Panel (Bmp) (08/29/16 22:00) Complete Blood Count With Diff (08/29/16 22:00) Prothrombin Time / Inr (Pt) (08/29/16 22:00) Act Partial Throm Time (Ptt) (08/29/16 22:00) Iv Access Insert/Monitor (08/29/16 22:00) Ecg Monitoring (08/29/16 22:00) Oximetry (08/29/16 22:00) Sodium Chloride 0.9% Flush (Ns Flush) (08/29/16 22:00) Us Leg Venous Doppler (08/29/16 22:00) Morphine Inj (Morphine Inj) (08/29/16 23:30) Ondansetron Inj (Zofran Inj) (08/29/16 23:30) Labs Laboratory Tests Test 08/29/16 22:23 White Blood Count 12.3 TH/MM3 Red Blood Count 3.60 MIL/MM3 Hemoglobin 9.6 GM/DL Hematocrit 28.8 % Mean Corpuscular Volume 80.1 FL Mean Corpuscular Hemoglobin 26.8 PG Mean Corpuscular Hemoglobin 33.4 % Concent Red Cell Distribution Width 14.0 % Platelet Count 416 TH/MM3 Mean Platelet Volume 8.3 FL Neutrophils (%) (Auto) 63.5 % Lymphocytes (%) (Auto) 19.0 % Monocytes (%) (Auto) 8.8 % Eosinophils (%) (Auto) 8.1 % Basophils (%) (Auto) 0.6 % Neutrophils # (Auto) 7.8 TH/MM3 Lymphocytes # (Auto) 2.3 TH/MM3 Monocytes # (Auto) 1.1 TH/MM3 Eosinophils # (Auto) 1.0 TH/MM3 Basophils # (Auto) 0.1 TH/MM3 CBC Comment AUTO DIFF Differential Total Cells 100 Counted Neutrophils % (Manual) 69 % Band Neutrophils % 1 % Lymphocytes % 16 % Monocytes % 6 % Eosinophils % 5 % Basophils % 2 % Neutrophils # (Manual) 8.7 TH/MM3 Myelocytes 1 % Differential Comment FINAL DIFF MANUAL Platelet Estimate HIGH Platelet Morphology Comment NORMAL Acanthocytes OCC Prothrombin Time 12.0 SEC Prothromb Time International 1.1 RATIO Ratio Activated Partial 28.9 SEC Thromboplast Time Sodium Level 141 MEQ/L Potassium Level 3.7 MEQ/L Chloride Level 109 MEQ/L Carbon Dioxide Level 23.6 MEQ/L Anion Gap 8 MEQ/L Blood Urea Nitrogen 48 MG/DL Creatinine 2.35 MG/DL Estimat Glomerular Filtration 31 ML/MIN Rate Random Glucose 126 MG/DL Calcium Level 8.5 MG/DL [facility] Supervised Visit with NELI: Yes Interpretation(s) 23:48 PM. CBC WBC 12.3. Hemoglobin 9.6 hematocrit 28.8. Normal differential. BUN 48. Creatinine 2.35. 12:31 AM. Last Impressions Lower Extremity Ultrasound 08/29/16 2200 Signed Impressions: Service Date/Time: August 23:46 - CONCLUSION: No evidence of DVT. Sanju Sharp MD Diagnosis Primary Impression: Contusion of right leg Qualified Code: S80.11XA - Contusion of right leg, initial encounter Patient Instructions: General Instructions Additional Instruction: Robaxin as needed for pain. Follow-up with personal physician and orthopedist if persistent problem. Return if worse. Med/Other Pt SpecificInfo: Prescription(s) given Scripts Methocarbamol (Robaxin)750 Mg Vkr466 Mg PO QID #40 TAB Prov:Juliano García MD 08/30/16 Disposition: 01 DISCHARGE HOME Condition: Stable Juliano García MD August 29, 2016 23:48
--- NOTE | 2016-08-30 00:19 | RADRPT ---
EXAM DATE/TIME: 08/29/2016 23:46 [facility] COMPARISON: No previous studies available for comparison. INDICATIONS : Right leg edema. MEDICAL HISTORY : Renal failure. Substance use. SURGICAL HISTORY : Testicular torsion as child. ENCOUNTER: Subsequent ACUITY: 1 week PAIN SCORE: 10/10 LOCATION: Right leg. TECHNIQUE: Venous ultrasound of the leg was performed from the inguinal ligament to the proximal calf. Real-collins e, color Doppler and spectral tracing, compression and augmentation techniques were used. FINDINGS: There is normal compressibility of the deep venous system from the inguinal region to the proximal ca lf. No echogenic clot is seen in the lumen of the common femoral, femoral, popliteal, and posterior tibial veins. There is a normal response of the venous system to proximal and distal augmentation an d respiration. There is some edema in the subcutaneous soft tissues of the calf. A few benign-appeari ng lymph nodes are noted in the right groin. CONCLUSION: No evidence of DVT. Sanju Sharp MD on August 30, 2016 at 0:17 Board Certified Radiologist. This report was verified electronically.
[2016-08-30] MEDS ORDERED: ROBA750T PO (00:40)
== END 2016-08-30 01:03 | disposition home or self-care (01) ==
LOC: NEPC 19:44
DX: S80.11XA Contusion of right lower leg, initial encounter (principal); N18.9 Chronic kidney disease, unspecified; F11.20 Opioid dependence, uncomplicated; Z72.0 Tobacco use; X58.XXXA Exposure to other specified factors, initial encounter
CPT/HCPCS: 80048; 85007; 85027; 85610; 85730; 93971; 96374; 96375; 99284; J2270; J2405

== ENCOUNTER 2016-09-02 20:55 | Emergency (ER) | payer OTHER ==
[~2016-09-02] VITALS: Ht 182.9 cm; Wt 86.0 kg
[~2016-09-02 20:55] MED LIST: ROBA750T PO
[2016-09-02 20:57] VITALS: BP 162/91; PULSE 99; RESP 16; TEMP 100; O2SAT 97
[2016-09-03] MEDS ORDERED: MORPHINE SULFATE 4 MG/ML INJ IV PUSH ONE (00:15)
[2016-09-03 00:42] LABS: AUTOMATED NEUTROPHIL # 4.7 TH/MM3 (1.8-7.7); BASOPHIL # 0.1 TH/MM3 (0-0.2); BASOPHIL % 1.1 % (0.0-2.0); EOSINOPHIL # 0.7 TH/MM3 (0-0.4); EOSINOPHIL % 8.4 % (0.0-4.0); HEMATOCRIT 29.3 % (39.0-51.0); HEMO FLAGS DIFF FINAL; LYMPH % 24.8 % (9.0-44.0); MEAN CELL VOLUME 80.1 FL (80.0-100.0); MEAN CORPUSCULAR HEMOGLOBIN 27.3 PG (27.0-34.0); MEAN CORPUSCULAR HGB CONC 34.1 % (32.0-36.0); MONO % 8.4 % (0.0-8.0); NEUT % 57.3 % (16.0-70.0); PLATELET COUNT 429 TH/MM3 (150-450); RED BLOOD COUNT 3.66 MIL/MM3 (4.50-5.90); RED CELL DISTRIBUTION WIDTH 14.6 % (11.6-17.2); WHITE BLOOD COUNT 8.2 TH/MM3 (4.0-11.0)
--- NOTE | 2016-09-03 00:45 | PD ---
HPI Chief Complaint: Edema Time Seen by Provider: 23:58 Travel History International Travel<30 days: No Contact w/Intl Traveler<30days: No Traveled to known affect area: No History of Present Illness HPI Patient is a 36 year old male who comes in complaining of pain and swelling to his right leg. He was discharged from the hospital a week ago after being admitted for respiratory failure secondary to opiate overdose with rhabdo and JUAN M. He says his leg has been swollen since then and has been getting worse. He complains of pain to the leg as well as to his right hip. He says he occasionally has SOB and tightness in his chest. He denies any new injuries. He says he has not been injecting himself since leaving the hospital. He denies any fever or chills. 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) Tetanus Vaccination: Unknown Influenza Vaccination: No Past Surgical History Other Surgery: Yes (TESTICULAR TORSION A CHILD) Social History Alcohol Use: Yes (OCC) Tobacco Use: Yes (A FEW CIG PER DAY) Substance Use: Yes (HEROIN,) Allergies-Medications (Allergen,Severity, Reaction): Coded Allergies: No Known Allergies (Verified , 09/02/16) Reported Meds & Prescriptions Reported Meds & Active Scripts Active Robaxin (Methocarbamol) 750 Mg Tab 750 Mg PO QID Review of Systems Except as stated in HPI: all other systems reviewed are Neg General / Constitutional: No: Fever, Chills HENT: No: Headaches, Lightheadedness Cardiovascular: Positive: Chest Pain or Discomfort Respiratory: Positive: Shortness of Breath Gastrointestinal: No: Nausea, Vomiting Musculoskeletal: Positive: Edema, Pain Skin: No Rash, No Change in Pigmentation Neurologic: No: Weakness, Dizziness Physical Exam Narrative GENERAL: Awake and alert, in no acute distress. SKIN: Focused skin assessment warm/dry. HEAD: Atraumatic. Normocephalic. EYES: Pupils equal and round. No scleral icterus. ENT: Mucous membranes pink and moist. NECK: Trachea midline. No JVD. CARDIOVASCULAR: Regular rate and rhythm. No murmur appreciated. RESPIRATORY: No accessory muscle use. Clear to auscultation. Breath sounds equal bilaterally. GASTROINTESTINAL: Abdomen soft, non-tender, nondistended. MUSCULOSKELETAL: No obvious deformities. No clubbing. No cyanosis. Large edema of the entire right leg, right leg is much larger than the left. Tender to palpation of the right hip. NEUROLOGICAL: Awake and alert. No obvious cranial nerve deficits. Motor grossly within normal limits. Normal speech. PSYCHIATRIC: Appropriate mood and affect; insight and judgment normal. Data Data Last Documented VS Vital Signs Date Time Temp Pulse Resp B/P Pulse Ox O2 Delivery O2 Flow Rate FiO2 09/03/16 02:00 98 18 155/80 96 Room Air 09/02/16 20:57 100.0 Orders Complete Blood Count With Diff (09/03/16 00:05) Comprehensive Metabolic Panel (09/03/16 00:05) Act Partial Throm Time (Ptt) (09/03/16 00:05) Prothrombin Time / Inr (Pt) (09/03/16 00:05) Iv Access Insert/Monitor (09/03/16 00:05) Us Leg Venous Doppler (09/03/16 ) Morphine Inj (Morphine Inj) (09/03/16 00:15) Hip, Uni(Ap&Lat) W Ap Pelvis (09/03/16 ) Cta Runoff W Iv Contrast W 3d (09/03/16 ) Iohexol 350 Inj (Omnipaque 350 Inj) (09/03/16 02:04) Labs Laboratory Tests Test 09/03/16 00:20 White Blood Count 8.2 TH/MM3 Red Blood Count 3.66 MIL/MM3 Hemoglobin 10.0 GM/DL Hematocrit 29.3 % Mean Corpuscular Volume 80.1 FL Mean Corpuscular Hemoglobin 27.3 PG Mean Corpuscular Hemoglobin 34.1 % Concent Red Cell Distribution Width 14.6 % Platelet Count 429 TH/MM3 Mean Platelet Volume 7.8 FL Neutrophils (%) (Auto) 57.3 % Lymphocytes (%) (Auto) 24.8 % Monocytes (%) (Auto) 8.4 % Eosinophils (%) (Auto) 8.4 % Basophils (%) (Auto) 1.1 % Neutrophils # (Auto) 4.7 TH/MM3 Lymphocytes # (Auto) 2.0 TH/MM3 Monocytes # (Auto) 0.7 TH/MM3 Eosinophils # (Auto) 0.7 TH/MM3 Basophils # (Auto) 0.1 TH/MM3 CBC Comment DIFF FINAL Differential Comment Prothrombin Time 11.4 SEC Prothromb Time International 1.0 RATIO Ratio Activated Partial 29.0 SEC Thromboplast Time Sodium Level 141 MEQ/L Potassium Level 4.6 MEQ/L Chloride Level 107 MEQ/L Carbon Dioxide Level 27.6 MEQ/L Anion Gap 6 MEQ/L Blood Urea Nitrogen 19 MG/DL Creatinine 1.50 MG/DL Estimat Glomerular Filtration 53 ML/MIN Rate Random Glucose 103 MG/DL Calcium Level 9.4 MG/DL Total Bilirubin 0.4 MG/DL Aspartate Amino Transf 27 U/L (AST/SGOT) Alanine Aminotransferase 63 U/L (ALT/SGPT) Alkaline Phosphatase 71 U/L Total Protein 8.1 GM/DL Albumin 3.8 GM/DL [facility] Medical Decision Making Medical Screen Exam Complete: Yes Emergency Medical Condition: Yes Medical Record Reviewed: Yes Differential Diagnosis DVT versus hip fracture versus kidney failure Narrative Course Patient is a 36-year-old male comes in complaining of pain and swelling to his right leg. Exam shows large edema of the right leg. IV established, labs sent. Labs show creatinine of 1.5, which is improved from when he was here previously. X-ray of the hip performed shows no acute abnormalities. Doppler ultrasound performed of the right leg shows no evidence of blood clot. CTA with runoff performed of the leg shows no acute abnormalities. Patient given morphine for pain. He is resting comfortably. Patient advised to use compression on his leg. Advised to keep his leg elevated as much as possible. Given a prescription for a few Lortabs. Advised to follow-up with a primary care doctor. Advised to return to the ED as needed for any worsening symptoms. Diagnosis Primary Impression: Edema Qualified Code: R60.0 - Localized edema Patient Instructions: General Instructions, Leg Edema (ED) Additional Instructions: Follow up with a primary care physician. Keep your leg elevated. Take pain medicine as needed. Return to the ED as needed for any worsening symptoms. Scripts Hydrocodone-Acetaminophen (Lortab)5-325 Mg Tab1 Tab PO Q6H PRN (PAIN) #10 TAB Ref 0 Prov:Keiko Wilder MD 09/03/16 Disposition: 01 DISCHARGE HOME Condition: Stable Keiko Wilder MD September 03, 2016 00:45
[2016-09-03 00:51] LABS: PROTHROMBIN TIME - PATIENT 11.4 SEC (9.8-11.6)
[2016-09-03 00:59] LABS: ALT (GPT) 63 U/L (12-78); ANION GAP 6 MEQ/L (5-15); AST (GOT) 27 U/L (15-37); BICARBONATE 27.6 MEQ/L (21.0-32.0); BLOOD UREA NITROGEN 19 MG/DL (7-18); CHLORIDE 107 MEQ/L (98-107); GLOMERULAR FILTRATION RATE 53 ML/MIN (>89); POTASSIUM 4.6 MEQ/L (3.5-5.1); SODIUM (NA) 141 MEQ/L (136-145)
[2016-09-03 01:01] LABS: ALKALINE PHOSPHATASE 71 U/L (45-117); TOTAL BILIRUBIN ADULT 0.4 MG/DL (0.2-1.0)
--- NOTE | 2016-09-03 01:06 | RADRPT ---
EXAM DATE/TIME: 09/03/2016 00:36 [facility] COMPARISON: No previous studies available for comparison. INDICATIONS : Right hip pain and swelling from unknown injury. MEDICAL HISTORY : Renal failure. Substance use. SURGICAL HISTORY : None. ENCOUNTER: [facility] ACUITY: 1 week PAIN SCORE: 10/10 LOCATION: Right hip FINDINGS: Examination of the right hip was performed with AP Pelvis. The primary and secondary trabecular garret zheng of the femoral neck is intact. The hip joint is of normal width without significant sclerosis or bony hypertrophy. The acetabulum is grossly intact. CONCLUSION: Unremarkable examination of the right hip. Cruz Velasco MD on September 03, 2016 at 0:52 Board Certified Radiologist. This report was verified electronically.
--- NOTE | 2016-09-03 01:15 | RADRPT ---
EXAM DATE/TIME: 09/03/2016 00:55 [facility] COMPARISON: US LEG RIGHT VENOUS DOPPLER, August 29, 2016, 23:46. INDICATIONS : Right leg swelling. MEDICAL HISTORY : Right leg swelling. Renal failure. Substance abuse. SURGICAL HISTORY : Testicular torsion as child. ENCOUNTER: Subsequent ACUITY: 3 weeks PAIN SCORE: 4/10 LOCATION: Right leg. TECHNIQUE: Venous ultrasound of the leg was performed from the inguinal ligament to the proximal calf. Real-collins e, color Doppler and spectral tracing, compression and augmentation techniques were used. FINDINGS: There is normal compressibility of the deep venous system from the inguinal region to the proximal ca lf. No echogenic clot is seen in the lumen of the common femoral, femoral, popliteal, and posterior tibial veins. There is a normal response of the venous system to proximal and distal augmentation an d respiration. CONCLUSION: Negative exam with no evidence of deep venous thrombosis. Cruz Velasco MD on September 03, 2016 at 1:13 Board Certified Radiologist. This report was verified electronically.
[2016-09-03 02:00] VITALS: BP 155/80; PULSE 98; RESP 18; O2SAT 96
[2016-09-03] MEDS ORDERED: IOHEXOL 350 MG/ML 10 ML VIAL (for RAD DIAG) IV ONE (02:04)
--- NOTE | 2016-09-03 03:59 | RADRPT ---
EXAM DATE/TIME: 09/03/2016 02:02 [facility] COMPARISON: No previous studies available for comparison. INDICATIONS : Right leg pain and swelling. IV CONTRAST: 80 cc Omnipaque 350 (iohexol) IV RADIATION DOSE: 11.82 CTDIvol (mGy) MEDICAL HISTORY : Renal failure. Substance abuse. SURGICAL HISTORY : None. ENCOUNTER: Subsequent ACUITY: 3 weeks PAIN SCALE: 10/10 LOCATION: Right leg. TECHNIQUE: Volumetric scanning was performed using a multi-row detector CT scanner. The data was post processed with a variety of visualization algorithms including full volume maximum intensity projection, multi -planar sliding thin slab reformation, curved planar reformation, and surface rendering techniques. Using automated exposure control and adjustment of the mA and/or kV according to patient size, radiat ion dose was kept as low as reasonably achievable to obtain optimal diagnostic quality images. FINDINGS: ABDOMINAL AORTA: The lumen is smooth without significant narrowing or aneurysmal dilation. The proximal celiac and ware perior mesenteric arteries are patent and normal in diameter. There are solitary renal arteries bila terally without gross abnormality. BIFURCATION: Normal. RIGHT PELVIS: The right common iliac, internal iliac, and external iliac vessels are patent without luminal irregul arity. LEFT PELVIS: The left common iliac, internal iliac, and external iliac vessels are patent and without luminal irre gularity. RIGHT THIGH: The superficial femoral and profunda vessels are patent without luminal irregularity. LEFT THIGH: The superficial femoral and profunda vessels are patent without luminal irregularity. RIGHT KNEE: The distal femoral and popliteal arteries are patent without luminal irregularity. LEFT KNEE: The distal femoral and popliteal arteries are patent without luminal irregularity. RIGHT LEG: The trifurcation is intact. The right leg is diffusely larger than left with diffuse soft tissue natividad a. There are no gas bubbles. LEFT LEG: The trifurcation is intact. The right gluteus musculature is more prominent and indistinct than on the left. There is a subt le ill-defined low attenuation area noted centrally measuring up to 2-3 cm. Consolidation is noted in both lower lobes right greater than left. CONCLUSION: 1. The right gluteus musculature is more prominent and indistinct than the left and there is a subtle ill-defined low attenuation area noted centrally which measures up to approximately 2-3 cm. This cou ld represent a focal infection or hematoma. 2. The right leg is diffusely larger than the left with diffuse edema. 3. Consolidation is noted in both lower lobes right greater than left. 4. The arterial structures are intact. Cruz Velasco MD on September 03, 2016 at 3:50 Board Certified Radiologist. This report was verified electronically.
[2016-09-03] MEDS ORDERED: HYDR-3533 PO (04:27)
== END 2016-09-03 04:45 | disposition home or self-care (01) ==
LOC: NEPC 20:55
DX: R60.0 Localized edema (principal); N19 Unspecified kidney failure; Z72.0 Tobacco use; F11.20 Opioid dependence, uncomplicated
CPT/HCPCS: 73502; 75635; 80053; 85025; 85610; 85730; 93971; 96374; 99284; J2270; Q9967

== ENCOUNTER 2016-10-10 18:18 | Emergency (ER) | payer OTHER ==
[~2016-10-10] VITALS: Ht 185.4 cm; Wt 79.5 kg
[~2016-10-10 18:18] MED LIST changes: +HYDR-3533 PO
[2016-10-10 18:20] VITALS: BP 165/89; PULSE 102; RESP 17; TEMP 98.5; O2SAT 100
--- NOTE | 2016-10-10 18:43 | PD ---
HPI Chief Complaint: Pain: Acute or Chronic Time Seen by Provider: 18:40 Travel History International Travel<30 days: No Contact w/Intl Traveler<30days: No Traveled to known affect area: No History of Present Illness HPI 36-year-old homeless male presents the emergency department complaining of "excruciating pain in his right leg and foot". Patient was last seen here September 02 with similar complaints with edema at that time. Patient had a full workup including ultrasound, CTA,. Patient states he self medicated prior to coming in with Vistaril and Lyrica. He denies fever, chills, or other symptoms. He has no edema in the right leg at this time. He claims his pain is 10 over 10. Patient states she's had chronic pain in his right leg for over a month. It is not worse than normal. He has no known drug allergies. 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) Tetanus Vaccination: Unknown Influenza Vaccination: No ?: Not Past Surgical History Other Surgery: Yes (TESTICULAR TORSION A CHILD) Social History Alcohol Use: Yes (OCC) Tobacco Use: Yes (A FEW CIG PER DAY) Substance Use: Yes (HEROIN,) Allergies-Medications (Allergen,Severity, Reaction): Coded Allergies: No Known Allergies (Verified , 09/02/16) Reported Meds & Prescriptions Reported Meds & Active Scripts Active No Active Prescriptions or Reported Medications Review of Systems Except as stated in HPI: all other systems reviewed are Neg General / Constitutional: No: Fever Eyes: No: Visual changes HENT: No: Headaches Cardiovascular: No: Chest Pain or Discomfort Respiratory: No: Shortness of Breath Gastrointestinal: No: Abdominal Pain Genitourinary: No: Dysuria Musculoskeletal: Positive: Myalgias, Arthralgias, Pain, No: Limited ROM Skin: No Rash Neurologic: No: Weakness Psychiatric: No: Depression Endocrine: No: Polydipsia Hematologic/Lymphatic: No: Easy Bruising Physical Exam Narrative GENERAL: Patient is laying in bed in no acute distress. He was ambulatory to the room without difficulty. SKIN: Warm and dry. Normal color. Normal turgor. No rash. HEAD: Atraumatic. Normocephalic. EYES: Pupils equal and round. No scleral icterus. No injection or drainage. ENT: No nasal bleeding or discharge. Mucous membranes pink and moist. Pharynx is clear. NECK: Trachea midline. Supple. CARDIOVASCULAR: Regular rate and rhythm. RESPIRATORY: No accessory muscle use. Clear to auscultation. Breath sounds equal bilaterally. MUSCULOSKELETAL: Extremities without clubbing, cyanosis, or edema. No obvious deformities. NEUROLOGICAL: Awake and alert. No obvious cranial nerve deficits. Motor grossly within normal limits. Five out of 5 muscle strength in the arms and legs. Normal speech. PSYCHIATRIC: Appropriate mood and affect; insight and judgment normal. Data Data Last Documented VS Vital Signs Date Time Temp Pulse Resp B/P Pulse Ox O2 Delivery O2 Flow Rate FiO2 10/10/16 18:20 98.5 102 17 165/89 100 MDM Medical Decision Making Medical Screen Exam Complete: Yes Emergency Medical Condition: Yes Medical Record Reviewed: Yes Differential Diagnosis Chronic right leg pain. Neuropathic pain. Drug-seeking behavior. Narrative Course A medical screening exam was performed: At the time of evaluation the presenting medical condition was determined not to be of an emergent nature. The patient was given the option of receiving additional care, but declined. Patient was given options for additional community resources from which to obtain care. The Patient Has Been advised to seek medical attention for their presenting complaint. The patient has been advised to return to the ER at any time if an emergent condition develops. Scripts No Active Prescriptions or Reported Meds Condition: John Caceres Oct 10, 2016 18:43
== END 2016-10-10 18:49 | disposition left against medical advice (07) ==
LOC: NEPK 18:18
DX: M79.604 Pain in right leg (principal); M79.671 Pain in right foot; Z72.0 Tobacco use
CPT/HCPCS: 99281

== ENCOUNTER 2017-07-19 12:31 | Emergency (ER) | payer OTHER ==
[~2017-07-19] VITALS: Ht 182.9 cm; Wt 82.0 kg
[2017-07-19 12:34] VITALS: BP 162/89; PULSE 95; RESP 18; TEMP 98.8; O2SAT 96
--- NOTE | 2017-07-19 13:41 | PD ---
HPI Chief Complaint: Psychiatric Symptoms Time Seen by Provider: 13:04 Travel History International Travel<30 days: No Contact w/Intl Traveler<30days: No Traveled to known affect area: No History of Present Illness HPI This patient comes in complaining of feeling suicidal. He does not have a specific plan but has a vague notion. He is a homeless IV drug abuser. He denies any use today. He denies alcohol abuse. Symptoms severity is moderate. Duration one week. No alleviating factors. Depressed feelings are exacerbated by his homelessness and drug abuse. 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) Past Surgical History Other Surgery: Yes (TESTICULAR TORSION A CHILD) Social History Alcohol Use: Yes (OCC) Tobacco Use: Yes (A FEW CIG PER DAY) Substance Use: Yes (HEROIN,) Allergies-Medications (Allergen,Severity, Reaction): Coded Allergies: No Known Allergies (Verified , 09/02/16) Reported Meds & Prescriptions Reported Meds & Active Scripts Active No Active Prescriptions or Reported Medications Review of Systems General / Constitutional: No: Fever Eyes: No: Visual changes HENT: No: Headaches Cardiovascular: No: Chest Pain or Discomfort Respiratory: No: Shortness of Breath Gastrointestinal: No: Abdominal Pain Genitourinary: No: Dysuria Musculoskeletal: No: Pain Skin: No Rash Neurologic: No: Weakness Psychiatric: Positive: Depression, Suicidal Ideations, Substance Abuse Endocrine: No: Polydipsia Hematologic/Lymphatic: No: Easy Bruising Physical Exam Narrative GENERAL: Well-nourished, well-developed patient in no apparent distress. SKIN: Focused skin assessment reveals no rash and nodules. Skin is Warm and dry. He does have visible track m[place]ox HEAD: Atraumatic. Normocephalic. EYES: Pupils equal and round. No scleral icterus. No injection or drainage. ENT: No nasal bleeding or discharge. Mucous membranes pink and moist. NECK: Trachea midline. No JVD. CARDIOVASCULAR: Regular rate and rhythm. No murmur appreciated. RESPIRATORY: No accessory muscle use. Clear to auscultation. Breath sounds equal bilaterally. GASTROINTESTINAL: Abdomen soft, non-tender, nondistended. Hepatic and splenic margins not palpable. MUSCULOSKELETAL: No obvious deformities. No clubbing. No cyanosis. No edema. NEUROLOGICAL: Awake and alert. No obvious cranial nerve deficits. Motor grossly within normal limits. Normal speech. PSYCHIATRIC: Depressed mood and flat affect; insight and judgment poor . Data Data Last Documented VS Vital Signs Date Time Temp Pulse Resp B/P (MAP) Pulse Ox O2 Delivery O2 Flow Rate FiO2 07/19/17 12:34 98.8 95 18 162/89 (113) 96 Orders Orders Complete Blood Count With Diff (07/19/17 13:34) Comprehensive Metabolic Panel (07/19/17 13:34) Thyroid Stimulating Hormone (07/19/17 13:34) Iv Access Insert/Monitor (07/19/17 13:34) Psych Screen (07/19/17 13:34) Drug Screen, Random Urine (07/19/17 13:34) Alcohol (Ethanol) (07/19/17 13:34) Labs Laboratory Tests Test 07/19/17 13:55 07/19/17 14:15 White Blood Count 5.4 TH/MM3 Red Blood Count 5.24 MIL/MM3 Hemoglobin 14.2 GM/DL Hematocrit 42.2 % Mean Corpuscular Volume 80.5 FL Mean Corpuscular Hemoglobin 27.1 PG Mean Corpuscular Hemoglobin Concent 33.6 % Red Cell Distribution Width 13.6 % Platelet Count 230 TH/MM3 Mean Platelet Volume 8.2 FL Neutrophils (%) (Auto) 54.2 % Lymphocytes (%) (Auto) 30.2 % Monocytes (%) (Auto) 11.2 % Eosinophils (%) (Auto) 3.6 % Basophils (%) (Auto) 0.8 % Neutrophils # (Auto) 2.9 TH/MM3 Lymphocytes # (Auto) 1.6 TH/MM3 Monocytes # (Auto) 0.6 TH/MM3 Eosinophils # (Auto) 0.2 TH/MM3 Basophils # (Auto) 0.0 TH/MM3 CBC Comment DIFF FINAL Differential Comment Blood Urea Nitrogen 14 MG/DL Creatinine 0.94 MG/DL Random Glucose 99 MG/DL Total Protein 7.6 GM/DL Albumin 3.8 GM/DL Calcium Level 8.8 MG/DL Alkaline Phosphatase 74 U/L Aspartate Amino Transf (AST/SGOT) 20 U/L Alanine Aminotransferase (ALT/SGPT) 27 U/L Total Bilirubin 0.6 MG/DL Sodium Level 139 MEQ/L Potassium Level 3.9 MEQ/L Chloride Level 107 MEQ/L Carbon Dioxide Level 28.1 MEQ/L Anion Gap 4 MEQ/L Estimat Glomerular Filtration Rate 90 ML/MIN Thyroid Stimulating Hormone 3rd Gen 0.429 uIU/ML Ethyl Alcohol Level LESS THAN 3 MG/DL Urine Opiates Screen NEG Urine Barbiturates Screen NEG Urine Amphetamines Screen NEG Urine Benzodiazepines Screen NEG Urine Cocaine Screen NEG Urine Cannabinoids Screen POS MDM Medical Decision Making Medical Screen Exam Complete: Yes Emergency Medical Condition: Yes Medical Record Reviewed: Yes Differential Diagnosis Suicidal ideation, psychosis, polysubstance abuse, depression Narrative Course I have reviewed the patient's electronic medical record. He was hospitalized August 2016 to the ICU after overdose and required mechanical ventilation I've ordered medical clearance workup to include blood and urine studies. He does not have any specific physical complaints. Have no clinical suspicion of endocarditis. He has no fever. No murmur or chest symptoms. Psych screen has been ordered at his request He is here voluntarily CBC metabolic profile and LFTs are normal TSH normal Tox screen positive for marijuana Patient is is medically stable as I can make him. He is being transferred to psychiatry for psychiatric evaluation. Diagnosis Primary Impression: Suicidal ideations Additional Impressions: IV drug abuse Homelessness Scripts No Active Prescriptions or Reported Rogerio Pimentel MD Jul 19, 2017 13:41
[2017-07-19 14:10] LABS: AUTOMATED NEUTROPHIL # 2.9 TH/MM3 (1.8-7.7); BASOPHIL % 0.8 % (0.0-2.0); EOSINOPHIL # 0.2 TH/MM3 (0-0.4); EOSINOPHIL % 3.6 % (0.0-4.0); HEMATOCRIT 42.2 % (39.0-51.0); HEMOGLOBIN 14.2 GM/DL (13.0-17.0); LYMPH % 30.2 % (9.0-44.0); LYMPHOCYTE # 1.6 TH/MM3 (1.0-4.8); MEAN CELL VOLUME 80.5 FL (80.0-100.0); MEAN CORPUSCULAR HEMOGLOBIN 27.1 PG (27.0-34.0); MEAN CORPUSCULAR HGB CONC 33.6 % (32.0-36.0); MEAN PLATELET VOLUME 8.2 FL (7.0-11.0); MONO % 11.2 % (0.0-8.0); MONOCYTE # 0.6 TH/MM3 (0-0.9); NEUT % 54.2 % (16.0-70.0); PLATELET COUNT 230 TH/MM3 (150-450); RED BLOOD COUNT 5.24 MIL/MM3 (4.50-5.90); RED CELL DISTRIBUTION WIDTH 13.6 % (11.6-17.2); WHITE BLOOD COUNT 5.4 TH/MM3 (4.0-11.0)
[2017-07-19 14:27] LABS: ALBUMIN 3.8 GM/DL (3.4-5.0); ALT (GPT) 27 U/L (12-78); AST (GOT) 20 U/L (15-37); BICARBONATE 28.1 MEQ/L (21.0-32.0); BLOOD UREA NITROGEN 14 MG/DL (7-18); CALCIUM 8.8 MG/DL (8.5-10.1); CHLORIDE 107 MEQ/L (98-107); CREATININE 0.94 MG/DL (0.60-1.30); GLOMERULAR FILTRATION RATE 90 ML/MIN (>89); GLUCOSE,RANDOM 99 MG/DL (74-106); SODIUM (NA) 139 MEQ/L (136-145)
[2017-07-19 14:37] LABS: ALKALINE PHOSPHATASE 74 U/L (45-117); TOTAL BILIRUBIN ADULT 0.6 MG/DL (0.2-1.0); TOTAL PROTEIN 7.6 GM/DL (6.4-8.2)
[2017-07-19 18:08] VITALS: BP 134/70; PULSE 74; RESP 17; TEMP 98.5; O2SAT 100
[2017-07-20 02:26] VITALS: BP 124/68; PULSE 73; RESP 18; TEMP 99.4; O2SAT 98
[2017-07-20 06:16] VITALS: BP 110/70; PULSE 65; RESP 16; TEMP 98.4; O2SAT 99
--- NOTE | 2017-07-20 10:38 | PD ---
Physical Exam Narrative GENERAL: SKIN: Warm and dry. HEAD: Atraumatic. Normocephalic. EYES: Pupils equal and round. No scleral icterus. No injection or drainage. ENT: No nasal bleeding or discharge. Mucous membranes pink and moist. NECK: Trachea midline. No JVD. CARDIOVASCULAR: Regular rate and rhythm. RESPIRATORY: No accessory muscle use. Clear to auscultation. Breath sounds equal bilaterally. GASTROINTESTINAL: Abdomen soft, non-tender, nondistended. MUSCULOSKELETAL: Extremities without clubbing, cyanosis, or edema. No obvious deformities. NEUROLOGICAL: Awake and alert. No obvious cranial nerve deficits. Motor grossly within normal limits. Five out of 5 muscle strength in the arms and legs. Normal speech. PSYCHIATRIC: Appropriate mood and affect; insight and judgment normal. Data Data Last Documented VS Vital Signs Date Time Temp Pulse Resp B/P (MAP) Pulse Ox O2 Delivery O2 Flow Rate FiO2 07/20/17 06:16 98.4 65 16 110/70 (83) 99 07/20/17 02:26 Room Air Orders Orders Complete Blood Count With Diff (07/19/17 13:34) Comprehensive Metabolic Panel (07/19/17 13:34) Thyroid Stimulating Hormone (07/19/17 13:34) Iv Access Insert/Monitor (07/19/17 13:34) Psych Screen (07/19/17 13:34) Drug Screen, Random Urine (07/19/17 13:34) Alcohol (Ethanol) (07/19/17 13:34) Diet Regular Basic (07/19/17 Dinner) Diet Regular Basic (07/20/17 Breakfast) Ed Discharge Order (07/20/17 10:34) Labs Laboratory Tests Test 07/19/17 13:55 07/19/17 14:15 White Blood Count 5.4 TH/MM3 Red Blood Count 5.24 MIL/MM3 Hemoglobin 14.2 GM/DL Hematocrit 42.2 % Mean Corpuscular Volume 80.5 FL Mean Corpuscular Hemoglobin 27.1 PG Mean Corpuscular Hemoglobin Concent 33.6 % Red Cell Distribution Width 13.6 % Platelet Count 230 TH/MM3 Mean Platelet Volume 8.2 FL Neutrophils (%) (Auto) 54.2 % Lymphocytes (%) (Auto) 30.2 % Monocytes (%) (Auto) 11.2 % Eosinophils (%) (Auto) 3.6 % Basophils (%) (Auto) 0.8 % Neutrophils # (Auto) 2.9 TH/MM3 Lymphocytes # (Auto) 1.6 TH/MM3 Monocytes # (Auto) 0.6 TH/MM3 Eosinophils # (Auto) 0.2 TH/MM3 Basophils # (Auto) 0.0 TH/MM3 CBC Comment DIFF FINAL Differential Comment Blood Urea Nitrogen 14 MG/DL Creatinine 0.94 MG/DL Random Glucose 99 MG/DL Total Protein 7.6 GM/DL Albumin 3.8 GM/DL Calcium Level 8.8 MG/DL Alkaline Phosphatase 74 U/L Aspartate Amino Transf (AST/SGOT) 20 U/L Alanine Aminotransferase (ALT/SGPT) 27 U/L Total Bilirubin 0.6 MG/DL Sodium Level 139 MEQ/L Potassium Level 3.9 MEQ/L Chloride Level 107 MEQ/L Carbon Dioxide Level 28.1 MEQ/L Anion Gap 4 MEQ/L Estimat Glomerular Filtration Rate 90 ML/MIN Thyroid Stimulating Hormone 3rd Gen 0.429 uIU/ML Ethyl Alcohol Level LESS THAN 3 MG/DL Urine Opiates Screen NEG Urine Barbiturates Screen NEG Urine Amphetamines Screen NEG Urine Benzodiazepines Screen NEG Urine Cocaine Screen NEG Urine Cannabinoids Screen POS MDM Medical Record Reviewed: Yes Supervised Visit with NELI: No Physician Communication Physician Communication Patient was a voluntary status who was evaluated by the psychiatric services. Patient is being referred for detox services over [place], after psychiatric screening services the patient was deemed not suicidal, or homicidal. No plan and patient accepts and enters into a verbal contract not to harm himself or others if it does have those thoughts the patient is advised to return to the ER for further care. Diagnosis Primary Impression: Suicidal ideations Additional Impressions: IV drug abuse Homelessness Patient Instructions: General Instructions Scripts No Active Prescriptions or Reported Meds Disposition: 01 DISCHARGE HOME Condition: Stable Deni Tucker MD Jul 20, 2017 10:38
== END 2017-07-20 11:04 | disposition home or self-care (01) ==
LOC: NEPD 12:31 → NEPJ 07-20 11:04
DX: R45.851 Suicidal ideations (principal); F19.10 Other psychoactive substance abuse, uncomplicated; F32.9 Major depressive disorder, single episode, unspecified; N19 Unspecified kidney failure; F17.210 Nicotine dependence, cigarettes, uncomplicated; F11.90 Opioid use, unspecified, uncomplicated; Z59.0 Homelessness
CPT/HCPCS: 80053; 80307; 84443; 85025; 99283